=== PATIENT | male | born 1940 | race Caucasian/White ===

== ENCOUNTER 2020-08-03 07:35 | Day surgery (SDC) | payer MEDICARE, OTHER, SELFPAY ==
[2020-07-28 12:14] VITALS: BMI 26.6
--- NOTE | 2020-08-01 14:49 | HO.ANESPROP2 ---
Documented by User: Scarlett Sutton 08/01/20 14:53 HPI - Anesthesia Eval Consult details Narrative: 80yo M for Colonoscopy h/o bilat PE 12/2018 (prothrombin mutation), on xarelto PMFSH Active Problems Active Problems: All Active Problems (Updated 07/28/20 @ 12:12 by Venessa Leos) Pulmonary embolism (Acute) Past Medical History Medical History Bilateral pulmonary embolism GERD (gastroesophageal reflux disease) Heterozygous for prothrombin [id number] mutation Hyperlipidemia Situational anxiety Surgical History Surgical History Hx of cataract extraction Hx of cholecystectomy Hx of colonoscopy Hx of knee surgery Social History Social History Alcohol intake: current Alcohol intake frequency: 3 or more drinks per day Alcohol type: hard liquor Smoking Status: Former smoker Smoking Quit Date: 1984 Use of substances other than those prescribed or required for medical reasons: No Advance Directives: No Advance Directives Information Provided: No Advance Directives on File: No Meds Allergies Allergy/AdvReac Type Severity Reaction Status Date / Time cat dander [cats] Allergy Severe Anaphylaxis Verified 08/03/20 08:13 peanut [PEANUT] Allergy Severe ANAPHYLAXIS Verified 08/03/20 08:13 soy sauce Allergy Severe ANAPHYLAXIS Uncoded 03/10/20 15:08 Home Medications Medication Instructions Recorded Confirmed Type cholecalciferol (vitamin D3) 50 mcg PO DAILY 06/28/20 07/28/20 History [Vitamin D3] glucosamine HCl 1,500 mg PO DAILY 06/28/20 07/28/20 History omega-3 fatty acids [[place] 3 Fish 1,250 mg PO DAILY 06/28/20 07/28/20 History Oil Concentrate] omeprazole magnesium 20 mg PO DAILY 06/28/20 07/28/20 History rivaroxaban [Xarelto] 20 mg PO DAILY 06/28/20 07/28/20 History simvastatin 20 mg PO BEDTIME 06/28/20 07/28/20 History Exam Exam Date and Time: August 01, 2020 1449 Height,Weight and Vital Signs: Height 5 ft 6 in Weight 74.843 kg Pertinent Lab Results Pertinent Lab Results: Laboratory Tests 01/05/21 01/05/21 14:40 14:40 WBC 5.4 Hgb 15.1 Hct 44.8 Plt Count 161 Sodium 142 Potassium 4.2 Chloride 106 Carbon Dioxide 27 BUN 15 Creatinine 0.86 Assessment and Plan Assessment Anesthesia Assessment: Chart Reviewed Documented by User: Gifty Rivera 08/03/20 08:39 [facility] Past Medical History Medical History Bilateral pulmonary embolism GERD (gastroesophageal reflux disease) Heterozygous for prothrombin [id number] mutation Hyperlipidemia Situational anxiety Surgical History Surgical History Hx of cataract extraction Hx of cholecystectomy Hx of colonoscopy Hx of knee surgery Social History Social History Alcohol intake: current Alcohol intake frequency: 3 or more drinks per day Alcohol type: hard liquor Smoking Status: Former smoker Smoking Quit Date: 1984 Use of substances other than those prescribed or required for medical reasons: No Advance Directives: No Advance Directives Information Provided: No Advance Directives on File: No Meds Allergies Allergy/AdvReac Type Severity Reaction Status Date / Time cat dander [cats] Allergy Severe Anaphylaxis Verified 08/03/20 08:13 peanut [PEANUT] Allergy Severe ANAPHYLAXIS Verified 08/03/20 08:13 soy sauce Allergy Severe ANAPHYLAXIS Uncoded 03/10/20 15:08 Home Medications Medication Instructions Recorded Confirmed Type cholecalciferol (vitamin D3) 50 mcg PO DAILY 06/28/20 07/28/20 History [Vitamin D3] glucosamine HCl 1,500 mg PO DAILY 06/28/20 07/28/20 History omega-3 fatty acids [[place] 3 Fish 1,250 mg PO DAILY 06/28/20 07/28/20 History Oil Concentrate] omeprazole magnesium 20 mg PO DAILY 06/28/20 07/28/20 History rivaroxaban [Xarelto] 20 mg PO DAILY 06/28/20 07/28/20 History simvastatin 20 mg PO BEDTIME 06/28/20 07/28/20 History Exam Airway Mallampati Class: II TM Dist: >3cm Neck ROM: Full Assessment and Plan Assessment Anesthesia Assessment: Anesthesia Plan Discussed and Chart Reviewed Final Anesthetic Review NPO: Yes ASA Class: III Final Preanesthetic Review: No Changes in Pt Med Stat, Meds/Allgs Chart Reviewed, Consent Obtained/Reviewed and Anes Risks/Benef Reviewed Patient Risk: Intermediate Procedure Risk: Low Assessment/Block/Sedation in SS: Assess/Block/Sedation-SS Anesthetic Plan Anesthetic Plan: MAC: Disposition: Standard PACU
[2020-08-03 08:11] VITALS: BP 136/84; PULSE 86; RESP 18; TEMP 36.1; O2SAT 96
[2020-08-03] MEDS: Lactated Ringers 1,000 ML 100 ML IVCONT (08:14)
[2020-08-03 09:40] VITALS: BP 113/68; PULSE 62; RESP 15; TEMP 36.9; O2SAT 98
--- NOTE | 2020-08-03 09:41 | PM.OP ---
Brief Operative Note Date of Service: 08/03/20 Pre-op diagnosis: + Cologuard Post-op diagnosis: other (Colon polyp, Diverticulosis) Procedure: Colonoscopy to cecum and TI with snare polypectomy and placement of 1 Resolution clip Surgeon: Orestes Foreman Anesthesia: MAC Estimated blood loss (mL): 3.0 Pathology: other (A. Proximal ascending colon) Condition: stable Disposition: PACU
[2020-08-03 09:55] VITALS: BP 107/77; PULSE 62; RESP 18; TEMP 36.9; O2SAT 100
--- NOTE | 2020-08-03 10:16 | HO.POSTANES ---
Post Anesthesia Evaluation Post Anesthesia Evaluation Vital Signs: Vital Signs Temp Pulse Resp BP Pulse Ox 08/03/20 09:55 98.4 F 62 18 107/77 100 08/03/20 09:40 98.4 F 62 15 113/68 98 08/03/20 08:11 97.0 F 86 18 136/84 96 Anesthesia: Monitored Mental Status: Awake Pain Control: Satisfactory Nausea/Vomiting: None Hydration: Adequate Anesthesia-Related Issues: No Anes. Related Issues
--- NOTE | 2020-08-03 10:26 | OP_ITS ---
SURGEON: Orestes Foreman MD INDICATIONS: Full consent has been obtained from him for this, including risks of bleeding and perforation. PREOPERATIVE DIAGNOSIS: Positive Cologuard test. POSTOPERATIVE DIAGNOSIS: PROCEDURE PERFORMED: Colonoscopy to cecum and terminal ileum with snare polypectomy and placement of a single resolution clip. ESTIMATED BLOOD LOSS: COMPLICATIONS: ANESTHESIA: Monitored anesthesia care. ASSISTANTS: SPECIMENS: POSTOPERATIVE DIAGNOSES: Positive Cologuard test, colon polyps, diverticulosis and internal hemorrhoids. DESCRIPTION OF PROCEDURE: The patient was placed in the left lateral decubitus position. The digital rectal exam revealed no abnormalities. The Olympus video pediatric colonoscope was entered into the rectum and advanced to the cecum with the assistance of abdominal wall pressure. Once in the cecum, I did identify normal-appearing cecal pouch with appendiceal orifice and a normal-appearing ileocecal valve. The terminal ileum was cannulated and appeared normal. The scope was withdrawn back in the colon. The entire cecum and ileocecal valve appeared normal. The scope was slowly withdrawn assessing all mucosal surfaces carefully. Preparation was excellent. In the proximal ascending colon, was an approximately 10 to 12 mm flat, but raised polyp, which was snared and recovered by suction. The polypectomy site appeared clean, without any sign of residual polyp nor bleeding. I did place a single resolution clip on it due to the fact that he has to go back on Xarelto. There was good deployment and good hemostasis. I did not visualize any other polyps, colitis, nor angiodysplasia. There was a mildly diffuse amount of diverticulosis with the majority of it in the sigmoid colon. In the rectum, scope was retroflexed visualizing internal hemorrhoids, but no other pathology. The rectal mucosa appeared normal. The scope was straightened and withdrawn from the patient. He tolerated the procedure well and was returned to the recovery area in stable condition. IMPRESSION: 1. Colon polyp, status post snare polypectomy. 2. Diverticulosis. 3. Internal hemorrhoids. PLAN: The results of the pathology will be checked. Given his age and these findings, I do not think he will need any further screening colonoscopies. He was advised to resume his Xarelto in 24 hours. MD ELIESER Barrett/DORA / [id number]
== END 2020-08-03 10:24 | disposition home or self-care (01) ==
PROVIDERS: PCP Internal Medicine; Visit Provider Internal Medicine
PROC: 0DJD8ZZ Inspection of Lower Intestinal Tract, Via Natural or Artificial Opening Endoscopic (ICD-10-PCS; CPT 45378; principal; 2020-08-03 08:20)
DX: R19.5 Other fecal abnormalities (principal); D12.2 Benign neoplasm of ascending colon; K57.30 Diverticulosis of large intestine without perforation or abscess without bleeding; K64.8 Other hemorrhoids; Z86.711 Personal history of pulmonary embolism; Z79.01 Long term (current) use of anticoagulants
CPT/HCPCS: 45385; 88305

== ENCOUNTER 2020-10-04 10:44 | Outpatient (REF) | payer MEDICARE, OTHER, SELFPAY ==
[2020-10-04 11:40] LABS: Alanine Aminotransferase 12 U/L (0-40); Albumin Level 3.7 g/dL (3.5-5.0); Alkaline Phosphatase 50 U/L (39-117); Aspartate Amino Transferase 22 U/L (5-37); Bilirubin Direct 0.3 mg/dL (0.0-0.5); Bilirubin Total 0.7 mg/dL (0.0-1.0); Cholesterol 155 mg/dL; HDL Cholesterol 54 mg/dL; LDL Cholesterol Calculated 82 mg/dl; Total Protein 6.2 g/dL (6.5-8.0); Triglycerides 99 mg/dL
[2020-10-04 11:58] LABS: Reflex LDLD? No
== END 2020-10-04 10:45 | disposition home or self-care (01) ==
LOC: HO.LNP 10:44
PROVIDERS: PCP Internal Medicine; Visit Provider Internal Medicine
DX: E78.2 Mixed hyperlipidemia (principal)
CPT/HCPCS: 80061; 80076

== ENCOUNTER 2021-03-28 10:33 | Outpatient (REF) | payer MEDICARE, OTHER, SELFPAY ==
[2021-03-28 10:36] LABS: MANUAL DIFF FLAG NO
[2021-03-28 11:11] LABS: Basophils Absolute Auto 0.1 X10*3/uL (0.0-0.2); Basophils Percent Auto 1.1 % (0-2); Eosinophils Absolute Auto 0.2 X10*3/uL (0.0-0.4); Eosinophils Percent Auto 3.4 % (0-4); Hematocrit 44.6 % (42-52); Hemoglobin 14.9 g/dl (14.0-18.0); Imm Gran Abs Auto 0.02 X10*3/uL (0.00-0.03); Imm Gran Pct Auto 0.4 % (0.0-0.4); Lymphocytes Absolute Auto 1.7 X10*3/uL (1.2-4.9); Lymphocytes Percent Auto 31.3 % (20-40); Mean Corpuscular HGB Conc 33.4 g/dl (31.0-36.0); Mean Corpuscular Hemoglobin 32.7 pg (27.0-33.0); Mean Platelet Volume 10.8 fL (9.4-12.4); Monocytes Absolute Auto 0.5 X10*3/uL (0.1-1.2); Neutrophils Absolute Auto 2.9 X10*3/uL (2.0-8.3); Neutrophils Percent Auto 53.8 % (45-73); Platelet Count 177 X10*3/uL (160-400); Red Blood Count 4.55 X10*6/uL (4.60-5.80); White Blood Count 5.3 X10*3/uL (4.8-10.8)
[2021-03-28 11:42] LABS: Appearance Urine CLEAR; Color Urine YELLOW; Glucose Urine UA NEG (NEG); Leukocyte Esterase Urine NEG (NEG); Nitrite Urine NEG (NEG); Specific Gravity - Urine 1.015 (1.005-1.025); Urine Blood NEG (NEG); Urine Ketones 15 MG/DL (NEG); Urine Protein NEG (NEG-TRACE)
[2021-03-28 11:52] LABS: Alanine Aminotransferase 13 U/L (0-40); Albumin Level 3.8 g/dL (3.5-5.0); Alkaline Phosphatase 49 U/L (39-117); Anion Gap 13 (12-20); Aspartate Amino Transferase 26 U/L (5-37); Bilirubin Total 1.5 mg/dL (0.0-1.0); Blood Urea Nitrogen 12 mg/dL (9-16); Calcium 9.1 mg/dL (8.4-10.2); Carbon Dioxide 27 mmol/L (22-29); Chloride 105 mmol/L (96-108); Cholesterol 178 mg/dL; Estimated Glomerular Filt Rate > 60; Glucose Fasting 93 mg/dL (60-99); HDL Cholesterol 77 mg/dL; LDL Cholesterol Calculated 90 mg/dl; Potassium 4.4 mmol/L (3.3-5.1); Sodium 141 mmol/L (135-145); Total Protein 6.3 g/dL (6.5-8.0); Triglycerides 59 mg/dL
[2021-03-28 12:05] LABS: Reflex LDLD? No
[2021-03-28 12:12] LABS: PSA,Total (Free>4and<10) 2.86 ng/mL (0.00-4.00)
== END 2021-03-28 10:34 | disposition home or self-care (01) ==
LOC: HO.LNP 10:33
PROVIDERS: Visit Provider Internal Medicine
DX: E78.2 Mixed hyperlipidemia (principal); R97.20 Elevated prostate specific antigen [PSA]; E55.9 Vitamin D deficiency, unspecified; Z12.5 Encounter for screening for malignant neoplasm of prostate
CPT/HCPCS: 80053; 80061; 81003; 82306; 84153; 85025

== ENCOUNTER 2021-10-12 12:01 | Outpatient (REF) | payer MEDICARE, OTHER, SELFPAY ==
[2021-10-12 12:59] LABS: Alanine Aminotransferase 11 U/L (0-40); Alkaline Phosphatase 51 U/L (39-117); Aspartate Amino Transferase 23 U/L (5-37); Bilirubin Direct 0.4 mg/dL (0.0-0.5); Bilirubin Total 0.8 mg/dL (0.0-1.0); Cholesterol 193 mg/dL; HDL Cholesterol 86 mg/dL; LDL Cholesterol Calculated 95 mg/dl; Total Protein 6.7 g/dL (6.5-8.0); Triglycerides 63 mg/dL
[2021-10-12 13:23] LABS: Reflex LDLD? No
== END 2021-10-12 12:02 | disposition home or self-care (01) ==
LOC: HO.LNP 12:01
PROVIDERS: Visit Provider Internal Medicine
DX: E78.2 Mixed hyperlipidemia (principal)
CPT/HCPCS: 80061; 80076

== ENCOUNTER 2022-04-10 11:13 | Outpatient (REF) | payer MEDICARE, OTHER, SELFPAY ==
[2022-04-10 11:16] LABS: MANUAL DIFF FLAG NO
[2022-04-10 12:06] LABS: Basophils Absolute Auto 0.1 X10*3/uL (0.0-0.2); Basophils Percent Auto 1.5 % (0-2); Eosinophils Absolute Auto 0.2 X10*3/uL (0.0-0.4); Eosinophils Percent Auto 3.8 % (0-4); Hematocrit 45.5 % (42.0-52.0); Hemoglobin 15.5 g/dl (14.0-18.0); Imm Gran Abs Auto 0.01 X10*3/uL (0.00-0.03); Imm Gran Pct Auto 0.3 % (0.0-0.4); Lymphocytes Absolute Auto 1.5 X10*3/uL (1.2-4.9); Lymphocytes Percent Auto 38.8 % (20-40); Mean Corpuscular HGB Conc 34.1 g/dl (31.0-36.0); Mean Corpuscular Hemoglobin 32.4 pg (27.0-33.0); Mean Corpuscular Volume 95.2 fL (80.0-98.0); Mean Platelet Volume 10.4 fL (9.4-12.4); Monocytes Absolute Auto 0.4 X10*3/uL (0.1-1.2); Monocytes Percent Auto 10.7 % (2-11); Neutrophils Absolute Auto 1.8 x10*3/uL (2.0-8.3); Neutrophils Percent Auto 44.9 % (45-73); Platelet Count 189 X10*3/uL (160-400); Red Blood Count 4.78 X10*6/uL (4.60-5.80); Red Cell Distribution Width 12.3 % (11.0-16.0); White Blood Count 3.9 X10*3/uL (4.8-10.8)
[2022-04-10 12:07] LABS: Appearance Urine Clear; Color Urine Yellow; Glucose Urine UA Negative (Negative); Leukocyte Esterase Urine Negative (Negative); Nitrite Urine Negative (Negative); PH 5.5 (5.0-9.0); Urine Blood Negative (Negative); Urine Ketones Negative (Negative); Urine Protein Negative (Neg-Trace)
[2022-04-10 12:12] LABS: Bacteria Urine None Seen (None Seen); Hyaline Casts Urine 0-2 /LPF (0-2); Squamous Epithelial Cell Urine 0-2 /HPF (0-2); WBC Urine 0-5 /HPF (0-5)
[2022-04-10 12:37] LABS: Alanine Aminotransferase 11 U/L (0-40); Alkaline Phosphatase 51 U/L (39-117); Anion Gap 16 (12-20); Aspartate Amino Transferase 28 U/L (5-37); Bilirubin Total 1.2 mg/dL (0.0-1.0); Blood Urea Nitrogen 6 mg/dL (9-16); Calcium 9.2 mg/dL (8.4-10.2); Carbon Dioxide 27 mmol/L (22-29); Chloride 102 mmol/L (96-108); Cholesterol 184 mg/dL; Estimated Glomerular Filt Rate > 60; Glucose Fasting 84 mg/dL (60-99); HDL Cholesterol 80 mg/dL; LDL Cholesterol Calculated 91 mg/dl; Potassium 4.3 mmol/L (3.3-5.1); Sodium 141 mmol/L (135-145); Total Protein 6.7 g/dL (6.5-8.0); Triglycerides 69 mg/dL
[2022-04-10 13:01] LABS: PSA,Total (Free>4and<10) 2.97 ng/mL (0.00-4.00); Vitamin D 25-OH Total 57.1 ng/mL (>30)
== END 2022-04-10 11:14 | disposition home or self-care (01) ==
LOC: HO.LNP 11:13
PROVIDERS: Visit Provider Internal Medicine
DX: Z12.5 Encounter for screening for malignant neoplasm of prostate (principal); E78.2 Mixed hyperlipidemia; E55.9 Vitamin D deficiency, unspecified
CPT/HCPCS: 80053; 80061; 81001; 82306; 84153; 85025

== ENCOUNTER 2022-05-11 10:43 | Outpatient (REF) | payer MEDICARE, OTHER, SELFPAY ==
[2022-05-11 10:46] LABS: MANUAL DIFF FLAG NO
[2022-05-11 10:59] LABS: Basophils Absolute Auto 0.1 X10*3/uL (0.0-0.2); Basophils Percent Auto 1.3 % (0-2); Eosinophils Absolute Auto 0.2 X10*3/uL (0.0-0.4); Eosinophils Percent Auto 3.2 % (0-4); Hemoglobin 14.7 g/dl (14.0-18.0); Imm Gran Abs Auto 0.01 X10*3/uL (0.00-0.03); Imm Gran Pct Auto 0.2 % (0.0-0.4); Lymphocytes Absolute Auto 1.6 X10*3/uL (1.2-4.9); Lymphocytes Percent Auto 30.3 % (20-40); Mean Corpuscular HGB Conc 33.4 g/dl (31.0-36.0); Mean Corpuscular Hemoglobin 32.2 pg (27.0-33.0); Mean Corpuscular Volume 96.5 fL (80.0-98.0); Mean Platelet Volume 10.8 fL (9.4-12.4); Monocytes Absolute Auto 0.5 X10*3/uL (0.1-1.2); Monocytes Percent Auto 8.6 % (2-11); Neutrophils Percent Auto 56.4 % (45-73); Platelet Count 173 X10*3/uL (160-400); Red Blood Count 4.56 X10*6/uL (4.60-5.80); Red Cell Distribution Width 12.6 % (11.0-16.0); White Blood Count 5.3 X10*3/uL (4.8-10.8)
== END 2022-05-11 10:44 | disposition home or self-care (01) ==
LOC: HO.LNP 10:43
PROVIDERS: Visit Provider Internal Medicine
DX: D70.9 Neutropenia, unspecified (principal)
CPT/HCPCS: 85025

== ENCOUNTER 2022-10-09 12:03 | Outpatient (REF) | payer MEDICARE, OTHER, SELFPAY ==
[2022-10-09 13:11] LABS: Alanine Aminotransferase 9 U/L (0-40); Albumin Level 3.9 g/dL (3.5-5.0); Alkaline Phosphatase 57 U/L (39-117); Aspartate Amino Transferase 25 U/L (5-37); Bilirubin Direct 0.3 mg/dL (0.0-0.5); Bilirubin Total 1.1 mg/dL (0.0-1.0); Cholesterol 166 mg/dL; HDL Cholesterol 72 mg/dL; LDL Cholesterol Calculated 83 mg/dl; Total Protein 6.5 g/dL (6.5-8.0); Triglycerides 59 mg/dL
[2022-10-09 14:46] LABS: Reflex LDLD? No
== END 2022-10-09 12:04 | disposition home or self-care (01) ==
LOC: HO.LNP 12:03
PROVIDERS: Visit Provider Internal Medicine
DX: E78.2 Mixed hyperlipidemia (principal)
CPT/HCPCS: 80061; 80076

== ENCOUNTER 2023-04-15 11:16 | Outpatient (REF) | payer MEDICARE, OTHER, SELFPAY ==
[2023-04-15 13:11] LABS: MANUAL DIFF FLAG NO
[2023-04-15 13:15] LABS: Appearance Urine Clear; Color Urine Yellow; Glucose Urine UA Negative (Negative); Leukocyte Esterase Urine Negative (Negative); Nitrite Urine Negative (Negative); Urine Blood Negative (Negative); Urine Ketones Negative (Negative); Urine Protein Negative (Neg-Trace)
[2023-04-15 13:16] LABS: Basophils Absolute Auto 0.1 X10*3/uL (0.0-0.2); Eosinophils Absolute Auto 0.2 X10*3/uL (0.0-0.4); Eosinophils Percent Auto 3.1 % (0-4); Hematocrit 45.5 % (42.0-52.0); Hemoglobin 15.2 g/dl (14.0-18.0); Imm Gran Abs Auto 0.01 X10*3/uL (0.00-0.03); Imm Gran Pct Auto 0.2 % (0.0-0.4); Lymphocytes Absolute Auto 1.6 X10*3/uL (1.2-4.9); Lymphocytes Percent Auto 33.9 % (20-40); Mean Corpuscular HGB Conc 33.4 g/dl (31.0-36.0); Mean Corpuscular Hemoglobin 31.7 pg (27.0-33.0); Mean Platelet Volume 10.5 fL (9.4-12.4); Monocytes Absolute Auto 0.4 X10*3/uL (0.1-1.2); Monocytes Percent Auto 7.9 % (2-11); Neutrophils Absolute Auto 2.6 x10*3/uL (2.0-8.3); Neutrophils Percent Auto 53.9 % (45-73); Platelet Count 168 X10*3/uL (160-400); Red Blood Count 4.79 X10*6/uL (4.60-5.80); Red Cell Distribution Width 13.2 % (11.0-16.0); White Blood Count 4.8 X10*3/uL (4.8-10.8)
[2023-04-15 13:17] LABS: Bacteria Urine None Seen (None Seen); Hyaline Casts Urine 0-2 /LPF (0-2); RBC Urine 0-2 /HPF (0-2); Squamous Epithelial Cell Urine 0-2 /HPF (0-2); WBC Urine 0-5 /HPF (0-5)
[2023-04-15 13:46] LABS: PSA,Total (Free>4and<10) 3.22 ng/mL (0.00-4.00)
[2023-04-15 13:50] LABS: Alanine Aminotransferase 10 U/L (0-40); Albumin Level 3.8 g/dL (3.5-5.0); Alkaline Phosphatase 58 U/L (39-117); Anion Gap 16 (12-20); Aspartate Amino Transferase 25 U/L (5-37); Bilirubin Total 1.2 mg/dL (0.0-1.0); Blood Urea Nitrogen 6 mg/dL (9-16); Calcium 9.5 mg/dL (8.4-10.2); Carbon Dioxide 23 mmol/L (22-29); Chloride 106 mmol/L (96-108); Cholesterol 160 mg/dL (<200); Estimated Glomerular Filt Rate > 60; Glucose Fasting 90 mg/dL (60-99); HDL Cholesterol 83 mg/dL (>40); LDL Cholesterol Calculated 68 mg/dL (<100); Potassium 4.7 mmol/L (3.3-5.1); Sodium 140 mmol/L (135-145); Total Protein 7.1 g/dL (6.5-8.0); Triglycerides 48 mg/dL (<150)
[2023-04-15 13:54] LABS: Vitamin D 25-OH Total 60.5 ng/mL (>30)
== END 2023-04-15 11:17 | disposition home or self-care (01) ==
LOC: HO.10HDL 11:16
PROVIDERS: Visit Provider Internal Medicine
DX: E78.2 Mixed hyperlipidemia (principal); E55.9 Vitamin D deficiency, unspecified; D70.9 Neutropenia, unspecified; Z12.5 Encounter for screening for malignant neoplasm of prostate
CPT/HCPCS: 36415; 80053; 80061; 81001; 82306; 84153; 85025

== ENCOUNTER 2023-09-19 11:41 | Emergency (ER) | payer MEDICARE, OTHER, SELFPAY ==
[2023-09-19 11:44] VITALS: BP 121/75; PULSE 104; RESP 16; TEMP 36.9; O2SAT 94; BMI 25.3
--- NOTE | 2023-09-19 11:44 | ED_ITS ---
HPI - General Adult General Chief complaint: Epistaxis Stated complaint: Nose bleed 4 days Time Seen by Provider: 09/19/23 15:52 Source: patient and family Mode of arrival: ambulatory Limitations: no limitations History of Present Illness HPI narrative: 83-year-old male with a past medical history of pulmonary emboli on Xarelto presents to the emergency department, with his son, for concerns for a 3 day history of epistaxis. He reports he has been attempting to manage his nose bleed at home, however; he was at [facility] earlier today when someone expressed concerns that he was pale prompting him to be evaluated here in the emergency department. He reports he has an upper respiratory infection has had increased congestion and has been blowing his nose more frequently. He states he has been placing Vicks ointment inside of the nose and using a humidifier at home. He denies any nasal trauma, dizziness, lightheadedness. He reports minor nausea but believes that is due to ingestion of blood from his nosebleed. He states he is held his Xarelto for the last 2 days in an attempt to control bleeding. He denies any chest pains, shortness of breath, headache, vision changes, weakness, or new paresthesias. Pertinent positives and negatives discussed in HPI Related Data Home Medications Medication Instructions Recorded Confirmed cholecalciferol (vitamin D3) 50 50 mcg PO DAILY 06/28/20 07/28/20 mcg (2,000 unit) tablet (Vitamin D3) glucosamine HCl 1,500 mg tablet 1,500 mg PO DAILY 06/28/20 07/28/20 omega-3 fatty acids 1,250 mg PO DAILY 06/28/20 07/28/20 omeprazole magnesium 20 mg 20 mg PO DAILY 06/28/20 07/28/20 capsule,delayed release rivaroxaban 20 mg tablet (Xarelto) 20 mg PO DAILY 06/28/20 07/28/20 simvastatin 20 mg tablet 20 mg PO BEDTIME 06/28/20 07/28/20 Allergies Allergy/AdvReac Type Severity Reaction Status Date / Time cat dander [cats] Allergy Severe Anaphylaxis Verified 09/19/23 11:44 peanut [PEANUT] Allergy Severe ANAPHYLAXIS Verified 09/19/23 11:44 soy sauce Allergy Severe ANAPHYLAXIS Uncoded 03/10/20 15:08 Review of Systems 2 Review of Systems: Yes all other systems are reviewed and are negative PMFSH Past Medical History Medical History Bilateral pulmonary embolism GERD (gastroesophageal reflux disease) Heterozygous for prothrombin [id number] mutation Hyperlipidemia Situational anxiety Surgical History Hx of cataract extraction Hx of cholecystectomy Hx of colonoscopy Hx of knee surgery Social History Social History Alcohol intake: current Alcohol intake frequency: 3 or more drinks per day Alcohol type: hard liquor Advance Directives: No Physical Exam ED Vital Signs: Vital Signs - 24 hr 09/19/23 11:44 09/19/23 15:17 Temperature 98.5 F 98.6 F Pulse Rate 104 H 88 Respiratory Rate 16 18 Blood Pressure 121/75 96/54 L Pulse Oximetry 94 95 Oxygen Delivery Method Room Air Room Air BMI result Body Mass Index 25.3 Nursing notes and vital signs reviewed. GENERAL APPEARANCE: A&0 x 4, generally well appearing, no acute distress HENMT: Normal to inspection, atraumatic, face symmetrical. Normal external ears and oropharynx clear. Left naris epistaxis EYE: PERRLA, EOM intact, structures appear normal NECK: Supple without stiffness or restricted ROM. HEART: Normal rate and regular rhythm, normal S1/S2, no M/R/G LUNGS: LS CTA, moving air well. Able to speak in complete sentences. No crackles, wheezes, or rhonchi auscultated BACK: No CVAT, no obvious deformity EXTREMITIES: Moving all extremities without difficulty. Normal capillary refill. NEUROLOGICAL: Alert and oriented, moving all 4 extremities with equal strength. CN not formally tested but appearing grossly intact. Observed to ambulate with normal gait. Cognition normal SKIN: Warm and dry without any lesions, rash, or visible sores Course Course Course Narrative: RME:?83 yo male here for eval of epistaxis x3 day that began after waking. on xarelto. last dose was yesterday. here w/ son who states patient is currently ill with a cold and keeps blowing his nose. denies headache, dizziness, generalized weakness. basic labs, coags ordered. Full HPI, ROS and PE to be performed by the primary ED provider. Medications Administered Discontinued Medications Generic Name Dose Route Start Last Admin Trade Name Freq PRN Reason Stop Dose Admin Ondansetron HCl 4 mg 09/19/23 15:24 09/19/23 15:26 Ondansetron Odt 4 Mg Tab.Valentinadis TRANSLINGU 09/19/23 15:25 4 mg ONCE ONE Administration Oxymetazoline HCl 2 spray 09/19/23 16:47 09/19/23 16:54 Oxymetazoline Hcl 0.05 % Nasal 15 Ml [place] NOSTRIL-B 09/19/23 16:48 2 spray ONCE ONE Administration Silver Nitrate 2 appl 09/19/23 16:01 09/19/23 16:22 Silver Nitrate Applicator Stick..Ea. TOPICAL 09/19/23 16:02 2 appl ONCE ONE Administration Tranexamic Acid 500 mg 09/19/23 16:47 09/19/23 16:53 Tranexamic Acid 1,000 Mg/10 Ml Vial INTRANASAL 09/19/23 16:48 500 mg ONCE ONE Administration Medical Decision Making Medical Decision Making MDM Narrative: Old records reviewed for previous imaging, lab studies, ECGs, and notes. Patient was assessed the emergency department with no acute distress or toxicity noted. Blood work showing no evidence of significant dehydration or anemia. Epistaxis controlled with TXA soaked gauze, silver nitrate for cauterization, and Afrin. Patient monitored for greater than 45 minutes with hemostasis maintained. Patient educated to continue taking anticoagulant as prescribed and follow-up with ENT for further evaluation as needed. Patient educated to avoid using Vicks in his nose and that he can use Vaseline or saline gel for hydration. Patient is safe for discharge at this time with plan for [id number] Tylenol and/or NSAID such as ibuprofen or naproxen for fever/discomfort with dosing as per packaging. HPI, PE, diagnostics, and plan discussed with patient and family with no unanswered questions at this time. Strict return precautions given to return to the emergency department with new, worsening, or concerning emergent symptoms. Recommended to follow-up with there primary care provider in 24-48 hours for further treatment and management. Differential Diagnosis Differential Diagnoses: The differential diagnosis associated with the presentation includes But not limited to epistaxis, nasal hematoma, fracture, nasal dislocation, abscess, sepsis, malignancy Lab Data MDM Lab Attestation statement: I reviewed the patient's lab results. 09/19/23 12:21 09/19/23 12:21 Labs: Lab Results 09/19/23 09/19/23 Range/Units 12:21 15:23 WBC 7.8 (4.8-10.8) X10*3/uL RBC 4.58 L (4.60-5.80) X10*6/uL Hgb 14.6 (14.0-18.0) g/dl Hct 42.6 (42.0-52.0) % MCV 93.0 (80.0-98.0) fL MCH 31.9 (27.0-33.0) pg MCHC 34.3 (31.0-36.0) g/dl RDW 12.8 (11.0-16.0) % Plt Count 160 (160-400) X10*3/uL MPV 10.2 (9.4-12.4) fL Immature Gran % (Auto) 0.3 (0.0-0.4) % Neut % (Auto) 74.9 H (45-73) % Lymph % (Auto) 16.3 L (20-40) % [place] % (Auto) 6.2 (2-11) % Eos % (Auto) 1.7 (0-4) % Baso % (Auto) 0.6 (0-2) % Lymph # (Auto) 1.3 (1.2-4.9) X10*3/uL [place] # (Auto) 0.5 (0.1-1.2) X10*3/uL Eos # (Auto) 0.1 (0.0-0.4) X10*3/uL Baso # (Auto) 0.1 (0.0-0.2) X10*3/uL Abs Immat Gran (auto) 0.02 (0.00-0.03) X10*3/uL Absolute Neuts (auto) 5.9 (2.0-8.3) x10*3/uL Absolute Nucleated RBC 0.000 (0.0-0.012) X10*3/uL Nucleated RBC % (auto) 0.0 (0.0-0.2) /100WBC PT 18.2 H (11.1-13.3) SEC INR 1.5 H (0.9-1.1) APTT 36.6 (26.0-36.8) SEC Sodium 142 (135-145) mmol/L Potassium 3.7 (3.3-5.1) mmol/L Chloride 107 (96-108) mmol/L Carbon Dioxide 24 (22-29) mmol/L Anion Gap 15 (12-20) BUN 23 H (9-16) mg/dL Creatinine 0.85 (0.5-1.4) mg/dL Estim Creat Clear Calc 59.4 Estimated GFR > 60 POC Glucose 126 H (60-115) mg/dL Random Glucose 106 (60-115) mg/dL Calcium 9.3 (8.4-10.2) mg/dL Total Bilirubin 1.6 H (0.0-1.0) mg/dL AST 19 (5-37) U/L ALT 8 (0-40) U/L Alkaline Phosphatase 62 (39-117) U/L Total Protein 6.9 (6.5-8.0) g/dL Albumin 3.8 (3.5-5.0) g/dL Independent Historian Clinical information obtained from an independent historian. History obtained from or confirmed by: Other family External Record Review External record reviewed: Inpatient record Chronic Conditions Patient?s care impacted by: Other pe Discharge Plan Discharge Clinical Impression: Epistaxis Patient Disposition: Home, Self-Care Instructions: Nosebleed (ED) Prescriptions: No Action simvastatin 20 mg Tablet 20 mg PO BEDTIME glucosamine HCl 1,500 mg Tablet 1,500 mg PO DAILY omeprazole magnesium 20 mg Capsule,Delayed Release(Dr/Ec) 20 mg PO DAILY [place] 3 Fish Oil Concentrate Capsule 1,250 mg PO DAILY cholecalciferol (vitamin D3) [Vitamin D3] 50 mcg (2,000 unit) Tablet 50 mcg PO DAILY Xarelto 20 mg Tablet 20 mg PO DAILY Referrals: Hay Kessler MD [Primary Care Provider] - Waldemar Vega [Physician] - (As needed) Print Language: Nigerien
[2023-09-19 12:26] LABS: MANUAL DIFF FLAG NO
[2023-09-19 12:27] LABS: Basophils Absolute Auto 0.1 X10*3/uL (0.0-0.2); Basophils Percent Auto 0.6 % (0-2); Eosinophils Absolute Auto 0.1 X10*3/uL (0.0-0.4); Eosinophils Percent Auto 1.7 % (0-4); Hematocrit 42.6 % (42.0-52.0); Hemoglobin 14.6 g/dl (14.0-18.0); Imm Gran Abs Auto 0.02 X10*3/uL (0.00-0.03); Imm Gran Pct Auto 0.3 % (0.0-0.4); Lymphocytes Absolute Auto 1.3 X10*3/uL (1.2-4.9); Lymphocytes Percent Auto 16.3 % (20-40); Mean Corpuscular HGB Conc 34.3 g/dl (31.0-36.0); Mean Corpuscular Hemoglobin 31.9 pg (27.0-33.0); Mean Platelet Volume 10.2 fL (9.4-12.4); Monocytes Absolute Auto 0.5 X10*3/uL (0.1-1.2); Monocytes Percent Auto 6.2 % (2-11); Neutrophils Absolute Auto 5.9 x10*3/uL (2.0-8.3); Neutrophils Percent Auto 74.9 % (45-73); Platelet Count 160 X10*3/uL (160-400); Red Blood Count 4.58 X10*6/uL (4.60-5.80); Red Cell Distribution Width 12.8 % (11.0-16.0); White Blood Count 7.8 X10*3/uL (4.8-10.8)
[2023-09-19 12:32] LABS: INTERNATIONAL NORM RATIO 1.5 (0.9-1.1); Prothrombin Time 18.2 SEC (11.1-13.3)
[2023-09-19 12:35] LABS: Partial Thromboplastin Time 36.6 SEC (26.0-36.8)
[2023-09-19 12:43] LABS: Alanine Aminotransferase 8 U/L (0-40); Albumin Level 3.8 g/dL (3.5-5.0); Alkaline Phosphatase 62 U/L (39-117); Anion Gap 15 (12-20); Aspartate Amino Transferase 19 U/L (5-37); Bilirubin Total 1.6 mg/dL (0.0-1.0); Blood Urea Nitrogen 23 mg/dL (9-16); Calcium 9.3 mg/dL (8.4-10.2); Carbon Dioxide 24 mmol/L (22-29); Chloride 107 mmol/L (96-108); Creatinine Clr Calc Pharmacy 59.4; Estimated Glomerular Filt Rate > 60; Glucose Random 106 mg/dL (60-115); Potassium 3.7 mmol/L (3.3-5.1); Sodium 142 mmol/L (135-145); Total Protein 6.9 g/dL (6.5-8.0)
[2023-09-19 15:17] VITALS: BP 96/54; PULSE 88; RESP 18; TEMP 37; O2SAT 95
[2023-09-19] MEDS: Ondansetron ODT 4 MG TAB.RAPDIS TRANSLINGU (15:26)
[2023-09-19 15:27] LABS: Glucose, Whole Blood 126 mg/dL (60-115)
[2023-09-19] MEDS: Silver Nitrate Applicator STICK..EA. 2 APPL TOPICAL (16:22)
[2023-09-19] MEDS: Tranexamic Acid 1,000 MG/10 ML VIAL 500 MG INTRANASAL (16:53)
[2023-09-19] MEDS: Oxymetazoline HCl 0.05 % Nasal 15 ML SPRAY 2 SPRAY NOSTRIL-B (16:54)
[2023-09-19 19:04] VITALS: BP 96/54; PULSE 88; RESP 18; TEMP 37; O2SAT 95
== END 2023-09-19 19:05 | disposition home or self-care (01) ==
PROVIDERS: Physician Assistant Medical; Emergency Provider Emergency Medicine; PCP Internal Medicine
DX: R04.0 Epistaxis (principal); Z86.711 Personal history of pulmonary embolism; Z79.01 Long term (current) use of anticoagulants
CPT/HCPCS: 30901; 36415; 80053; 82947; 85025; 85610; 85730; 99282; 99283

== ENCOUNTER 2023-11-29 13:56 | Outpatient (REF) | payer MEDICARE, OTHER, SELFPAY ==
[2023-11-29 14:14] LABS: Alanine Aminotransferase 7 U/L (0-40); Alkaline Phosphatase 52 U/L (39-117); Aspartate Amino Transferase 21 U/L (5-37); Bilirubin Direct 0.4 mg/dL (0.0-0.5); Cholesterol 157 mg/dL (<200); HDL Cholesterol 77 mg/dL (>40); LDL Cholesterol Calculated 71 mg/dL (<100); Triglycerides 47 mg/dL (<150)
== END 2023-11-29 13:57 | disposition home or self-care (01) ==
LOC: HO.LNP 13:56
PROVIDERS: Visit Provider Internal Medicine
DX: E78.2 Mixed hyperlipidemia (principal)
CPT/HCPCS: 80061; 80076

== ENCOUNTER → 2024-02-19 14:07 | Outpatient (RCR) | payer MEDICARE, OTHER, SELFPAY ==
[2020-06-28 14:44] VITALS: BP 129/72; PULSE 78; RESP 12; TEMP 36.8; O2SAT 96; BMI 27.0
--- NOTE | 2020-06-28 14:51 | P.PNHO_ITS ---
Medical Summary - Medical Summary Date of Service: 06/28/20 Medical Summary: DIAGNOSIS: BILATERAL PE. Heterozygous prothrombin mutation. CURRENT THERAPY: Xeralto 20 mg daily. Interval History Interval history: This is a pleasant 80 year-old gentleman, here for a follow-up visit. He tells me everything is going well. He is feeling great. No changes in his medical history. Vitamin-D has been added to his regimen. His only complaint is his allergies are acting up. He gets hay fever. He takes occasional Benadryl and Claritin. These do help however they make him drowsy. Denies fever nor chills. He has no headache no dizziness. He denies abdominal pain nausea vomiting heartburn indigestion. Bowels are working without any gross blood in it. He enjoys a good appetite. He has lost some weight. He has been staying home. He is in good spirits. Rest of the review of systems is unremarkable. Review of Systems - Constitutional Reports system reviewed and no additional complaints, except as documented - Eyes Reports system reviewed and no additional complaints, except as documented - ENT Reports system reviewed and no additional complaints, except as documented - Cardiovascular Reports system reviewed and no additional complaints, except as documented - Respiratory Reports no additional respiratory complaints - Gastrointestinal Reports system reviewed and no additional complaints, except as documented - Genitourinary Genitourinary: Reports no additional male genitourinary complaints - Musculoskeletal Reports system reviewed and no additional complaints, except as documented - Integumentary/Breasts Skin/Breast: Reports no additional skin complaints - Neurologic Reports system reviewed and no additional complaints, except as documented - Psychiatric Reports system reviewed and no additional complaints, except as documented - Endocrine Reports no additional endocrine complaints - Hematologic/Lymphatic Reports system reviewed and no additional complaints, except as documented - Allergic/Immunologic Reports system reviewed and no additional complaints, except as documented PMF Medical History: Medical History (Last Updated 06/28/20 @ 14:50 by Gayle John) Bilateral pulmonary embolism Cataract GERD (gastroesophageal reflux disease) Heterozygous for prothrombin [id number] mutation Hyperlipidemia Functional capacity: independent ambulation Patient : No Surgical History: Surgical History (Last Updated 06/28/20 @ 14:50 by Gayle John) Hx of cholecystectomy Home Medications and Allergies Home Medications Medication Instructions Recorded Confirmed Type cholecalciferol (vitamin D3) 50 mcg PO DAILY 06/28/20 06/28/20 History [Vitamin D3] glucosamine HCl 1,500 mg PO DAILY 06/28/20 06/28/20 History omega-3 fatty acids [[place] 3 Fish 1,250 mg PO DAILY 06/28/20 06/28/20 History Oil Concentrate] omeprazole magnesium 20 mg PO DAILY 06/28/20 06/28/20 History rivaroxaban [Xarelto] 20 mg PO DAILY 06/28/20 06/28/20 History simvastatin 20 mg PO BEDTIME 06/28/20 06/28/20 History Allergies Allergy/AdvReac Type Severity Reaction Status Date / Time peanut [PEANUT] Allergy Severe ANAPHYLAXIS Unverified 03/10/20 15:08 soy sauce Allergy Severe ANAPHYLAXIS Uncoded 03/10/20 15:08 Exam Vital signs: Vital Signs Temp 98.2 F 06/28/20 14:44 Pulse 78 06/28/20 14:44 Resp 12 06/28/20 14:44 BP 129/72 06/28/20 14:44 Pulse Ox 96 06/28/20 14:44 Intake & Output 06/27/20 06/28/20 06/28/20 18:59 06:59 18:59 Other: Weight 76 kg Weight 76 kg Body Mass Index 27.0 - Constitutional Present: no acute distress - Routine HEENT Exam Head: Present: normal inspection Eye: Present: normal appearance ENT: Present: mucous membranes moist - Routine Neck Exam Present: full ROM - Routine Respiratory Exam Present: CTAB - Routine Cardiovascular Exam Cardiovascular: Present: RRR, S1, S2 - Routine Abdominal Exam Present: soft, nontender - Routine Extremities Exam Present: nontender - Routine Back/Spine/Pelvis Exam Back/Spine: Present: full ROM - Routine Skin Exam Present: intact - Routine Neurological Exam Present: alert, oriented X3 - Routine Psychiatric Exam Present: normal affect Data - Labs CBC & Chem 7: 06/28/20 14:40 06/28/20 14:40 Progress Note: A/P (1) Pulmonary embolism Status: Acute Assessment and plan: This is a pleasant 80 year-old gentleman, who presented in , with shortness of breath, worsening, over the 4 days, prior to admission. He had a small non ST elevation [place]. In addition, CTA was positive for bilateral PE. This appeared to be unprovoked, no recent surgery nor travel, however he appears to be rather sedentary. The ultrasound of the lower extremities to look for a source of PE, was negative for any evidence of DVT. He had weight loss, however he has been really depressed since his 's demise. Had not been eating properly. His PSA has been up at 5.8, in September. Down to 3.4 in December. CEA level 1.4. His hypercoagulable workup, revealed a heterozygous prothrombin mutation. His D-dimer level was 4600. Down to 1544, on February 12, and 351 on 05/18/2019. He was given one of the NOACs, Xeralto for convenience. He was switched to 20 mg dose 2018. PLAN: Will continue him on the oral anticoagulation for now. In view of the positive prothrombin mutation, he will get it for 2 years. That will be in December of this year. Will then down to maintenance dose. He has been able to get his Xarelto through the [place] in [place]. He will return in 6 months for a follow-up visit. Thank you, CC: Dr. Lorne Kessler. [facility]. [place]. MD. Code Status FULL CODE - Time Spent With Patient Total time spent is greater than 50% in coordination of care (as documented) at patient's floor/unit and/or counseling patient: 25 - 35 minutes
[2020-06-28 15:08] LABS: Basophils Absolute Auto 0.1 X10*3/uL (0.0-0.2); Basophils Percent Auto 1.1 % (0-2); Eosinophils Absolute Auto 0.1 X10*3/uL (0.0-0.4); Eosinophils Percent Auto 2.2 % (0-4); Hematocrit 44.8 % (42-52); Hemoglobin 15.1 g/dl (14.0-18.0); Imm Gran Abs Auto 0.01 X10*3/uL (0.00-0.03); Imm Gran Pct Auto 0.2 % (0.0-0.4); Lymphocytes Absolute Auto 1.1 X10*3/uL (1.2-4.9); Lymphocytes Percent Auto 20.3 % (20-40); MANUAL DIFF FLAG NO; Mean Corpuscular HGB Conc 33.7 g/dl (31.0-36.0); Mean Corpuscular Hemoglobin 32.8 pg (27.0-33.0); Mean Corpuscular Volume 97.4 fL (80-98); Monocytes Absolute Auto 0.4 X10*3/uL (0.1-1.2); Monocytes Percent Auto 7.6 % (2-11); Neutrophils Absolute Auto 3.7 X10*3/uL (2.0-8.3); Neutrophils Percent Auto 68.6 % (45-73); Platelet Count 161 X10*3/uL (160-400); White Blood Count 5.4 X10*3/uL (4.8-10.8)
[2020-06-28 15:24] LABS: D Dimer < 200 NG/ML
[2020-06-28 15:32] LABS: Alanine Aminotransferase 17 U/L (0-40); Albumin Level 4.2 g/dL (3.5-5.0); Alkaline Phosphatase 53 U/L (39-117); Anion Gap 13 (12-20); Aspartate Amino Transferase 29 U/L (5-37); Blood Urea Nitrogen 15 mg/dL (9-16); Calcium 8.8 mg/dL (8.4-10.2); Carbon Dioxide 27 mmol/L (22-29); Chloride 106 mmol/L (96-108); Creatinine Clr Calc Pharmacy 61.8; Estimated Glomerular Filt Rate > 60; Glucose Random 118 mg/dL (60-115); Potassium 4.2 mmol/l (3.3-5.1); Sodium 142 mmol/L (135-145); Total Protein 6.9 g/dL (6.5-8.0)
--- NOTE | 2020-07-25 12:06 | MHC.HEMONC ---
pt scheduled with Dr Foreman for colonoscopy for 08/03 and had question re: Xarelto. Per Dr Diaz - he should stop XARELTO 48 hr before after dose on . Pt is advised of this. No Lovenox required per Dr Diaz.
== END | disposition home or self-care (01) ==
LOC: HO.ONC 06-28 14:15
PROVIDERS: PCP Internal Medicine; Visit Provider Internal Medicine Medical Oncology
DX: I26.99 Other pulmonary embolism without acute cor pulmonale (principal); D68.52 Prothrombin gene mutation; Z79.01 Long term (current) use of anticoagulants; I25.2 Old myocardial infarction
CPT/HCPCS: 36415; 80053; 85025; 85379; 99214

== ENCOUNTER 2024-05-26 11:41 | Outpatient (REF) | payer MEDICARE, OTHER, SELFPAY ==
[2024-05-26 14:32] LABS: Alanine Aminotransferase 10 U/L (0-40); Alkaline Phosphatase 75 U/L (39-117); Aspartate Amino Transferase 48 U/L (5-37); Bilirubin Direct 0.2 mg/dL (0.0-0.5); Bilirubin Total 0.8 mg/dL (0.0-1.0); Cholesterol 167 mg/dL (<200); HDL Cholesterol 80 mg/dL (>40); LDL Cholesterol Calculated 73 mg/dL (<100); Total Protein 8.3 g/dL (6.5-8.0); Triglycerides 72 mg/dL (<150)
[2024-05-26 18:45] LABS: Reflex LDLD? No
--- OUTSIDE RECORDS SUMMARY | 2024-06-02 13:29 | XMS_ITS | Encounter Summary ---
Author Name [facility] [place] Organization [facility] [place] Address [address] [place] [id number] Care Team Providers Care Helper/Driver Name Role Phone LEXY MEJÍA Primary Care Provider Unavailabl e Insurance Providers: All historical and current Section Date Range: From patient's date of to the date document was created. This section includes the names of all active insurance providers for the patient. Insurance Provider Type of Coverage Plan Name Start of Policy Coverage End of Policy Coverage Group Number Member ID Insurance Provider's Telephone Number Policy Huang's Name Patient's Relationship to Policy Huang [facility] [place] Jun 24, 2016 MEDICAR E SUPPLEM E [id number] [place] [employer] PATIENT MEDICARE (WNR) MEDICARE (M) PART A Apr 24, 2005 PART A [id number] [facility] [place] ANTOINE PATIENT MEDICARE (WNR) MEDICARE (M) PART B Apr 24, 2005 PART B [id number] [facility] FARHAT CHAVEZ PATIENT Selected Encounter This section includes the information on record at [place] for the Encounter. Date/Time Encounter Type Encounter Description Reason Pro vider Source Jun 04, 2023 03:11 PM Outpatient Encounter PRIMARY CARE/MEDICINE IHE Encounter Template Text not used by [facility] Advance Directives: All historical and current Section Date Range: From patient's date of to the date document was created. This section includes ALL of a patient's completed or amended [place] Advance and Rescinded Directives. The entries below indicate that a directive exists for the patient, but an actual copy is not included with this document. The data comes from all [place] facilities. Date Advance Directives Provider Source Feb 16, 2019 ADVANCE DIRECTIVE PABLO BETTS Encounter Notes: All associated encounter notes This section contains the clinical notes associated to the Encounter. Date/Time Encounter Note(s) Provider Source Jun 04, 2023 03:11 PM ADMINISTRATIVE NOT E: LOCAL TITLE: ADMINISTRATIVE NOTE STANDARD TITLE: ADMINISTRATIVE NOTE DATE OF NOTE: JUN 04, 2023@15:11 ENTRY DATE: JUN 04, 2023@15:11:14 AUTHOR: MICHEL BETTS COSIGNER: URGENCY: STATUS: COMPLETED Per PCP request insurance underwriter sales sent fax request to Dr Bianca Diaz for new script for medication RIVAROXABAN. Customer Marketing Intern faxed request for recent LAB results from non-VA PCP Dr Hay Kessler. /es/ PABLO BETTS Advanced Control Room Agent Signed: 06/04/2023 15:16 Receipt Acknowledged By: 06/06/2023 16:31 /es/ DYLAN SIM MD PRIMARY CARE PHYSICIAN PABLO BETTS
--- OUTSIDE RECORDS SUMMARY | 2024-06-02 13:29 | XMS_ITS | Encounter Summary ---
Author Name [facility] [place] [facility] [place] [facility] Address [address] [place] [address] Care Team Providers Care Car Installations Supervisor Name Role Phone LEXY MEJÍA Primary Care [...] Huang's Name Patient's Relationship to Policy Huang [facility] MEDICARE SUPPLEMEN [place] IND Jun 24, 2016 MEDICAR E SUPPLEM E [id number] [phone] [place]AVE[place] PATIENT MEDICARE (WNR) MEDICARE (M) PART A Apr 24, 2005 PART A [id number] [facility] [place] PATIENT MEDICARE (WNR) MEDICARE (M) PART B Apr 24, 2005 PART B [id number] [facility] [place]HAT CHAVEZ PATIENT Selected Encounter This section includes the information on record at [place] for the Encounter. Date/Time Encounter Type Encounter Description Reason Pro vider Source Sep 09, 2023 04:10 AM Outpatient Encounter ADMIN PAT ACTIVTIES (MASNONCT) IHE Encounter Template Text not used by [facility] Lab Results: +/- 30 days of the encounter This section includes the Chemistry and Hematology Lab Results on record with [place] for the patient. Radiology Reports and Pathology Reports are provided separately, in subsequent sections. Lab Results This section contains the Chemistry/Hematology Results that were resulted 30 days before or 30 daysafter the date of the Encounter. Date/Time Source Result Type Result - Unit Interpretation Reference Range Comment Sep 25, 2023 10:58 AM [place] CBC AND DIFF (AUTO) Specimen Type: BLOOD No comment entered. Ordering Provider: DYLAN SIM Report Released Date/Time: Sep 13, 2023 01:43 PM Reporting Lab: [facility] [address] [facility] [id number] Performing Lab: [facility] [address] [facility] [id number] WBC 5.58 10*3/uL 4.50-11.00 RBC 4.16 10*6/uL L 4.23-5.66 HGB 13.0 g/dL 12.8-17 HCT 38.7 L 39.2-50.4 MCV 93.0 fL 82-99 MCHC 33.6 g/dL 30.8-35.1 PLT 230 10*3/uL 140-360 RDW-CV 12.2 12.0-16.0 Graves, Abs 0.44 10*3/uL 0.30-1.10 MCH 31.3 pg 26.2-32.6 Neut % 52.1 43.7-75.8 Lymph % 35.5 14.0-42.3 Graves % 7.9 5.1-13.7 Eos % 3.0 0.4-6.8 Baso % 1.1 0.1-2.0 Neut, Abs 2.91 10*3/uL 2.20-7.60 Lymph, Abs 1.98 10*3/uL 1.00-3.20 Eos, Abs 0.17 10*3/uL 0.03-0.44 Baso, Abs 0.06 10*3/uL 0.01-0.13 Immature Gran % 0.4 0.0-0.7 Immature Gran, Abs 0.02 10*3/uL 0.00-0.06 Sep 25, 2023 10:58 AM [place] CREATININE (eGFR 2020) Specimen Type: SERUM No comment entered. Ordering Provider: DYLAN SIM Report Released Date/Time: Sep 13, 2023 01:43 PM Reporting [facility] [address] [facility] [address] Performing Lab: [address] [address] CREATININE, Serum 0.75 mg/dL 0.50-1.40 eGFR(CKD-EPI 2020) 89 mL/min >60 Advance Directives: All historical and current Section Date Range: From patient's date of to the date document was created. This section includes ALL of a patient's completed or amended [place] Advance and Rescinded Directives. The entries below indicate that a directive exists for the patient, but an actual copy is not included with this document. The data comes from all [place] facilities. Date Advance Directives Provider Source Feb 16, 2019 ADVANCE DIRECTIVE PABLO BETTS [place] Encounter Notes: All associated encounter notes This section contains the clinical notes associated to the Encounter. Date/Time Encounter Note(s) Provider Source Sep 12, 2023 08:26 AM ADDENDUM: LOCAL TITLE: Addendum STANDARD TITLE: ADDENDUM DATE OF NOTE: SEP 12, 2023@08:26:48 ENTRY DATE: SEP 12, 2023@08:26:48 AUTHOR: DYLAN SIM EXP COSIGNER: URGENCY: STATUS: COMPLETED Please order CBC and creatinine level for this patient The last blood work was done in February 2023 He received the last prescription for rivaroxaban on August 23, for 90 tablets If the labs are stable I will be more than happy to renew his blood thinner Please inform the [place] Thank you /chilango/ DYLAN SIM MD PRIMARY CARE PHYSICIAN Signed: 09/12/2023 08:27 Receipt Acknowledged By: 09/13/2023 16:36 /chilango/ SADAF KIM RN-BC REGISTERED NURSE ====== --- Original Document --- 09/09/23 V1 PHARMACY CUSTOMER CARE MEDICATION RENEWAL: Date: Aug Division: [place] referred by Pharmacy Call Center for medication renewal: Non-controlled/maintenan ce medication Medications requested: [id number]$ RIVAROXABAN 20MG TAB Defer to primary care provider To be mailed . Please review and renew if appropriate. *This note was generated by [facility] Pharmacy Customer Care. If you have any questions or need assistance, do not contact this author. Please refer all questions to your local, on-site pharmacy departments. /david HUSSEIN [facility] Slitting Machine Operator Helper, [place]/Pharmacy Customer Care Signed: 09/09/2023 04:11 Receipt Acknowledged By: 09/09/2023 15:14 /chilango/ SADAF KIM RN-BC REGISTERED NURSE 09/12/2023 08:26 /chilango/ DYLAN SIM MD PRIMARY CARE PHYSICIAN DYLAN SIM [place] [facility] Sep 09, 2023 04:10 AM PHARMACY NOTE: LOCAL TITLE: V1 PHARMACY CUSTOMER CARE MEDICATION RENEWAL STANDARD TITLE: PHARMACY NOTE DATE OF NOTE: SEP 09, 2023@04:10 ENTRY DATE: SEP 09, 2023@04:10:45 AUTHOR: AMY HUSSEIN EXP COSIGNER: URGENCY: STATUS: COMPLETED V1 PHARMACY CUSTOMER CARE MEDICATION RENEWAL Has ADDENDA Date: Aug Division: [place] referred by Pharmacy Call Center for medication renewal: Non-controlled/maintenan ce medication Medications requested: [id number]$ RIVAROXABAN 20MG TAB Defer to primary care provider To be mailed . Please review and renew if appropriate. *This note was generated by [facility] Pharmacy Customer Care. If you have any questions or need assistance, do not contact this author. Please refer all questions to your local, on-site pharmacy departments. /david HUSSEIN [facility] Slitting Machine Operator Helper, [place]/Pharmacy Customer Care Signed: 09/09/2023 04:11 Receipt Acknowledged By: 09/09/2023 15:14 /SADAF Tatum RN-BC REGISTERED NURSE 09/12/2023 08:26 /chilango/ DYLAN SIM MD PRIMARY CARE PHYSICIAN 09/12/2023 ADDENDUM STATUS: COMPLETED Please order CBC and creatinine level for this patient The last blood work was done in February 2023 He received the last prescription for rivaroxaban on August 23, for 90 tablets If the labs are stable I will be more than happy to renew his blood thinner Please inform the Thank you /chilango/ DYLAN SIM MD PRIMARY CARE PHYSICIAN Signed: 09/12/2023 08:27 Receipt Acknowledged By: 09/13/2023 16:36 /chilango/ SADAF KIM RN-BC REGISTERED NURSE 09/13/2023 ADDENDUM STATUS: COMPLETED Called [place] and left voicemail advising that needs to complete non fasting labwork ordered by provider. /chilango/ SADAF KIM RN-BC REGISTERED NURSE Signed: 09/13/2023 16:38 AMY HUSSEIN [facility]
--- OUTSIDE RECORDS SUMMARY | 2024-06-02 13:29 | XMS_ITS | Encounter Summary ---
Author Name [facility] [place] [facility] [place] Address [address] [place] [id number] Care Team Providers Care Bread Racker Name Role Phone LEXY MEJÍA Primary Care [...] Policy Huang [facility] [place] Jun 24, 2016 MEDICAR E SUPPLEM E [id number] [place] ANTO[place] PATIENT MEDICARE (WNR) MEDICARE (M) PART A Apr 24, 2005 PART A [id number] [facility] PR[place] ANTOINE PATIENT MEDICARE (WNR) MEDICARE (M) PART B Apr 24, 2005 PART B [id number] [facility] FARHAT CHAVEZ PATIENT Selected Encounter This section includes the information on record at [place] for the Encounter. Date/Time Encounter Type Encounter Description Reason Pro vider Source Jun 06, 2023 12:00 AM Outpatient Encounter EVENT (HISTORICAL) IHE Encounter Template Text not used by [facility] Advance Directives: All historical and current Section Date Range: From patient's date of to the date document was created. This section includes ALL of a patient's completed or amended [place] Advance and Rescinded Directives. The entries below indicate that a directive exists for the patient, but an actual copy is not included with this document. The data comes from all [place] facilities. Date Advance Directives Provider Source Feb 16, 2019 ADVANCE DIRECTIVE PABLO BETTS [address] Encounter Notes: All associated encounter notes This section contains the clinical notes associated to the Encounter. Date/Time Encounter Note(s) Provider Source Jun 06, 2023 12:00 AM NURSING ADMINISTRATIVE NOTE: LOCAL TITLE: NON-VA PRESCRIPTION STANDARD TITLE: NURSING ADMINISTRATIVE NOTE DATE OF NOTE: JUN 06, 2023 ENTRY DATE: JUN 25, 2023@07:24:19 AUTHOR: KAITLYN BECK COSIGNER: URGENCY: STATUS: COMPLETED VistA Imaging - Scanned Document SCANNED DOCUMENT SIGNATURE NOT REQUIRED Electronically Filed: 06/25/2023 by: SILVIA BECK Hotel Superintendent KAITLYN BECK [place] [facility]
--- OUTSIDE RECORDS SUMMARY | 2024-06-02 13:29 | XMS_ITS | Encounter Summary ---
Author Name [facility] [place] [facility] [place] Address [address] [place] [id number] Care Team Providers Care Reproductive Healthcare Assistant Name Role Phone LEXY MEJÍA Primary Care [...] Policy Huang [facility] Jun [facility], 2016 MEDICAR E SUPPLEM E [id number] PRAMODFARHAT ANTOINE PATIENT MEDICARE (WNR) MEDICARE (M) PART A Apr 24, 2005 PART A [id number] [facility] [place] PATIENT MEDICARE (WNR) MEDICARE (M) PART B Apr 24, 2005 PART B [id number] [facility] FARHAT CHAVEZ PATIENT Selected Encounter This section includes the information on record at [place] for the Encounter. Date/Time Encounter Type Encounter Description Reason Provider Source Jun 04, 2023 01:30 PM OFFICE O/P EST MOD 30-39 MIN PRIMARY CARE/MEDICINE ICD-10-CM E78.5 Hyperlipidemia, unspecified DYLAN SIM IH[facility]ang Encounter Template Text not used by [place] Assessments - Encounter Diagnoses This section includes the primary and secondary diagnoses documented for the Encounter. 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 Date/Time Temperature Pulse Blood Pressure Respiratory Rate SP02 Pain Height Weight Body Mass Index Source Jun 04, 2023 01:27 PM 98.2 F 69 /min 134/78 mm[Hg] 95 % 158 lb 25 [place] Social History: Smoking Status (Most current) and Tobacco Use (All prior to encounter date) This section includes the most current, and the historical, smoking and tobacco- related health factors from the [place] facility where the Encounter took place. Current Smoking Status This section includes the most current smoking, or tobacco-related health factor, from the [place] facility where the Encounter took place. Date/Time Current Smoking Status Comment Facil ity Jun 04, 2023 01:30 PM VA-TOBACCO FORMER USER [place] Tobacco Use History This section includes a history of the smoking, or tobacco-related health factors, that were collected on or before the date of the Encounter. The data comes from the [place] facility where the Encounter took place. Date/Time Smoking Status/Tobacco Use Comment F acility Jun 04, 2023 01:30 PM VA-TOBACCO QUIT 15 YRS OR MORE [place] May 28, 2022 12:30 PM VA-TOBACCO NEVER USED [place] Jun 15, 2021 01:30 PM VA-TOBACCO NEVER USED [place] Feb 17, 2019 11:39 AM VA-TOBACCO FORMER USER [place] Feb 17, 2019 11:39 AM [place]-TOBACCO QUIT 15 YRS OR MORE [place] Advance Directives: All historical and current Section Date Range: From patient's date of to the date document was created. This section includes ALL of a patient's completed or amended VA Advance and Rescinded Directives. The entries below indicate that a directive exists for the patient, but an actual copy is not included with this document. The data comes from all [place] facilities. Date Advance Directives Provider Source Feb 16, 2019 ADVANCE DIRECTIVE JANESPABLO CARCAMO [place] Encounter Notes: All associated encounter notes This section contains the clinical notes associated to the Encounter. Date/Time Encounter Note(s) Provider Source Jun 04, 2023 01:27 PM PREVENTIVE MEDICIN E NURSING NOTE: LOCAL TITLE: CLINICAL REMINDERS/NURSING STANDARD TITLE: PREVENTIVE MEDICINE NURSING NOTE DATE OF NOTE: JUN 04, 2023@13:27 ENTRY DATE: JUN 04, 2023@13:27:42 AUTHOR: JORGE CALI COSIGNER: URGENCY: STATUS: COMPLETED Advance Directive Screen MH AD: Patient has an Advance Directive on file at this [facility]. No updates are needed at this time. The patient received education about Advance Directives and written notification of his/her rights. Suicide Screen: C-SSRS Screening [place] Suicide Severity Rating Scale (C-SSRS) screener 1. Over the past month, have you wished you were or wished you could go to sleep and not wake up? No 2. Over the past month, have you had any actual thoughts of killing yourself? No 3. Over the past month, have you been thinking about how you might do this? Response not required due to responses to other questions. 4. Over the past month, have you had these thoughts and had some intention of acting on them? Response not required due to responses to other questions. 5. Over the past month, have you started to work out or worked out the details of how to kill yourself? Response not required due to responses to other questions. 6. If yes, at any time in the past month did you intend to carry out this plan? Response not required due to responses to other questions. 7. In your lifetime, have you ever done anything, started to do anything, or prepared to do anything to end your life (for example, collected pills, obtained a gun, gave away valuables, went to the roof but didn't jump)? No 8. If YES, was this within the past 3 months? Response not required due to responses to other questions. Depression Screening: Perform PHQ-2 A PHQ-2 screen was performed. The score was 0 which is a negative screen for depression. Over the past two weeks, how often have you been bothered by the following problems? 1. Little interest or pleasure in doing things Not at all 2. Feeling down, depressed, or hopeless Not at all Falls & Incontinence Screen: Falls Screen: During the past 12 months, did the patient report any falls? 4. No falls within the past year. Incontinence Screen: During the past 12 months, has the patient has any characteristics of incontinence (ability, voiding, leakage, etc.)? No incontinence. Homelessness/Food Insecurity Screen: In the past 2 months, have you been living in stable housing that you own, rent, or stay in as part of a household? Yes - Living in stable housing. Are you worried or concerned that in the next 2 months you may NOT have stable housing that you own, rent, or stay in as part of a household? No - Not worried about housing near future [facility] [place] reports the following: Within the past 12 months, you worried whether your food would run out before you got money to buy more. Never true Within the past 12 months, the food you bought just didn't last and you didn't have money to get more. Never true Pneumococcal Conjugate Vaccine (PCV15/PCV20): Refuses PCV vaccine Immunization: PNEUMOCOCCAL CONJUGATE, UNSPECIFIED FORMULATION Refusal Reason: PATIENT DECISION Patient refuses all immunization(s) in the PneumoPCV group Date Documented: 06/04/23 13:28 Tobacco Use Screening: The patient is a former tobacco user. The patient quit fifteen or more years ago. Influenza Immunization: The patient declines to receive the recommended dose of seasonal influenza vaccine. Immunization: INFLUENZA, UNSPECIFIED FORMULATION Refusal Reason: PATIENT DECISION Patient refuses all immunization(s) in the FLU group Date Documented: 06/04/23 13:28 Alcohol Use Screen (AUDIT-C): Alcohol Screen: SCREEN FOR ALCOHOL (AUDIT-C) An alcohol screening test (AUDIT-C) was negative (score=2). 1. How often did you have a drink containing alcohol in the past year? Monthly or less 2. How many drinks containing alcohol did you have on a typical day when you were drinking in the past year? One or two drinks 3. How often did you have six or more drinks on one occasion in the past year? Less than monthly COVID-19 Immunization: Defer vaccine, reassess in 1 year Reason: Vet refused Tdap Immunization: The patient declines to receive the recommended dose of Tdap vaccine. Immunization: TDAP Refusal Reason: PATIENT DECISION Patient refuses all immunization(s) in the TDAP group Date Documented: 06/04/23 13:29 Herpes Zoster (Shingles) Vaccine: The patient declines to receive the recommended dose of zoster (shingles) vaccine. Immunization: ZOSTER RECOMBINANT Refusal Reason: PATIENT DECISION Patient refuses all immunization(s) in the ZOSTER group Date Documented: 06/04/23 13:29 Sexual Orientation: The patient thinks of their sexual orientation as: Straight or Heterosexual /es/ JORGE CALI LPN Licensed Practical Nurse Signed: 06/04/2023 13:30 JORGE CALI Jun 04, 2023 12:55 PM PHYSICIAN NOTE: LOCAL TITLE: MD NOTE STANDARD TITLE: PHYSICIAN NOTE DATE OF NOTE: JUN 04, 2023@12:55 ENTRY DATE: JUN 04, 2023@12:55:41 AUTHOR: DYLAN SIM EXP COSIGNER: URGENCY: STATUS: COMPLETED HISTORY OF PRESENT ILLNESS: FARHAT CAMARENA, is a 83 yo MALE [place], who presents at the [facility] for follow up visit for chronic medical conditions. No new labs; will have the blood work done at this moment as he had 2 days ago the blood work done with Dr. Kessler; we are going to request records Non- VA providers PCP-Dr. Lorne Kessler hematologic - Dr. 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 4-long-term current use of anticoagulation 5--comanaged The following VA and Non-VA meds were reconciled with patient: Active Outpatient Medications (including Supplies): Start Date Active Non-VA Medications Refills Expiration 1) Non-VA FISH OIL 1000MG (500MG DHA/EPA) ACTIVE CAP SiMG BY MOUTH EVERY DAY 2) Non-VA MULTIVITAMIN/MINERALS CAP/TAB ACTIVE Si TABLET BY MOUTH EVERY DAY 3) Non-VA OMEPRAZOLE 20MG EC CAP SiMG ACTIVE BY MOUTH EVERY OTHER DAY 4) Non-VA SIMVASTATIN 80MG TAB SiMG ACTIVE BY MOUTH EVERY DAY ALLERGIES: ========= PEANUTS, SOY SAUCE LAB HISTORY: No new labs PMH ========= Hyperlipidemia, GERD, hearing loss,, tinnitus, colon polyps, pulmonary embolism on anticoagulation, 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 PSH ========= Cholecystectomy left knee surgery SOCIAL HISTORY: with 3 children Smoking quit 38 years ago Drugs denies Alcohol-daily 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 COMBAT SERVICE INDICATED: No REVIEW OF SYSTEMS: CONSTITUTIONAL: No fever, chills, fatigue ENT: No sore throat, nasal congestion, positive for decreased hearing, tinnitus CARDIOVASCULAR: No chest pain,palpitations, SOB at rest or with exertion, negative for legs edema RESPIRATORY: No cough or wheezing GASTROINTESTINAL: No abd pain, no N/V/D/C GENITOURINARY: No dysuria, hematuria, MUSCULOSKELETAL: No joints pain, swelling PSYCHIATRIC: No depression, anxiety NEUROLOGIC: No headaches, diziness PHYSICAL EXAMINATION: GENERAL: WD/WN , seems to be in NAD the moment of examination HEART: S1/S2 ,RRR no murmurs, LUNGS: ARMOND, CTA B/L, no wheezes, rales/ rhonchi/ crackles ABDOMEN: Soft, NT/ND, bowel sounds positive EXTREMITIES: no edema of lower extremities, NEUROLOGIC: AAO x3, normal gait ; moving spontaneosly all extremities PSYCHIATRIC: Good eye contact, affect normal, well dressed/groomed ASSESSMENT/PLAN: 1- HLP- continue simvastatin advised to keep healthy diet and exercise as tolerated 2- GERD- continue omeprazole 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 This note may contain spelling/grammatical errors secondary to this software. Every effort is made to correct errors, but if mistakes are found they need to be taken in context. UPCOMING APPOINTMENTS: 06/04/2023 13:30 CWM/SO/PACT EIGHT WH No barriers; Patient understands and agrees to current treatment plan. If pt has any questions, concerns, or changes in current health status he/she will call or come in to the VA. Medication Reconciliation: Outpatient: Has the patient been taking medications as documented in the EMLR? YES: The patient has been taking medications as documented in the EMLR. Essential Medication List for Review used to complete this medication reconciliation. INCLUDED IN THIS LIST: Alphabetical list of active outpatient prescriptions dispensed from this VA (local) and dispensed from another VA or DoD facility (remote) as well as inpatient orders (local, pending and active), local clinic medications, locally documented non-VA medications, and local prescriptions that have or been discontinued in the past 90 days. - All changes in medications, including all non-VA/Herbal/OTC medications were entered into CPRS. - If there were any medications the patient should no longer take, they were discontinued. - The patient/caregiver was instructed to update this list, discard old lists, and take this list to the next appointment, whether with a VA or non-VA provider. JLV Link Data on this list may not be complete. Please check JLV. Allergies/ADRs (Tool #5) FACILITY ALLERGY/ADR -------- No Remote Allergy/ADR Data available for this patient [facility] SOY SAUCE Med Recon Evarochellegavin (Tool #1) INCLUDED IN THIS LIST: Alphabetical list of active outpatient prescriptions dispensed from this [place] (local) and dispensed from another [place] or [facility] facility (remote) as well as inpatient orders (local pending and active), local clinic medications, locally documented non-VA medications, and local prescriptions that have or been discontinued in the past 90 days. Non-VA Meds Last Documented On: Jul 15, 2008 NOTE The display of VA prescriptions dispensed from another [place] or [facility] facility (remote) is limited to active outpatient prescription entries matched to National Drug File at the originating site and may not include some items such as investigational drugs, compounds, etc. NOT INCLUDED IN THIS LIST: Medications self-entered by the patient into personal health records (i.e. [email or web address]) are NOT included in this list. Non-VA medications documented outside this [place], remote inpatient orders (regardless of status) and remote clinic medications are NOT included in this list. The patient and provider must always discuss medications the patient is taking, regardless of where the medication was dispensed or obtained. Non-VA FISH OIL 1000MG (500MG DHA/EPA) CAP TAKE 1 CAPSULE BY MOUTH EVERY DAY Patient wants to buy from Non-VA pharmacy. Non-VA MULTIVITAMIN/MINERALS CAP/TAB TAKE ONE TABLET BY MOUTH EVERY DAY Patient wants to buy from Non-VA pharmacy. Non-VA OMEPRAZOLE 20MG EC CAP TAKE 1 CAPSULE BY MOUTH EVERY OTHER DAY Patient wants to buy from Non-VA pharmacy. OUTPT OMEPRAZOLE 20MG EC CAP (Status = ) TAKE ONE CAPSULE BY MOUTH EVERY MORNING 30 MINUTES BEFORE BREAKFAST Rx# [id number] Last Released: 07/31/22 Qt Supply: Rx Expiration Date: 05/29/23 Refills Remainin OUTPT RIVAROXABAN 20MG TAB (Status = ) TAKE ONE TABLET BY MOUTH ONCE DAILY WITH FOOD Rx# [id number] Last Released: 03/12/23 Qty/ Supply: Rx Expiration Date: 05/29/23 Refills Remainin OUTPT SIMVASTATIN 20MG TAB (Status = ) TAKE ONE TABLET BY MOUTH ONCE DAILY FOR CHOLESTEROL Rx# [id number] Last Released: 04/04/23 Qty Supply: Rx Expiration Date: 05/29/23 Refills Remainin Non-VA SIMVASTATIN 80MG TAB TAKE ONE-HALF TABLET BY MOUTH EVERY DAY Patient wants to buy from Non-[place] pharmacy. SUPPLIES Hepatitis C Testing: Patient declines HCV lab test. /chilango/ DYLAN SIM MD PRIMARY CARE PHYSICIAN Signed: 06/04/2023 14:18 DYLAN SIM [facility]
--- OUTSIDE RECORDS SUMMARY | 2024-06-02 13:30 | XMS_ITS | Encounter Summary ---
Author Name [facility] Address [address] [place] [id number] Care Team Providers Care Director Voice Name Role Phone LEXY MEJÍA Primary Care [...] Huang's Name Patient's Relationship to Policy Huang [facility] MEDICARE SUPPLEMEN JESUS [place] IND Jun 24, 2016 MEDICAR E SUPPLEM E [id number] FARHAT CHAVEZ PATIENT MEDICARE (WNR) MEDICARE (M) PART A Apr 24, 2005 PART A [id number] [facility] CRISTÓBAL He[place]FARH[place] PATIENT MEDICARE (WNR) MEDICARE (M) PART B Apr 24, 2005 PART B [id number] [facility] FARHAT CHAVE[place] PATIENT Selected Encounter This section includes the information on record at [place] for the Encounter. Date/Time Encounter Type Encounter Description Reason Pro vider Source November 04, 2023 01:46 PM Outpatient Encounter ADMIN PAT ACTIVTIES (MASNONCT) IHE Encounter Template Text not used by [place] Advance Directives: All historical and current Section Date Range: From patient's date of to the date document was created. This section includes ALL of a patient's completed or amended [place] Advance and Rescinded Directives. The entries below indicate that a directive exists for the patient, but an actual copy is not included with this document. The data comes from all [place] facilities. Date Advance Directives Provider Source Feb 16, 2019 ADVANCE DIRECTIVE PABLO BETTS [place] Encounter Notes: All associated encounter notes This section contains the clinical notes associated to the Encounter. Date/Time Encounter Note(s) Provider Source November 04, 2023 01:46 PM PHARMACY NOTE: LOCAL TITLE: V1 PHARMACY CUSTOMER CARE MEDICATION RENEWAL STANDARD TITLE: PHARMACY NOTE DATE OF NOTE: NOVEMBER 04, 2023@13:46 ENTRY DATE: NOVEMBER 04, 2023@13:46:54 AUTHOR: ANTHONY DOUGLAS EXP COSIGNER: URGENCY: STATUS: COMPLETED Date: October Division: [facility] referred by Pharmacy Call Center for medication renewal: Non-controlled/maintenan ce medication Medications requested: [id number] SIMVASTATIN 20MG TAB [id number] RIVAROXABAN 20MG TAB Defer to primary care provider To be mailed . Please review and renew if appropriate. *This note was generated by [facility] Pharm[facility] Customer Care. If you have any questions or need assistance, do not contact this author. Please refer all questions to your local, on-site pharmacy departments. /chilango/ ANTHONY DOUGLAS [facility] Manager Mail, [place]Pharm[facility] Customer Care Signed: 11/04/2023 13:47 Receipt Acknowledged By: 11/04/2023 15:50 /chilango/ BILLIE KIMN RN-BC REGISTERED NURSE 11/05/2023 10:45 /es/ DYLAN SIM MD PRIMARY CARE PHYSICIAN ANTHONY DOUGLAS [facility]
--- OUTSIDE RECORDS SUMMARY | 2024-06-02 13:31 | XMS_ITS | Patient Health Record ---
Author Organization Hay Kessler MD Address [address] [place], [place] [id number] Care Team Providers Care Commercial Housekeeper Name Role Phone Hay Kessler Primary Care Provider ALLERGIES Allergen (clinical drug ingredient) Drug/Non Drug Allergy documented on EMR Reaction Allergy Type Onset Date Status soy (uncoded) hives Allergy Active peanuts (uncoded) throat closes Allergy Active RESULTS Component Value Reference Range Notes Complete Blood Count Auto Di ff Reviewed date:09/19/2023 12:48:25 PM Interpretation: Performing Lab:[facility], [address] [place] [phone] Notes/Report: White Blood Count 7.8 4.8-10.8 X10*3/uL Red Blood Count 4.58 4.60-5.80 X10*6/uL Hemoglobin 14.6 14.0-18.0 g/dl Hematocrit 42.6 42.0-52.0 % Mean Corpuscular Volume 93.0 80.0-98.0 fL Mean Corpuscular Hemoglobin 31.9 27.0-33.0 pg Mean Corpuscular HGB Conc 34.3 31.0-36.0 g/dl Red Cell Distribution Width 12.8 11.0-16.0 % Platelet Count 160 160-400 X10*3/uL Mean Platelet Volume 10.2 9.4-12.4 fL Neutrophils Percent Auto 74.9 45-73 % Imm Gran Pct Auto 0.3 0.0-0.4 % Lymphocytes Percent Auto 16.3 20-40 % Monocytes Percent Auto 6.2 2-11 % Eosinophils Percent Auto 1.7 0-4 % Basophils Percent Auto 0.6 0-2 % NRBC Pct Auto 0.0 0.0-0.2 /100WBC Neutrophils Absolute Auto 5.9 2.0-8.3 x10*3/u L Imm Gran Abs Auto 0.02 0.00-0.03 X10*3/uL Lymphocytes Absolute Auto 1.3 1.2-4.9 X10*3/u L Monocytes Absolute Auto 0.5 0.1-1.2 X10*3/uL Eosinophils Absolute Auto 0.1 0.0-0.4 X10*3/u L Basophils Absolute Auto 0.1 0.0-0.2 X10*3/uL NRBC Abs Auto 0.000 0.0-0.012 X10*3/uL Prothrombin Time INR Reviewed date:09/19/2023 12:48:06 PM Interpretation: Performing Lab:[address] [phone] Notes/Report: Prothrombin Time 18.2 11.1-13.3 SEC INTERNATIONAL NORM RATIO 1.5 0.9-1.1 INTERNATIONAL NORMALIZED RATIO (INR) REFERENCE RANGES Reference Range For patients not on anticoagulant therapy: 0.9 - 1.1 INR ranges for oral anticoagulant therapy: For prevention and treatment of venous thrombosis and pulmonary embolism: 2.0 - 3.0 For acute myocardial infarction with aspirin therapy: 2.0 - 3.0 For acute myocardial infarction without aspirin therapy: 3.0 - 4.0 For patients with mechanical prosthetic heart valves: 2.5 - 3.5 Partial Thromboplastin Time Reviewed date:09/19/2023 12:42:24 PM Interpretation: Performing Lab:[address] [phone] Notes/Report: Partial Thromboplastin Time 36.6 26.0-36.8 SEC For information regarding the monitoring of direct thrombin inhibitors, please refer to Pharmacy. Comprehensive Met. Panel Reviewed date:09/19/2023 04:57:45 PM Interpretation: Performing Lab:[facility], [address] [place] [phone] Notes/Report: Sodium 142 135-145 mmol/L Potassium 3.7 3.3-5.1 mmol/L Chloride 107 96-108 mmol/L Carbon Dioxide 24 22-29 mmol/L Anion Gap 15 12-20 Blood Urea Nitrogen 23 9-16 mg/dL Creatinine 0.85 0.5-1.4 mg/dL Creatinine Clr Calc Pharmacy 59.4 eGFR (calculated from the MDRD study equation) and eCrCl (calculated from the Cockcroft-Gault equation) are based on different parameters and may not yield comparable results. If eCrCl result is absurd, please check patient's height/weight. Estimated Glomerular Filt Rate > 60 NOTE: For -Haitian individuals, multiply the result by 1.210. Chronic Kidney Disease: Estimated GFR < 60 mL/min/1.73m2 Severe Kidney Disease: Estimated GFR < 15 mL/min/1.73m2 Glucose Random 106 60-115 mg/dL Calcium 9.3 8.4-10.2 mg/dL Bilirubin Total 1.6 0.0-1.0 mg/dL Aspartate Amino Transferase 19 5-37 U/L Alanine Aminotransferase 8 0-40 U/L Total Protein 6.9 6.5-8.0 g/dL Albumin Level 3.8 3.5-5.0 g/dL Alkaline Phosphatase 62 39-117 U/L Glucose, Whole Blood Reviewed date:09/19/2023 04:58:29 PM Interpretation: Performing Lab:[facility], [address] [place] [phone] Notes/Report: Glucose, Whole Blood 126 60-115 mg/dL METER # : [id number] Liver Panel Reviewed date:11/29/2023 03:40:46 PM Interpretation: Performing Lab:[facility], [address] [place] [phone] Notes/Report: Bilirubin Total 1.0 0.0-1.0 mg/dL Bilirubin Direct 0.4 0.0-0.5 mg/dL Aspartate Amino Transferase 21 5-37 U/L Alanine Aminotransferase 7 0-40 U/L Total Protein 7.0 6.5-8.0 g/dL Albumin Level 4.0 3.5-5.0 g/dL Alkaline Phosphatase 52 39-117 U/L Lipid Panel Reviewed date:11/29/2023 03:41:38 PM Interpretation: Performing Lab:[facility], [address] [place] [phone] Notes/Report: Triglycerides 47 <150 mg/dL Desirable Triglyceride: less than 150 mg/dL Borderline High Triglyceride 150-199 mg/dL High Triglyceride: 200-499 mg/dL Very High Triglyceride: greater than or equal to 5OO mg/dL Cholesterol 157 <200 mg/dL Desirable Cholesterol: less than 200 mg/dL Borderline High Cholesterol: 200-239 mg/dL High Cholesterol: greater than 239 mg/dL LDL Cholesterol Calculated 71 <100 mg/dL Desirable LDL: less than 100 mg/dL Near Optimal/Above Optimal LDL: 110-129 mg/dL Borderline High LDL: 130-159 mg/dL High LDL: 160-189 mg/dL Very High LDL: greater than or equal to 190 mg/dL HDL Cholesterol 77 >40 mg/dL Desirable HDL: greater than 40 mg/dL Note: This HDL assay may give artificially low results in patients with liver disease. Liver Panel Reviewed date:05/27/2024 07:18:51 PM Interpretation: Performing Lab:[address] [phone] Notes/Report: Bilirubin Total 0.8 0.0-1.0 mg/dL Bilirubin Direct 0.2 0.0-0.5 mg/dL Aspartate Amino Transferase 48 5-37 U/L Moderate Hemolysis.Interpret result with caution. Alanine Aminotransferase 10 0-40 U/L Total Protein 8.3 6.5-8.0 g/dL Moderate Hemol ysis.Interpret result with caution. Albumin Level 4.0 3.5-5.0 g/dL Alkaline Phosphatase 75 39-117 U/L Lipid Panel with Reflex Reviewed date:05/27/2024 07:18:41 PM Interpretation: Performing Lab:[address] [phone] Notes/Report: Triglycerides 72 <150 mg/dL Desirable Triglyceride: less than 150 mg/dL Borderline High Triglyceride 150-199 mg/dL High Triglyceride: 200-499 mg/dL Very High Triglyceride: greater than or equal to 5OO mg/dL Cholesterol 167 <200 mg/dL Desirable Cholesterol: less than 200 mg/dL Borderline High Cholesterol: 200-239 mg/dL High Cholesterol: greater than 239 mg/dL LDL Cholesterol Calculated 73 <100 mg/dL Desirable LDL: less than 100 mg/dL Near Optimal/Above Optimal LDL: 110-129 mg/dL Borderline High LDL: 130-159 mg/dL High LDL: 160-189 mg/dL Very High LDL: greater than or equal to 190 mg/dL HDL Cholesterol 80 >40 mg/dL Desirable HDL: greater than 40 mg/dL Note: This HDL assay may give artificially low results in patients with liver disease. REASON FOR REFERRAL No Information MEDICATIONS Medication SIG (Take, Route, Frequency, Duration) Notes Start Date End Date Status Glucosamine 500 MG 1 capsule with a srinivas l Orally Three times a day Active Xarelto 20 MG 1 tablet Orally Once a day Active Vitamin D 50 MCG (1999 [place]) 1 tablet Oral ly Once a day 02/13/2020 Active Simvastatin 20 MG take 1 tablet in the evening Orally Once a day Active Omeprazole 20 MG 1 capsule Orally Onc e a day Active IMMUNIZATIONS Vaccine Route Administration Date Status Comme nts DECLINED, FLU Unknown 10/05/2020 Administered Moderna SARS-COV-2 Moderna Unknown 10/05/2020 Administered SARS-COV-2 Moderna Unknown 11/02/2020 Administered SARS-COV-2 Moderna Unknown 06/02/2021 Administered SARS-COV-2 Moderna Unknown 03/28/2022 Administered Fluarix Quadrivalent Unknown 12/30/2017 Refused Shingrix Unknown 12/30/2017 Refused TDaP Unknown 12/30/2017 Refused PPSV23 (Pnemovax) Unknown 12/30/2017 Refused Fluarix Quadrivalent Unknown 03/17/2018 Refused Fluarix Quadrivalent Unknown 03/02/2019 Refused Fluarix Quadrivalent Unknown 03/23/2019 Refused PPSV23 (Pnemovax) Unknown 03/31/2019 Refused Prevnar 13 Unknown 03/31/2019 Refused Fluarix Quadrivalent Unknown 04/07/2020 Refused PPSV23 (Pnemovax) Unknown 05/23/2020 Refused Influenza High Dose Unknown 03/28/2021 Refused Influenza High Dose Unknown 04/11/2021 Refused PPSV23 (Pnemovax) Unknown 04/11/2021 Refused Influenza High Dose Unknown 04/10/2022 Refused Influenza High Dose Unknown 05/28/2023 Refused SOCIAL HISTORY Tobacco Use: Social History Observation Description Date Details (start date - stop date) Former Smoker NA - NA Sex Assigned At : Social History Observation Description Sex Assigned At Unknown Tobacco Use/Smoking Question Answer Notes Patient is a former smoker How long has it been since y ou last smoked? > 10 years Additional Findings: Tobacco Non-User Fo rmer smoker, currently using no form of tobacco Alcohol Screen Question Answer Notes Did you have a drink contain ing alcohol in the past year? Yes How often did you have a dri nk containing alcohol in the past year? 4 or more times a week (4 points) How many drinks did you have on a typical day when you were drinking in the past year? 1 or 2 drinks (0 point) How often did you have 6 or more drinks on one occasion in the past year? Never (0 point) Points 4 Interpretation Positive PROBLEMS Problem Type ICD Code Onset Dates Problem Status W/U Status Risk SNOMED Code Notes Problem Mixed hyperlipidemia (E78.2) Active confirmed 601062119 Problem Other obesity due to excess calories (E66.09) Active confirmed 145406315 Problem Gastro-esophageal reflux disease without esophagitis (K21.9) Active confirmed 119762388 Problem Other acute pulmonary embolism with acute cor pulmonale (I26.09) Active confirmed 230955018 Problem Hayfever (J30.1) Active confirmed 28300 0009 Problem Vitamin D deficiency (E55.9) Active confirmed 03218051 Problem Acute idiopathic gout of ankle, 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) Active confirmed 57470943 Problem Neutropenia, unspecified type (D70.9) Active confirmed 124472071 Problem 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 263289275 VITAL SIGNS Blood pressure diastolic 60 mm Hg 12/06/2023 mariela ght is down 9 pounds since 05-28-23 Height 65 in 12/06/2023 weight is down 9 pounds since 05-28-23 Blood pressure systolic 114 mm Hg 12/06/2023 weig ht is down 9 pounds since 05-28-23 Weight 149 lbs 12/06/2023 weight is down 9 pounds since 12-5-23 BMI 24.79 kg/m2 12/06/2023 weight is down 9 pounds since 05-28-23 Encounters Encounter Location Date Provider Diagnosis Hay Kessler MD [address] [place] [id number] 11/29/2023 Hay Kessler Mixed hyperlipidemia E78.2 Hay Kessler MD [address] [place] [address] Drive [address] [place] [id number] 05/26/2024 Hay Kessler Mixed hyperlipidemia E78.2 Hay Kessler MD [address] [place] [id number] 12/06/2023 Hay Kessler Heterozygous for prothrombin [id number] mutation D68.52 and Mixed hyperlipidemia E78.2 Hay Kessler MD [address] [place] [address] [place] [id number] 06/07/2023 Hay Kessler MD [address] [place] [address] Drive [address] [place] [id number] 09/23/2023 Hay Kessler ASSESSMENTS Encounter Date Diagnosis Assessment Notes Treatment Notes Treatment Clinical Notes 11/29/2023 Mixed hyperlipidemia (ICD-10 - E78.2) 05/26/2024 Mixed hyperlipidemia (ICD-10 - E78.2) 12/06/2023 Heterozygous for prothrombin [id number] mutation (ICD-10 - D68.52) needs to be on xarelto permanantly 12/06/2023 Mixed hyperlipidemia (ICD-10 - E78.2) stable, will continue current regiment PLAN OF TREATMENT Pending Test Test Name Order Date Electrocardiogram (EKG) 03/27/2018 colonoscopy 09/19/2020 Next Appt Details Provider Name:Hay Burden ier, 07/31/2024 01:30:00 PM, [address] [place] [address], Suite [facility], [place], [place], [phone], Insurance Providers Payer Name Payer Address Payer Phone Subscriber Number Group Number Insured Name Patient Relationship to Insured Coverage Start Date Coverage End Date MED[employer] [address] [place] [address] [id number] Cyrus Castellon Self - patient is the insured [facility] [address] [place] [id number] Cyrus Castellon Self - patient is the insured MEDICAL (GENERAL) HISTORY Medical History History ICD Code 03/2016 Upper Endo and colonoscopy - no need of repeat 08/03/2020 - Colonoscopy by Dr. Foreman - no need for further testing unprovoked pulmonary embolii needs perma nent anticoagulan
--- OUTSIDE RECORDS SUMMARY | 2024-06-02 13:31 | XMS_ITS ---
Author Organization Hay Kessler MD Address [address] [place], [place] [phone] Care Team Providers Care Digital Composer Name Role Phone Victoria Hay Primary Care Provider RESULTS Component Value Reference Range Notes Liver Panel Reviewed date:05/27/2024 07:18:51 PM Interpretation: Performing Lab:[facility], [address] [place] [phone] Notes/Report: Bilirubin Total 0.8 0.0-1.0 mg/dL Bilirubin Direct 0.2 0.0-0.5 mg/dL Aspartate Amino Transferase 48 5-37 U/L Moderate Hemolysis.Interpret result with caution. Alanine Aminotransferase 10 0-40 U/L Total Protein 8.3 6.5-8.0 g/dL Moderate Hemol ysis.Interpret result with caution. Albumin Level 4.0 3.5-5.0 g/dL Alkaline Phosphatase 75 39-117 U/L Lipid Panel with Reflex Reviewed date:05/27/2024 07:18:41 PM Interpretation: Performing Lab:[facility], [address] [place] [phone] Notes/Report: Triglycerides 72 <150 mg/dL Desirable Triglyceride: [...] in patients with liver disease. REASON FOR VISIT FASTING LIPIDS Encounters Encounter Location Date Provider Diagnosis Hay Kessler MD [address] [place] [address] [place] [id number] 05/26/2024 Hay Kessler Mixed hyperlipidemia E78.2 ASSESSMENTS Encounter Date Diagnosis Assessment Notes Treatment Notes Treatment Clinical Notes 05/26/2024 Mixed hyperlipidemia (ICD-10 - E78.2) PLAN OF TREATMENT Next Appt Details Provider Name:Hay villegas, 07/31/2024 01:30:00 PM, [address] [facility], [address], [place], [place], [phone],
--- OUTSIDE RECORDS SUMMARY | 2024-06-02 13:31 | XMS_ITS ---
Author Organization Hay Kessler MD Address [address] [place] [phone] Care Team Providers Care River Tester Name Role Phone Hay Kessler Primary Care Provider ALLERGIES Allergen (clinical drug ingredient) Drug/Non Drug Allergy documented on EMR Reaction Allergy Type Onset Date Status soy (uncoded) hives Allergy Active peanuts (uncoded) throat closes Allergy Active REASON FOR VISIT 6 MO F/U MEDICATIONS Medication SIG (Take, Route, Frequency, Duration) Notes Start Date End Date Status Glucosamine 500 MG 1 capsule with a srinivas l Orally Three times a day Active Xarelto 20 MG 1 tablet Orally Once a day Active Vitamin D 50 MCG (1999) 1 tablet Oral ly Once a day 02/13/2020 Active Simvastatin 20 MG take 1 tablet in the evening Orally Once a day Active Omeprazole 20 MG 1 capsule Orally Onc e a day Active PROBLEMS Problem Type ICD Code Onset Dates Problem Status W/U Status Risk SNOMED Code Notes Problem Heterozygous for prothrombin O78891L mutation (D68.52) Active confirmed 859988309 VITAL SIGNS BMI 24.79 kg/m2 12/06/2023 Blood pressure systolic 114 mm Hg 12/06/19 24 Blood pressure diastolic 60 mm Hg 06/14/2 024 Height 65 in 12/06/2023 Weight 149 lbs 12/06/2023 weight is down 9 pounds [facility] 05-28-23 Encounters Encounter Location Date Provider Diagnosis Hay Kessler MD [address] [place] [address] Drive [address] [place] [id number] 12/06/2023 Hay Kessler Heterozygous for prothrombin [id number] mutation D68.52 and Mixed hyperlipidemia E78.2 ASSESSMENTS Encounter Date Diagnosis Assessment Notes Treatment Notes Treatment Clinical Notes 12/06/2023 Heterozygous for prothrombin O28033X mutation (ICD-10 - D68.52) needs to be on xarelto permanantly 12/06/2023 Mixed hyperlipidemia (ICD-10 - E78.2) stable, will continue current regiment PLAN OF TREATMENT Medication Medication Name Sig Start Date Stop Date Notes Simvastatin 20 MG take 1 tablet in the evening Orally Once a day Treatment Notes Assessment Notes Heterozygous for prothrombin F06800Y mut ation needs to be on xarelto permanantly Mixed hyperlipidemia stable, will contin ue current regiment Next Appt Details Provider Name:Hay Burden ieronaldo, 07/31/2024 01:30:00 PM, [address] [place] [address] Drive, [address], [place], [place], [phone], Progress Notes * Examination Category Sub-Category Detail Notes General Examination GENERAL APPEARANCE: alert, w ell hydrated, in no distress HEAD: normocephalic HEART: regular rate and rhy thm, no murmurs, rubs, gallops LUNGS: no wheezes, rales, r honchi, good air movement, clear to auscultation bilaterally SKIN: good turgor
--- OUTSIDE RECORDS SUMMARY | 2024-06-02 13:31 | XMS_ITS ---
Author Organization Hay Kessler MD Address [address] [place], [place] [phone] Care Team Providers Care Brineyard Supervisor Name Role Phone Victoria Hay Primary Care Provider [phone] RESULTS Component Value Reference Range Notes Liver Panel Reviewed date:11/29/2023 03:40:46 PM Interpretation: Performing Lab:[facility], [address] [place] [phone] Notes/Report: Bilirubin Total 1.0 0.0-1.0 mg/dL Bilirubin Direct 0.4 0.0-0.5 mg/dL Aspartate Amino Transferase 21 5-37 U/L Alanine Aminotransferase 7 0-40 U/L Total Protein 7.0 6.5-8.0 g/dL Albumin Level 4.0 3.5-5.0 g/dL Alkaline Phosphatase 52 39-117 U/L Lipid Panel Reviewed date:11/29/2023 03:41:38 PM Interpretation: Performing Lab:[facility], [address] [place] [phone] Notes/Report: Triglycerides 47 <150 mg/dL Desirable Triglyceride: [...] patients with liver disease. REASON FOR VISIT LIVER, LIPID PANEL Encounters Encounter Location Date Provider Diagnosis Hay Kessler MD [address] [place] [address] [place] [id number] 11/29/2023 Hay Kessler Mixed hyperlipidemia E78.2 ASSESSMENTS Encounter Date Diagnosis Assessment Notes Treatment Notes Treatment Clinical Notes 11/29/2023 Mixed hyperlipidemia (ICD-10 - E78.2) PLAN OF TREATMENT Next Appt Details Provider Name:Hay villegas, 07/31/2024 01:30:00 PM, [address] [place] [address], [address], [place], [place], [phone],
--- OUTSIDE RECORDS SUMMARY | 2024-06-02 13:31 | XMS_ITS | Patient Health Record ---
Author Organization [facility] Address [address] [place] [address] Care Team Providers Care Ui Software Developer Name Role Phone Hay Kessler MD Primary Care Provider Orestes Renee Unavailable [phone] ALLERGIES Allergen (clinical drug ingredient) Drug/Non Drug Allergy documented on EMR Reaction Allergy Type Onset Date Status Influenza Vac Split Quad Unknown Drug Allergy Active Cat dander cats (uncoded) Unknown Allergy Acti ve peanuts and soy (uncoded) Unknown Allergy Active REASON FOR REFERRAL No Information MEDICATIONS Medication SIG (Take, Route, Frequency, Duration) Notes Start Date End Date Status Omeprazole 20 MG 1 capsule 30 minutes before morning meal Orally as needed Q Mon/Thurs Active Simvastatin 20 MG 1 tablet in the evening Orally Once a day Active Estero 3 1200mg Activ e Glucosamine Chondroit-Collagen 1200mg as directed Orally Active Vitamin D3 50 MCG (1999) 1 tablet Orally Once a day Active Xarelto 20 MG 1 tablet with food Orally Once a day for 30 day(s) Active IMMUNIZATIONS Vaccine Route Administration Date Status Comme nts Influenza Unknown 07/12/2020 Refused SOCIAL HISTORY Sex Assigned At : Social History Observation Description Sex Assigned At Unknown PROBLEMS Problem Type ICD Code Onset Dates Problem Status W/U Status Risk SNOMED Code Notes Problem Positive colorectal cancer screening using Cologuard test (R19.5) Active confirmed Abnormal feces (459192504) PLAN OF TREATMENT Pending Test Test Name Order Date Pathology 08/03/2020 Future Test Test Name Order Date COLONOSCOPY 06/25/2013 COLONOSCOPY 07/12/2020 Insurance Providers Payer Name Payer Address Payer Phone Subscriber Number Group Number Insured Name Patient Relationship to Insured Coverage Start Date Coverage End Date MEDICARE OF [place] [address] [place] [address] [phone] [id number] FERMIN BETHEAFARHAT Self - patient is the insured [facility] [address] [place] [id number] FERMIN BETHEAFARHAT Self - patient is the insured MEDICAL (GENERAL) HISTORY Medical History History ICD Code Colonoscopy 04/01/2008 and 09/2013--2 tub ular adenomas removed Hyperlipidemia GERD-small HH-no esophagitis Denies [place],DM,CVA,Lung disease,renal dise ase Pulmonary embolus in 2018 or 2019 Surgical History Surgery Date(Month/Year) Knee surgery Cholecystectomy Cataract surgery
== END 2024-05-26 11:42 | disposition home or self-care (01) ==
LOC: HO.10HDL 11:41
PROVIDERS: Visit Provider Internal Medicine
DX: E78.2 Mixed hyperlipidemia (principal)
CPT/HCPCS: 36415; 80061; 80076

== ENCOUNTER 2024-06-16 13:33 | Inpatient (IN) | payer MEDICARE, OTHER, SELFPAY ==
[2024-06-16] VITALS (11 sets, daily range): BP systolic 97–120; BP diastolic 55–76; PULSE 66–101; RESP 15–22; TEMP 36.7–37.1; O2SAT 87–100; BMI 25.1
--- NOTE | ~2024-06-16 | XR_ITS ---
EXAMINATION: XR CHEST CLINICAL INFORMATION: SOB, cough COMPARISON: None available. TECHNIQUE: 2 views of the chest were obtained. FINDINGS: The cardiac, hilar, and mediastinal contours are normal. The aorta is heavily calcified. There is a retrocardiac hiatus hernia present. The lungs are diffusely hyperaerated and hyperlucent, however clear bilaterally. There is no pneumothorax or pleural effusion. Trace linear scarring lingular distribution. Scattered calcified granulomata. There is no focal osseous or soft tissue abnormality. XR/XR chest 2V IMPRESSION: 1. COPD. Evidence of prior granulomatous disease. 2. No active superimposed lung disease. 3. Hiatus hernia. 4. Heavy vascular calcification. Electronically signed by: Grant Berrios MD 06/16/2024 02:32 PM [facility]
--- NOTE | ~2024-06-16 | CT_ITS ---
EXAMINATION: CT ANGIOGRAM CHEST CLINICAL INFORMATION: Shortness of breath COMPARISON: 12/20/2018 TECHNIQUE: Multiple axial images were obtained through the chest after the administration of 65 mL of Omnipaque 350 intravenous contrast. Extensive vascular post-processing including two-dimensional and three-dimensional reformatted images were created and reviewed on an independent workstation. This CT examination was performed using dose optimization techniques as appropriate, variously including the following: *Automated exposure control *Adjustment of mA and/or kV according to patient size (this includes techniques or standardized protocols for targeted exams where dose is matched to indication/reason for exam; i.e. extremities or head) *Use of iterative reconstruction technique DLP: 245 mGy-cm FINDINGS: Pulmonary arteries are prominent consistent pulmonary hypertension. There is no evidence of acute or chronic pulmonary embolism. Thoracic aorta is within normal limits. Extensive coronary artery calcifications. Advanced emphysematous changes are noted particularly upper lung zones hyperinflation. No discrete lesion. There is a large hernia involving the stomach which is essentially upside down displaced into the posterior mediastinum. 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 No gastric outlet obstruction or inflammatory changes. No pleural disease. Minor dependent atelectasis. Hepatic granulomata. No acute osseous abnormality. CT/CT angio chest PE protocol IMPRESSION: 1. No evidence of acute or chronic pulmonary embolism. 2. Advanced COPD. 3. 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 Fleischner guidelines were followed. Electronically signed by: Alex Canada MD 06/16/2024 05:45 PM [facility]
--- NOTE | 2024-06-16 13:42 | ED.URI ---
HPI - URI/Sore Throat General Chief Complaint: Upper Respiratory Symptoms Stated Complaint: SOB few days Time Seen by Provider: 06/16/24 13:56 Source: patient and family Mode of arrival: ambulatory History of Present Illness ED Provider: Chad ALAMO Narrative: 84-year-old male, daily drinker, currently on blood thinners for a PE couple of years ago, son states that he missed his blood thinner over the weekend comes in with increasing shortness of breath, cough, congestion and denies any history of COPD. Related Data Home Medications ?Medication ?Instructions ?Recorded ?Confirmed cholecalciferol (vitamin D3) 50 50 mcg PO DAILY 06/28/20 07/28/20 mcg (2,000 unit) tablet (Vitamin D3) glucosamine HCl 1,500 mg tablet 1,500 mg PO DAILY 06/28/20 07/28/20 omega-3 fatty acids 1,250 mg PO DAILY 06/28/20 07/28/20 omeprazole magnesium 20 mg 20 mg PO DAILY 06/28/20 07/28/20 capsule,delayed release rivaroxaban 20 mg tablet (Xarelto) 20 mg PO DAILY 06/28/20 07/28/20 simvastatin 20 mg tablet 20 mg PO BEDTIME 06/28/20 07/28/20 Allergies Allergy/AdvReac Type Severity Reaction Status Date / Time cat dander [cats] Allergy Severe Anaphylaxis Verified 06/16/24 13:44 peanut [PEANUT] Allergy Severe ANAPHYLAXIS Verified 06/16/24 13:44 soy sauce Allergy Severe ANAPHYLAXIS Uncoded 06/16/24 13:44 Review of Systems Review of Systems: Pertinent positives and negatives as stated in HPI PMFSH Past Medical History Source: nursing notes reviewed Medical History Situational anxiety GERD (gastroesophageal reflux disease) Hyperlipidemia 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 Bilateral pulmonary embolism Surgical History Hx of cataract extraction Hx of knee surgery Hx of colonoscopy Hx of cholecystectomy Social History Social History Alcohol intake: current Alcohol intake frequency: 3 or more drinks per day Alcohol type: beer and hard liquor Use of substances other than those prescribed or required for medical reasons: No Advance Directives: No Advance Directives Information Provided: Yes Physical Exam Vital Signs: Vital Signs: Last Vital Signs Temp 98.1 F 06/16/24 17:35 Pulse 70 06/16/24 17:35 Resp 15 06/16/24 17:35 BP 111/76 06/16/24 17:35 Pulse Ox 99 06/16/24 17:35 O2 Del Method Nasal Cannula 06/16/24 17:35 O2 Flow Rate 4 06/16/24 17:35 Oxygen Flow Rate 4 06/16/24 15:27 BMI result Body Mass Index 25.1 VITAL SIGNS: Reviewed. GENERAL: Well developed, well nourished, in no acute distress. HEAD: Normocephalic/atraumatic EYES: PERRLA, EOMI EARS: Ext canals without abnormality NOSE: Nares patent bilateral OROPHARYNX: no oral lesions noted, posterior pharynx clear NECK: Supple, no adenopathy LUNGS: Decreased breath sounds bilaterally, increased work of breathing. SpO2<87> placed on 2 L nasal cannula with good response up to 93% CARDIOVASCULAR: Regular rate and rhythm without noted murmurs, no JVD or lower extremity edema. ABDOMEN: Soft, non-tender, non-distended with bowel sounds. MUSCULOSKELETAL: No tenderness, deformities, or effusions noted on gross inspection. EXTREMITIES: No cyanosis, clubbing or edema. SKIN: Inspection of the skin reveals no rashes NEUROLOGIC: Alert and oriented x 4. Strength and sensation to light touch were grossly intact x 4. Course Course Course Narrative: This is an RME: Additional HPI, ROS, PE not included below will be deferred to primary provider. RME assessment and note performed by: Raisa Diaz PA-C This is a 65-mgho-euu-male, with a hx of PE on xarelto, GERD, HLD, who presents to the ER with complaints of cough with white colored sputum. Family reports that he has been coughing since thanks. Lungs diminished, no wheezing auscultated. Admits to missing his blood thinner on saturday and saturday. O2 88% on RA in triage. pt brought back to room Plan: Labs, EKG, CXR, viral swabs Medications Administered Discontinued Medications Generic Name Dose Route Start Last Admin Trade Name Freq PRN Reason Stop Dose Admin Albuterol Sulfate 2.5 mg/ 0 mg 06/16/24 14:14 06/16/24 14:16 Albuterol/Ipratropium 3 ml INHALE 06/16/24 14:15 1 dose ONCE ONE Administration Iohexol 65 ml 06/16/24 16:21 06/16/24 16:21 Iohexol 350 Mg/Ml 75 Ml Infus..Btl IV 06/16/24 16:22 65 ml ONCE ONE Administration Methylprednisolone Sodium Succinate 125 mg 06/16/24 17:26 06/16/24 17:31 Methylprednisolone Sod Succ 125 Mg/2 Ml Vial IVPUSH 06/16/24 17:27 125 mg ONCE ONE Administration Medical Decision Making Medical Decision Making MDM Narrative: 84-year-old male with history and clinical presentation, DD DX: Viral illness, pneumonia, PE EKG: Sinus rhythm with first-degree AV block, HR-81, no STEMI, LBBB at baseline, OR-252, QRS-122, QTC within normal limits I reviewed and interpreted all investigations and there is no infectious leukocytosis, there is a very mild anemia and no thrombocytopenia. VBG does not demonstrate any respiratory acidosis or hypercapnia. There is no demonstrated MICHAEL/electrolyte or liver enzyme derangements. High sensitivity troponin is undetectable. Lactic acidosis is likely secondary to nebulized treatments as patient is otherwise afebrile. Viral testing is negative for flu/RSV/COVID-19. Chest x-ray does not demonstrate any infiltrate or venous congestion. CT negative for VTE. I discussed the case with inpatient hospitalist who accepts patient in admission. Differential Diagnosis Differential Diagnoses: The differential diagnosis associated with the presentation includes See above Admission/Observation Consideration of admission/observation: Escalation of care including admission/observation considered Patient meets inpatient level of care with hypoxia and shortness of breath. Consult Healthcare Provider Management of the patient was discussed with: Hospitalist See above Lab Data [facility] Lab Attestation statement: I reviewed the patient's lab results. See above 06/16/24 14:58 06/16/24 14:58 Labs: Lab Results 06/16/24 06/16/24 06/16/24 Range/Units 14:53 14:58 15:06 WBC 7.5 (4.8-10.8) X10*3/uL RBC 4.48 L (4.60-5.80) X10*6/uL Hgb 13.7 L (14.0-18.0) g/dl Hct 41.3 L (42.0-52.0) % MCV 92.2 (80.0-98.0) fL MCH 30.6 (27.0-33.0) pg MCHC 33.2 (31.0-36.0) g/dl RDW 14.6 (11.0-16.0) % Plt Count 212 D (160-400) X10*3/uL MPV 9.6 (9.4-12.4) fL Immature Gran % (Auto) 0.4 (0.0-0.4) % Neut % (Auto) 66.2 (45-73) % Lymph % (Auto) 23.0 (20-40) % Sunflower % (Auto) 8.4 (2-11) % Eos % (Auto) 1.3 (0-4) % Baso % (Auto) 0.7 (0-2) % Lymph # (Auto) 1.7 (1.2-4.9) X10*3/uL Sunflower # (Auto) 0.6 (0.1-1.2) X10*3/uL Eos # (Auto) 0.1 (0.0-0.4) X10*3/uL Baso # (Auto) 0.1 (0.0-0.2) X10*3/uL Abs Immat Gran (auto) 0.03 (0.00-0.03) X10*3/uL Absolute Neuts (auto) 5.0 (2.0-8.3) x10*3/uL Absolute Nucleated RBC 0.000 (0.0-0.012) X10*3/uL Nucleated RBC % (auto) 0.0 (0.0-0.2) /100WBC VBG pH 7.43 (7.32-7.43) VBG pCO2 46 mmHg VBG pO2 39 mmHg VBG HCO3 31 H (22-26) mmol/L VBG O2 Saturation 63.0 % VBG Base Excess 6.0 mmol/L Sodium 142 (135-145) mmol/L Potassium 4.5 D (3.3-5.1) mmol/L Chloride 104 (96-108) mmol/L Carbon Dioxide 25 (22-29) mmol/L Anion Gap 18 (12-20) BUN 11 (9-16) mg/dL Creatinine 0.75 (0.5-1.4) mg/dL Estim Creat Clear Calc 70.9 Estimated GFR > 60 Random Glucose 113 (60-115) mg/dL Lactic Acid 3.9 H* (0.5-2.0) mmol/L Calcium 9.8 (8.4-10.2) mg/dL Magnesium 1.9 (1.6-2.6) mg/dL Total Bilirubin 0.8 (0.0-1.0) mg/dL AST 32 (5-37) U/L ALT < 6 (0-40) U/L Alkaline Phosphatase 76 D (39-117) U/L Troponin I High Sens < 2.7 (<3.5-35.0) ng/L Total Protein 7.6 (6.5-8.0) g/dL Albumin 3.9 (3.5-5.0) g/dL Influenza Type A (PCR) NEGATIVE (Negative) Influenza Type B (PCR) NEGATIVE (Negative) RSV RNA Qual (PCR) NEGATIVE (Negative) SARS-CoV-2 RNA (RT-PCR) NEGATIVE (Negative) Independent Interpretation I performed an independent interpretation of an: EKG, Plain X-Ray and CT Scan Interpretation: See above Radiology Impression Discussion of test interpretation with radiology: I have reviewed the radiologist's reading. Radiologist Impression: See above External Record Review External record reviewed: Prior outpatient labs and Outside ED record Critical Care Time Critical Care Time Critical Care Time: Yes Total Critical Care Time: 60 Attestation: I personally attest to this time spent taking care of the patient. Discharge Plan Discharge Clinical Impression: Hypoxia, Shortness of breath Patient Disposition: Admitted As Inpatient Print Language: Emirati
--- NOTE | 2024-06-16 13:49 | ECG_ITS ---
Test Reason : SOB Blood Pressure : / mmHG Vent. Rate : 081 BPM Atrial Rate : 081 BPM P-R Int : 252 ms QRS Dur : 122 ms QT Int : 410 ms P-R-T Axes : 089 -25 066 degrees QTc Int : 476 ms Sinus rhythm with 1st degree A-V block Left bundle branch block Abnormal ECG When compared with ECG of 20-JAN-2019 07:21, Premature supraventricular complexes are no longer Present Left bundle branch block is now Present Referred By: Raisa Diaz Electronically Signed By:Wayne Todd
[2024-06-16] MEDS: Albuterol Sulfate 2.5 MG, Albuterol/Iprat 2.5/0.5MG 3 ML 3 ML INHALE (14:16)
--- OUTSIDE RECORDS SUMMARY | 2024-06-16 14:49 | XMS_ITS | Encounter Summary ---
Author Name [facility] [place] [facility] [place] Address [address] [place] [id number] Care Team Providers Care Movement Assembler Name Role Phone LEXY MEJÍA Primary Care [...] Policy Huang [facility]IC[facility] [place] [place] IND Jun 24, 2016 MEDICAR E SUPPLEM E [id number] SudarshanFARHAT PATIENT MEDICARE (WNR) MEDICARE (M) PART A Apr 24, 2005 PART A [id number] [facility] [place]ST[place] HeatonFARHAT PATIENT MEDICARE (WNR) MEDICARE (M) PART B Apr 24, 2005 PART B [id number] [facility] [place] CHAVEZ PATIENT Selected Encounter This section includes the information on record at [place] for the Encounter. Date/Time Encounter Type Encounter Description Reason Pro vider Source Jun 03, 2024 04:16 PM Outpatient Encounter PRIMARY CARE/MEDICINE IHE Encounter Template Text not used by [place] Plan of Treatment: Future Appointments (+ 6 months) and Future Tests (+/- 45 days) The Plan of Treatment section includes future care activities for the patient from all [place] [facility]. This section includes future appointments and future orders which are active, pending or scheduled. Future Appointments This section includes appointments that were scheduled to occur 6 months from the date of the Encounter, up to a maximum of 20 appointments. The data comes from all [facility]. Appointment Date/Time Appointment Type Appointme nt Facility Name Jul 24, 2024 01:00 PM [facility] Active, Pending, and Scheduled Orders This section includes a listing of several types of active, pending, and scheduled orders, including clinic medications orders, diagnostic test orders, procedure orders and consult orders; where the start date of the order is 45 days before the date of the Encounter or 45 days after the date of theEncounter. The data comes from all [facility]. Test Date/Time Test Type Test Details Facility Name May 26, 2024 12:00 AM Laboratory - Chemistry Order BASIC METABOLIC PANEL (fasting) BLOOD (SST-SERUM) [facility] May 26, 2024 12:00 AM Laboratory - Chemistry Order LIPID PANEL FASTING BLOOD (SST-SERUM) [facility] May 26, 2024 12:00 AM Laboratory - Chemistry Order LIVER FUNCTION BLOOD (SST-SERUM) [facility] May 26, 2024 12:00 AM Laboratory - Chemistry Order CBC AND DIFF (AUTO) BLOOD (LAV-BLOOD) [facility] May 26, 2024 12:00 AM Laboratory - Chemistry Order HEMOGLOBIN A1C PANEL BLOOD (LAV-BLOOD) [facility] May 26, 2024 12:00 AM Laboratory - Chemistry Order TSH BLOOD (SST-SERUM) [facility] May 26, 2024 12:00 AM Laboratory - Chemistry Order URINALYSIS URINE [facility] May 26, 2024 12:00 AM Laboratory - Chemistry Order MICROALBUMIN CREATININE RATIO PANEL URINE (RANDOM) [facility] Advance Directives: All historical and current Section Date Range: From patient's date of to the date document was created. This section includes ALL of a patient's completed or amended [place] Advance and Rescinded Directives. The entries below indicate that a directive exists for the patient, but an actual copy is not included with this document. The data comes from all [place] facilities. Date Advance Directives Provider Source Feb 16, 2019 ADVANCE DIRECTIVE PABLO BETTS Encounter Notes: All associated encounter notes This section contains the clinical notes associated to the Encounter. Date/Time Encounter Note(s) Provider Source Jun 03, 2024 04:16 PM LETTERS: LOCAL TITLE: PATIENT LETTER (B) STANDARD TITLE: LETTERS DATE OF NOTE: JUN 03, 2024@16:16 ENTRY DATE: JUN 03, 2024@16:16:38 AUTHOR: TIMOTHY HOLBROOK EXP COSIGNER: URGENCY: STATUS: [place] [address] [phone] * [place] [address] [address] Date: JUN 03, 2024 Dear : Our goal at the [facility] is to provide you with quality medical care. We have been trying to reach you to reschedule your recent missed visit with your primary care provier, Dr. Easton. Please call us at to speak with a staff member who can assist you with securing an appointment. Thank you for your service and we look forward to hearing from you soon. Sincerely; [facility] [address] [place] [id number] [phone] Upcoming Appointments: No data available TIMOTHY HOLBROOK
--- OUTSIDE RECORDS SUMMARY | 2024-06-16 14:49 | XMS_ITS | Encounter Summary ---
Author Name [facility] of [facility] ([place]) Organization Department of [facility] ([place]) Address [address] [place] [address] Care Team Providers Care Renewable Energy Consultant Name Role Phone LEXY MEJÍA Primary Care [...] Huang's Name Patient's Relationship to Policy Huang [facility] MEDICARE SUPPLEMEN JESUS [place] IND Jun 24, 2016 MEDICAR E SUPPLEM E [id number] [place] CHAVEZ PATIENT MEDICARE (WNR) MEDICARE (M) PART A Apr 24, 2005 PART A [id number] [facility] FARHAT CHAVEZ PATIENT MEDICARE (WNR) MEDICARE (M) PART B Apr 24, 2005 PART B [id number] [facility] F[place] CHAVEZ PATIENT Selected Encounter This section includes the information on record at [place] for the Encounter. Date/Time Encounter Type Encounter Description Reason Pro vider Source Feb 03, 2024 01:58 PM Outpatient Encounter ADMIN PAT ACTIVTIES (MASNONCT) IHE Encounter Template Text not used by [place] Plan of Treatment: Future Appointments (+ 6 months) and Future Tests (+/- 45 days) The Plan of Treatment section includes future care activities for the patient from all [place] [facility]. This section includes future appointments and future orders which are active, pending or scheduled. Future Appointments This section includes appointments that were scheduled to occur 6 months from the date of the Encounter, up to a maximum of 20 appointments. The data comes from all [place] treatment facilities. Appointment Date/Time Appointment Type Appointme nt Facility Name Jun 03, 2024 01:30 PM AMBULATORY - MEDICINE [facility] Jul 24, 2024 01:00 PM AMBULATORY - MEDICINE [facility] Advance Directives: All historical and current Section Date Range: From patient's date of to the date document was created. This section includes ALL of a patient's completed or amended [place] Advance and Rescinded Directives. The entries below indicate that a directive exists for the patient, but an actual copy is not included with this document. The data comes from all [place] facilities. Date Advance Directives Provider Source Feb 16, 2019 ADVANCE DIRECTIVE PABLO BETTS BISON Encounter Notes: All associated encounter notes This section contains the clinical notes associated to the Encounter. Date/Time Encounter Note(s) Provider Source Feb 03, 2024 01:58 PM PHARMACY NOTE: LOCAL TITLE: PHARMACY CUSTOMER CARE MEDICATION RENEWAL STANDARD TITLE: PHARMACY NOTE DATE OF NOTE: FEB 03, 2024@13:58 ENTRY DATE: FEB 03, 2024@13:58:52 AUTHOR: FRANCK DUNLAP I EXP COSIGNER: URGENCY: STATUS: COMPLETED Date: Jan Division: [place] Pt referred by Pharmacy Call Center for medication renewal: Non-controlled/maintenanc e medication Medications requested: [id number] RIVAROXABAN 20MG TAB [id number] SIMVASTATIN 20MG TAB Defer to primary care provider To be mailed . Please review and renew if appropriate. *This note was generated by [facility] Customer Care. If you have any questions or need assistance, do not contact this author. Please refer all questions to your local, on-site pharmacy departments. /chilango/ FRANCK DUNLAP chain mender LOG RAFT WORKER,MS/PHARMACY CUSTOMER CARE Signed: 02/03/2024 13:59 Receipt Acknowledged By: 02/03/2024 14:42 /chilango/ ANGELINA BHANDARI RN REGISTERED NURSE for EDILBERTO TRIVEDI 02/06/2024 18:40 /es/ DYLAN SIM MD PRIMARY CARE PHYSICIAN FRANCK DUNLAP I [place] [facility]
--- OUTSIDE RECORDS SUMMARY | 2024-06-16 14:49 | XMS_ITS | Encounter Summary ---
Author Name [facility] [place] [facility] [place] [facility] Address [address] [place] [id number] Care Team Providers Care Cutter Operator Tile Name Role Phone LEXY MEJÍA Primary Care [...] Huang's Name Patient's Relationship to Policy Huang [facility] MEDICARE SUPPLEMEN JESUS [place] IND Jun 24, 2016 MEDICAR E SUPPLEM E [id number] [phone] [place] CHAVEZ PATIENT MEDICARE (WNR) MEDICARE (M) PART A Apr 24, 2005 PART A [id number] [facility] [place] HeatonFARHAT PATIENT MEDICARE (WNR) MEDICARE (M) PART B Apr 24, 2005 PART B [id number] [facility] F[place] CHAVEZ PATIENT Selected Encounter This section includes the information on record at [place] for the Encounter. Date/Time Encounter Type Encounter Description Reason Pro vider Source Sep 09, 2023 04:10 AM Outpatient Encounter ADMIN PAT ACTIVTIES (MASNONCT) IHE Encounter Template Text not used by [place] Lab Results: +/- 30 days of the encounter This section includes the Chemistry and Hematology Lab Results on record with [place] for the patient. Radiology Reports and Pathology Reports are provided separately, in subsequent sections. Lab Results This section contains the Chemistry/Hematology Results that were resulted 30 days before or 30 daysafter the date of the Encounter. Date/Time Source Result Type Result - Unit Interpretation Reference Range Comment Sep 25, 2023 10:58 AM JENKINJONES CBC AND DIFF (AUTO) Specimen Type: BLOOD No comment entered. Ordering Provider: DYLAN SIM Report Released Date/Time: Sep 13, 2023 01:43 PM Reporting Lab: [facility] [address] [facility] [address] Performing Lab: [facility] [address] [facility] [address] WBC 5.58 10*3/uL 4.50-11.00 RBC 4.16 10*6/uL L 4.23-5.66 HGB 13.0 g/dL 12.8-17 HCT 38.7 L 39.2-50.4 MCV 93.0 fL 82-99 MCHC 33.6 g/dL 30.8-35.1 PLT 230 10*3/uL 140-360 RDW-CV 12.2 12.0-16.0 Ramsey, Abs 0.44 10*3/uL 0.30-1.10 MCH 31.3 pg 26.2-32.6 Neut % 52.1 43.7-75.8 Lymph % 35.5 14.0-42.3 Ramsey % 7.9 5.1-13.7 Eos % 3.0 0.4-6.8 Baso % 1.1 0.1-2.0 Neut, Abs 2.91 10*3/uL 2.20-7.60 Lymph, Abs 1.98 10*3/uL 1.00-3.20 Eos, Abs 0.17 10*3/uL 0.03-0.44 Baso, Abs 0.06 10*3/uL 0.01-0.13 Immature Gran % 0.4 0.0-0.7 Immature Gran, Abs 0.02 10*3/uL 0.00-0.06 Sep 25, 2023 10:58 AM JENKINJONES CREATININE (eGFR 2020) Specimen Type: SERUM No comment entered. Ordering Provider: DYLAN SIM Report Released Date/Time: Sep 13, 2023 01:43 PM Reporting [facility] [address] [facility] [address] Performing Lab: [address] [address] CREATININE, Serum 0.75 mg/dL 0.50-1.40 eGFR(CKD-EPI 2020) 89 mL/min >60 Advance Directives: All historical and current Section Date Range: From patient's date of to the date document was created. This section includes ALL of a patient's completed or amended [place] Advance and Rescinded Directives. The entries below indicate that a directive exists for the patient, but an actual copy is not included with this document. The data comes from all [place] facilities. Date Advance Directives Provider Source Feb 16, 2019 ADVANCE DIRECTIVE PABLO BETTS JENKINJONES Encounter Notes: All associated encounter notes This [...] renew his blood thinner Please inform the [place] Thank you /chilango/ DYLAN SIM MD PRIMARY CARE PHYSICIAN Signed: 09/12/2023 08:27 Receipt Acknowledged By: 09/13/2023 16:36 /chilango/ SADAF KIM RN-BC REGISTERED NURSE ====== --- Original Document --- 09/09/23 V1 PHARMACY CUSTOMER CARE MEDICATION RENEWAL: Date: Aug Division: [place] Pt referred by Pharmacy Call Center for medication renewal: Non-controlled/maintenan ce medication Medications requested: [id number] RIVAROXABAN 20MG TAB Defer to primary care provider To be mailed . Please review and renew if appropriate. *This note was generated by [facility] Pharmacy Customer Care. If you have any questions or need assistance, do not contact this author. Please refer all questions to your local, on-site pharmacy departments. /david HUSSEIN [facility] Smearer, ID/Pharmacy Customer Care Signed: 09/09/2023 04:11 Receipt Acknowledged By: 09/09/2023 15:14 /chilango/ SADAF KIM RN-BC REGISTERED NURSE 09/12/2023 08:26 /chilango/ DYLAN SIM MD PRIMARY CARE PHYSICIAN DYLAN SIM [place] [facility] Sep 09, 2023 04:10 AM PHARMACY NOTE: LOCAL TITLE: V1 PHARMACY CUSTOMER CARE MEDICATION RENEWAL STANDARD TITLE: PHARMACY NOTE DATE OF NOTE: SEP 09, 2023@04:10 ENTRY DATE: SEP 09, 2023@04:10:45 AUTHOR: AMY HUSSEIN EXP COSIGNER: URGENCY: STATUS: COMPLETED V1 PHARMACY CUSTOMER CARE MEDICATION RENEWAL Has ADDENDA Date: Aug Division: [place] Pt referred by Pharmacy Call Center for medication renewal: Non-controlled/maintenan ce medication Medications requested: [id number]$ RIVAROXABAN 20MG TAB Defer to primary care provider To be mailed . Please review and renew if appropriate. *This note was generated by [facility] Pharmacy Customer Care. If you have any questions or need assistance, do not contact this author. Please refer all questions to your local, on-site pharmacy departments. /david HUSSEIN [facility] Smearer, ID/Pharmacy Customer Care Signed: 09/09/2023 04:11 Receipt Acknowledged [...] REGISTERED NURSE 09/13/2023 ADDENDUM STATUS: COMPLETED Called [place] and left voicemail advising that needs to complete non fasting labwork ordered by provider. /chilango/ SADAF KIM RN-BC REGISTERED NURSE Signed: 09/13/2023 16:38 AMY HUSSEIN [facility]
--- OUTSIDE RECORDS SUMMARY | 2024-06-16 14:49 | XMS_ITS | Encounter Summary ---
Author Name [facility] Organization [facility] [place] Address [address] [place] [id number] Care Team Providers Care Car Hostler Name Role Phone LEXY MEJÍA Primary Care [...] Name Patient's Relationship to Policy Huang [facility] MEDICARE SUPPLEMEN JESUS [place] IND Jun 24, 2016 MEDICAR E SUPPLEM E [id number] [phone] FARHAT CHAVEZ PATIENT MEDICARE (WNR) MEDICARE (M) PART A Apr 24, 2005 PART A [id number] [facility] FARHAT CHAVEZ PATIENT MEDICARE (WNR) MEDICARE (M) PART B Apr 24, 2005 PART B [id number] [facility] FARHAT CHAVEZ PATIENT Selected Encounter This section includes the information on record at [place] for the Encounter. Date/Time Encounter Type Encounter Description Reason Pro vider Source November 04, 2023 01:46 PM Outpatient Encounter ADMIN PAT ACTIVTIES (MASNONCT) IHE Encounter Template Text not used by [place] Advance Directives: All historical and current Section Date Range: From patient's date of to the date document was created. This section includes ALL of a patient's completed or amended [place] Advance and Rescinded Directives. The entries below indicate that a directive exists for the patient, but an actual copy is not included with this document. The data comes from all [place] facilities. Date Advance Directives Provider Source Feb 16, 2019 ADVANCE DIRECTIVE PABLO BETTS M[place]RI[place] Encounter Notes: All associated encounter notes This section contains the clinical notes associated to the Encounter. Date/Time Encounter Note(s) Provider Source November 04, 2023 01:46 PM PHARMACY NOTE: LOCAL TITLE: V1 PHARMACY CUSTOMER CARE MEDICATION RENEWAL STANDARD TITLE: PHARMACY NOTE DATE OF NOTE: NOVEMBER 04, 2023@13:46 ENTRY DATE: NOVEMBER 04, 2023@13:46:54 AUTHOR: ANTHONY DOUGLAS EXP COSIGNER: URGENCY: STATUS: COMPLETED Date: October Division: [facility] referred by Pharmacy Call Center for medication renewal: Non-controlled/maintenan ce medication Medications requested: [id number] SIMVASTATIN 20MG TAB [id number] RIVAROXABAN 20MG TAB Defer to primary care provider To be mailed . Please review and renew if appropriate. *This note was generated by [facility]/[place] Pharmacy Customer Care. If you have any questions or need assistance, do not contact this author. Please refer all questions to your local, on-site pharmacy departments. /chilango/ ANTHONY DOUGLAS [facility] [place], [place]/Pharmacy Customer Care Signed: 11/04/2023 13:47 Receipt Acknowledged By: 11/04/2023 15:50 /chilango/ BILLIE KIMN RN-BC REGISTERED NURSE 11/05/2023 10:45 /es/ DYLAN SIM MD PRIMARY CARE PHYSICIAN ANTHONY DOUGLAS [facility]
--- OUTSIDE RECORDS SUMMARY | 2024-06-16 14:49 | XMS_ITS | Encounter Summary ---
Author Name [facility] [place] [facility] [place] Address [address] [place] [address] Care Team Providers Care Care Specialist Name Role Phone LEXY MEJÍA Primary Care [...] Policy Huang [facility] Jun [facility], 2016 MEDICAR E SUPPLEM E [id number] CRISTÓBAL SudarshanFARHAT PATIENT MEDICARE (WNR) MEDICARE (M) PART A Apr 24, 2005 PART A [id number] [facility] CRISTÓBAL FARHAT Heaton PATIENT MEDICARE (WNR) MEDICARE (M) PART B Apr 24, 2005 PART B [id number] [facility] FARHAT CHAVEZ PATIENT Selected Encounter This section includes the information on record at [place] for the Encounter. Date/Time Encounter Type Encounter Description Reason Pro vider Source Jun 03, 2024 01:30 PM Outpatient Encounter PRIMARY CARE/MEDICINE IHE Encounter Template Text not used by [facility] Plan of Treatment: Future Appointments (+ 6 months) and Future Tests (+/- 45 days) The Plan of Treatment section includes future care activities for the patient from all [facility] treatmentfacilities. This section includes future appointments and future orders which are active, pending or scheduled. Future Appointments This section includes appointments that were scheduled to occur 6 months from the date of the Encounter, up to a maximum of 20 appointments. The data comes from all [facility]. Appointment Date/Time Appointment Type Appointme nt Facility Name Jul 24, 2024 01:00 PM AMBULATORY - MEDICINE [facility] Active, Pending, and Scheduled Orders This section includes a listing of several types of active, pending, and scheduled orders, including clinic medications orders, diagnostic test orders, procedure orders and consult orders; where the start date of the order is 45 days before the date of the Encounter or 45 days after the date of theEncounter. The data comes from all [facility]. Test Date/Time Test Type Test Details Facility Name May 26, 2024 12:00 AM Laboratory - Chemistry Order BASIC METABOLIC PANEL (fasting) BLOOD (SST-SERUM) [facility] May 26, 2024 12:00 AM Laboratory - Chemistry Order LIPID PANEL FASTING BLOOD (SST-SERUM) [facility] May 26, 2024 12:00 AM Laboratory - Chemistry Order LIVER FUNCTION BLOOD (SST-SERUM) [facility] May 26, 2024 12:00 AM Laboratory - Chemistry Order CBC AND DIFF (AUTO) BLOOD (LAV-BLOOD) [facility] May 26, 2024 12:00 AM Laboratory - Chemistry Order HEMOGLOBIN A1C PANEL BLOOD (LAV-BLOOD) [facility] May 26, 2024 12:00 AM Laboratory - Chemistry Order TSH BLOOD (SST-SERUM) [facility] May 26, 2024 12:00 AM Laboratory - Chemistry Order URINALYSIS URINE [facility] May 26, 2024 12:00 AM Laboratory - Chemistry Order MICROALBUMIN CREATININE RATIO PANEL URINE (RANDOM) [facility] Social History: Smoking Status (Most current) and Tobacco Use (All prior to encounter date) This section includes the most current, and the historical, smoking and tobacco- related health factors from the [place] facility where the Encounter took place. Current Smoking Status This section includes the most current smoking, or tobacco-related health factor, from the [place] facility where the Encounter took place. Date/Time Current Smoking Status Comment Sushil ity Jun 04, 2023 01:30 PM VA-TOBACCO FORMER USER [place] Tobacco Use History This section includes a history of the smoking, or tobacco-related health factors, that were collected on or before the date of the Encounter. The data comes from the [place] facility where the Encounter took place. Date/Time Smoking Status/Tobacco Use Comment F acility Jun 04, 2023 01:30 PM VA-TOBACCO QUIT 15 YRS OR MORE [place] May 28, 2022 12:30 PM VA-TOBACCO NEVER USED [place] Jun 15, 2021 01:30 PM VA-TOBACCO NEVER USED [place] Feb 17, 2019 11:39 AM VA-TOBACCO FORMER USER [place] Feb 17, 2019 11:39 AM VA-TOBACCO QUIT 15 YRS OR MORE [place] Advance Directives: All historical and current Section Date Range: From patient's date of to the date document was created. This section includes ALL of a patient's completed or amended [place] Advance and Rescinded Directives. The entries below indicate that a directive exists for the patient, but an actual copy is not included with this document. The data comes from all [place] facilities. Date Advance Directives Provider Source Feb 16, 2019 ADVANCE DIRECTIVE PABLO BETTS [place] Encounter Notes: All associated encounter notes This section contains the clinical notes associated to the Encounter. Date/Time Encounter Note(s) Provider Source Jun 03, 2024 01:59 PM ADMINISTRATIVE NOT E: LOCAL TITLE: ADMINISTRATIVE NOTE STANDARD TITLE: ADMINISTRATIVE NOTE DATE OF NOTE: JUN 03, 2024@13:59 ENTRY DATE: JUN 03, 2024@14:00:02 AUTHOR: JORGE CALI EXP COSIGNER: URGENCY: STATUS: COMPLETED ADMINISTRATIVE NOTE Has ADDENDA [place] was a NO SHOW for his appointment with PACT 7 PCP. /david CALI LPN Licensed Practical Nurse Signed: 06/03/2024 14:00 Receipt Acknowledged By: 06/03/2024 16:19 /david HOLBROOK ADVANCED MANAGER PRIVACY 06/03/2024 ADDENDUM STATUS: COMPLETED SW VET AND R/S NO SHOW APPT TO 07/24/24 /david HOLBROOK ADVANCED MANAGER PRIVACY Signed: 06/03/2024 16:19 JORGE CALI
--- OUTSIDE RECORDS SUMMARY | 2024-06-16 14:50 | XMS_ITS ---
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 [id number] VITAL SIGNS BMI 24.79 kg/m2 12/06/2023 Blood pressure systolic 114 mm Hg 12/06/19 24 Blood pressure diastolic 60 mm Hg 06/14/2 024 Height 65 in 12/06/2023 Weight 149 lbs 12/06/2023 weight is down 9 pounds [facility] 05-28-23 Encounters Encounter Location Date Provider Diagnosis Hay Kessler MD [address] [place] [address] Drive [address] [place] [phone] 12/06/2023 Hay Kessler 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 D68.52 and Mixed hyperlipidemia E78.2 ASSESSMENTS Encounter Date Diagnosis Assessment Notes Treatment Notes Treatment Clinical Notes 12/06/2023 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 12/06/2023 Mixed hyperlipidemia (ICD-10 - E78.2) stable, will continue current regiment PLAN OF TREATMENT Medication Medication Name Sig Start Date Stop Date Notes Simvastatin 20 MG take 1 tablet in the evening Orally Once a day Treatment Notes Assessment Notes Heterozygous for prothrombin L58859X mut ation needs to be on xarelto permanantly Mixed hyperlipidemia stable, will contin ue current regiment Next Appt Details Provider Name:Hay Burden ieronaldo, 07/31/2024 01:30:00 PM, [address] [place] [address] Drive, [address], [place], [place], [phone], Progress Notes * Examination Category Sub-Category Detail Notes General Examination GENERAL APPEARANCE: alert, w ell hydrated, in no distress HEAD: normocephalic HEART: regular rate and rhy thm, no murmurs, rubs, gallops LUNGS: no wheezes, rales, r honchi, good air movement, clear to auscultation bilaterally SKIN: good turgor
--- OUTSIDE RECORDS SUMMARY | 2024-06-16 14:50 | XMS_ITS ---
Author Name [facility] Address [address] [place] [address] Care Team Providers Care Liaison Inspection Laboratory Assistant Name Role Phone LEXY MEJÍA Primary [...] Huang's Name Patient's Relationship to Policy Huang [facility] MEDICARE SUPPLEMEN JESUS [place] IND Jun 24, 2016 MEDICAR E SUPPLEM E [id number] FARHAT CHAVEZ PATIENT MEDICARE (WNR) MEDICARE (M) PART A Apr 24, 2005 PART A [id number] [facility] FARHAT CHAVEZ PATIENT MEDICARE (WNR) MEDICARE (M) PART B Apr 24, 2005 PART B [id number] [facility] FARHAT CHAVEZ PATIENT Selected Encounter This section includes the information on record at [place] for the Encounter. Date/Time Encounter Type Encounter Description Reason Pro vider Source Jun 11, 2024 02:23 PM Outpatient Encounter ADMIN PAT ACTIVTIES (MASNONCT) IHE Encounter Template Text not used by [place] Plan of Treatment: Future Appointments (+ 6 months) and Future Tests (+/- 45 days) The Plan of Treatment section includes future care activities for the patient [facility] [place] [facility] This section includes future appointments and future orders which are active, pending or scheduled. Future Appointments This section includes appointments that were scheduled to occur 6 months from the date of the Encounter, up to a maximum of 20 appointments. The data comes from all [facility]. Appointment Date/Time Appointment Type Appointme nt Facility Name Jul 24, 2024 01:00 PM AM[facility]ULATORY - [facility]ICINE [facility] Active, Pending, and Scheduled Orders This section includes a listing of several types of active, pending, and scheduled orders, including clinic medications orders, diagnostic test orders, procedure orders and consult orders; where the start date of the order is 45 days before the date of the Encounter or 45 days after the date of theEncounter. The data comes from all [facility]. Test Date/Time Test Type Test Details Facility Name May 26, 2024 12:00 AM Laboratory - Chemistry Order BASIC METABOLIC PANEL (fasting) BLOOD (SST-SERUM) [facility] May 26, 2024 12:00 AM Laboratory - Chemistry Order LIPID PANEL FASTING BLOOD (SST-SERUM) [facility] May 26, 2024 12:00 AM Laboratory - Chemistry Order LIVER FUNCTION BLOOD (SST-SERUM) [facility] May 26, 2024 12:00 AM Laboratory - Chemistry Order CBC AND DIFF (AUTO) BLOOD (LAV-BLOOD) [facility] May 26, 2024 12:00 AM Laboratory - Chemistry Order HEMOGLOBIN A1C PANEL BLOOD (LAV-BLOOD) [facility] May 26, 2024 12:00 AM Laboratory - Chemistry Order TSH BLOOD (SST-SERUM) [facility] May 26, 2024 12:00 AM Laboratory - Chemistry Order URINALYSIS URINE [facility] May 26, 2024 12:00 AM Laboratory - Chemistry Order MICROALBUMIN CREATININE RATIO PANEL URINE (RANDOM) [facility] Advance Directives: All historical and current Section Date Range: From patient's date of to the date document was created. This section includes ALL of a patient's completed or amended [place] Advance and Rescinded Directives. The entries below indicate that a directive exists for the patient, but an actual copy is not included with this document. The data comes from all [place] facilities. Date Advance Directives Provider Source Feb 16, 2019 ADVANCE DIRECTIVE PABLO BETTS [place] Encounter Notes: All associated encounter notes This section contains the clinical notes associated to the Encounter. Date/Time Encounter Note(s) Provider Source Jun 11, 2024 02:23 PM PHARMACY NOTE: LOCAL TITLE: PHARMACY CUSTOMER CARE MEDICATION RENEWAL STANDARD TITLE: PHARMACY NOTE DATE OF NOTE: JUN 11, 2024@14:23 ENTRY DATE: JUN 11, 2024@14:23:44 AUTHOR: REYNA TRAORE EXP COSIGNER: URGENCY: STATUS: COMPLETED Date: May Division: [facility] referred by Pharmacy Call Center for medication renewal: Non-controlled/maintenan ce medication Medications requested: [id number] RIVAROXABAN 20MG TAB [id number] SIMVASTATIN 20MG TAB Defer to primary care provider To be mailed. Please review and renew if appropriate. *This note was generated by [facility]/[place] Pharmacy Customer Care. If you have any questions or need assistance, do not contact this author. Please refer all questions to your local, on-site pharmacy departments. /chilango/ Reyna Traore CPhT Heat Treater Helper, [place]/Pharmacy Customer Care Signed: 06/11/2024 14:24 Receipt Acknowledged By: 06/11/2024 14:37 /chilango/ BILLIE KIMN RN-BC REGISTERED NURSE 06/13/2024 16:04 /chilango/ LEXY MEJÍA APRN-Jude CERTIFIED NURSE PRACTITIONER REYNA TRAORE [facility]
--- OUTSIDE RECORDS SUMMARY | 2024-06-16 14:50 | XMS_ITS ---
Author Organization Hay Kessler MD Address [address] [place], [place] [id number] Care Team Providers Care Cloth Calender Name Role Phone Victoria Hay Primary Care Provider [phone] RESULTS Component Value Reference Range Notes Liver Panel Reviewed date:11/29/2023 03:40:46 PM Interpretation: Performing Lab:[facility], [address] [place] [phone] Notes/Report: Bilirubin Total 1.0 0.0-1.0 mg/dL Bilirubin Direct 0.4 0.0-0.5 mg/dL Aspartate Amino Transferase 21 5-37 U/L Alanine Aminotransferase 7 0-40 U/L Total Protein 7.0 6.5-8.0 g/dL Albumin Level 4.0 3.5-5.0 g/dL Alkaline Phosphatase 52 39-117 U/L Lipid Panel Reviewed date:11/29/2023 03:41:38 PM Interpretation: Performing Lab:[facility], [address] [place] [phone] Notes/Report: Triglycerides 47 <150 mg/dL Desirable Triglyceride: [...] Location Date Provider Diagnosis Hay Kessler MD [address] [place] [address] [place] [phone] 11/29/2023 Hay Kessler Mixed hyperlipidemia E78.2 ASSESSMENTS Encounter Date Diagnosis Assessment Notes Treatment Notes Treatment Clinical Notes 11/29/2023 Mixed hyperlipidemia (ICD-10 - E78.2) PLAN OF TREATMENT Next Appt Details Provider Name:Hay villegas, 07/31/2024 01:30:00 PM, [address] [place] [address], [address], [place], [place], [phone],
--- OUTSIDE RECORDS SUMMARY | 2024-06-16 14:50 | XMS_ITS ---
Author Organization Hay Kessler MD Address [address] [place], [place] [phone] Care Team Providers Care Supervisor [employer] Name Role Phone Victoria Hay Primary Care Provider [phone] RESULTS Component Value Reference Range Notes Liver Panel Reviewed date:05/27/2024 07:18:51 PM Interpretation: Performing Lab:[facility], [address] [place] [phone] Notes/Report: Bilirubin Total 0.8 0.0-1.0 mg/dL Bilirubin Direct 0.2 0.0-0.5 mg/dL Aspartate Amino Transferase 48 5-37 U/L Moderate Hemolysis.Interpret result with caution. Alanine Aminotransferase 10 0-40 U/L Total Protein 8.3 6.5-8.0 g/dL Moderate Hemol ysis.Interpret result with caution. Albumin Level 4.0 3.5-5.0 g/dL Alkaline Phosphatase 75 39-117 U/L Lipid Panel with Reflex Reviewed date:05/27/2024 07:18:41 PM Interpretation: Performing Lab:[facility], [address] [place] [phone] Notes/Report: Triglycerides 72 <150 mg/dL Desirable Triglyceride: [...] Location Date Provider Diagnosis Hay Kessler MD [address] [place] [address] [place] [phone] 05/26/2024 Hay Kessler Mixed hyperlipidemia E78.2 ASSESSMENTS Encounter Date Diagnosis Assessment Notes Treatment Notes Treatment Clinical Notes 05/26/2024 Mixed hyperlipidemia (ICD-10 - E78.2) PLAN OF TREATMENT Next Appt Details Provider Name:Hay villegas, 07/31/2024 01:30:00 PM, [address] [facility], [address], [place], [place], [phone],
--- OUTSIDE RECORDS SUMMARY | 2024-06-16 14:51 | XMS_ITS | Patient Health Record ---
Author Organization [facility] Address [address] [place] [address] Care Team Providers Care Superintendent Marine Name Role Phone Hay Kessler MD Primary Care Provider Orestes Renee Unavailable [phone] ALLERGIES Allergen (clinical drug ingredient) Drug/Non Drug [...] the evening Orally Once a day Active Lolita 3 1200mg Activ e Glucosamine Chondroit-Collagen 1200mg [...] Cologuard test (R19.5) Active confirmed Abnormal feces ([id number]) PLAN OF TREATMENT Pending Test Test Name Order Date Pathology 08/03/2020 Future Test Test Name Order Date COLONOSCOPY 06/25/2013 COLONOSCOPY 07/12/2020 Insurance Providers Payer Name Payer Address Payer Phone Subscriber Number Group Number Insured Name Patient Relationship to Insured Coverage Start Date Coverage End Date MEDICARE OF [place] [address] [place] [address] [phone] [id number] FERMIN BETHEAFARHAT Self - patient is the insured [facility] [address] [place] [id number] [phone] [id number] FERMIN BETHEAFARHAT Self - patient is the insured MEDICAL (GENERAL) HISTORY Medical History History ICD Code Colonoscopy 04/01/2008 and 09/2013--2 tub ular adenomas removed Hyperlipidemia GERD-small HH-no esophagitis Denies NE,DM,CVA,Lung disease,renal dise ase Pulmonary embolus in 2018 or 2019 Surgical History Surgery Date(Month/Year) Knee surgery Cholecystectomy Cataract surgery
--- OUTSIDE RECORDS SUMMARY | 2024-06-16 14:51 | XMS_ITS | Patient Health Record ---
Author Organization Hay Kessler MD Address [address] [place], [place] [id number] Care Team Providers Care [employer] Name Role Phone Hay Kessler Primary Care Provider ALLERGIES Allergen (clinical drug ingredient) Drug/Non Drug Allergy documented on EMR Reaction Allergy Type Onset Date Status soy (uncoded) hives Allergy Active peanuts (uncoded) throat closes Allergy Active RESULTS Component Value Reference Range Notes Complete Blood Count Auto Di ff Reviewed date:09/19/2023 12:48:25 PM Interpretation: Performing Lab:[facility], [address] [place] [phone] Notes/Report: White Blood Count 7.8 4.8-10.8 X10*3/uL [...] INR Reviewed date:09/19/2023 12:48:06 PM Interpretation: Performing Lab:[address] [phone] Notes/Report: Prothrombin Time 18.2 11.1-13.3 SEC INTERNATIONAL [...] Time Reviewed date:09/19/2023 12:42:24 PM Interpretation: Performing Lab:[address] [phone] Notes/Report: Partial Thromboplastin Time 36.6 26.0-36.8 SEC For information regarding the monitoring of direct thrombin inhibitors, please refer to Pharmacy. Comprehensive Met. Panel Reviewed date:09/19/2023 04:57:45 PM Interpretation: Performing Lab:[facility], [address] [place] [phone] Notes/Report: Sodium 142 135-145 mmol/L Potassium 3.7 [...] Glomerular Filt Rate > 60 NOTE: For -Mauritian individuals, multiply the result by 1.210. Chronic [...] Blood Reviewed date:09/19/2023 04:58:29 PM Interpretation: Performing Lab:[facility], [address] [place] [phone] Notes/Report: Glucose, Whole Blood 126 60-115 mg/dL METER # : [id number] Liver Panel Reviewed date:11/29/2023 03:40:46 PM Interpretation: Performing Lab:[facility], [address] [place] [phone] Notes/Report: Bilirubin Total 1.0 0.0-1.0 mg/dL Bilirubin Direct 0.4 0.0-0.5 mg/dL Aspartate Amino Transferase 21 5-37 U/L Alanine Aminotransferase 7 0-40 U/L Total Protein 7.0 6.5-8.0 g/dL Albumin Level 4.0 3.5-5.0 g/dL Alkaline Phosphatase 52 39-117 U/L Lipid Panel Reviewed date:11/29/2023 03:41:38 PM Interpretation: Performing Lab:[facility], [address] [place] [phone] Notes/Report: Triglycerides 47 <150 mg/dL Desirable Triglyceride: [...] Panel Reviewed date:05/27/2024 07:18:51 PM Interpretation: Performing Lab:[address] [phone] Notes/Report: Bilirubin Total 0.8 0.0-1.0 mg/dL Bilirubin Direct 0.2 0.0-0.5 mg/dL Aspartate Amino Transferase 48 5-37 U/L Moderate Hemolysis.Interpret result with caution. Alanine Aminotransferase 10 0-40 U/L Total Protein 8.3 6.5-8.0 g/dL Moderate Hemol ysis.Interpret result with caution. Albumin Level 4.0 3.5-5.0 g/dL Alkaline Phosphatase 75 39-117 U/L Lipid Panel with Reflex Reviewed date:05/27/2024 07:18:41 PM Interpretation: Performing Lab:[address] [phone] Notes/Report: Triglycerides 72 <150 mg/dL Desirable Triglyceride: [...] low results in patients with liver disease. XR chest 2V (Not yet reviewe d by provider) Interpretation: Performing Lab: Notes/Report: [address] [address] XRay Report Signed Patient: Cyrus Rowell MR#: [id number] : 1940 Acct:[id number] Age/Sex: 84 / M ADM Date: 06/16/24 Loc: HO.ED Attending Dr: Ordering Physician: Raisa Diaz Date of Service: 06/16/24 Procedure(s): XR chest 2V Accession Number(s): [id number] cc: Hay Kessler MD; Raisa Diaz EXAMINATION: XR CHEST CLINICAL INFORMATION: SOB, cough COMPARISON: None available. TECHNIQUE: 2 views of the chest were obtained. FINDINGS: The cardiac, hilar, and mediastinal contours are normal. The aorta is heavily calcified. There is a retrocardiac hiatus hernia present. The lungs are diffusely hyperaerated and hyperlucent, however clear bilaterally. There is no pneumothorax or pleural effusion. Trace linear scarring lingular distribution. Scattered calcified granulomata. There is no focal osseous or soft tissue abnormality. XR/XR chest 2V IMPRESSION: 1. COPD. Evidence of prior granulomatous disease. 2. No active superimposed lung disease. 3. Hiatus hernia. 4. Heavy vascular calcification. 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 No Information MEDICATIONS Medication [...] Notes Problem Mixed hyperlipidemia (E78.2) Active confirmed 159557992 Problem Other obesity due to excess calories (E66.09) Active confirmed 256024556 Problem Gastro-esophageal reflux disease without esophagitis (K21.9) Active confirmed 935363082 Problem Other acute pulmonary embolism with acute cor pulmonale (I26.09) Active confirmed 521166983 Problem Hayfever (J30.1) Active confirmed 34406 0009 Problem Vitamin D deficiency (E55.9) Active confirmed 82781153 Problem Acute idiopathic gout of ankle, 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) Active confirmed 76767402 Problem Neutropenia, unspecified type (D70.9) Active confirmed 881366676 Problem 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) Active confirmed 138504295 VITAL SIGNS Blood pressure diastolic 60 mm Hg 12/06/2023 mariela ght is down 9 pounds since 05-28-23 Height 65 in 12/06/2023 weight is down 9 pounds since 05-28-23 Blood pressure systolic 114 mm Hg 12/06/2023 weig ht is down 9 pounds since 05-28-23 Weight 149 lbs 12/06/2023 weight is down 9 pounds since 05-28-23 BMI 24.79 kg/m2 12/06/2023 weight is down 9 pounds since 05-28-23 Encounters Encounter Location Date Provider Diagnosis Hay Kessler MD [address] [place] [address] Drive [address] [place] [id number] 11/29/2023 Hay Kessler Mixed hyperlipidemia E78.2 Hay Kessler MD [address] [place] [address] Drive [address] [place] [id number] 05/26/2024 Hay Kessler Mixed hyperlipidemia E78.2 Hay Kessler MD [address] [place] [address] Drive [address] [place], [place] [id number] 12/06/2023 Hay Kessler Heterozygous for prothrombin [id number] mutation D68.52 and Mixed hyperlipidemia E78.2 Hay Kessler MD [address] [place] [address] [place] [id number] 09/23/2023 Hay Kessler ASSESSMENTS Encounter Date Diagnosis Assessment Notes Treatment Notes Treatment Clinical Notes 11/29/2023 Mixed hyperlipidemia (ICD-10 - E78.2) 05/26/2024 Mixed hyperlipidemia (ICD-10 - E78.2) 12/06/2023 Heterozygous for prothrombin E57360H mutation (ICD-10 - D68.52) needs to be on xarelto permanantly 12/06/2023 Mixed hyperlipidemia (ICD-10 - E78.2) stable, will continue current regiment PLAN OF TREATMENT Pending Test Test Name Order Date Electrocardiogram (EKG) 03/27/2018 XR chest 2V 06/16/2024 colonoscopy 09/19/2020 Next Appt Details Provider Name:Hay Burden ier, 07/31/2024 01:30:00 PM, [address] [place] [address], Suite [facility], [place], [place], [phone], Insurance Providers Payer Name Payer Address Payer Phone Subscriber Number Group Number Insured Name Patient Relationship to Insured Coverage Start Date Coverage End Date [employer] [address] [place] [address] [id number] Cyrus Castellon Self - patient is the insured [facility] [id number] [place], [place] [id number] [phone] [id number] Cyrus Castellon Self - patient is the insured MEDICAL (GENERAL) HISTORY Medical History History ICD Code 03/2016 Upper Endo and colonoscopy - no need of repeat 08/03/2020 - Colonoscopy by Dr. Foreman - no need for further testing unprovoked pulmonary embolii needs perma nent anticoagulan
[2024-06-16 15:09] LABS: MANUAL DIFF FLAG NO
[2024-06-16 15:10] LABS: Venous Blood Gas Refer to POC result
[2024-06-16 15:11] LABS: Basophils Absolute Auto 0.1 X10*3/uL (0.0-0.2); Basophils Percent Auto 0.7 % (0-2); Eosinophils Absolute Auto 0.1 X10*3/uL (0.0-0.4); Eosinophils Percent Auto 1.3 % (0-4); Hematocrit 41.3 % (42.0-52.0); Hemoglobin 13.7 g/dl (14.0-18.0); Imm Gran Abs Auto 0.03 X10*3/uL (0.00-0.03); Imm Gran Pct Auto 0.4 % (0.0-0.4); Lymphocytes Absolute Auto 1.7 X10*3/uL (1.2-4.9); Mean Corpuscular HGB Conc 33.2 g/dl (31.0-36.0); Mean Corpuscular Hemoglobin 30.6 pg (27.0-33.0); Mean Corpuscular Volume 92.2 fL (80.0-98.0); Mean Platelet Volume 9.6 fL (9.4-12.4); Monocytes Absolute Auto 0.6 X10*3/uL (0.1-1.2); Monocytes Percent Auto 8.4 % (2-11); Neutrophils Percent Auto 66.2 % (45-73); Platelet Count 212 X10*3/uL (160-400); Red Blood Count 4.48 X10*6/uL (4.60-5.80); Red Cell Distribution Width 14.6 % (11.0-16.0); White Blood Count 7.5 X10*3/uL (4.8-10.8)
[2024-06-16 15:11] LABS: VBG HCO3 31 mmol/L (22-26); VBG pCO2 46 mmHg; VBG pH 7.43 (7.32-7.43); VBG pO2 39 mmHg
--- NOTE | 2024-06-16 15:22 | PC.NURSE ---
Pt comes to ED today with complaints of SOB. Pt reports ongoing issue of post nasal drip and excessive phlegm with cough and SOB. A&Ox3, VSS Pt sating between 90-92% with 4L or via NC. RT to bedside for eval/treatment. 18g placed to L wrist--Pt difficult stick for IV placement and blood labs. Family at bedside. Awaiting lab results and additional orders.
[2024-06-16 15:27] LABS: Anion Gap 18 (12-20)
[2024-06-16 15:30] LABS: Magnesium 1.9 mg/dL (1.6-2.6)
[2024-06-16 15:32] LABS: Alanine Aminotransferase < 6 U/L (0-40); Albumin Level 3.9 g/dL (3.5-5.0); Aspartate Amino Transferase 32 U/L (5-37); Bilirubin Total 0.8 mg/dL (0.0-1.0); Blood Urea Nitrogen 11 mg/dL (9-16); Calcium 9.8 mg/dL (8.4-10.2); Carbon Dioxide 25 mmol/L (22-29); Chloride 104 mmol/L (96-108); Creatinine Clr Calc Pharmacy 70.9; Estimated Glomerular Filt Rate > 60; Glucose Random 113 mg/dL (60-115); Potassium 4.5 mmol/L (3.3-5.1); Sodium 142 mmol/L (135-145); Total Protein 7.6 g/dL (6.5-8.0)
[2024-06-16 15:36] LABS: Lactic Acid 3.9 mmol/L (0.5-2.0)
[2024-06-16 15:41] LABS: Troponin-I High Sensitivity < 2.7 ng/L (<3.5-35.0)
[2024-06-16 16:13] LABS: Influenza A PCR NEGATIVE (Negative); Influenza B PCR NEGATIVE (Negative); Resp Syncy Virus RNA Qual PCR NEGATIVE (Negative); SARS COV2 PCR INHOUSE NEGATIVE (Negative)
[2024-06-16] MEDS: iohexoL 350 MG/ML 75 ML INFUS..BTL 65 ML IV (16:21)
[2024-06-16 17:07] LABS: Alkaline Phosphatase 76 U/L (39-117); Reflex Lactate? Lactic Acid Added
[2024-06-16] MEDS: methylPREDNISolone Sod Succ 125 MG/2 ML VIAL IVPUSH (17:31)
[2024-06-16] MEDS: Albuterol/Iprat 2.5/0.5MG 3 ML AMPUL.NEB INHALE ×2 (18:04→18:59)
[2024-06-16 18:07] LABS: ~Lactic Acid-LAB USE ONLY 4.5 mmol/L (0.5-2.0)
--- NOTE | 2024-06-16 18:14 | PC.NURSE ---
Critical lab of repeat lactic 4.[address] Warner made aware verbally at bedside.
--- NOTE | 2024-06-16 18:16 | PM.IMHP ---
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 No fever or chills. No chest pain. No hemoptysis. In the ED, he was found to be hypoxic with SaO2 87% on room air. Chest CT revealed advanced COPD, which is new for the patient. No PE. He was given oxygen, Duoneb, and methylprednisolone. Review of Systems Review of Systems: Yes all other systems are reviewed and are negative [facility] Medical History Situational anxiety GERD (gastroesophageal reflux disease) Hyperlipidemia Heterozygous for prothrombin [id number] mutation Bilateral pulmonary embolism Surgical History Hx of cataract extraction Hx of knee surgery Hx of colonoscopy Hx of cholecystectomy Social History Alcohol intake: current Alcohol intake frequency: 3 or more drinks per day Alcohol type: beer and hard liquor Use of substances other than those prescribed or required for medical reasons: No Advance Directives: No Advance Directives Information Provided: Yes Meds Allergies Allergy/AdvReac Type Severity Reaction Status Date / Time cat dander [cats] Allergy Severe Anaphylaxis Verified 06/16/24 13:44 peanut [PEANUT] Allergy Severe ANAPHYLAXIS Verified 06/16/24 13:44 soy sauce Allergy Severe ANAPHYLAXIS Uncoded 06/16/24 13:44 Active Medications: Current Medications Albuterol Sulfate (Albuterol Sulfate (0.083%) 2.5 Mg/3 Ml Vial.Neb) 2.5 mg INHALE Q2H PRN PRN Reason: Shortness of Breath/Wheezing Albuterol/Ipratropium (Albuterol/Iprat 2.5/0.5mg 3 Ml Ampul.Neb) 3 ml INHALE RQ4H WHILE AWAKE [facility] Methylprednisolone Sodium Succinate (Methylprednisolone Sod Succ 40 Mg/Ml Vial) 40 mg IVPUSH Q24H [facility] Rivaroxaban (Rivaroxaban 20 Mg Tablet) 20 mg PO DAILY@1700 [facility] Home Medications ?Medication ?Instructions ?Recorded ?Confirmed ?Last Taken ?Type cholecalciferol (vitamin D3) 50 50 mcg PO DAILY 06/28/20 07/28/20 Unknown History mcg (2,000 unit) tablet (Vitamin D3) glucosamine HCl 1,500 mg tablet 1,500 mg PO DAILY 06/28/20 07/28/20 Unknown History omega-3 fatty acids 1,250 mg PO DAILY 06/28/20 07/28/20 Unknown History omeprazole magnesium 20 mg 20 mg PO DAILY 06/28/20 07/28/20 Unknown History capsule,delayed release rivaroxaban 20 mg tablet (Xarelto) 20 mg PO DAILY 06/28/20 07/28/20 Unknown History simvastatin 20 mg tablet 20 mg PO BEDTIME 06/28/20 07/28/20 Unknown History Physical Exam Vital Signs and Narrative: Vital Signs: Last Vital Signs Temp 98.1 F 06/16/24 17:35 Pulse 73 06/16/24 18:06 Resp 16 06/16/24 18:06 BP 111/76 06/16/24 17:35 Pulse Ox 99 06/16/24 17:35 O2 Del Method Nasal Cannula 06/16/24 17:35 O2 Flow Rate 4 06/16/24 17:35 Oxygen Flow Rate 4 06/16/24 15:27 BMI result Body Mass Index 25.1 Gen: short of breath HEENT: sclera anicteric, moist mucus membranes Neck: supple Lungs: diminished bilaterally Heart: regular rate and rhythm, no murmurs Abd: soft, non-tender, non-distended Ext: no edema Skin: warm/well-perfused Neuro: alert and oriented x3, no focal findings Psych: appropriate affect Results Labs 06/16/24 14:58 06/16/24 14:58 Labs: Laboratory Results - last 24 hr 06/16/24 06/16/24 06/16/24 14:53 14:58 15:06 MCV 92.2 MCH 30.6 MCHC 33.2 RDW 14.6 Plt Count 212 D MPV 9.6 Immature Gran % (Auto) 0.4 Neut % (Auto) 66.2 Lymph % (Auto) 23.0 Jack % (Auto) 8.4 Eos % (Auto) 1.3 Baso % (Auto) 0.7 Lymph # (Auto) 1.7 Jack # (Auto) 0.6 Eos # (Auto) 0.1 Baso # (Auto) 0.1 Abs Immat Gran (auto) 0.03 Absolute Neuts (auto) 5.0 Absolute Nucleated RBC 0.000 Nucleated RBC % (auto) 0.0 VBG pH 7.43 VBG pCO2 46 VBG pO2 39 VBG HCO3 31 H VBG O2 Saturation 63.0 VBG Base Excess 6.0 Anion Gap 18 Estim Creat Clear Calc 70.9 Estimated GFR > 60 Random Glucose 113 Lactic Acid 3.9 H* Lactic Acid F/U @ 2Hr Calcium 9.8 Magnesium 1.9 Total Bilirubin 0.8 AST 32 ALT < 6 Alkaline Phosphatase 76 D Troponin I High Sens < 2.7 Total Protein 7.6 Albumin 3.9 Influenza Type A (PCR) NEGATIVE Influenza Type B (PCR) NEGATIVE RSV RNA Qual (PCR) NEGATIVE SARS-CoV-2 RNA (RT-PCR) NEGATIVE 06/16/24 17:41 MCV MCH MCHC RDW Plt Count MPV Immature Gran % (Auto) Neut % (Auto) Lymph % (Auto) Jack % (Auto) Eos % (Auto) Baso % (Auto) Lymph # (Auto) Jack # (Auto) Eos # (Auto) Baso # (Auto) Abs Immat Gran (auto) Absolute Neuts (auto) Absolute Nucleated RBC Nucleated RBC % (auto) VBG pH VBG pCO2 VBG pO2 VBG HCO3 VBG O2 Saturation VBG Base Excess Anion Gap Estim Creat Clear Calc Estimated GFR Random Glucose Lactic Acid Lactic Acid F/U @ 2Hr 4.5 H* Calcium Magnesium Total Bilirubin AST ALT Alkaline Phosphatase Troponin I High Sens Total Protein Albumin Influenza Type A (PCR) Influenza Type B (PCR) RSV RNA Qual (PCR) SARS-CoV-2 RNA (RT-PCR) Imaging Radiologist's Impressions: Impressions Chest X-Ray 06/16/24 14:05 IMPRESSION: 1. COPD. Evidence of prior granulomatous disease. 2. No active superimposed lung disease. 3. Hiatus hernia. 4. Heavy vascular calcification. Electronically signed by: Grant Berrios MD 06/16/2024 02:32 PM [facility] [place] [place] Chest CTA 06/16/24 16:04 IMPRESSION: 1. No evidence of acute or chronic pulmonary embolism. 2. Advanced COPD. 3. 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 Fleischner guidelines were followed. Electronically signed by: Alex Canada MD 06/16/2024 05:45 PM [facility] [place] [place] Assessment and Plan (1) Hypoxia: Status: Acute Plan 84yo M with remote history of smoking but no diagnosis of chronic lung disease, prothrombin E12948C heterozygosity with hx PE currently on rivaroxaban, and HLD presenting with 3 days of worsening dyspnea and productive cough; found to be hypoxic and imaging suggestive of advanced COPD. AHRF due to COPD exacerbation, new-onset - admit to med/surg, give supplemental O2 and wean as tolerated [no evidence of CO2 retention], give IV methylprednisolone, PO doxycycline, nebulized bronchodilators; will need controller + rescue inhalers and Pulmonology follow-up upon discharge lactic acidosis - not septic; due to bronchodilator effect prothrombin [id number] heterozygote hx PE - continue rivaroxaban heavy alcohol intake - pt states 2 beers/day but son states more like 6/day plus shots. No hx of DT/withdrawals. Will place on prn CIWA and monitor for withdrawals, also give thiamine/folate and consult Addiction Medicine. HLD - continue statin VTE prophylaxis - rivaorxaban dispo - eventual home code status - full I anticipate that the patient will stay at least 2 midnights as an inpatient in the hospital due to the above reasons. It is neither reasonable nor safe to care for them in a less acute setting. Quality Stroke Does the patient have a stroke diagnosis?: No VTE Prior VTE?: No VTE Risk Level:: Medical - moderate - high VTE Device Contraindication: N/A - Device Ordered VTE Drug Contraindication: N/A - Med Ordered
[2024-06-16 18:29] LABS: Procalcitonin 0.02 ng/mL
--- NOTE | 2024-06-16 18:40 | PHA.MEDREC ---
Addendum entered by Anil Hui [facility] 06/16/24 18:48: med rec reviewed Original Note: Pharmacy Consult ? Medication Reconciliation Pharmacy has completed the medication reconciliation. Spoke to patient to confirm med list. Patient states he only take 2 medications Xarelto 20 mg and Simvastain 20 mg. there are no claim history so, I called [facility] and they have no record of patient filling this medication. Past visit notes do have history of patient on medications.
[2024-06-16 19:43] LABS: Reflex Lactate? 2 Y
[2024-06-16] MEDS: Doxycycline Monohydrate 100 MG CAPSULE PO (20:14)
[2024-06-16] MEDS: Folic Acid 1 MG TABLET PO (20:14)
--- NOTE | 2024-06-16 20:32 | PC.NURSE ---
RN to bedside to medicate the patient per AUG. Pt declined his xeralto dose as he reports taking it this am as his routine administration time is AM not PM and inquired about his simvastatin dose as this medication does not appear to be on his admission medication list. RN spoke with pharmacy to have xeralto rescheduled for AM administration and a tigertext has been sent off to the hospitalist to inquire about the patient's simvastatin.
--- NOTE | 2024-06-16 20:47 | PC.NURSE ---
monica murillo can be reached/contacted at [phone] with any questions/concerns/update needs
[2024-06-16 20:51] LABS: ~Lactic Acid-LAB USE ONLY 8.5 mmol/L (0.5-2.0)
[2024-06-16] MEDS: Lactated Ringers 1,000 ML 999 ML IV (21:48)
[2024-06-17 00:19] LABS: Venous Blood Gas Refer to POC result
[2024-06-17 00:21] LABS: VBG Base Excess 0.8 mmol/L; VBG HCO3 25 mmol/L (22-26); VBG pCO2 39 mmHg; VBG pH 7.41 (7.32-7.43); VBG pO2 52 mmHg
[2024-06-17 00:36] LABS: Lactic Acid 6.2 mmol/L (0.5-2.0)
[2024-06-17 01:27] VITALS: BMI 21.6
[2024-06-17 01:28] VITALS: BP 95/59; PULSE 59; RESP 16; TEMP 37; O2SAT 98
[2024-06-17 02:16] LABS: Reflex Lactate? Lactic Acid Added
[2024-06-17 02:52] LABS: Hematocrit 34.5 % (42.0-52.0); Hemoglobin 11.7 g/dl (14.0-18.0); Mean Corpuscular HGB Conc 33.9 g/dl (31.0-36.0); Mean Corpuscular Hemoglobin 30.9 pg (27.0-33.0); Mean Platelet Volume 9.4 fL (9.4-12.4); Platelet Count 177 X10*3/uL (160-400); Red Blood Count 3.79 X10*6/uL (4.60-5.80); Red Cell Distribution Width 14.7 % (11.0-16.0)
[2024-06-17 03:06] LABS: Anion Gap 15 (12-20); Blood Urea Nitrogen 12 mg/dL (9-16); Calcium 8.9 mg/dL (8.4-10.2); Carbon Dioxide 23 mmol/L (22-29); Chloride 103 mmol/L (96-108); Creatinine Clr Calc Pharmacy 68.4; Estimated Glomerular Filt Rate > 60; Glucose Random 185 mg/dL (60-115); Potassium 4.2 mmol/L (3.3-5.1); Sodium 137 mmol/L (135-145)
[2024-06-17 03:25] VITALS: BP 98/53; PULSE 52; RESP 16; TEMP 36.4; O2SAT 97
[2024-06-17 04:49] LABS: Reflex Lactate? 2 Y
[2024-06-17 05:17] VITALS: O2SAT 99
[2024-06-17 05:39] LABS: ~Lactic Acid-LAB USE ONLY 2.3 mmol/L (0.5-2.0)
[2024-06-17 05:44] LABS: Cancel Lactic Acid Canceled
[2024-06-17] MEDS: Doxycycline Monohydrate 100 MG CAPSULE PO (06:12)
[2024-06-17 07:47] VITALS: BP 100/55; PULSE 58; RESP 16; TEMP 36.8; O2SAT 95
[2024-06-17] MEDS: 0.9 % Sodium Chloride Flush 3 ML SYRINGE IVFLUSH (08:05)
[2024-06-17] MEDS: Thiamine HCL 100 MG TABLET PO (08:05)
[2024-06-17] MEDS: Rivaroxaban 20 MG TABLET PO (08:05)
[2024-06-17] MEDS: Folic Acid 1 MG TABLET PO (08:05)
[2024-06-17 08:15] VITALS: PULSE 58; RESP 16; O2SAT 95
[2024-06-17] MEDS: Albuterol/Iprat 2.5/0.5MG 3 ML AMPUL.NEB INHALE (08:15)
[2024-06-17 08:30] LABS: Cancel Lactic Acid Canceled
[2024-06-17 09:09] VITALS: PULSE 72; PULSE 83; PULSE 90; O2SAT 93; O2SAT 94
--- NOTE | 2024-06-17 10:15 | P.DS_ITS ---
DS: Providers Provider Date of Service: 06/17/24 Date of admission: 06/16/24 18:04 Date of discharge: 06/17/24 Primary care physician: Hay Kessler MD Consults: 06/16/24 18:22 Addiction Medicine Routine Consulting Provider: Addiction Covering Reason for consultation: excess etoh intake DS: Diagnosis Discharge Diagnosis (1) Acute respiratory failure with hypoxia: Status: Acute (2) Advanced COPD: Status: Acute (3) COPD exacerbation: Status: Acute (4) Excessive drinking alcohol: Status: Acute DS: Summary Hospital Course Hospital Course: From my admission history and physical, 06/16/24: 84yo M with remote history of smoking [quit 40 yr ago] and no hx of diagnosed chronic lung disease, 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 No fever or chills. No chest pain. No hemoptysis. In the ED, he was found to be hypoxic with SaO2 87% on room air. Chest CT revealed advanced COPD, which is new for the patient. No PE. He was given oxygen, Duoneb, and methylprednisolone. 84yo M with remote history of smoking but no diagnosis of chronic lung disease, prothrombin [id number] heterozygosity with hx PE currently on rivaroxaban, and HLD presenting with 3 days of worsening dyspnea and productive cough; found to be hypoxic and imaging suggestive of advanced COPD. He was admitted to the medic al-surgical unit and treated with supplemental oxygen and IV methylprednisolone along with PO doxycycline and nebulized bronchodilators. He improved and was weaned off of oxygen. He did not quality for home oxygen. Lactic acidosis was attributed to bronchodilator effect; he was not septic. He was discharged on prednisone 40 mg/d PLUS doxycycline 100 mg bid for a total of 4 days. He was prescribed albuterol inhaler with spacer for rescue, and tiotropium inhaler for prevention. He should follow up with his primary care doctor and obtain pulmonary function testing as an outpatient; consider pulmonology referral depending on the results. He endorsed drinking 2 servings of beer per day but per his son he drinks more like 6 servings a day plus shots. No withdrawal symptoms noted. He was advised to cut down on drinking to no more than 2 servings/day or less and was prescribed thiamine as well. Time Attestation Discharge Coordination Time (in mins): 45 Quality: Safe Use of Opioids Does Pt have an Active Cancer Diagnosis on the Problem List?: No Quality: Stroke Does the patient have a stroke diagnosis?: No Physical Exam Vital Signs: Vital Signs: Last Vital Signs Temp 98.2 F 06/17/24 07:47 Pulse 58 06/17/24 08:15 Resp 16 06/17/24 08:15 BP 100/55 L 06/17/24 07:47 Pulse Ox 95 06/17/24 07:47 O2 Del Method Room Air 06/17/24 07:47 O2 Flow Rate 4 06/17/24 03:25 Oxygen Flow Rate 4 06/16/24 15:27 BMI result Body Mass Index 21.6 Gen: in no acute distress HEENT: sclera anicteric, moist mucus membranes Neck: supple Lungs: clear to auscultation bilaterally Heart: regular rate and rhythm, no murmurs Abd: soft, non-tender, non-distended Ext: no edema Skin: warm/well-perfused Neuro: alert and oriented x3, no focal findings Psych: appropriate affect DS: Data Data Completed and Pending Completed studies during hospitalization [Text1]: Laboratory Results WBC 8.0 X10*3/uL (4.8-10.8) 06/17/24 02:45 RBC 3.79 X10*6/uL (4.60-5.80) L 06/17/24 02:45 Hgb 11.7 g/dl (14.0-18.0) L 06/17/24 02:45 Hct 34.5 % (42.0-52.0) L 06/17/24 02:45 MCV 91.0 fL (80.0-98.0) 06/17/24 02:45 MCH 30.9 pg (27.0-33.0) 06/17/24 02:45 MCHC 33.9 g/dl (31.0-36.0) 06/17/24 02:45 RDW 14.7 % (11.0-16.0) 06/17/24 02:45 Plt Count 177 X10*3/uL (160-400) 06/17/24 02:45 MPV 9.4 fL (9.4-12.4) 06/17/24 02:45 Immature Gran % (Auto) 0.4 % (0.0-0.4) 06/16/24 14:58 Neut % (Auto) 66.2 % (45-73) 06/16/24 14:58 Lymph % (Auto) 23.0 % (20-40) 06/16/24 14:58 [place] % (Auto) 8.4 % (2-11) 06/16/24 14:58 Eos % (Auto) 1.3 % (0-4) 06/16/24 14:58 Baso % (Auto) 0.7 % (0-2) 06/16/24 14:58 Lymph # (Auto) 1.7 X10*3/uL (1.2-4.9) 06/16/24 14:58 [place] # (Auto) 0.6 X10*3/uL (0.1-1.2) 06/16/24 14:58 Eos # (Auto) 0.1 X10*3/uL (0.0-0.4) 06/16/24 14:58 Baso # (Auto) 0.1 X10*3/uL (0.0-0.2) 06/16/24 14:58 Abs Immat Gran (auto) 0.03 X10*3/uL (0.00-0.03) 06/16/24 14:58 Absolute Neuts (auto) 5.0 x10*3/uL (2.0-8.3) 06/16/24 14:58 Absolute Nucleated RBC 0.000 X10*3/uL (0.0-0.012) 06/17/24 02:45 Nucleated RBC % (auto) 0.0 /100WBC (0.0-0.2) 06/17/24 02:45 VBG pH 7.41 (7.32-7.43) 06/17/24 00:16 VBG pCO2 39 mmHg 06/17/24 00:16 VBG pO2 52 mmHg 06/17/24 00:16 VBG HCO3 25 mmol/L (22-26) 06/17/24 00:16 VBG O2 Saturation 79.0 % 06/17/24 00:16 VBG Base Excess 0.8 mmol/L 06/17/24 00:16 Sodium 137 mmol/L (135-145) 06/17/24 02:45 Potassium 4.2 mmol/L (3.3-5.1) 06/17/24 02:45 Chloride 103 mmol/L (96-108) 06/17/24 02:45 Carbon Dioxide 23 mmol/L (22-29) 06/17/24 02:45 Anion Gap 15 (12-20) 06/17/24 02:45 BUN 12 mg/dL (9-16) 06/17/24 02:45 Creatinine 0.71 mg/dL (0.5-1.4) 06/17/24 02:45 Estim Creat Clear Calc 68.4 06/17/24 02:45 Estimated GFR > 60 06/17/24 02:45 Random Glucose 185 mg/dL (60-115) H 06/17/24 02:45 Lactic Acid 6.2 mmol/L (0.5-2.0) H* 06/17/24 00:12 Lactic Acid F/U @ 2Hr 4.0 mmol/L (0.5-2.0) H* 06/17/24 02:45 Lactic Acid F/U @ 4Hr 2.3 mmol/L (0.5-2.0) H* 06/17/24 05:01 Calcium 8.9 mg/dL (8.4-10.2) D 06/17/24 02:45 Magnesium 1.9 mg/dL (1.6-2.6) 06/16/24 14:58 Total Bilirubin 0.8 mg/dL (0.0-1.0) 06/16/24 14:58 AST 32 U/L (5-37) 06/16/24 14:58 ALT < 6 U/L (0-40) 06/16/24 14:58 Alkaline Phosphatase 76 U/L (39-117) D 06/16/24 14:58 Troponin I High Sens < 2.7 ng/L (<3.5-35.0) 06/16/24 14:58 Total Protein 7.6 g/dL (6.5-8.0) 06/16/24 14:58 Albumin 3.9 g/dL (3.5-5.0) 06/16/24 14:58 Procalcitonin 0.02 ng/mL 06/16/24 14:58 Influenza Type A (PCR) NEGATIVE (Negative) 06/16/24 14:53 Influenza Type B (PCR) NEGATIVE (Negative) 06/16/24 14:53 RSV RNA Qual (PCR) NEGATIVE (Negative) 06/16/24 14:53 SARS-CoV-2 RNA (RT-PCR) NEGATIVE (Negative) 06/16/24 14:53 Impressions Chest X-Ray 06/16/24 14:05 IMPRESSION: 1. COPD. Evidence of prior granulomatous disease. 2. No active superimposed lung disease. 3. Hiatus hernia. 4. Heavy vascular calcification. Electronically signed by: Grant Berrios MD 06/16/2024 02:32 PM EST RP Chest CTA 06/16/24 16:04 IMPRESSION: 1. No evidence of acute or chronic pulmonary embolism. 2. Advanced COPD. 3. 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 Fleischner guidelines were followed. Electronically signed by: Alex Canada MD 06/16/2024 05:45 PM EST RP Discharge Plan Discharge Anticipated Discharge Date/Time: 06/17/24 10:10 Patient Disposition: Home, Self-Care Discharge Diagnosis: COPD exacerbation excess alcohol intake Referrals: Hay Kessler MD [Primary Care Provider] - 1 Week Discharge Medications: New doxycycline monohydrate 100 mg Capsule 100 mg PO Q12H Qty: 8 0RF thiamine mononitrate (vit B1) 100 mg Tablet 100 mg PO DAILY Qty: 30 0RF prednisone 20 mg tablet 40 mg PO DAILY Qty: 8 0RF albuterol sulfate 90 mcg/actuation HFA aerosol inhaler 2 puff inhalation Q4-6H PRN (Reason: shortness of breath or wheezing) Qty: 8.5 0RF Rx Instructions: use with spacer device (DME) inhalational spacing device Spacer See Rx Instructions .Route Qty: 1 0RF Rx Instructions: use with albuterol rescue inhaler tiotropium bromide 18 mcg capsule, w/inhalation device 1 cap inhalation DAILY Qty: 60 0RF Rx Instructions: puncture 1 cap using device; one dose = 2 inhalations Continued simvastatin 20 mg Tablet 20 mg PO BEDTIME Xarelto 20 mg Tablet 20 mg PO DAILY Discharge Orders: Discharge Order (Routine); Ordered 06/17/24 Ordered By: Liz Warner Diet: Advance to usual diet Activity on Discharge: As tolerated Stand Alone Forms: Patient Portal Discharge page Print Language: Micronesian Care Plan Goals: respiratory health Health Concerns: COPD exacerbation excess alcohol intake Plan of Treatment: take prednisone 40 mg [two 20 mg tabs] daily for 4 days take doxycycline 100 mg twice daily for 4 days use albuterol inhaler with spacer device, 2 puffs every 4-6 hours as needed for shortness of breath or wheeze use tiotropium inhaler daily as preventive ask your primary care doctor to order and schedule PULMONARY FUNCTION TESTING [PFTs] avoid smoke and air pollution limit alcohol to 2 servings/day or less take thiamine as prescribed Please follow up with your primary care doctor within 1 week. Return to the hospital if you experience recurrent or worsening symptoms. Assessment: See Discharge Summary. Patient Instructions: COPD (Chronic Obstructive Pulmonary Disease) (DC)
--- NOTE | 2024-06-17 10:31 | MHC.CM.PN ---
IMM DELIVERED PT LIVES ALONE AND IS FUNCTIONALLY INDEPENDENT. NO SERVICES OR DME. PT DECLINES COMPLETING A HCP AT THIS TIME, BELIEVES HE HAS A COPY AT HOME NAMING HIS SON. PCP DR. WERO BORGES DP: PT HAS BEEN MEDICALLY CLEARED FOR DC HOME, NO SERVICES. PT'S SON WILL TRANSPORT
--- NOTE | 2024-06-17 11:07 | MHC.RECOVRN ---
Met with patient in 367-1, after a consult was placed for excess etoh intake , by provider. Patient was with on at bedside, stating they were awaiting discharge, which RN confirmed. I introduced myself, and offered addiction services and or resources. Patient and family denied the need for this. Patient was sitting up in bed during this assessment, speaking in clear/full appropriate sentences. Appeared to be in no distress, skin warm and dry, CIWA 0, a+0 x4. I encouraged patient to reach out to our office, leaving my card with his paper work if he changed his mind.
== END 2024-06-17 10:41 | disposition home or self-care (01) | DRG 190 ==
LOC: HO.ED 17:38 → HO.EDOVER 18:22 → HO.S3 06-17 00:57
PROVIDERS: Internal Medicine; Physician Assistant Medical; Student in an Organized Health Care Education/Training Program; Admitting Provider Family Medicine; Emergency Provider Student in an Organized Health Care Education/Training Program; PCP Internal Medicine; Visit Provider Family Medicine
DX: J44.1 Chronic obstructive pulmonary disease with (acute) exacerbation (principal); J96.01 Acute respiratory failure with hypoxia; D68.52 Prothrombin gene mutation; E78.5 Hyperlipidemia, unspecified; T45.516A Underdosing of anticoagulants, initial encounter; Z20.822 Contact with and (suspected) exposure to COVID-19; Z86.711 Personal history of pulmonary embolism; Z87.891 Personal history of nicotine dependence; Z79.01 Long term (current) use of anticoagulants; Z79.899 Other long term (current) drug therapy
CPT/HCPCS: 0241U; 36415; 71046; 71275; 80048; 80053; 82803; 83605; 83735; 83880; 84145; 84484; 85025; 85027; 87040; 93005; 94640; 99285; J2919; J7120; Q9967

== ENCOUNTER → 2024-06-16 13:49 | Outpatient (BNV) | payer MEDICARE, OTHER, SELFPAY | PROVIDERS: Emergency Provider Student in an Organized Health Care Education/Training Program; PCP Internal Medicine; Visit Provider Radiology Diagnostic Radiology | DX: R06.02 Shortness of breath (principal); J44.9 Chronic obstructive pulmonary disease, unspecified; K44.9 Diaphragmatic hernia without obstruction or gangrene | CPT/HCPCS: 71046 ==

== ENCOUNTER → 2024-06-16 13:49 | Outpatient (BNV) | payer MEDICARE, OTHER, SELFPAY | PROVIDERS: Admitting Provider Family Medicine; Emergency Provider Student in an Organized Health Care Education/Training Program; PCP Internal Medicine; Visit Provider Internal Medicine Cardiovascular Disease | DX: I44.0 Atrioventricular block, first degree (principal) | CPT/HCPCS: 93010 ==

== ENCOUNTER → 2024-06-16 18:04 | Outpatient (BNV) | payer MEDICARE, OTHER, SELFPAY | PROVIDERS: Admitting Provider Family Medicine; Emergency Provider Student in an Organized Health Care Education/Training Program; PCP Internal Medicine; Visit Provider Family Medicine | DX: J96.01 Acute respiratory failure with hypoxia (principal); J44.1 Chronic obstructive pulmonary disease with (acute) exacerbation; F10.10 Alcohol abuse, uncomplicated | CPT/HCPCS: 99223; 99239 ==

== ENCOUNTER 2024-06-26 11:49 | Emergency (ER) | payer MEDICARE, OTHER, SELFPAY ==
--- NOTE | ~2024-06-26 | XR_ITS ---
EXAMINATION: XR CHEST CLINICAL INFORMATION: dyspnea COMPARISON: CT chest 06/16/2024 TECHNIQUE: 2 views of the chest were obtained. FINDINGS: The lungs are hyperinflated but clear of acute process. The heart size and pulmonary vascularity is normal. No gross bony abnormality seen except for mild dextroscoliosis. XR/XR chest 2V IMPRESSION: Hyperinflated lungs without acute process. Electronically signed by: Mason Shine MD 06/26/2024 01:13 PM EST
[2024-06-26 11:52] VITALS: BP 104/68; PULSE 87; RESP 22; TEMP 36.3; O2SAT 87; BMI 21.9
--- NOTE | 2024-06-26 11:53 | ED_ITS ---
HPI - General Adult General Chief complaint: Dyspnea Stated complaint: Diff breathing Time Seen by Provider: 06/26/24 16:05 Source: patient Mode of arrival: ambulatory Limitations: no limitations History of Present Illness ED Provider: Dr. Melody Burk HPI narrative: Patient comes to the emergency room complaining of shortness of breath for couple of days. Patient states that for and he was hospitalized for COPD. Patient states that when he was discharged he was starting to feel better. However, over last day or so, he starting to feel short of breath again. Patient states that his wheezing is under control, it just feels different when he breathes. Patient states that he does not use oxygen at home. Patient states that if he gets up and starts walking, he actually feels better than sitting, and his breathing gets better by walking Related Data Home Medications ?Medication ?Instructions ?Recorded ?Confirmed rivaroxaban 20 mg tablet (Xarelto) 20 mg PO DAILY 06/28/20 06/16/24 simvastatin 20 mg tablet 20 mg PO BEDTIME 06/28/20 06/16/24 Previous Rx's ?Medication ?Instructions ?Recorded albuterol sulfate 90 mcg/actuation 2 puff inhalation Q4-6H PRN 06/17/24 aerosol inhaler shortness of breath or wheezing #8.5 grams doxycycline monohydrate 100 mg 100 mg PO Q12H #8 caps 06/17/24 capsule inhalational spacing device #1 ea 06/17/24 prednisone 20 mg tablet 40 mg (2 x 20 mg) PO DAILY #8 tabs 06/17/24 thiamine mononitrate (vit B1) 100 100 mg PO DAILY #30 tabs 06/17/24 mg tablet tiotropium bromide 18 mcg capsule 1 cap inhalation DAILY #60 06/17/24 with inhalation device inhalations oseltamivir 75 mg capsule (Tamiflu) 75 mg PO BID 5 days #10 caps 06/26/24 Allergies Allergy/AdvReac Type Severity Reaction Status Date / Time cat dander [cats] Allergy Severe Anaphylaxis Verified 06/26/24 11:56 peanut [PEANUT] Allergy Severe ANAPHYLAXIS Verified 06/26/24 11:56 soy sauce Allergy Severe ANAPHYLAXIS Uncoded 06/16/24 13:44 Review of Systems 2 Review of Systems: Constitutional : No Weight loss, No Fever, No Chills, No Night Sweats, No Fatigue, No Malaise ENT/Mouth : No Hearing loss, No Ear Pain, No Nasal Congestion, No Sinus Pain, No Hoarseness, No sore throat, No Rhinorrhea, No Swallowing Difficulty Eyes: No Eye Pain, No Swelling, No Redness, No Foreign Body, No Discharge, No Vision Changes Cardiovascular : No Chest Pain, complaining of mild shortness of breath, No Orthopnea, No Edema, No Palpitations Respiratory : No Cough, No Sputum, No Wheezing, No Smoke Exposure, No Dyspnea Gastrointestinal : No Nausea, No Vomiting, No Diarrhea, No Constipation, No abdominal Pain, No Hematochezia, No Melena Genitourinary : no irregular bleeding, No Dysuria, No Urinary Frequency, No Hematuria, No Urinary Incontinence, No Urgency, No Flank Pain, No Urinary Flow Changes, No Hesitancy Musculoskeletal : No joint pain, No Myalgias, No Joint Swelling Skin : No Skin Lesions, No rash Neuro : No Weakness, No Numbness, No Paresthesias, No Loss of Consciousness, No Dizziness, No Headache Psych : No Anxiety/Panic, No Depression, No SI/HI/AH/VH, No Social Issues, Heme/Lymph: No Bruising, No Bleeding,No Lymphadenopathy Endocrine : No Polyuria, No Polydipsia, No Temperature Intolerance PMFSH Past Medical History Medical History Advanced COPD Situational anxiety GERD (gastroesophageal reflux disease) Hyperlipidemia Heterozygous for prothrombin [id number] mutation Bilateral pulmonary embolism Surgical History Hx of cataract extraction Hx of knee surgery Hx of colonoscopy Hx of cholecystectomy Social History Social History Household Members: None Housing: House Do you presently have visiting nurse or other home services: No Alcohol intake: current Alcohol intake frequency: 3 or more drinks per day Alcohol type: beer and hard liquor Patient Tobacco Use Status: Former Tobacco user Smoked in Last 30 Days: No Use of substances other than those prescribed or required for medical reasons: No Advance Directives: No Advance Directives Information Provided: Yes Do you have a plan to hurt others: No Plan Physical Exam ED Vital Signs: Vital Signs - 24 hr 06/26/24 11:52 06/26/24 12:35 06/26/24 14:46 Temperature 97.3 F 97.6 F Pulse Rate 87 70 67 Respiratory Rate 22 H 20 20 Blood Pressure 104/68 96/38 L Pulse Oximetry 87 L 93 88 L Oxygen Delivery Method Room Air Oxymask Room Air Oxygen Flow Rate 2 06/26/24 16:00 06/26/24 16:09 06/26/24 16:55 Temperature 97.9 F 98.6 F Pulse Rate 61 60 60 Respiratory Rate 20 14 18 Blood Pressure 101/59 L 124/72 118/65 Pulse Oximetry 92 94 95 Oxygen Delivery Method Room Air Room Air Room Air Oxygen Flow Rate BMI result Body Mass Index 21.9 Const Other: Appearance: Alert. Oriented X3. No acute distress. Eyes: Pupils equal, round and reactive to light. ENT: Pharynx normal. Neck: Normal inspection. Neck supple. No lymph nodes noted. No crepitus CVS: Normal heart rate and rhythm. Pulses normal. Normal S1 and S2 Respiratory: No respiratory distress. Breath sounds normal. No Wheezing. No rales Abdomen: Soft and nontender. No rigidity. No distention. Skin: Skin warm and dry. Normal skin color. Normal skin turgor. Extremities: No lower extremity edema. No Lacerations. No Rash Neuro: Oriented X 3. No motor deficit. No sensory deficit. Moving all extremities. No slurred speech. CN 2 through 12 grossly intact Psych: calm, cooperative, normal affect Course Course Course Narrative: This is a rapid medical exam performed by Eduin Henson NP: Additional HPI, ROS, PE not included below will be deferred to primary provider. Patient is an 84-year-old male with history of advances COPD, PE on Xarelto, daily drinker presenting with complaint of shortness of breath. Seen here on 06/16, states symptoms have really not improved since then, O2 sats at home in the 80's. Also complains of upper back pain. Plan: EKG, labs, CXR Medications Administered Discontinued Medications Generic Name Dose Route Start Last Admin Trade Name Freq PRN Reason Stop Dose Admin Oseltamivir Phosphate 75 mg 06/26/24 16:24 06/26/24 16:29 Oseltamivir Phosphate 75 Mg Capsule PO 06/26/24 16:25 75 mg ONCE ONE Administration Medical Decision Making Medical Decision Making [facility] Narrative: My interpretation of labs: Patient's hematology within normal limits, normal white blood cell count, no significant abnormality in electrolytes, blood gases within normal limits, troponin negative, BNP normal, serology test positive for influenza A. Chest x-ray does not show any acute abnormalities/pneumonia Patient states that he feels well, ambulating around the emergency room his oxygen states that 92% and above, no wheezing, no shortness of breath. Patient states that this is approximately his 2nd day that he feels a bit short of breath. Patient was given the 1st dose of Tamiflu Patient lives by himself, patient states that he feels well and states that he will be fine at home by himself Patient's son is at bedside, feels comfortable taking his father home. However, they are requesting case management consult, does not will be moving out of town in near future, and is requesting to start services for his father. Case management consult has been placed. Lab Data MDM Lab Attestation statement: I reviewed the patient's lab results. 06/26/24 15:37 06/26/24 15:37 Labs: Lab Results 06/26/24 06/26/24 06/26/24 Range/Units 12:30 15:37 15:38 WBC 5.6 (4.8-10.8) X10*3/uL RBC 5.28 D (4.60-5.80) X10*6/uL Hgb 16.3 D (14.0-18.0) g/dl Hct 48.4 D (42.0-52.0) % MCV 91.7 (80.0-98.0) fL MCH 30.9 (27.0-33.0) pg MCHC 33.7 (31.0-36.0) g/dl RDW 14.4 (11.0-16.0) % Plt Count 153 L (160-400) X10*3/uL MPV 10.4 (9.4-12.4) fL Immature Gran % (Auto) 0.5 H (0.0-0.4) % Neut % (Auto) 64.4 (45-73) % Lymph % (Auto) 23.8 (20-40) % [place] % (Auto) 8.5 (2-11) % Eos % (Auto) 1.6 (0-4) % Baso % (Auto) 1.2 (0-2) % Lymph # (Auto) 1.3 (1.2-4.9) X10*3/uL [place] # (Auto) 0.5 (0.1-1.2) X10*3/uL Eos # (Auto) 0.1 (0.0-0.4) X10*3/uL Baso # (Auto) 0.1 (0.0-0.2) X10*3/uL Abs Immat Gran (auto) 0.03 (0.00-0.03) X10*3/uL Absolute Neuts (auto) 3.6 (2.0-8.3) x10*3/uL Absolute Nucleated RBC 0.040 H (0.0-0.012) X10*3/uL Nucleated RBC % (auto) 0.7 H (0.0-0.2) /100WBC PT 11.7 (10.9-12.4) SEC INR 1.0 (0.9-1.1) VBG pH (7.32-7.43) VBG pCO2 mmHg VBG pO2 mmHg VBG HCO3 (22-26) mmol/L VBG O2 Saturation % VBG Base Excess mmol/L Sodium 136 (135-145) mmol/L Potassium 4.3 (3.3-5.1) mmol/L Chloride 104 (96-108) mmol/L Carbon Dioxide 22 (22-29) mmol/L Anion Gap 14 (12-20) BUN 13 (9-16) mg/dL Creatinine 0.69 (0.5-1.4) mg/dL Estim Creat Clear Calc 71.5 Estimated GFR > 60 Random Glucose 83 (60-115) mg/dL Calcium 9.5 D (8.4-10.2) mg/dL Total Bilirubin 0.5 (0.0-1.0) mg/dL AST 31 (5-37) U/L ALT 13 (0-40) U/L Alkaline Phosphatase 89 (39-117) U/L Troponin I High Sens 3.4 (<3.5-35.0) ng/L B-Natriuretic Peptide 61 (<100) pg/mL Total Protein 7.5 (6.5-8.0) g/dL Albumin 3.7 (3.5-5.0) g/dL Influenza Type A (PCR) POSITIVE A (Negative) Influenza Type B (PCR) NEGATIVE (Negative) RSV RNA Qual (PCR) NEGATIVE (Negative) SARS-CoV-2 RNA (RT-PCR) NEGATIVE (Negative) 06/26/24 Range/Units 16:00 WBC (4.8-10.8) X10*3/uL RBC (4.60-5.80) X10*6/uL Hgb (14.0-18.0) g/dl Hct (42.0-52.0) % MCV (80.0-98.0) fL MCH (27.0-33.0) pg MCHC (31.0-36.0) g/dl RDW (11.0-16.0) % Plt Count (160-400) X10*3/uL MPV (9.4-12.4) fL Immature Gran % (Auto) (0.0-0.4) % Neut % (Auto) (45-73) % Lymph % (Auto) (20-40) % [place] % (Auto) (2-11) % Eos % (Auto) (0-4) % Baso % (Auto) (0-2) % Lymph # (Auto) (1.2-4.9) X10*3/uL [place] # (Auto) (0.1-1.2) X10*3/uL Eos # (Auto) (0.0-0.4) X10*3/uL Baso # (Auto) (0.0-0.2) X10*3/uL Abs Immat Gran (auto) (0.00-0.03) X10*3/uL Absolute Neuts (auto) (2.0-8.3) x10*3/uL Absolute Nucleated RBC (0.0-0.012) X10*3/uL Nucleated RBC % (auto) (0.0-0.2) /100WBC PT (10.9-12.4) SEC INR (0.9-1.1) VBG pH 7.46 H (7.32-7.43) VBG pCO2 32 mmHg VBG pO2 75 mmHg VBG HCO3 23 (22-26) mmol/L VBG O2 Saturation 97.0 % VBG Base Excess 0.7 mmol/L Sodium (135-145) mmol/L Potassium (3.3-5.1) mmol/L Chloride (96-108) mmol/L Carbon Dioxide (22-29) mmol/L Anion Gap (12-20) BUN (9-16) mg/dL Creatinine (0.5-1.4) mg/dL Estim Creat Clear Calc Estimated GFR Random Glucose (60-115) mg/dL Calcium (8.4-10.2) mg/dL Total Bilirubin (0.0-1.0) mg/dL AST (5-37) U/L ALT (0-40) U/L Alkaline Phosphatase (39-117) U/L Troponin I High Sens (<3.5-35.0) ng/L B-Natriuretic Peptide (<100) pg/mL Total Protein (6.5-8.0) g/dL Albumin (3.5-5.0) g/dL Influenza Type A (PCR) (Negative) Influenza Type B (PCR) (Negative) RSV RNA Qual (PCR) (Negative) SARS-CoV-2 RNA (RT-PCR) (Negative) Independent Interpretation I performed an independent interpretation of an: EKG and Plain X-Ray Radiology Impression Discussion of test interpretation with radiology: I have reviewed the radiologist's reading. Radiologist Impression: The lungs are hyperinflated but clear of acute process. The heart size and pulmonary vascularity is normal. No gross bony abnormality seen except for mild dextroscoliosis. XR/XR chest 2V IMPRESSION: Hyperinflated lungs without acute process. Critical Care Time Critical Care Time Critical Care Time: No Discharge Plan Discharge Clinical Impression: Influenza A Instructions: Influenza (ED) Additional Instructions: Please follow-up with your primary care physician tomorrow. If you have any worsening or new symptoms, please return to the emergency room or call 911 Prescriptions: New oseltamivir [Tamiflu] 75 mg capsule 75 mg PO BID 5 Days Qty: 10 0RF No Action simvastatin 20 mg Tablet 20 mg PO BEDTIME Xarelto 20 mg Tablet 20 mg PO DAILY doxycycline monohydrate 100 mg Capsule 100 mg PO Q12H Qty: 8 0RF thiamine mononitrate (vit B1) 100 mg Tablet 100 mg PO DAILY Qty: 30 0RF prednisone 20 mg tablet 40 mg PO DAILY Qty: 8 0RF albuterol sulfate 90 mcg/actuation HFA aerosol inhaler 2 puff inhalation Q4-6H PRN (Reason: shortness of breath or wheezing) Qty: 8.5 0RF Rx Instructions: use with spacer device (DME) inhalational spacing device Spacer See Rx Instructions .Route Qty: 1 0RF Rx Instructions: use with albuterol rescue inhaler tiotropium bromide 18 mcg capsule, w/inhalation device 1 cap inhalation DAILY Qty: 60 0RF Rx Instructions: puncture 1 cap using device; one dose = 2 inhalations Interventions: ED Discharge Assessment Last Done: 06/26/24 16:55 Print Language: New Zealander
--- NOTE | 2024-06-26 11:55 | ECG_ITS ---
Test Reason : chest pain Blood Pressure : / mmHG Vent. Rate : 066 BPM Atrial Rate : 066 BPM P-R Int : 246 ms QRS Dur : 124 ms QT Int : 450 ms P-R-T Axes : 082 -65 091 degrees QTc Int : 471 ms Sinus rhythm with 1st degree A-V block with Premature atrial complexes Left axis deviation Possible Left bundle branch block Abnormal ECG When compared with ECG of 16-JUN-2024 14:17, No significant changes seen Referred By: Ivanna Henson Electronically Signed By:FABY CHI MD
[2024-06-26 12:35] VITALS: PULSE 70; RESP 20; O2SAT 93
[2024-06-26 13:36] LABS: Influenza A PCR POSITIVE (Negative); Influenza B PCR NEGATIVE (Negative); Resp Syncy Virus RNA Qual PCR NEGATIVE (Negative); SARS COV2 PCR INHOUSE NEGATIVE (Negative)
--- OUTSIDE RECORDS SUMMARY | 2024-06-26 13:36 | XMS_ITS | Continuity of Care Document ---
Author Name [facility] Organization 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 Unavailable Unavailable Problems Combined list of problems from Department of [facility] and [facility] facilities. It does not include entries that were removed or entered in error. Problem Status Onset Date Problem Type Date of Resolution Comments Source H/O: pulmonary embolus Active 01/10/20 24 Condition May 30, 2024 Entered By: LEXY MEJÍA Comment: [id number] Entered By: LEXY MEJÍA Comment: 05/30/24 still on [facility] Bilateral hearing loss Active Condition [place] [facility] - Gastro-Esophageal Reflux Disease ([facility] [id number]) [facility] ([facility] [id number]) [facility] Long-term current use of anticoagulant Active Condition May 30, 2024 Entered By: LEXY MEJÍA Comment: [facility] ([id number]) Screening for malignant neoplasm of colon done Active Condition Jul 15, 2008 Entered By: RYLEY RITTER Comment: colonoscopy 2007 1 polyp, repeat 2012Sep 2018 Entered By: DEREK FOWLER Comment: Last scope (2014) clear. 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 Medication Details Route Status Patient Instructions Prescription Expires Prescription Number Last Dispense Date Ordering Provider Order Date Order Qty Source FISH OIL 1000MG (500MG DHA/EPA) CAP,ORAL TAKE 1 CAPSULE BY MOUTH EVERY DAY ORAL ACTIVE RIYARYLEY S [place] MULTIVITAMI NS W/MINERALS TAB TAKE ONE TABLET BY MOUTH EVERY DAY ORAL ACTIVE RIYARYLEY S [place] OMEPRAZOLE 20MG CAP,EC TAKE ONE CAPSULE BY MOUTH EVERY MORNING 30 MINUTES BEFORE BREAKFAS T ORAL 06/04/2024 [id number] 3 MADIVÍCTORSNOW Portillo F 2022 90 [facility] IELD RIVAROXABAN 20MG TAB TAKE ONE TABLET BY MOUTH ONCE DAILY WITH FOOD ORAL SUSPEND ED 06/14/2025 [id number] Ishmael MEJÍA 2024 90 [facility] IELD RIVAROXABAN 20MG TAB TAKE ONE TABLET BY MOUTH ONCE DAILY WITH FOOD ORAL DISCONT INUED 02/06/2025 [id number] MADIVÍCTORSNOW Portillo [facility] F 2023 90 [facility] IELD RIVAROXABAN 20MG TAB TAKE ONE TABLET BY MOUTH ONCE DAILY WITH FOOD ORAL DISCONT INUED 02/03/2024 [id number] 4 MADIVÍCTORLindseySNOW [facility] F 2023 90 [facility] IELD RIVAROXABAN 20MG TAB TAKE ONE TABLET BY MOUTH ONCE DAILY WITH FOOD ORAL DISCONT INUED 09/04/2023 [id number] 4 MADIVÍCTORSNOW Portillo F 2023 90 [facility] IELD RIVAROXABAN 20MG TAB TAKE ONE TABLET BY MOUTH ONCE DAILY WITH FOOD ORAL DISCONT INUED 09/02/2023 [id number] 3 MADIVÍCTORLindseySNOW [facility] F 2022 90 [facility] IELD SIMVASTATIN 20MG TAB TAKE ONE TABLET BY MOUTH ONCE DAILY FOR CHOLESTE ROL ORAL SUSPEND ED 06/14/2025 [id number] Ishmael MEJÍA 2024 90 [facility] IELD SIMVASTATIN 20MG TAB TAKE ONE TABLET BY MOUTH ONCE DAILY FOR CHOLESTE ROL ORAL DISCONT INUED 02/06/2025 [id number] SNOW SIM F 2023 90 [facility] IELD SIMVASTATIN 20MG TAB TAKE ONE TABLET BY MOUTH ONCE DAILY FOR CHOLESTE ROL ORAL DISCONT INUED 02/03/2024 [id number] 4 SNOW SIM F 2023 90 [place] SIMVASTATIN 20MG TAB TAKE ONE TABLET BY MOUTH ONCE DAILY FOR CHOLESTE ROL ORAL DISCONT INUED 09/02/2023 [id number] 4 SNOW SIM RMEN F 2023 90 [place] SIMVASTATIN 20MG TAB TAKE ONE TABLET BY MOUTH ONCE DAILY FOR CHOLESTE ROL ORAL DISCONT INUED 05/29/2023 [id number] WICHO HAGEN 2022 90 [place] Allergies, Adverse Reactions, Alerts Combined list of allergies from Department of Defense and Veterans Affairs facilities. It does not include entries that were removed or entered in error. Substance Category Reaction Severity Reaction type Status Date Reported Comments Source [place] Propensity to adverse reactions to substance (finding) Urticaria , Wheezing active 9 [facility] [place] [facility] [place] Propensity to adverse reactions to substance (finding) active 9 [facility] [place] [facility] Immunizations Combined list of available immunizations from the Department of Defense and Veterans Affairs facilities. Immunization Series Date Given Administered By Site Reaction Lot Number CVX Code Drug Health Promotion Coordinator Status Comments Source COVID-19 (MODERNA), MRNA, LNP-S, PF, 100 MCG OR 50 MCG DOSE 2 2020 207 complet ed [facility] [place] [facility] COVID-19 (MODERNA), MRNA, LNP-S, PF, 100 MCG OR 50 MCG DOSE 1 2020 207 complet ed [facility] [place] [facility] Results Combined list of recent chemistry, hematology and other laboratory results from Department of Defense and Veterans Affairs, ranging from 15 months to all on record, depending upon the facility. Order Name Results Value Reference Range Date Interpretation Specimen Comments Source CBC AND DIFF (AUTO) LEUKOCYTES [#/VOLUME] IN BLOOD BY AUTOMATED COUNT 5.58 10*3/u L 4.50 - 11.00 09/24 Specimen Type: BLOOD No comment entered. Ordering Provider: ANNIE SIM Report Released Date/Time: Sep 13, 2023 01:43 PM Reporting Lab: [facility] [address] [address] Performing Lab: [facility] [address] [place] CBC AND DIFF (AUTO) ERYTHROCYTE S [#/VOLUME] IN BLOOD BY AUTOMATED COUNT 4.16 10*6/u L 4.23 - 5.66 09/24 L Specimen Type: BLOOD No comment entered. Ordering Provider: ANNIE SIM Report Released Date/Time: Sep 13, 2023 01:43 PM Reporting Lab: [facility] [address] [address] Performing Lab: [facility] [address] [address] [place] CBC AND DIFF (AUTO) HEMOGLOBIN [MASS/VOLUM E] IN BLOOD 13.0 g/dL 12.8 - 17 09/24 Specimen Type: BLOOD No comment entered. Ordering Provider: ANNIE SIM Report Released Date/Time: Sep 13, 2023 01:43 PM Reporting Lab: [facility] [address] [address] Performing Lab: [facility] [address] [address] [place] CBC AND DIFF (AUTO) HEMATOCRIT [VOLUME FRACTION] OF BLOOD BY AUTOMATED COUNT 38.7 39.2 - 50.4 09/24 L Specimen Type: BLOOD No comment entered. Ordering Provider: ANNIE SIM Report Released Date/Time: Sep 13, 2023 01:43 PM Reporting Lab: [facility] [address] [address] Performing Lab: [facility] [address] [place] CBC AND DIFF (AUTO) MCV [ENTITIC VOLUME] BY AUTOMATED COUNT 93.0 fL 82 - 99 09/24 Specimen Type: BLOOD No comment entered. Ordering Provider: ANNIE SIM Report Released Date/Time: Sep 13, 2023 01:43 PM Reporting Lab: [facility] [address] [address] Performing Lab: [facility]USUSETS [address] [address] [place] CBC AND DIFF (AUTO) MCHC [MASS/VOLUM E] BY AUTOMATED COUNT 33.6 g/dL 30.8 - 35.1 09/24 Specimen Type: BLOOD No comment entered. Ordering Provider: ANNIE SIM Report Released Date/Time: Sep 13, 2023 01:43 PM Reporting Lab: [facility] [address] [address] Performing Lab: [facility]ERN [address] [address] [place] CBC AND DIFF (AUTO) PLATELETS [#/VOLUME] IN BLOOD BY AUTOMATED COUNT 230 10*3/u L 140 - 360 09/24 Specimen Type: BLOOD No comment entered. Ordering Provider: ANNIE SIM Report Released Date/Time: Sep 13, 2023 01:43 PM Reporting Lab: [facility] [address] [address] Performing Lab: [facility] TRN [facility]US[facility]ETS [address] [address] [place] CBC AND DIFF (AUTO) ERYTHROCYTE DISTRIBUTIO N WIDTH [RATIO] BY AUTOMATED COUNT 12.2 12.0 - 16.0 09/24 Specimen Type: BLOOD No comment entered. Ordering Provider: ANNIE SIM Report Released Date/Time: Sep 13, 2023 01:43 PM Reporting Lab: [facility]USUSETS [address] [address] Performing Lab: [facility]TRN [facility]USUSE[address] [address] [place] CBC AND DIFF (AUTO) MONOCYTES [#/VOLUME] IN BLOOD BY AUTOMATED COUNT 0.44 10*3/u L 0.30 - 1.10 09/24 Specimen Type: BLOOD No comment entered. Ordering Provider: ANNIE SIM Report Released Date/Time: Sep 13, 2023 01:43 PM Reporting Lab: [facility] [address] [address] Performing Lab: [facility] [address] [address] [place] CBC AND DIFF (AUTO) MCH [ENTITIC MASS] BY AUTOMATED COUNT 31.3 pg 26.2 - 32.6 09/24 Specimen Type: BLOOD No comment entered. Ordering Provider: ANNIE SIM Report Released Date/Time: Sep 13, 2023 01:43 PM Reporting Lab: [facility] [address] [address] Performing Lab: [facility] [place] [address] [address] [place] CBC AND DIFF (AUTO) NEUTROPHILS /100 LEUKOCYTES IN BLOOD BY AUTOMATED COUNT 52.1 43.7 - 75.8 09/24 Specimen Type: BLOOD No comment entered. Ordering Provider: ANNIE SIM Report Released Date/Time: Sep 13, 2023 01:43 PM Reporting Lab: [facility] [place] [address] [address] Performing Lab: [facility] [place] [address] [address] [place] CBC AND DIFF (AUTO) LYMPHOCYTES /100 LEUKOCYTES IN BLOOD BY AUTOMATED COUNT 35.5 14.0 - 42.3 09/24 Specimen Type: BLOOD No comment entered. Ordering Provider: ANNIE SIM Report Released Date/Time: Sep 13, 2023 01:43 PM Reporting Lab: [facility] [place] [address] [address] Performing Lab: [facility] [address] [address] [place] CBC AND DIFF (AUTO) MONOCYTES/1 00 LEUKOCYTES IN BLOOD BY AUTOMATED COUNT 7.9 5.1 - 13.7 09/24 Specimen Type: BLOOD No comment entered. Ordering Provider: STELEA,ANNIE EN F Report Released Date/Time: Sep 13, 2023 01:43 PM Reporting Lab: [facility]N [address] [address] Performing Lab: [facility] [address] [address] [place] CBC AND DIFF (AUTO) EOSINOPHILS /100 LEUKOCYTES IN BLOOD BY AUTOMATED COUNT 3.0 0.4 - 6.8 09/24 Specimen Type: BLOOD No comment entered. Ordering Provider: ANNIE SIM Report Released Date/Time: Sep 13, 2023 01:43 PM Reporting Lab: [facility] [address] [address] Performing Lab: [facility]ERN [address] [address] [place] CBC AND DIFF (AUTO) BASOPHILS/1 00 LEUKOCYTES IN BLOOD BY AUTOMATED COUNT 1.1 0.1 - 2.0 09/24 Specimen Type: BLOOD No comment entered. Ordering Provider: ANNIE SIM Report Released Date/Time: Sep 13, 2023 01:43 PM Reporting Lab: [facility] [address] [address] Performing Lab: [facility] [address] [address] [place] CBC AND DIFF (AUTO) NEUTROPHILS [#/VOLUME] IN BLOOD BY AUTOMATED COUNT 2.91 10*3/u L 2.20 - 7.60 09/24 Specimen Type: BLOOD No comment entered. Ordering Provider: ANNIE SIM Report Released Date/Time: Sep 13, 2023 01:43 PM Reporting Lab: [facility] [address] [address] Performing Lab: [facility]ITALTRN [facility]USUSE[address] [address] [place] CBC AND DIFF (AUTO) LYMPHOCYTES [#/VOLUME] IN BLOOD BY AUTOMATED COUNT 1.98 10*3/u L 1.00 - 3.20 09/24 Specimen Type: BLOOD No comment entered. Ordering Provider: ANNIE SIM Report Released Date/Time: Sep 13, 2023 01:43 PM Reporting Lab: [facility]USUSETS [address] [address] Performing Lab: [place] [facility] [place] [facility]USUSETS [address] [address] [place] CBC AND DIFF (AUTO) EOSINOPHILS [#/VOLUME] IN BLOOD BY AUTOMATED COUNT 0.17 10*3/u L 0.03 - 0.44 09/24 Specimen Type: BLOOD No comment entered. Ordering Provider: ANNIE SIM Report Released Date/Time: Sep 13, 2023 01:43 PM Reporting Lab: [facility] TRN [facility]USUSE[address] [address] Performing Lab: [facility] TRN [facility]USUSE[address] [address] [place] CBC AND DIFF (AUTO) BASOPHILS [#/VOLUME] IN BLOOD BY AUTOMATED COUNT 0.06 10*3/u L 0.01 - 0.13 09/24 Specimen Type: BLOOD No comment entered. Ordering Provider: ANNIE SIM Report Released Date/Time: Sep 13, 2023 01:43 PM Reporting Lab: [facility] TR[facility]USUSE[address] [address] Performing Lab: [facility] TRN [facility]USUSETS [address] [address] [place] CBC AND DIFF (AUTO) IMMATURE GRANULOCYTE S/100 LEUKOCYTES IN BLOOD BY AUTOMATED COUNT 0.4 0.0 - 0.7 09/24 Specimen Type: BLOOD No comment entered. Ordering Provider: ANNIE SIM Report Released Date/Time: Sep 13, 2023 01:43 PM Reporting Lab: [facility] [address] [address] Performing Lab: [place] [facility] [place] [facility]USUSETS [address] [address] [place] CBC AND DIFF (AUTO) IMMATURE GRANULOCYTE S [#/VOLUME] IN BLOOD 0.02 10*3/u L 0.00 - 0.06 09/24 Specimen Type: BLOOD No comment entered. Ordering Provider: ANNIE SIM Report Released Date/Time: Sep 13, 2023 01:43 PM Reporting Lab: [facility] [place] [address] [address] Performing Lab: [facility] [place] [address] [address] [place] CREATININ E (eGFR 2020) CREATININE [MASS/VOLUM E] IN SERUM OR PLASMA 0.75 mg/dL 0.50 - 1.40 09/24 Specimen Type: SERUM No comment entered. Ordering Provider: ANNIE SIM Report Released Date/Time: Sep 13, 2023 01:43 PM Reporting Lab: [facility] [place] [address] [address] Performing Lab: [facility] [address] [address] [place] CREATININ E (eGFR 2020) GLOMERULAR FILTRATION RATE/1.73 SQ M.PREDICTED [VOLUME RATE/AREA] IN SERUM, PLASMA OR BLOOD BY CREATININE- BASED FORMULA (CKD-EPI 2020) 89 mL/min 60 09/24 Specimen Type: SERUM No comment entered. Ordering Provider: ANNIE SIM Report Released Date/Time: Sep 13, 2023 01:43 PM Reporting Lab: [facility] [place] [facility] [address] [address] Performing Lab: [facility] [place] [address] [address] [place] CREATININ E (eGFR 2020) CREATININE [MASS/VOLUM E] IN SERUM OR PLASMA 0.75 mg/dL 0.50 - 1.40 03/14 Specimen Type: SERUM No comment entered. Ordering Provider: GIGI CAMPOVERDE Report Released Date/Time: Mar 01, 2023 01:28 PM Reporting Lab: [facility] [place] [address] [address] Performing Lab: [facility] [place] [address] [address] [facility] [facility] CREATININ E (eGFR 2020) GLOMERULAR FILTRATION RATE/1.73 SQ M.PREDICTED [VOLUME RATE/AREA] IN SERUM, PLASMA OR BLOOD BY CREATININE- BASED FORMULA (CKD-EPI 2020) 90 mL/min 60 03/14 Specimen Type: SERUM No comment entered. Ordering Provider: GIGI CAMPOVERDE Report Released Date/Time: Mar 01, 2023 01:28 PM Reporting Lab: [facility] [place] [facility] [address] [facility] [address] Performing Lab: [facility] [place] [facility] [address] [facility] [address] [facility] [place] [facility] CBC LEUKOCYTES [#/VOLUME] IN BLOOD BY AUTOMATED COUNT 5.47 10*3/u L 4.50 - 11.00 03/14 Specimen Type: BLOOD No comment entered. Ordering Provider: GIGI CAMPOVERDE Report Released Date/Time: Mar 01, 2023 01:28 PM Reporting Lab: [facility] [place] [facility] [address] [facility] [address] Performing Lab: [place] [facility] [place] [facility] [address] [facility] [address] [facility] [place] [facility] CBC ERYTHROCYTE S [#/VOLUME] IN BLOOD BY AUTOMATED COUNT 4.58 10*6/u L 4.23 - 5.66 03/14 Specimen Type: BLOOD No comment entered. Ordering Provider: GIGI CAMPOVERDE Report Released Date/Time: Mar 01, 2023 01:28 PM Reporting Lab: [facility] [place] [facility] [address] [facility] [address] Performing Lab: [place] [facility] [place] [address] [address] [facility] [place] [facility] CBC HEMOGLOBIN [MASS/VOLUM E] IN BLOOD 14.2 g/dL 12.8 - 17 03/14 Specimen Type: BLOOD No comment entered. Ordering Provider: GIGI CAMPOVERDE Report Released Date/Time: Mar 01, 2023 01:28 PM Reporting Lab: [facility] [place] [facility] [address] [facility] [address] Performing Lab: [facility] [place] [facility] [address] [facility] [address] [facility] [place] [facility] CBC HEMATOCRIT [VOLUME FRACTION] OF BLOOD BY AUTOMATED COUNT 43.2 39.2 - 50.4 03/14 Specimen Type: BLOOD No comment entered. Ordering Provider: GIGI CAMPOVERDE Report Released Date/Time: Mar 01, 2023 01:28 PM Reporting Lab: [facility] [place] [facility] [address] [facility] [address] Performing Lab: [place] [facility] [facility] [address] [facility] [address] [facility] [place] [facility] CBC MCV [ENTITIC VOLUME] BY AUTOMATED COUNT 94.3 fL 82 - 99 03/14 Specimen Type: BLOOD No comment entered. Ordering Provider: GIGI CAMPOVERDE Report Released Date/Time: Mar 01, 2023 01:28 PM Reporting Lab: [facility] [facility] [address] [facility] [address] Performing Lab: [facility] [place] [facility] [address] [facility] [address] [facility] [place] [facility] CBC MCHC [MASS/VOLUM E] BY AUTOMATED COUNT 32.9 g/dL 30.8 - 35.1 03/14 Specimen Type: BLOOD No comment entered. Ordering Provider: GIGI CAMPOVERDE Report Released Date/Time: Mar 01, 2023 01:28 PM Reporting Lab: [facility] [place] [facility] [address] [facility] [address] Performing Lab: [facility] [place] [facility] [address] [facility] [address] [facility] [facility] CBC PLATELETS [#/VOLUME] IN BLOOD BY AUTOMATED COUNT 208 10*3/u L 140 - 360 03/14 Specimen Type: BLOOD No comment entered. Ordering Provider: GIGI CAMPOVERDE Report Released Date/Time: Mar 01, 2023 01:28 PM Reporting Lab: [facility] [place] [facility] [address] [facility] [address] Performing Lab: [facility] [place] [facility] [address] [facility] [address] [facility] [facility] CBC ERYTHROCYTE DISTRIBUTIO N WIDTH [RATIO] BY AUTOMATED COUNT 12.9 12.0 - 16.0 03/14 Specimen Type: BLOOD No comment entered. Ordering Provider: GIGI CAMPOVERDE Report Released Date/Time: Mar 01, 2023 01:28 PM Reporting Lab: [facility] [place] [facility] [address] [facility] [address] Performing Lab: [facility] [place] [facility] [address] [facility] [address] [place] [facility] [facility] CBC MCH [ENTITIC MASS] BY AUTOMATED COUNT 31.0 pg 26.2 - 32.6 03/14 Specimen Type: BLOOD No comment entered. Ordering Provider: GIGI CAMPOVERDE Report Released Date/Time: Mar 01, 2023 01:28 PM Reporting Lab: [facility] [place] [facility] [address] [facility] [address] Performing Lab: [facility] [place] [facility] [address] [facility] [address] [facility] [place] [facility] CREATININ E (eGFR 2020) CREATININE [MASS/VOLUM E] IN SERUM OR PLASMA 0.71 mg/dL 0.50 - 1.40 08/01 Specimen Type: SERUM No comment entered. Ordering Provider: JACQUE ESTRELLA Report Released Date/Time: Jul 23, 2022 10:35 AM Reporting Lab: [facility] [place] [facility] [address] [facility] [address] Performing Lab: [facility] [place] [facility] [address] [facility] [address] [facility] [facility] CREATININ E (eGFR 2020) GLOMERULAR FILTRATION RATE/1.73 SQ M.PREDICTED [VOLUME RATE/AREA] IN SERUM, PLASMA OR BLOOD BY CREATININE- BASED FORMULA (CKD-EPI) >90mL/ min 60 08/01 Specimen Type: SERUM No comment entered. Ordering Provider: JACQUE ESTRELLA Report Released Date/Time: Jul 23, 2022 10:35 AM Reporting Lab: [facility] [place] [address] [address] Performing Lab: [facility] [place] [address] [address] [place] [facility] [place] [facility] CBC LEUKOCYTES [#/VOLUME] IN BLOOD BY AUTOMATED COUNT 4.33 10*3/u L 4.50 - 11.00 08/01 L Specimen Type: BLOOD No comment entered. Ordering Provider: JACQUE ESTRELLA Report Released Date/Time: Jul 23, 2022 10:35 AM Reporting Lab: [facility] [address] [address] Performing Lab: [facility] [place] [address] [address] [facility] [place] [facility] CBC ERYTHROCYTE S [#/VOLUME] IN BLOOD BY AUTOMATED COUNT 4.78 10*6/u L 4.23 - 5.66 08/01 Specimen Type: BLOOD No comment entered. Ordering Provider: JACQUE ESTRELLA Report Released Date/Time: Jul 23, 2022 10:35 AM Reporting Lab: [facility] [place] [address] [address] Performing Lab: [facility] [place] [address] [address] [place] [facility] [facility] CBC HEMOGLOBIN [MASS/VOLUM E] IN BLOOD 15.1 g/dL 12.8 - 17 08/01 Specimen Type: BLOOD No comment entered. Ordering Provider: JACQUE ESTRELLA Report Released Date/Time: Jul 23, 2022 10:35 AM Reporting Lab: [facility] [place] [address] [address] Performing Lab: [facility] [place] [facility] [address] [facility] [address] [facility] CBC HEMATOCRIT [VOLUME FRACTION] OF BLOOD BY AUTOMATED COUNT 44.6 39.2 - 50.4 08/01 Specimen Type: BLOOD No comment entered. Ordering Provider: JACQUE ESTRELLA Report Released Date/Time: Jul 23, 2022 10:35 AM Reporting Lab: [facility] [address] [facility] [address] Performing Lab: [facility] [address] [facility] [address] [facility] [place] [facility] CBC MCV [ENTITIC VOLUME] BY AUTOMATED COUNT 93.3 fL 82 - 99 08/01 Specimen Type: BLOOD No comment entered. Ordering Provider: JACQUE ESTRELLA Report Released Date/Time: Jul 23, 2022 10:35 AM Reporting Lab: [facility] [place] [facility] [address] [facility] [address] Performing Lab: [facility] [place] [facility] [address] [facility] [address] [facility] [facility] [facility] CBC MCHC [MASS/VOLUM E] BY AUTOMATED COUNT 33.9 g/dL 30.8 - 35.1 08/01 Specimen Type: BLOOD No comment entered. Ordering Provider: JACQUE ESTRELLA Report Released Date/Time: Jul 23, 2022 10:35 AM Reporting Lab: [facility] [place] [facility] [address] [facility] [address] Performing Lab: [facility] [place] [facility] [address] [facility] [address] [place] [facility] [place] [facility] CBC PLATELETS [#/VOLUME] IN BLOOD BY AUTOMATED COUNT 175 10*3/u L 140 - 360 08/01 Specimen Type: BLOOD No comment entered. Ordering Provider: JACQUE ESTRELLA Report Released Date/Time: Jul 23, 2022 10:35 AM Reporting Lab: [facility] [place] [facility] [address] [facility] [address] Performing Lab: [facility] [place] [facility] [address] [facility] [address] [facility] CBC ERYTHROCYTE DISTRIBUTIO N WIDTH [RATIO] BY AUTOMATED COUNT 12.7 12.0 - 16.0 08/01 Specimen Type: BLOOD No comment entered. Ordering Provider: JACQUE ESTRELLA Report Released Date/Time: Jul 23, 2022 10:35 AM Reporting Lab: [facility] [place] [facility] [address] [facility] [address] Performing Lab: [facility] HOSPITALTRN [facility]USUSESTON[facility] [address] [address] [facility] CBC MCH [ENTITIC MASS] BY AUTOMATED COUNT 31.6 pg 26.2 - 32.6 08/01 Specimen Type: BLOOD No comment entered. Ordering Provider: JACQUE ESTRELLA Report Released Date/Time: Jul 23, 2022 10:35 AM Reporting Lab: [facility]ERN [facility]USUSESTON[facility] [address] [facility] [address] Performing Lab: [facility]ERR[facility] HOSPITALTRN [facility] CAMPUSUSE[address] [address] [facility] CAMPUSUSE [facility] Encounters Combined list of: 1) Encounters from Department of Veterans Affairs facilities going back up to thelast 18 months. 2) Encounters from the Department of Defense facilities going back up to 280 months. Location Location Details Encounter Type Encounter Number Reason For Visit Attending Provider ADM Date DC Date Status Disposition Source [facility] [place] [facility] QNHP OL DIG ASSMT&MGMT 5-10 [id number] Diagnos is: ICD-10- CM Z51.81 Encount er for therape utic drug level monitor ing<br/ > GILLES,CHR ISTINE F 03/01 [facility] [place] [facility] OFFICE O/P EST MOD 30-39 MIN [id number] Diagnos is: ICD-10- CM E78.5 Hyperli pidemia , unspeci fied
STELEA,CAR MEN F 06/04 [place] [facility] En[facility] [id number] 06/04 [facility] [place] [id number] 06/06 [facility] [place] [place] En[facility] [id number] 09/08 [facility] [place] [place] En[facility] [id number] 11/03 [facility] [place] En[facility] [id number] 02/02 [facility] [place] [place] Out[facility] Encounter [id number] 06/03 [facility] [facility] [place] Encounter [id number] 06/03 [facility] [place] [place] En[facility] [id number] 06/11 [facility] [place] [facility] Social History Combined list of available smoking, tobacco, and other social history from Department of Defense and Veterans Affairs facilities. Social History Type Response Date Comment [facility] e Tobacco smoking status NHIS VA-TOBACCO FORMER USER [address] [place] History of tobacco use LA-TOBACCO QUIT 1 5 YRS OR MORE 06/04/2023 [place] History of tobacco use VA-TOBACCO NEVER USED 05/28/2022 [place] History of tobacco use LA-TOBACCO NEVER USED 06/15/2021 [place] History of tobacco use LA-TOBACCO QUIT 1 5 YRS OR MORE 02/17/2019 [place] Plan of Care List of future care activities from Department of Veterans Affairs facilities. Additional future care activities may be listed in the Assessment and Plan section. Date/Time Care Activity Care Activity Detail Facili ty 07/24/2024 AMBULATORY - MEDICINE AMBULATORY - MEDICI [facility] 05/26/2024 Laboratory - Clinical Phlebotomist ry Order BASIC METABOLIC PANEL (fasting) BLOOD (SST-SERUM) [facility] 05/26/2024 Laboratory - Clinical Phlebotomist ry Order LIPID PANEL FASTING BLOOD (SST-SERUM) [facility] 05/26/2024 Laboratory - Clinical Phlebotomist ry Order LIVER FUNCTION BLOOD (SST-SERUM) [facility] 05/26/2024 Laboratory - Clinical Phlebotomist ry Order CBC AND DIFF (AUTO) BLOOD (LAV-BLOOD) [facility] 05/26/2024 Laboratory - Clinical Phlebotomist ry Order HEMOGLOBIN A1C PANEL BLOOD (LAV-BLOOD) [facility] 05/26/2024 Laboratory - Clinical Phlebotomist ry Order TSH BLOOD (SST-SERUM) [facility] 05/26/2024 Laboratory - Clinical Phlebotomist ry Order URINALYSIS URINE [facility] 05/26/2024 Laboratory - Clinical Phlebotomist ry Order MICROALBUMIN CREATININE RATIO PANEL URINE (RANDOM) [facility] Advance Directives List of completed, amended, or rescinded Advance Directives on record at [facility] facilities. An actual copy of the Directive is not included. Date Advance Directive Provider Source 02/16/2019 ADVANCE DIRECTIVE PABLO BETTS [place]
--- OUTSIDE RECORDS SUMMARY | 2024-06-26 13:37 | XMS_ITS ---
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 [id number] VITAL SIGNS BMI 24.79 kg/m2 12/06/2023 Blood pressure systolic 114 mm Hg 12/06/19 24 Blood pressure diastolic 60 mm Hg 06/14/2 024 Height 65 in 12/06/2023 Weight 149 lbs 12/06/2023 weight is down 9 pounds [facility] 05-28-23 Encounters Encounter Location Date Provider Diagnosis Hay Kessler MD [address] [place] [address] [place] [phone] 12/06/2023 Hay Kessler 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 D68.52 and Mixed hyperlipidemia E78.2 ASSESSMENTS Encounter Date Diagnosis Assessment Notes Treatment Notes Treatment Clinical Notes 12/06/2023 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 permanantly 12/06/2023 Mixed hyperlipidemia (ICD-10 - E78.2) stable, will continue current regiment PLAN OF TREATMENT Medication Medication Name Sig Start Date Stop Date Notes Simvastatin 20 MG take 1 tablet in the evening Orally Once a day Treatment Notes Assessment Notes Heterozygous for prothrombin [id number] mut ation needs to be on xarelto permanantly Mixed hyperlipidemia stable, will contin ue current regiment Next Appt Details Provider Name:Hay villegas, 06/29/2024 02:00:00 PM, [address] [place] [address], [place] [address], [place], [place], [phone], Provider Name:Hay villegas, 07/31/2024 01:30:00 PM, [address] [place] [address], [place] [address], [place], [place], [phone], Progress Notes * Examination Category Sub-Category Detail Notes General Examination GENERAL APPEARANCE: alert, w ell hydrated, in no distress HEAD: normocephalic HEART: regular rate and rhy thm, no murmurs, rubs, gallops LUNGS: no wheezes, rales, r honchi, good air movement, clear to auscultation bilaterally SKIN: good turgor
--- OUTSIDE RECORDS SUMMARY | 2024-06-26 13:37 | XMS_ITS | Patient Health Record ---
Author Organization Wero Kessler MD Address [address] [place], [place] [id number] Care Team Providers Care Technical Research Scientist Name Role Phone eWro Kessler Primary Care Provider ALLERGIES Allergen (clinical drug ingredient) Drug/Non Drug Allergy documented on EMR Reaction Allergy Type Onset Date Status soy (uncoded) hives Allergy Active peanuts (uncoded) throat closes Allergy Active RESULTS Component Value Reference Range Notes Complete Blood Count Auto Di ff Reviewed date:09/19/2023 12:48:25 PM Interpretation: Performing Lab:[facility], [address] [place] [phone] Notes/Report: White Blood Count 7.8 4.8-10.8 X10*3/uL [...] INR Reviewed date:09/19/2023 12:48:06 PM Interpretation: Performing Lab:[address] [address] Notes/Report: Prothrombin Time 18.2 11.1-13.3 SEC INTERNATIONAL [...] Time Reviewed date:09/19/2023 12:42:24 PM Interpretation: Performing Lab:[address] [address] Notes/Report: Partial Thromboplastin Time 36.6 26.0-36.8 SEC For information regarding the monitoring of direct thrombin inhibitors, please refer to Pharmacy. Comprehensive Met. Panel Reviewed date:09/19/2023 04:57:45 PM Interpretation: Performing Lab:[facility], [address] [place] [phone] Notes/Report: Sodium 142 135-145 mmol/L Potassium 3.7 [...] Glomerular Filt Rate > 60 NOTE: For -Azerbaijani individuals, multiply the result by 1.210. Chronic [...] Blood Reviewed date:09/19/2023 04:58:29 PM Interpretation: Performing Lab:[facility], [address] [place] [phone] Notes/Report: Glucose, Whole Blood 126 60-115 mg/dL METER # : [id number] Liver Panel Reviewed date:11/29/2023 03:40:46 PM Interpretation: Performing Lab:[facility], [address] [place] [phone] Notes/Report: Bilirubin Total 1.0 0.0-1.0 mg/dL Bilirubin Direct 0.4 0.0-0.5 mg/dL Aspartate Amino Transferase 21 5-37 U/L Alanine Aminotransferase 7 0-40 U/L Total Protein 7.0 6.5-8.0 g/dL Albumin Level 4.0 3.5-5.0 g/dL Alkaline Phosphatase 52 39-117 U/L Lipid Panel Reviewed date:11/29/2023 03:41:38 PM Interpretation: Performing Lab:[facility], [address] [place] [address] Notes/Report: Triglycerides 47 <150 mg/dL Desirable Triglyceride: [...] Panel Reviewed date:05/27/2024 07:18:51 PM Interpretation: Performing Lab:[address] [address] Notes/Report: Bilirubin Total 0.8 0.0-1.0 mg/dL Bilirubin Direct 0.2 0.0-0.5 mg/dL Aspartate Amino Transferase 48 5-37 U/L Moderate Hemolysis.Interpret result with caution. Alanine Aminotransferase 10 0-40 U/L Total Protein 8.3 6.5-8.0 g/dL Moderate Hemolysis.Interpret result with caution. Albumin Level 4.0 3.5-5.0 g/dL Alkaline Phosphatase 75 39-117 U/L Lipid Panel with Reflex Reviewed date:05/27/2024 07:18:41 PM Interpretation: Performing Lab:[facility], [address] [place] [phone] Notes/Report: Triglycerides 72 <150 mg/dL Desirable Triglyceride: [...] low results in patients with liver disease. Complete Blood Count Auto Di ff Reviewed date:06/18/2024 12:34:46 PM Interpretation: Performing Lab:[facility], [address] [place] [phone] Notes/Report: White Blood Count 7.5 4.8-10.8 X10*3/uL Red Blood Count 4.48 4.60-5.80 X10*6/uL Hemoglobin 13.7 14.0-18.0 g/dl Hematocrit 41.3 42.0-52.0 % Mean Corpuscular Volume 92.2 80.0-98.0 fL Mean Corpuscular Hemoglobin 30.6 27.0-33.0 pg Mean Corpuscular HGB Conc 33.2 31.0-36.0 g/dl Red Cell Distribution Width 14.6 11.0-16.0 % Platelet Count 212 160-400 X10*3/uL Mean Platelet Volume 9.6 9.4-12.4 fL Neutrophils Percent Auto 66.2 45-73 % Imm Gran Pct Auto 0.4 0.0-0.4 % Lymphocytes Percent Auto 23.0 20-40 % Monocytes Percent Auto 8.4 2-11 % Eosinophils Percent Auto 1.3 0-4 % Basophils Percent Auto 0.7 0-2 % NRBC Pct Auto 0.0 0.0-0.2 /100WBC Neutrophils Absolute Auto 5.0 2.0-8.3 x10*3/u L Imm Gran Abs Auto 0.03 0.00-0.03 X10*3/uL Lymphocytes Absolute Auto 1.7 1.2-4.9 X10*3/u L Monocytes Absolute Auto 0.6 0.1-1.2 X10*3/uL Eosinophils Absolute Auto 0.1 0.0-0.4 X10*3/u L Basophils Absolute Auto 0.1 0.0-0.2 X10*3/uL NRBC Abs Auto 0.000 0.0-0.012 X10*3/uL Comprehensive Met. Panel Reviewed date:06/18/2024 11:05:52 AM Interpretation: Performing Lab:[address] [address] Notes/Report: Sodium 142 135-145 mmol/L Potassium 4.5 3.3-5.1 mmol/L Slight Hemolysis.Interpret result with caution. Chloride 104 96-108 mmol/L Carbon Dioxide 25 22-29 mmol/L Anion Gap 18 12-20 Blood Urea Nitrogen 11 9-16 mg/dL Creatinine 0.75 0.5-1.4 mg/dL Creatinine Clr Calc Pharmacy 70.9 eGFR (calculated from the MDRD study equation) and eCrCl (calculated from the Cockcroft-Gault equation) are based on different parameters and may not yield comparable results. If eCrCl result is absurd, please check patient's height/weight. Estimated Glomerular Filt Rate > 60 Chronic Kidney Disease: Estimated GFR < 60 mL/min/1.73m2 Severe Kidney Disease: Estimated GFR < 15 mL/min/1.73m2 Glucose Random 113 60-115 mg/dL Calcium 9.8 8.4-10.2 mg/dL Bilirubin Total 0.8 0.0-1.0 mg/dL Aspartate Amino Transferase 32 5-37 U/L Slight Hemolysis.Interpret result with caution. Alanine Aminotransferase < 6 0-40 U/L Total Protein 7.6 6.5-8.0 g/dL Albumin Level 3.9 3.5-5.0 g/dL Alkaline Phosphatase 76 39-117 U/L Lactic Acid Reviewed date:06/16/2024 04:14:47 PM Interpretation: Performing Lab:[address] [address] Notes/Report: Lactic Acid 3.9 0.5-2.0 mmol/L Critical value for test(s): LACTA Results called to and read back by: ARSALAN Person calling:IVAN Date: [id number]:1535 Magnesium Reviewed date:06/18/2024 11:05:12 AM Interpretation: Performing Lab:[address] [address] Notes/Report: Magnesium 1.9 1.6-2.6 mg/dL Troponin-I High Sensitivity Reviewed date:06/16/2024 04:20:18 PM Interpretation: Performing Lab:[address] [address] Notes/Report: Troponin-I High Sensitivity < 2.7 <3.5-35.0 ng/L The Patricia high sensitivity Troponin-I results should be used in conjunction with other diagnostic information such as ECG, clinical observations and information, and patient symptoms to aid in the diagnosis of ME. B Type Natriuretic Peptide Reviewed date:06/19/2024 04:45:15 PM Interpretation: Performing Lab:[address] [address] Notes/Report: B Type Natriuretic Peptide <100 pg/mL Test Result Units Ref Int B-Type Natriuretic 93.4 pg/Ml 0.0 ? 100.0 Peptide Method: Siemens ADVIA Centaur XP Test performed by: [employer] [place] [address] [place] [phone] Director: Dena Barriga MD For those patients who are being treated with Natrecor (nesiritide, recombinant BNP), BNP testing should be performed at least two hours post treatment in order to ensure that only endogenous levels of BNP are detected. Procalcitonin Reviewed date:06/18/2024 11:03:47 AM Interpretation: Performing Lab:[facility], [address] [place] [phone] Notes/Report: Procalcitonin 0.02 Procalcitonin (PCT) Reference Range: PCT greater than 2.0 ng/mL: A PCT level above 2.0 ng/mL on the first day of ICU admission is associated with a high risk for progression to severe sepsis and/or septic shock. PCT less than 0.5 ng/mL: A PCT level below 0.5 ng/mL on the first day of ICU admission is associated with a low risk for progression to severe sepsis and/or septic shock. PCT levels below 0.5 ng/mL do not exclude an infection. Care must be taken in interpreting PCT results from different laboratories and methodologies. References: [place] [employer]/Society of Critical Care Medicine Consensus Conference Committee. Definitions for sepsis and organ failure and guidelines for the use of innovative therapies in sepsis. Crit Care Med 1992;20(6):864-874. Carson B, Adalid KL, Gregoria H, et al. Calcitonin precursors are reliable markers of sepsis in a medical intensive care unit. Crit Care Med 2000;363:600-607. Rashid S, Memo K, Katharine C, et al. Diagnostic value of procalcitonin, interleukin-6 and interleukin-8 in critically ill patients admitted with suspected sepsis. AM J Respir Crit Care Med 2001;164:396-402. US Food and Drug Administration. 510(k) substantial equivalence determination decision summary for [facility] PCT JORDY. http://www.accessdata. fda.fov/cdrh_docs/revi ews/V785296.pdf. Published June 2004. Accessed November 2016. SARS-CoV2/FLU/RSV Reviewed date:06/18/2024 11:03:30 AM Interpretation: Performing Lab:[address] [address] Notes/Report: Influenza A PCR NEGATIVE Negative Influenza B PCR NEGATIVE Negative Resp Syncy Virus RNA Qual PCR NEGATIVE Negative SARS COV2 PCR INHOUSE NEGATIVE Negative All test results must be correlated with clinical findings. Negative results do not preclude SARS-CoV2, influenza A virus, influenza B virus and/or RSV infection and should not be used as the sole basis for treatment or other patient management decisions. Negative results must be combined with clinical observations, patient history, and epidemiological information. This test has not been evaluated for monitoring treatment of infection. This test has been authorized by the FDA under an Emergency Use Authorization (EUA) for use by authorized laboratories. Testing performed on the [employer] for [employer] GeneXpert utilizing real-time RT-PCR. All SARS CoV2 and positive influenza A/B results are reported to [facility]. Blood Culture (First) Reviewed date:06/23/2024 04:39:39 PM Interpretation: Performing Lab:[address] [address] Notes/Report: Blood Culture (First) No growth after 5 days. Blood Culture (Second) Reviewed date:06/23/2024 04:42:44 PM Interpretation: Performing Lab:[facility], [address] [place] [phone] Notes/Report: Blood Culture (Second) No growth after 5 days. Lactic Acid-LAB USE ONLY Reviewed date:06/18/2024 10:42:34 AM Interpretation: Performing Lab:[facility], [address] [place] [address] Notes/Report: Lactic Acid-LAB USE ONLY 4.5 0.5-2.0 mmol/L Critical value for test(s): LACTA Results called to and read back by: AUREA Jones calling:IVAN Date:06-16-24 Time:180 Venous Blood Gases - POC Reviewed date:06/16/2024 04:14:31 PM Interpretation: Performing Lab:[facility], [address] [place] [phone] Notes/Report: VBG pH 7.43 7.32-7.43 METER #: [id number] additional_comment: Cb rogalt VBG pCO2 46 METER #: [id number] additional_comment: Cb rogalt VBG pO2 39 METER #: [id number] additional_comment: Cb rogalt VBG Base Excess 6.0 METER #: [id number] additional_comment: Cb rogalt VBG HCO3 31 22-26 mmol/L METER #: [id number] additional_comment: Cb rogalt VBG O2 % Saturation 63.0 METER #: [id number] additional_comment: Cb rogalt Lactic Acid-LAB USE ONLY Reviewed date:06/18/2024 10:42:26 AM Interpretation: Performing Lab:[facility], [address] [place] [phone] Notes/Report: Lactic Acid-LAB USE ONLY 8.5 0.5-2.0 mmol/L Critical LACTIC sent by a secure message and confirmed by CARMEN ERIC 06-16-242049Tech:[facility] CT angio chest PE protocol Reviewed date:06/18/2024 10:44:19 AM Interpretation: Performing Lab: Notes/Report: [address] [address] [address] Scan Report Signed Patient: Cyrus Camarena MR#: [id number] : 1940 Acct:[id number] Age/Sex: 84 / M ADM Date: 06/16/24 Loc: HO.ED Attending Dr: Ordering Physician: Kajal Bonilla MD Date of Service: 06/16/24 Procedure(s): CT angio chest PE protocol Accession Number(s): [id number] cc: Wero Kessler MD; Kajal Bonilla MD EXAMINATION: CT ANGIOGRAM CHEST CLINICAL INFORMATION: Shortness of breath COMPARISON: 12/20/2018 TECHNIQUE: Multiple axial images were obtained through the chest after the administration of 65 mL of Omnipaque 350 intravenous contrast. Extensive vascular post-processing including two-dimensional and three-dimensional reformatted images were created and reviewed on an independent workstation. This CT examination was performed using dose optimization techniques as appropriate, variously including the following: *Automated exposure control *Adjustment of mA and/or kV according to patient size (this includes techniques or standardized protocols for targeted exams where dose is matched to indication/reason for exam; i.e. extremities or head) *Use of iterative reconstruction technique DLP: 245 mGy-cm FINDINGS: Pulmonary arteries are prominent consistent pulmonary hypertension. There is no evidence of acute or chronic pulmonary embolism. Thoracic aorta is within normal limits. Extensive coronary artery calcifications. Advanced emphysematous changes are noted particularly upper lung zones hyperinflation. No discrete lesion. There is a large hernia involving the stomach which is essentially upside down displaced into the posterior mediastinum. 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 No gastric outlet obstruction or inflammatory changes. No pleural disease. Minor dependent atelectasis. Hepatic granulomata. No acute osseous abnormality. CT/CT angio chest PE protocol IMPRESSION: 1. No evidence of acute or chronic pulmonary embolism. 2. Advanced COPD. 3. 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 Fleischner guidelines were followed. Electronically signed by: Alex Canada MD 06/16/2024 05:45 PM EST RP Dictated By: Alex Canada MD Signed By: <Electronically signed by Alex Canada MD in OV> 06/16/24 1745 DD/ 1604 TD/TT: 06/16/24 1628 Delinquent Tax Collection Assistant: DUDLEY XR chest 2V Reviewed date:06/16/2024 04:19:39 PM Interpretation: Performing Lab: Notes/Report: [address] [address] XRay Report Signed Patient: Cyrus Camarena MR#: [id number] : 1940 Acct:[id number] Age/Sex: 84 / M ADM Date: 06/16/24 Loc: HO.ED Attending Dr: Ordering Physician: Raisa Diaz Date of Service: 06/16/24 Procedure(s): XR chest 2V Accession Number(s): [id number] cc: Wero Kessler MD; Raisa Diaz EXAMINATION: XR CHEST [...] by: Grant Berrios MD 06/16/2024 02:32 PM EST RP Dictated By: Grant Berrios MD Signed By: <Electronically signed by Grant Berrios MD in OV> 06/16/24 1432 DD/ 1405 TD/TT: 06/16/24 1413 Delinquent Tax Collection Assistant: Complete Blood Count no Diff Reviewed date:06/18/2024 12:29:49 PM Interpretation: Performing Lab:[facility] [address] Notes/Report: White Blood Count 8.0 4.8-10.8 X10*3/uL Red Blood Count 3.79 4.60-5.80 X10*6/uL Hemoglobin 11.7 14.0-18.0 g/dl Hematocrit 34.5 42.0-52.0 % Mean Corpuscular Volume 91.0 80.0-98.0 fL Mean Corpuscular Hemoglobin 30.9 27.0-33.0 pg Mean Corpuscular HGB Conc 33.9 31.0-36.0 g/dl Red Cell Distribution Width 14.7 11.0-16.0 % Platelet Count 177 160-400 X10*3/uL Mean Platelet Volume 9.4 9.4-12.4 fL NRBC Pct Auto 0.0 0.0-0.2 /100WBC NRBC Abs Auto 0.000 0.0-0.012 X10*3/uL Basic Metabolic Panel Reviewed date:06/18/2024 11:05:33 AM Interpretation: Performing Lab:[address] [address] Notes/Report: Sodium 137 135-145 mmol/L Potassium 4.2 3.3-5.1 mmol/L Chloride 103 96-108 mmol/L Carbon Dioxide 23 22-29 mmol/L Anion Gap 15 12-20 Blood Urea Nitrogen 12 9-16 mg/dL Creatinine 0.71 0.5-1.4 mg/dL Creatinine Clr Calc Pharmacy 68.4 eGFR (calculated from the MDRD study equation) and eCrCl (calculated from the Cockcroft-Gault equation) are based on different parameters and may not yield comparable results. If eCrCl result is absurd, please check patient's height/weight. Estimated Glomerular Filt Rate > 60 Chronic Kidney Disease: Estimated GFR < 60 mL/min/1.73m2 Severe Kidney Disease: Estimated GFR < 15 mL/min/1.73m2 Glucose Random 185 60-115 mg/dL Calcium 8.9 8.4-10.2 mg/dL Lactic Acid Reviewed date:06/18/2024 10:42:19 AM Interpretation: Performing Lab:[address] [address] Notes/Report: Lactic Acid 6.2 0.5-2.0 mmol/L Critical value for test(s):LACTA Results called to and read back by:HOWARD Person calling:DMITRI Date: [id number] Time:0036 Lactic Acid-LAB USE ONLY Reviewed date:06/18/2024 10:14:21 AM Interpretation: Performing Lab:[facility], [address] [place] [phone] Notes/Report: Lactic Acid-LAB USE ONLY 4.0 0.5-2.0 mmol/L Critical [LACTIC] sent by a secure message and confirmed by ( [place] [id number] @ 0312) Tech:VYASRID Venous Blood Gases - POC Reviewed date:06/18/2024 10:42:11 AM Interpretation: Performing Lab:[facility], [address] [place] [phone] Notes/Report: VBG pH 7.41 7.32-7.43 METER #: [id number] additional_comment: ESTELLE Delgado VBG pCO2 39 METER #: [id number] additional_comment: ESTELLE Delgado VBG pO2 52 METER #: [id number] additional_comment: ESTELLE Delgado VBG Base Excess 0.8 METER #: [id number] additional_comment: ESTELLE Delgado VBG HCO3 25 22-26 mmol/L METER #: [id number] additional_comment: ESTELLE Delgado VBG O2 % Saturation 79.0 METER #: [id number] additional_comment: ESTELLE Delgado Lactic Acid-LAB USE ONLY Reviewed date:06/18/2024 10:14:31 AM Interpretation: Performing Lab:[facility], [address] [place] [phone] Notes/Report: Lactic Acid-LAB USE ONLY 2.3 0.5-2.0 mmol/L Critical [LACTA] sent by a secure message and confirmed by ( ON [id number] @ 0535) Tech:VYASRID Cancel Lactic Acid Reviewed date:06/18/2024 10:44:32 AM Interpretation: Performing Lab:[address] [address] Notes/Report: Cancel Lactic Acid Canceled Cancel Lactic Acid Reviewed date:06/18/2024 10:44:41 AM Interpretation: Performing Lab:[facility], [address] [place] [address] Notes/Report: Cancel Lactic Acid Canceled XR chest 2V (Not yet reviewe d by provider) Interpretation: Performing Lab: Notes/Report: [address] [place] [address] XRay Report Signed Patient: Cyrus Camarena MR#: [id number] : 1940 Acct:[id number] Age/Sex: 84 / M ADM Date: 06/26/24 Loc: .ED Attending Dr: Ordering Physician: Ivanna Henson NP Date of Service: 06/26/24 Procedure(s): XR chest 2V Accession Number(s): [id number] cc: Wero Kessler MD; Ivanna Henson NP EXAMINATION: XR CHEST CLINICAL INFORMATION: dyspnea COMPARISON: CT chest 06/16/2024 TECHNIQUE: 2 views of the chest were obtained. FINDINGS: The lungs are hyperinflated but clear of acute process. The heart size and pulmonary vascularity is normal. No gross bony abnormality seen except for mild dextroscoliosis. XR/XR chest 2V IMPRESSION: Hyperinflated lungs without acute process. Electronically signed by: Mason Shine MD 06/26/2024 01:13 PM [facility] Dictated By: Masno Shine MD Signed By: <Electronically signed by Mason Shine MD in OV> 06/26/24 1313 DD/ 1240 TD/TT: 06/26/24 1246 Delinquent Tax Collection Assistant: WENDIE REASON FOR REFERRAL No Information MEDICATIONS Medication [...] Notes Problem Mixed hyperlipidemia (E78.2) Active confirmed 946176330 Problem Other obesity due to excess calories (E66.09) Active confirmed 169392777 Problem Gastro-esophageal reflux disease without esophagitis (K21.9) Active confirmed 107454937 Problem Other acute pulmonary embolism with acute cor pulmonale (I26.09) Active confirmed 414699759 Problem Hayfever (J30.1) Active confirmed 53197 0009 Problem Vitamin D deficiency (E55.9) Active confirmed 26018366 Problem Acute idiopathic gout of ankle, 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) Active confirmed 89515047 Problem Neutropenia, unspecified type (D70.9) Active confirmed 497512168 Problem 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) Active confirmed 225279721 VITAL SIGNS Blood pressure diastolic 60 mm [...] 05-28-23 Encounters Encounter Location Date Provider Diagnosis Wero Kessler MD [address] [place] [id number] 11/29/2023 Wero Kessler Mixed hyperlipidemia E78.2 Wero Kessler MD [address] [place] [id number] 05/26/2024 Wero Kessler Mixed hyperlipidemia E78.2 Wero Kessler MD [address] [place] [id number] 12/06/2023 Wero Kessler Heterozygous for prothrombin [id number] mutation D68.52 and Mixed hyperlipidemia E78.2 Wero Kessler MD [address] [place] [id number] 09/23/2023 Wero Kessler MD [address] [place] [id number] 06/18/2024 Wero Kessler ASSESSMENTS Encounter Date Diagnosis Assessment Notes Treatment Notes Treatment Clinical Notes 11/29/2023 Mixed hyperlipidemia (ICD-10 - E78.2) 05/26/2024 Mixed hyperlipidemia (ICD-10 - E78.2) 12/06/2023 Heterozygous for prothrombin B29744R mutation (ICD-10 - D68.52) needs to be on xarelto permanantly 12/06/2023 Mixed hyperlipidemia (ICD-10 - E78.2) stable, will continue current regiment PLAN OF TREATMENT Pending Test Test Name Order Date Electrocardiogram (EKG) 03/27/2018 XR chest 2V 06/26/2024 colonoscopy 09/19/2020 Next Appt Details Provider Name:Wero Burden ier, 06/29/2024 02:00:00 PM, [address] [place] [address], [address], [place], [place], [phone], Provider Name:Wero Burden ier, 07/31/2024 01:30:00 PM, [address] [place] [address], [address], [place], [place], [phone], Insurance Providers Payer Name Payer Address Payer Phone Subscriber Number Group Number Insured Name Patient Relationship to Insured Coverage Start Date Coverage End Date MEDICARE NHIC [address] [place] [address] [id number] Cyrus Castellon Self - patient is the insured [facility] [id number] [place] [address] [id number] Cyrus Castellon Self - patient is the insured MEDICAL (GENERAL) HISTORY Medical History History ICD Code 03/2016 Upper Endo and colonoscopy - no need of repeat 08/03/2020 - Colonoscopy by Dr. Foreman - no need for further testing unprovoked pulmonary embolii needs perma nent anticoagulan
--- OUTSIDE RECORDS SUMMARY | 2024-06-26 13:37 | XMS_ITS ---
Author Organization Hay Kessler MD Address [address] [place], [place] [phone] Care Team Providers Care Senior Living Sales Counselor Name Role Phone Victoria Hay Primary Care Provider RESULTS Component Value Reference Range Notes Liver Panel Reviewed date:05/27/2024 07:18:51 PM Interpretation: Performing Lab:[facility], [address] [place] [phone] Notes/Report: Bilirubin Total 0.8 0.0-1.0 mg/dL Bilirubin Direct 0.2 0.0-0.5 mg/dL Aspartate Amino Transferase 48 5-37 U/L Moderate Hemolysis.Interpret result with caution. Alanine Aminotransferase 10 0-40 U/L Total Protein 8.3 6.5-8.0 g/dL Moderate Hemol ysis.Interpret result with caution. Albumin Level 4.0 3.5-5.0 g/dL Alkaline Phosphatase 75 39-117 U/L Lipid Panel with Reflex Reviewed date:05/27/2024 07:18:41 PM Interpretation: Performing Lab:[facility], [address] [place] [phone] Notes/Report: Triglycerides 72 <150 mg/dL Desirable Triglyceride: [...] Location Date Provider Diagnosis Hay Kessler MD [address] [place] [address] [place] [id number] 05/26/2024 Hay eKssler Mixed hyperlipidemia E78.2 ASSESSMENTS Encounter Date Diagnosis Assessment Notes Treatment Notes Treatment Clinical Notes 05/26/2024 Mixed hyperlipidemia (ICD-10 - E78.2) PLAN OF TREATMENT Next Appt Details Provider Name:Hay villegas, 06/29/2024 02:00:00 PM, [address] [place] [address], Suite [facility], [place], [place], [phone], Provider Name:Hay villegas, 07/31/2024 01:30:00 PM, [address] [place] [address], [place] [address], [place], [place], [phone],
--- OUTSIDE RECORDS SUMMARY | 2024-06-26 13:37 | XMS_ITS ---
Author Organization Hay Kessler MD Address [address] [facility] [address] [place] [phone] Care Team Providers Care Physiology Teacher Name Role Phone VictoriaJean Marien Primary Care Provider [phone] REASON FOR VISIT discharge Encounters Encounter Location Date Provider Diagnosis Hay Kessler MD [address] [facility] [address] [place] [phone] 06/18/2024 Hay Kessler PLAN OF TREATMENT Next Appt Details Provider Name:Hay villegas, 06/29/2024 02:00:00 PM, [address] [place] [address], [address], [phone], Provider Name:Hay villegas, 07/31/2024 01:30:00 PM, [address] [place] [address], [address], [phone],
--- OUTSIDE RECORDS SUMMARY | 2024-06-26 13:38 | XMS_ITS | Patient Health Record ---
Author Organization [facility] Address [address] [place] [address] Care Team Providers Care Heavy Repairer Name Role Phone Hay Kessler MD Primary Care Provider Orestes Renee Unavailable [phone] ALLERGIES Allergen (clinical drug ingredient) Drug/Non Drug [...] the evening Orally Once a day Active Climax 3 1200mg Activ e Glucosamine Chondroit-Collagen 1200mg [...] Cologuard test (R19.5) Active confirmed Abnormal feces ([id number]) PLAN OF TREATMENT Pending Test Test Name Order Date Pathology 08/03/2020 Future Test Test Name Order Date COLONOSCOPY 06/25/2013 COLONOSCOPY 07/12/2020 Insurance Providers Payer Name Payer Address Payer Phone Subscriber Number Group Number Insured Name Patient Relationship to Insured Coverage Start Date Coverage End Date [employer] OF [place] [address] [place] [address] [phone] [id number] FERMIN BETHEAFARHAT Self - patient is the insured [facility] [address] [place] [id number] FERMIN BETHEAFARHAT Self - patient is the insured MEDICAL (GENERAL) HISTORY Medical History History ICD Code Colonoscopy 04/01/2008 and 09/2013--2 tub ular adenomas removed Hyperlipidemia GERD-small HH-no esophagitis Denies [place],DM,CVA,Lung disease,renal dise ase Pulmonary embolus in 2018 or 2019 Surgical History Surgery Date(Month/Year) Knee surgery Cholecystectomy Cataract surgery
[2024-06-26 14:46] VITALS: BP 96/38; PULSE 67; RESP 20; TEMP 36.4; O2SAT 88
[2024-06-26 15:43] LABS: Basophils Absolute Auto 0.1 X10*3/uL (0.0-0.2); Basophils Percent Auto 1.2 % (0-2); Mean Corpuscular HGB Conc 33.7 g/dl (31.0-36.0); Mean Corpuscular Hemoglobin 30.9 pg (27.0-33.0); Mean Platelet Volume 10.4 fL (9.4-12.4); Monocytes Absolute Auto 0.5 X10*3/uL (0.1-1.2); SCAN SMEAR FLAG 1
--- NOTE | 2024-06-26 15:46 | ECG_ITS ---
Test Reason : CHEST PAIN Blood Pressure : / mmHG Vent. Rate : 066 BPM Atrial Rate : 066 BPM P-R Int : 254 ms QRS Dur : 118 ms QT Int : 466 ms P-R-T Axes : 086 -76 083 degrees QTc Int : 488 ms Poor data quality Sinus rhythm with 1st degree A-V block Left axis deviation Possible Left bundle branch block Abnormal ECG When compared with ECG of 26-JUN-2024 12:26, Poor data quality in current ECG precludes serial comparison Referred By: Melody Burk Electronically Signed By:FABY CHI MD
[2024-06-26 15:53] LABS: Prothrombin Time 11.7 SEC (10.9-12.4)
[2024-06-26 15:57] LABS: Eosinophils Absolute Auto 0.1 X10*3/uL (0.0-0.4); Eosinophils Percent Auto 1.6 % (0-4); Hematocrit 48.4 % (42.0-52.0); Hemoglobin 16.3 g/dl (14.0-18.0); Imm Gran Abs Auto 0.03 X10*3/uL (0.00-0.03); Imm Gran Pct Auto 0.5 % (0.0-0.4); Lymphocytes Absolute Auto 1.3 X10*3/uL (1.2-4.9); Lymphocytes Percent Auto 23.8 % (20-40); MANUAL DIFF FLAG SCAN; Mean Corpuscular Volume 91.7 fL (80.0-98.0); Monocytes Percent Auto 8.5 % (2-11); NRBC Pct Auto 0.7 /100WBC (0.0-0.2); Neutrophils Absolute Auto 3.6 x10*3/uL (2.0-8.3); Neutrophils Percent Auto 64.4 % (45-73); Platelet Count 153 X10*3/uL (160-400); Red Blood Count 5.28 X10*6/uL (4.60-5.80); Red Cell Distribution Width 14.4 % (11.0-16.0); White Blood Count 5.6 X10*3/uL (4.8-10.8)
[2024-06-26 15:59] LABS: Alanine Aminotransferase 13 U/L (0-40); Albumin Level 3.7 g/dL (3.5-5.0); Anion Gap 14 (12-20); Aspartate Amino Transferase 31 U/L (5-37); Bilirubin Total 0.5 mg/dL (0.0-1.0); Blood Urea Nitrogen 13 mg/dL (9-16); Calcium 9.5 mg/dL (8.4-10.2); Carbon Dioxide 22 mmol/L (22-29); Chloride 104 mmol/L (96-108); Creatinine Clr Calc Pharmacy 71.5; Estimated Glomerular Filt Rate > 60; Glucose Random 83 mg/dL (60-115); Potassium 4.3 mmol/L (3.3-5.1); Sodium 136 mmol/L (135-145); Total Protein 7.5 g/dL (6.5-8.0)
[2024-06-26 16:00] VITALS: BP 101/59; PULSE 61; RESP 20; O2SAT 92
[2024-06-26 16:05] LABS: VBG Base Excess 0.7 mmol/L; VBG HCO3 23 mmol/L (22-26); VBG pCO2 32 mmHg; VBG pH 7.46 (7.32-7.43); VBG pO2 75 mmHg
[2024-06-26 16:05] LABS: Troponin-I High Sensitivity 3.4 ng/L (<3.5-35.0)
[2024-06-26 16:09] VITALS: BP 124/72; PULSE 60; RESP 14; TEMP 36.6; O2SAT 94
[2024-06-26 16:09] LABS: B Type Natriuretic Peptide 61 pg/mL (<100)
[2024-06-26 16:27] LABS: Venous Blood Gas Refer to POC result
[2024-06-26] MEDS: Oseltamivir Phosphate 75 MG CAPSULE PO (16:29)
--- NOTE | 2024-06-26 16:34 | PC.NURSE ---
Ambulation O2 trial done on RA, lowest sat 90-91%, mostly remained around 94%, No SOB
--- OUTSIDE RECORDS SUMMARY | 2024-06-26 16:38 | XMS_ITS | Continuity of Care Document ---
Author Name [facility] Organization [facility] Care Team Providers Care Administrative Associate Name Role Phone [facility] Unavailable Unavailable Problems Combined list of problems from Department of [facility] [place] and [facility] facilities. It does not include entries that were removed or entered in error. Problem Status Onset Date Problem Type Date of Resolution Comments Source H/O: pulmonary embolus Active 01/10/20 24 Condition May 30, 2024 Entered By: LEXY MEJÍA Comment: [id number] Entered By: LEXY MEJÍA Comment: 05/30/24 still on [facility] Bilateral hearing loss Active Condition [place] GERD - Gastro-Esophageal Reflux Disease ([facility] 224043687) Active Condition [facility] Hyperlipidemia ([facility] 98660094) Active Condition [facility] Long-term current use of anticoagulant Active Condition May 30, 2024 Entered By: LEXY MEJÍA Comment: [facility] ([id number]) Screening for malignant neoplasm of colon done Active Condition Jul 15, 2008 Entered By: RYLEY RITTER Comment: colonoscopy 2007 1 polyp, repeat 2012Sep 2018 Entered By: DEREK FOWLER Comment: Last scope (2014) clear. 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 [place] Diagnosis: ICD-10-CM E78.5 Hyperlipidemia, unspecified Active Diagnosis [place] Diagnosis: ICD-10-CM Z51.81 Encounter for therapeutic drug level monitoring Active Diagnosis [facility] Medications Combined list of outpatient medications from [...] 30 MINUTES BEFORE BREAKFAS T ORAL 06/04/2024 [id number] 3 MADIVÍCTORSNOW Portillo F 2022 90 [facility] IELD RIVAROXABAN 20MG TAB TAKE ONE TABLET BY MOUTH ONCE DAILY WITH FOOD ORAL SUSPEND ED 06/14/2025 [id number] 5 Ishmael MEJÍA 2024 90 [facility] IELD RIVAROXABAN 20MG TAB TAKE ONE TABLET BY MOUTH ONCE DAILY WITH FOOD ORAL DISCONT INUED 02/06/2025 [id number] 4 MADIVÍCTORSNOW Portillo [facility] 2023 90 [facility] IELD RIVAROXABAN 20MG TAB TAKE ONE TABLET BY MOUTH ONCE DAILY WITH FOOD ORAL DISCONT INUED 02/03/2024 [id number] 4 MADIVÍCTORLindseySNOW [facility] F 2023 90 [facility] IELD RIVAROXABAN 20MG TAB TAKE ONE TABLET BY MOUTH ONCE DAILY WITH FOOD ORAL DISCONT INUED 09/04/2023 [id number] 4 MADIVÍCTORSNOW Portillo F 2023 90 [facility] IELD RIVAROXABAN 20MG TAB TAKE ONE TABLET BY MOUTH ONCE DAILY WITH FOOD ORAL DISCONT INUED 09/02/2023 [id number] 3 MADIVÍCTORLindseySNOW [facility] F 2022 90 [facility] IELD SIMVASTATIN 20MG TAB TAKE ONE TABLET BY MOUTH ONCE DAILY FOR CHOLESTE ROL ORAL SUSPEND ED 06/14/2025 [id number] 5 Ishmael MEJÍA 2024 90 [facility] IELD SIMVASTATIN 20MG TAB TAKE ONE TABLET BY MOUTH ONCE DAILY FOR CHOLESTE ROL ORAL DISCONT INUED 02/06/2025 [id number] 4 SNOW SIM F 2023 90 [facility] IELD SIMVASTATIN 20MG TAB TAKE ONE TABLET BY MOUTH ONCE DAILY FOR CHOLESTE ROL ORAL DISCONT INUED 02/03/2024 [id number] 4 SNOW SIM F 2023 90 [place] SIMVASTATIN 20MG TAB TAKE ONE TABLET BY MOUTH ONCE DAILY FOR CHOLESTE ROL ORAL DISCONT INUED 09/02/2023 [id number] 4 SNOW SIM RMEN F 2023 90 [place] SIMVASTATIN 20MG TAB TAKE ONE TABLET BY MOUTH ONCE DAILY FOR CHOLESTE ROL ORAL DISCONT INUED 05/29/2023 [id number] 3 WICHO HAGEN 2022 90 [place] Allergies, Adverse Reactions, Alerts Combined list of allergies from Department of Defense and Veterans Affairs facilities. It does not include entries that were removed or entered in error. Substance Category Reaction Severity Reaction type Status Date Reported Comments Source [place] Propensity to adverse reactions to substance (finding) Urticaria , [facility] [place] [facility] [place] Propensity to adverse reactions to substance (finding) active [facility] [place] [facility] Immunizations Combined list of available immunizations from the Department of Defense and Veterans Affairs facilities. 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 Status Comments Source COVID-19 (MODERNA), MRNA, LNP-S, PF, 100 MCG OR 50 MCG DOSE 2 2020 207 complet ed [facility] [place] [facility] COVID-19 (MODERNA), MRNA, LNP-S, PF, 100 MCG OR 50 MCG DOSE 1 2020 207 complet ed [facility] [place] [facility] Results Combined list [...] Sep 13, 2023 01:43 PM Reporting Lab: [facility] [address] [address] Performing [facility]: [facility] [address] [place] CBC AND DIFF (AUTO) ERYTHROCYTE S [#/VOLUME] IN BLOOD BY AUTOMATED COUNT 4.16 10*6/u L 4.23 - 5.66 09/24 L Specimen Type: BLOOD No comment entered. Ordering Provider: ANNIE SIM Report Released Date/Time: Sep 13, 2023 01:43 PM Reporting Lab: [facility] [address] [address] Performing Lab: [facility] [address] [address] [place] CBC AND DIFF (AUTO) HEMOGLOBIN [MASS/VOLUM E] IN BLOOD 13.0 g/dL 12.8 - 17 09/24 Specimen Type: BLOOD No comment entered. Ordering Provider: ANNIE SIM Report Released Date/Time: Sep 13, 2023 01:43 PM Reporting Lab: [facility] [address] [address] Performing Lab: [facility] [address] [address] [place] CBC AND DIFF (AUTO) HEMATOCRIT [VOLUME FRACTION] OF BLOOD BY AUTOMATED COUNT 38.7 39.2 - 50.4 09/24 L Specimen Type: BLOOD No comment entered. Ordering Provider: ANNIE SIM Report Released Date/Time: Sep 13, 2023 01:43 PM Reporting Lab: [facility] [address] [address] Performing Lab: [facility] [address] [place] CBC AND DIFF (AUTO) MCV [ENTITIC VOLUME] BY AUTOMATED COUNT 93.0 fL 82 - 99 09/24 Specimen Type: BLOOD No comment entered. Ordering Provider: ANNIE SIM Report Released Date/Time: Sep 13, 2023 01:43 PM Reporting Lab: [facility] [address] [address] Performing Lab: [facility] [address] [address] [place] CBC AND DIFF (AUTO) MCHC [MASS/VOLUM E] BY AUTOMATED COUNT 33.6 g/dL 30.8 - 35.1 09/24 Specimen Type: BLOOD No comment entered. Ordering Provider: ANNIE SIM Report Released Date/Time: Sep 13, 2023 01:43 PM Reporting Lab: [facility] [address] [address] Performing Lab: [facility] [address] [address] [place] CBC AND DIFF (AUTO) PLATELETS [#/VOLUME] IN BLOOD BY AUTOMATED COUNT 230 10*3/u L 140 - 360 09/24 Specimen Type: BLOOD No comment entered. Ordering Provider: ANNIE SIM Report Released Date/Time: Sep 13, 2023 01:43 PM Reporting Lab: [facility] [address] [address] Performing Lab: [facility] [address] [address] [place] CBC AND DIFF (AUTO) ERYTHROCYTE DISTRIBUTIO N WIDTH [RATIO] BY AUTOMATED COUNT 12.2 12.0 - 16.0 09/24 Specimen Type: BLOOD No comment entered. Ordering Provider: ANNIE SIM Report Released Date/Time: Sep 13, 2023 01:43 PM Reporting Lab: [facility] [address] [address] Performing Lab: [facility] [address] [place] CBC AND DIFF (AUTO) MONOCYTES [#/VOLUME] IN BLOOD BY AUTOMATED COUNT 0.44 10*3/u L 0.30 - 1.10 09/24 Specimen Type: BLOOD No comment entered. Ordering Provider: ANNIE SIM Report Released Date/Time: Sep 13, 2023 01:43 PM Reporting Lab: [facility] [place] [address] [address] Performing Lab: [facility] [place] [address] [address] [place] CBC AND DIFF (AUTO) MCH [ENTITIC MASS] BY AUTOMATED COUNT 31.3 pg 26.2 - 32.6 09/24 Specimen Type: BLOOD No comment entered. Ordering Provider: ANNIE SIM Report Released Date/Time: Sep 13, 2023 01:43 PM Reporting Lab: [facility] [place] [address] [address] Performing Lab: [facility] [place] [address] [address] [place] CBC AND DIFF (AUTO) NEUTROPHILS /100 LEUKOCYTES IN BLOOD BY AUTOMATED COUNT 52.1 43.7 - 75.8 09/24 Specimen Type: BLOOD No comment entered. Ordering Provider: ANNIE SIM Report Released Date/Time: Sep 13, 2023 01:43 PM Reporting Lab: [facility] [place] [address] [address] Performing Lab: [place] [facility] [place] [address] [address] [place] CBC AND DIFF (AUTO) LYMPHOCYTES /100 LEUKOCYTES IN BLOOD BY AUTOMATED COUNT 35.5 14.0 - 42.3 09/24 Specimen Type: BLOOD No comment entered. Ordering Provider: ANNIE SIM Report Released Date/Time: Sep 13, 2023 01:43 PM Reporting Lab: [facility] [place] [address] [address] Performing Lab: [facility] [place] [address] [address] [place] CBC AND DIFF (AUTO) MONOCYTES/1 00 LEUKOCYTES IN BLOOD BY AUTOMATED COUNT 7.9 5.1 - 13.7 09/24 Specimen Type: BLOOD No comment entered. Ordering Provider: STELEA,ANNIE EN F Report Released Date/Time: Sep 13, 2023 01:43 PM Reporting Lab: [facility] [address] [address] Performing Lab: [facility] [address] [address] [place] CBC AND DIFF (AUTO) EOSINOPHILS /100 LEUKOCYTES IN BLOOD BY AUTOMATED COUNT 3.0 0.4 - 6.8 09/24 Specimen Type: BLOOD No comment entered. Ordering Provider: ANNIE SIM Report Released Date/Time: Sep 13, 2023 01:43 PM Reporting Lab: [facility] [address] [address] Performing Lab: [facility] [address] [address] [place] CBC AND DIFF (AUTO) BASOPHILS/1 00 LEUKOCYTES IN BLOOD BY AUTOMATED COUNT 1.1 0.1 - 2.0 09/24 Specimen Type: BLOOD No comment entered. Ordering Provider: ANNIE SIM Report Released Date/Time: Sep 13, 2023 01:43 PM Reporting Lab: [facility] [address] [address] Performing Lab: [facility] [address] [address] [place] CBC AND DIFF (AUTO) NEUTROPHILS [#/VOLUME] IN BLOOD BY AUTOMATED COUNT 2.91 10*3/u L 2.20 - 7.60 09/24 Specimen Type: BLOOD No comment entered. Ordering Provider: ANNIE SIM Report Released Date/Time: Sep 13, 2023 01:43 PM Reporting Lab: [facility] [address] [address] Performing Lab: [facility] [address] [place] CBC AND DIFF (AUTO) LYMPHOCYTES [#/VOLUME] IN BLOOD BY AUTOMATED COUNT 1.98 10*3/u L 1.00 - 3.20 09/24 Specimen Type: BLOOD No comment entered. Ordering Provider: ANNIE SIM Report Released Date/Time: Sep 13, 2023 01:43 PM Reporting Lab: [facility] [address] [address] Performing Lab: [place] [facility] [address] [address] [place] CBC AND DIFF (AUTO) EOSINOPHILS [#/VOLUME] IN BLOOD BY AUTOMATED COUNT 0.17 10*3/u L 0.03 - 0.44 09/24 Specimen Type: BLOOD No comment entered. Ordering Provider: ANNIE SIM Report Released Date/Time: Sep 13, 2023 01:43 PM Reporting Lab: [facility] [address] Performing Lab: [facility] [address] [place] CBC AND DIFF (AUTO) BASOPHILS [#/VOLUME] IN BLOOD BY AUTOMATED COUNT 0.06 10*3/u L 0.01 - 0.13 09/24 Specimen Type: BLOOD No comment entered. Ordering Provider: ANNIE SIM Report Released Date/Time: Sep 13, 2023 01:43 PM Reporting Lab: [facility] [address] Performing Lab: [facility] [address] [address] [place] CBC AND DIFF (AUTO) IMMATURE GRANULOCYTE S/100 LEUKOCYTES IN BLOOD BY AUTOMATED COUNT 0.4 0.0 - 0.7 09/24 Specimen Type: BLOOD No comment entered. Ordering Provider: ANNIE SIM Report Released Date/Time: Sep 13, 2023 01:43 PM Reporting Lab: [facility] [address] [address] Performing Lab: [place] [facility] [address] [address] [place] CBC AND DIFF (AUTO) IMMATURE GRANULOCYTE S [#/VOLUME] IN BLOOD 0.02 10*3/u L 0.00 - 0.06 09/24 Specimen Type: BLOOD No comment entered. Ordering Provider: ANNIE SIM Report Released Date/Time: Sep 13, 2023 01:43 PM Reporting Lab: [place] [facility] [address] [address] Performing Lab: [place] [facility] [address] [address] [place] CREATININ E (eGFR 2020) CREATININE [MASS/VOLUM E] IN SERUM OR PLASMA 0.75 mg/dL 0.50 - 1.40 09/24 Specimen Type: SERUM No comment entered. Ordering Provider: ANNIE SIM Report Released Date/Time: Sep 13, 2023 01:43 PM Reporting Lab: [place] [facility] [address] [address] Performing Lab: [facility] [address] [place] CREATININ E (eGFR 2020) GLOMERULAR FILTRATION RATE/1.73 SQ M.PREDICTED [VOLUME RATE/AREA] IN SERUM, PLASMA OR BLOOD BY CREATININE- BASED FORMULA (CKD-EPI 2020) 89 mL/min 60 09/24 Specimen Type: SERUM No comment entered. Ordering Provider: ANNIE SIM Report Released Date/Time: Sep 13, 2023 01:43 PM Reporting Lab: [place] [facility] [address] [address] Performing Lab: [place] [facility] [address] [address] [place] CBC LEUKOCYTES [#/VOLUME] IN BLOOD BY AUTOMATED COUNT 5.47 10*3/u L 4.50 - 11.00 03/14 Specimen Type: BLOOD No comment entered. Ordering Provider: GIGI CAMPOVERDE Report Released Date/Time: Mar 01, 2023 01:28 PM Reporting Lab: [place] [facility] [address] Performing Lab: [place] [facility] [address] [address] [place] [facility] [place] [facility] CBC ERYTHROCYTE S [#/VOLUME] IN BLOOD BY AUTOMATED COUNT 4.58 10*6/u L 4.23 - 5.66 03/14 Specimen Type: BLOOD No comment entered. Ordering Provider: GIGI CAMPOVERDE Report Released Date/Time: Mar 01, 2023 01:28 PM Reporting Lab: [facility] [place] [facility] [address] [facility] [address] Performing Lab: [facility] [place] [facility] [address] [facility] [address] [place] [facility] [facility] CBC HEMOGLOBIN [MASS/VOLUM E] IN BLOOD 14.2 g/dL 12.8 - 17 03/14 Specimen Type: BLOOD No comment entered. Ordering Provider: GIGI CAMPOVERDE Report Released Date/Time: Mar 01, 2023 01:28 PM Reporting Lab: [facility] [place] [address] [address] Performing Lab: [facility] [place] [place] [address] [address] [place] [facility] [facility] CBC HEMATOCRIT [VOLUME FRACTION] OF BLOOD BY AUTOMATED COUNT 43.2 39.2 - 50.4 03/14 Specimen Type: BLOOD No comment entered. Ordering Provider: GIGI CAMPOVERDE Report Released Date/Time: Mar 01, 2023 01:28 PM Reporting Lab: [facility] [place] [address] [address] Performing Lab: [facility] [place] [address] [address] [facility] [place] [facility] CBC MCV [ENTITIC VOLUME] BY AUTOMATED COUNT 94.3 fL 82 - 99 03/14 Specimen Type: BLOOD No comment entered. Ordering Provider: GIGI CAMPOVERDE Report Released Date/Time: Mar 01, 2023 01:28 PM Reporting Lab: [place] [facility] [place] [address] [address] Performing Lab: [facility] [place] [address] [place] [address] [facility] [place] [facility] CBC MCHC [MASS/VOLUM E] BY AUTOMATED COUNT 32.9 g/dL 30.8 - 35.1 03/14 Specimen Type: BLOOD No comment entered. Ordering Provider: GIGI CAMPOVERDE Report Released Date/Time: Mar 01, 2023 01:28 PM Reporting Lab: [facility] [place] [place] [facility] [address] [facility] [address] Performing Lab: [facility] [place] [facility] [address] [facility] [address] [place] [facility] CBC PLATELETS [#/VOLUME] IN BLOOD BY AUTOMATED COUNT 208 10*3/u L 140 - 360 03/14 Specimen Type: BLOOD No comment entered. Ordering Provider: GIGI CAMPOVERDE Report Released Date/Time: Mar 01, 2023 01:28 PM Reporting Lab: [facility] [place] [facility] [address] [facility] [address] Performing Lab: [facility] [place] [place] [facility] [address] [facility] [address] [place] [facility] [facility] CBC ERYTHROCYTE DISTRIBUTIO N WIDTH [RATIO] BY AUTOMATED COUNT 12.9 12.0 - 16.0 03/14 Specimen Type: BLOOD No comment entered. Ordering Provider: GIGI CAMPOVERDE Report Released Date/Time: Mar 01, 2023 01:28 PM Reporting Lab: [facility] [place] [place] [facility] [address] [facility] [address] Performing Lab: [facility] [place] [facility] [address] [facility] [address] [place] [facility] [place] [facility] CBC MCH [ENTITIC MASS] BY AUTOMATED COUNT 31.0 pg 26.2 - 32.6 03/14 Specimen Type: BLOOD No comment entered. Ordering Provider: GIGI CAMPOVERDE Report Released Date/Time: Mar 01, 2023 01:28 PM Reporting Lab: [facility] [place] [facility] [address] [facility] [address] Performing Lab: [facility] [place] [facility] [address] [facility] [address] [place] [facility] [place] [facility] CREATININ E (eGFR 2020) CREATININE [MASS/VOLUM E] IN SERUM OR PLASMA 0.75 mg/dL 0.50 - 1.40 03/14 Specimen Type: SERUM No comment entered. Ordering Provider: GIGI CAMPOVERDE Report Released Date/Time: Mar 01, 2023 01:28 PM Reporting Lab: [facility] [place] [place] [facility] [address] [facility] [address] Performing Lab: [facility] [place] [facility] [address] [facility] [address] [place] [facility] [place] [facility] CREATININ E (eGFR 2020) GLOMERULAR FILTRATION RATE/1.73 SQ M.PREDICTED [VOLUME RATE/AREA] IN SERUM, PLASMA OR BLOOD BY CREATININE- BASED FORMULA (CKD-EPI 2020) 90 mL/min 60 03/14 Specimen Type: SERUM No comment entered. Ordering Provider: GIGI CAMPOVERDE Report Released Date/Time: Mar 01, 2023 01:28 PM Reporting Lab: [facility] [place] [facility] [address] [facility] [address] Performing Lab: [facility] [place] [facility] [address] [facility] [address] [facility] [place] [facility] CBC LEUKOCYTES [#/VOLUME] IN BLOOD BY AUTOMATED COUNT 4.33 10*3/u L 4.50 - 11.00 08/01 L Specimen Type: BLOOD No comment entered. Ordering Provider: JACQUE ESTRELLA Report Released Date/Time: Jul 23, 2022 10:35 AM Reporting Lab: [facility] [place] [facility] [address] [facility] [address] Performing Lab: [facility] [place] [facility] [address] [facility] [address] [place] [facility] [place] [facility] CBC ERYTHROCYTE S [#/VOLUME] IN BLOOD BY AUTOMATED COUNT 4.78 10*6/u L 4.23 - 5.66 08/01 Specimen Type: BLOOD No comment entered. Ordering Provider: JACQUE ESTRELLA Report Released Date/Time: Jul 23, 2022 10:35 AM Reporting Lab: [facility] [place] [facility] [address] [facility] [address] Performing Lab: [facility] [place] [facility] [address] [facility] [address] [facility] [place] [facility] CBC HEMOGLOBIN [MASS/VOLUM E] IN BLOOD 15.1 g/dL 12.8 - 17 08/01 Specimen Type: BLOOD No comment entered. Ordering Provider: JACQUE ESTRELLA Report Released Date/Time: Jul 23, 2022 10:35 AM Reporting Lab: [facility] [place] [facility] [address] [facility] [address] Performing Lab: [facility] [place] [address] [address] [facility] [place] [facility] CBC HEMATOCRIT [VOLUME FRACTION] OF BLOOD BY AUTOMATED COUNT 44.6 39.2 - 50.4 08/01 Specimen Type: BLOOD No comment entered. Ordering Provider: JACQUE ESTRELLA Report Released Date/Time: Jul 23, 2022 10:35 AM Reporting Lab: [facility] [place] [facility] [address] [facility] [address] Performing Lab: [facility] [place] [facility] [address] [facility] [address] [facility] [place] [facility] CBC MCV [ENTITIC VOLUME] BY AUTOMATED COUNT 93.3 fL 82 - 99 08/01 Specimen Type: BLOOD No comment entered. Ordering Provider: JACQUE ESTRELLA Report Released Date/Time: Jul 23, 2022 10:35 AM Reporting Lab: [facility] [place] [facility] [address] [facility] [address] Performing Lab: [facility] [place] [facility] [address] [facility] [address] [facility] [place] [facility] CBC MCHC [MASS/VOLUM E] BY AUTOMATED COUNT 33.9 g/dL 30.8 - 35.1 08/01 Specimen Type: BLOOD No comment entered. Ordering Provider: JACQUE ESTRELLA Report Released Date/Time: Jul 23, 2022 10:35 AM Reporting Lab: [facility] [place] [facility] [address] [facility] [address] Performing Lab: [facility] [place] [facility] [address] [facility] [address] [facility] [place] [facility] CBC PLATELETS [#/VOLUME] IN BLOOD BY AUTOMATED COUNT 175 10*3/u L 140 - 360 08/01 Specimen Type: BLOOD No comment entered. Ordering Provider: JACQUE ESTRELLA Report Released Date/Time: Jul 23, 2022 10:35 AM Reporting Lab: [facility] [place] [facility] [address] [facility] [address] Performing Lab: [facility] [place] [address] [address] [facility] [place] [facility] CBC ERYTHROCYTE DISTRIBUTIO N WIDTH [RATIO] BY AUTOMATED COUNT 12.7 12.0 - 16.0 08/01 Specimen Type: BLOOD No comment entered. Ordering Provider: JACQUE ESTRELLA Report Released Date/Time: Jul 23, 2022 10:35 AM Reporting Lab: [facility] [place] [facility] [address] [facility] [address] Performing Lab: [facility] [place] [facility] [address] [facility] [address] [facility] [place] [facility] CBC MCH [ENTITIC MASS] BY AUTOMATED COUNT 31.6 pg 26.2 - 32.6 08/01 Specimen Type: BLOOD No comment entered. Ordering Provider: JACQUE ESTRELLA Report Released Date/Time: Jul 23, 2022 10:35 AM Reporting Lab: [facility] [address] [facility] [address] Performing Lab: [facility] [address] [address] [facility] CREATININ E (eGFR 2020) CREATININE [MASS/VOLUM E] IN SERUM OR PLASMA 0.71 mg/dL 0.50 - 1.40 08/01 Specimen Type: SERUM No comment entered. Ordering Provider: JACQUE ESTRELLA Report Released Date/Time: Jul 23, 2022 10:35 AM Reporting Lab: [facility] [address] [facility] [id number] Performing Lab: [facility] [address] [facility] [address] [facility] CREATININ E (eGFR 2020) GLOMERULAR FILTRATION RATE/1.73 SQ M.PREDICTED [VOLUME RATE/AREA] IN SERUM, PLASMA OR BLOOD BY CREATININE- BASED FORMULA (CKD-EPI) >90mL/ min 60 08/01 Specimen Type: SERUM No comment entered. Ordering Provider: JACQUE ESTRELLA Report Released Date/Time: Jul 23, 2022 10:35 AM Reporting Lab: [facility] [address] [facility] [address] Performing Lab: [address] [address] [facility] Encounters Combined list of: 1) Encounters from Department of Veterans Affairs facilities going back up to thelast 18 months. 2) Encounters from the Department of Defense facilities going back up to 280 months. Location Location Details Encounter Type Encounter Number Reason For Visit Attending Provider ADM Date DC Date Status Disposition Source [facility] QNHP OL DIG ASSMT&MGMT 5-10 [id number] Diagnos is: ICD-10- CM Z51.81 Encount er for therape utic drug level monitor ing<br/ > KATHLEEN CAMPOVERDE ISTINE F 03/01 [facility] [place] LD OFFICE O/P EST MOD 30-39 MIN [id number] Diagnos is: ICD-10- CM E78.5 Hyperli pidemia , unspeci fied
STELEA,CAR MEN F 06/04 [place] [facility] Out[facility] Encounter [id number] 06/04 [facility] En[facility] [id number] 06/06 [facility] Encounter [id number] 09/08 [facility] Encounter [id number] 11/03 [facility] Encounter [id number] 02/02 [facility] [place] Outpatient Encounter [id number] 06/03 [facility] [place] [facility] Encounter [id number] 06/03 [facility] En[facility] [id number] 06/11 [facility] Social History Combined list of available smoking, tobacco, and other social history from Department of Defense and Veterans Affairs facilities. Social History Type Response Date Comment [facility] e Tobacco smoking status NHIS VA-TOBACCO FORMER USER 0[address] [place] History of tobacco use [place]-TOBACCO QUIT 1 5 YRS OR MORE 06/04/2023 [place] History of tobacco use VA-TOBACCO NEVER USED 05/28/2022 [place] History of tobacco use [place]-TOBACCO NEVER USED 06/15/2021 [place] History of tobacco use [place]-TOBACCO QUIT 1 5 YRS OR MORE 02/17/2019 [place] Plan of Care List of future care activities from Department of Veterans Affairs facilities. Additional future care activities may be listed in the Assessment and Plan section. Date/Time Care Activity Care Activity Detail Facili ty 07/24/2024 AMBULATORY - MEDICINE AMBULATORY - MEDICI [facility] 05/26/2024 Laboratory - [facility] Order BASIC METABOLIC PANEL (fasting) BLOOD (SST-SERUM) [facility] 05/26/2024 Laboratory - [facility] Order LIPID PANEL FASTING BLOOD (SST-SERUM) [facility] 05/26/2024 Laboratory - [facility] Order LIVER FUNCTION BLOOD (SST-SERUM) [facility] 05/26/2024 Laboratory - [facility] Order CBC AND DIFF (AUTO) BLOOD (LAV-BLOOD) [facility] 05/26/2024 Laboratory - [facility] Order HEMOGLOBIN A1C PANEL BLOOD (LAV-BLOOD) [facility] 05/26/2024 Laboratory - [facility] Order TSH BLOOD (SST-SERUM) [facility] 05/26/2024 Laboratory - [facility] Order URINALYSIS URINE [facility] 05/26/2024 Laboratory - [facility] Order MICROALBUMIN CREATININE RATIO PANEL URINE (RANDOM) [facility] Advance Directives List of completed, amended, or rescinded Advance Directives on record at [facility] facilities. An actual copy of the Directive is not included. Date Advance Directive Provider Source 02/16/2019 ADVANCE DIRECTIVE PABLO BETTS [place]
[2024-06-26 16:45] LABS: Alkaline Phosphatase 89 U/L (39-117)
[2024-06-26 16:55] VITALS: BP 118/65; PULSE 60; RESP 18; TEMP 37; O2SAT 95
--- NOTE | 2024-06-26 17:24 | PC.NURSE ---
Pts family requesting to speak to CM for potential services at home. CODY and aware
[2024-06-26 17:38] LABS: SLIDE REVIEW VERIFIED
--- NOTE | 2024-06-26 19:18 | MHC.CM.ED ---
CM met with patient and son at discharge per RN request. Son has concerns about help at home. CM spoke at length with both patient and son. Patient lives alone. Ambulates without DME. Has Flu A. Son lives in [place] and is concerned about his father living alone without someone to help him. Pt has [employer] delivery, takes the senior bus to the [facility] and occasionally eats lunch at the [facility]. Has no current services. Son is looking for care/audit consultant 3-4 hours per day. CM explained that [facility] does not offer that type of daily assistance. Son and patient state he has [facility] benefits and gets his meds at [facility]. Also has vision and hearing. State they have a contact at [facility] who has told them he has some benefits for home care. Pt was upset that CM could not verify this at 1730 on a Saturday. Suggested they call their contact at the [facility]. Offered to call [facility] on Saturday to verify benefits. Son states they can do that. Son is very agreeable. Son states he knows Jesus Manuel Zuniga well and will contact him regarding home services-private pay. CM gave son a listing of local [place] agencies that provide private pay home care. CM will refer patient to [facility], with the explanation [facility] does not usually provide daily assistance. Son, Hay asked that EC contact him ([phone]). Again, patient is very independent, ambulates with a steady gait and is A&O. Son has concerns because he lives so far away. PCP is Hay Kessler. CM verified that his prescription was sent to [facility] on [address]. CM contact card given. Pt discharged home. Pt independently ambulated to his son's car with steady gait and no SOB
== END 2024-06-26 17:50 | disposition home or self-care (01) ==
PROVIDERS: Registered Nurse Emergency; Emergency Provider Emergency Medicine; PCP Internal Medicine
DX: J10.1 Influenza due to other identified influenza virus with other respiratory manifestations (principal); R06.02 Shortness of breath; R05.9 Cough, unspecified; Z03.818 Encounter for observation for suspected exposure to other biological agents ruled out; Z79.899 Other long term (current) drug therapy; Z87.891 Personal history of nicotine dependence
CPT/HCPCS: 0241U; 36415; 71046; 80053; 82803; 83880; 84484; 85025; 85610; 93005; 99284; 99285

== ENCOUNTER → 2024-06-26 11:55 | Outpatient (BNV) | payer MEDICARE, OTHER, SELFPAY | PROVIDERS: PCP Internal Medicine; Visit Provider Radiology Diagnostic Radiology | DX: R06.00 Dyspnea, unspecified (principal) | CPT/HCPCS: 71046 ==

== ENCOUNTER → 2024-06-26 11:55 | Outpatient (BNV) | payer MEDICARE, OTHER, SELFPAY | PROVIDERS: PCP Internal Medicine; Visit Provider Internal Medicine Cardiovascular Disease | DX: R07.9 Chest pain, unspecified (principal); R94.31 Abnormal electrocardiogram [ECG] [EKG] | CPT/HCPCS: 93010 ==

== ENCOUNTER 2024-07-31 11:21 | Inpatient (IN) | payer MEDICARE, OTHER, SELFPAY ==
[2024-07-31] VITALS (7 sets, daily range): BP systolic 99–133; BP diastolic 66–83; PULSE 64–87; RESP 16–22; TEMP 36.9–37; O2SAT 94–98; BMI 19.9; BMI 19.3; BMI 18.0
--- NOTE | ~2024-07-31 | FL_ITS ---
EXAMINATION: XR BARIUM SWALLOW CLINICAL INFORMATION: Dysphagia/erosive esophagitis. COMPARISON: None available. TECHNIQUE: Routine upright barium swallow was performed with thick barium only. FINDINGS: Following oral administration of thick barium there is normal propagation of bolus from the oral cavity through the pharynx into the upper esophagus. There is a nondistensible long segment in upper/mid esophagus suspicious of annular lesion most likely primary esophageal. The mucosa is irregular appearing. The lower mid and the distal esophagus is of normal caliber. The GE junction is widely patent. FLUOROSCOPY TIME: 57 seconds DOSE AREA PRODUCT: 916 uGy-m2 (microgray-meter squared) FL/FL barium swallow IMPRESSION: A long segment of mural thickening in the upper/mid esophagus highly suspicious of primary esophageal lesion. Recommend endoscopy. Results were tiger texted tot DR Vasquez Sena at 2:56 PM. Electronically signed by: Mason Shine MD 08/03/2024 02:58 PM [facility]
--- NOTE | ~2024-07-31 | US_ITS ---
CLINICAL HISTORY: PE Bilateral lower extremity venous duplex ultrasound Comparison: 01/20/19 Findings: The visualized deep veins are fully compressible with normal flow. No popliteal cyst. Impression: No deep vein thrombosis. This document has been electronically signed by: Ángela Jackson MD on 08/02/2024 13:48:44
--- NOTE | ~2024-07-31 | CT_ITS ---
EXAMINATION: CT CERVICAL SPINE WITHOUT CONTRAST CLINICAL INFORMATION: Status post fall. COMPARISON: None available. TECHNIQUE: Contiguous axial images through the cervical spine using 3 mm collimation with bone and soft tissue algorithm. Sagittal and coronal reformatted images acquired. This CT examination was performed using dose optimization techniques as appropriate, variously including the following: *Automated exposure control *Adjustment of mA and/or kV according to patient size (this includes techniques or standardized protocols for targeted exams where dose is matched to indication/reason for exam; i.e. extremities or head) *Use of iterative reconstruction technique DLP: 324 mGy centimeter. FINDINGS: There are multifocal different sizes lytic lesions throughout the included axial skeleton, the most conspicuous at C4, C6, T4 resulting in osteolysis. The craniocervical junction is intact. There is multilevel marginal osteophyte formation and endplate sclerosis endplate irregularity, decreased intervertebral disc height from C4 to C7 more conspicuous at C5-6. There is a grade 1 anterolisthesis C4-5 likely degenerative. Grade 1 retrolisthesis C5-6 likely degenerative. I do not see a traumatic to related acute fracture. There is central spinal canal stenosis on a multifactorial basis at C5-6 and to a lesser extent C6-7 levels. Calcified plaques in the carotic arteries the thoracic aorta its main branches. There is centrilobular and paraseptal emphysematous changes in the included lungs. CT/CT cervical spine wo IV con IMPRESSION: Consider osseous metastasis versus multiple myeloma. Recommend dedicated IV contrast enhanced MRI cervical spine for further assessment of the neural elements. Fleischner guidelines were followed. Electronically signed by: Andres George MD 07/31/2024 01:48 PM [facility]
--- NOTE | ~2024-07-31 | CT_ITS ---
CLINICAL HISTORY: low back pain, r o metastatic disease CT lumbar spine with contrast Comparison: None Findings: Mild scoliotic curvature. No acute fractures or dislocations. There is multiple level degenerative disc and facet change. There is a soft tissue mass in the right T12-L1 foramen with associated erosive changes in the adjacent vertebra suspicious for neoplastic disease. Recommend MRI to further evaluate if patient can safely undergo this exam. Normal visualized abdominal contents. There are bilateral pleural effusions with underlying consolidation, possible pneumonia or subsegmental atelectasis. IMPRESSION: 1. Soft tissue mass with associated lytic changes centered in the right T12-L1 foramen, possible neoplastic disease either primary or metastatic. Clinically appropriate further evaluation recommended. 2. Pleural effusions with underlying consolidation. This document has been electronically signed by: Clint Bejarano MD on 08/03/2024 08:28:28
--- NOTE | ~2024-07-31 | XR_ITS ---
EXAMINATION: XR CHEST CLINICAL INFORMATION: sob COMPARISON: 07/31/2024. TECHNIQUE: Frontal view of the chest was obtained. FINDINGS: The cardiac, hilar, and mediastinal contours are normal. Aortic mural calcification. Retrocardiac moderate to large sized hiatus hernia. Lungs are somewhat hyperaerated, with minimal scarring left base. Lungs otherwise clear. No pneumothorax or definitive effusion. Radiopaque material seen within a moderate to large sized hiatus hernia and extending into the stomach, presumably oral contrast. No focal osseous or soft tissue abnormalities otherwise. XR/XR chest 1V IMPRESSION: 1. Findings suggesting COPD. No active superimposed disease. 2. Moderate to large size retrocardiac hiatus hernia which contains radiopaque material, presumably oral contrast. If this is retained from 08/03/2024 barium swallow examination, gastroparesis is confirmed. Electronically signed by: Grant Berrios MD 08/05/2024 11:21 AM [facility]
--- NOTE | ~2024-07-31 | CT_ITS ---
EXAMINATION: CT ANGIOGRAM HEAD AND NECK CLINICAL INFORMATION: Weakness, occlusive disease . COMPARISON: Noncontrast head CT earlier same day, approximately 3 hours prior. MR brain 01/24/2019. TECHNIQUE: Noncontrast axial imaging of the head was previously performed proximally 3 hours prior. This was followed by test bolus sequences and head and neck intravenous bolus administration 70 mL of Omnipaque 350 contrast. Helical imaging was performed in the axial plane from the aortic arch to the skull vertex. A [address] head was also obtained. The data was processed at the chemistry technologist's workstation for generation of MIP sequences. Angled MIPs and volume rendered reformatted images were also generated at an offline 3D workstation. Stenoses are assessed in accordance with NASCET criteria unless otherwise indicated. This CT examination was performed using dose optimization techniques as appropriate, variously including the following: *Automated exposure control *Adjustment of mA and/or kV according to patient size (this includes techniques or standardized protocols for targeted exams where dose is matched to indication/reason for exam; i.e. extremities or head) *Use of iterative reconstruction technique FINDINGS: NONCONTRAST HEAD CT: Refer to dedicated report from earlier same day. NECK CTA: -AORTIC ARCH: Normal in caliber, moderate atheromatous calcification. Three-vessel branching pattern. -GREAT VESSEL ORIGINS: Widely patent, with mild to moderate atheromatous calcification. -RIGHT COMMON CAROTID ARTERY: Normal in course and caliber with mild atheromatous calcification. No flow limiting stenosis. -CERVICAL RIGHT INTERNAL CAROTID ARTERY: Mild calcific atherosclerotic disease of the carotid bulb and proximal internal carotid artery without flow-limiting stenosis. Cervical ICA is mildly tortuous into the skull base. -LEFT COMMON CAROTID ARTERY: Normal in course and caliber with mild atheromatous calcification. No flow limiting stenosis. -CERVICAL LEFT INTERNAL CAROTID ARTERY: Calcific atherosclerotic disease of the carotid bulb and proximal internal carotid artery causing approximate 20% stenosis. Cervical ICA is tortuous, with cervical loop, but normal in caliber into the skull base. -CERVICAL RIGHT VERTEBRAL ARTERY: Codominant. Moderate origin stenosis due to mixed soft and calcific plaque. Remainder of the vessel is normal in caliber into the skull base. -CERVICAL LEFT VERTEBRAL ARTERY: Codominant. Mild origin stenosis due to calcified plaque. Remainder of the vessel is normal in caliber into the skull base. OTHER, SOFT TISSUES: -There is a central pulmonary embolus in the main pulmonary artery bifurcation, with segmental pulmonary emboli seen bilaterally in the upper lobes. -Thyroid is mildly atrophic. -There is asymmetric wall thickening of the upper cervical esophagus (series 6, images [id number]). Mass lesion is excluded. -A few prominent the central lymph nodes are present which are not pathologically enlarged. There is a 1.0 cm short axis AP window lymph node (series 6, image [id number]). There are additional AP window enlarged nodes. Imaged lung apices demonstrate paraseptal emphysema. No suspicious nodules. CTA OF THE BRAIN: -INTRACRANIAL INTERNAL CAROTID ARTERIES: Calcific atherosclerotic disease of the intracranial internal carotid arteries without occlusion or flow-limiting stenosis. -RIGHT ANTERIOR CEREBRAL ARTERY: The A1 segment is diminutive. Normal arborization of the distal segments. -LEFT ANTERIOR CEREBRAL ARTERY: Normal A1 segment. Normal arm sensation of the distal segments. -ANTERIOR COMMUNICATING ARTERY: Normal. -RIGHT MIDDLE CEREBRAL ARTERY: Normal M1 segment of the MCA without focal stenosis or occlusion. Normal arborization of the distal segments. -LEFT MIDDLE CEREBRAL ARTERY: Normal M1 segment of the MCA without focal stenosis or occlusion. Normal arborization of the distal segments. -RIGHT VERTEBRAL ARTERY V4: Normal in course and caliber. Normal PICA branch. -LEFT VERTEBRAL ARTERY V4: Normal in course and caliber. Normal PICA branch. -BASILAR ARTERY: Normal without focal stenosis or occlusion. Normal appearance of the proximal superior cerebellar arteries. Normal basilar tip. -RIGHT POSTERIOR CEREBRAL ARTERY: The P1 segment is diminutive. origin of the STEAM POWERPLANT SUPERVISOR with robust opacification of the posterior communicating artery. Normal opacification of the distal STEAM POWERPLANT SUPERVISOR segments. -LEFT POSTERIOR CEREBRAL ARTERY: Normal P1 segment. Normal opacification of the distal STEAM POWERPLANT SUPERVISOR segments. -POSTERIOR COMMUNICATING ARTERIES: Normal opacification of the superior sagittal, straight, transverse, and sigmoid sinuses. No venous thrombosis. No evolving territory infarct. No space-occupying hemorrhage. CT/CT angio head neck IMPRESSION: 1. Saddle pulmonary embolus and segmental pulmonary emboli noted at the inferior aspect of the scan. 2. There is a moderate stenosis of the right vertebral artery at the origin secondary to mixed plaque. 3. There is approximately 20% stenosis of the left ICA at the origin secondary to calcified plaque. 4. Otherwise, there is no flow-limiting stenosis, occlusion, dissection, or aneurysm in the major cervical or intracranial arterial vasculature. 5. Incidental note made of eccentric thickening of the upper esophagus, suspicious for mass. Abutting lymph nodes, enlarged in the AP window region. Correlation with endoscopy recommended. 6. Paraseptal emphysema in the lung apices. Above findings were communicated to Rose Marie Simons PA-C the of applications programmer at 3:45 PM, 08/04/2024. Electronically signed by: Grant Berrios MD 07/31/2024 04:06 PM [facility]
--- NOTE | ~2024-07-31 | XR_ITS ---
EXAMINATION: XR CHEST CLINICAL INFORMATION: confusion, weakness, cough COMPARISON: June 26, 2024 TECHNIQUE: Frontal view of the chest was obtained. FINDINGS: Large volume hiatal hernia. No consolidation pleural effusion or pneumothorax. No hyperinflation. Calcified plaque thoracic aorta. Multilevel thoracic and lumbar spondylosis with scoliosis. XR/XR chest 1V IMPRESSION: No acute airspace disease. Hiatal hernia, large volume. Scoliosis.. Electronically signed by: Andres George MD 07/31/2024 01:02 PM [facility]
--- NOTE | ~2024-07-31 | CT_ITS ---
EXAMINATION: CT HEAD WITHOUT CONTRAST CLINICAL INFORMATION: fall, head strike, pain COMPARISON: January 24, 2019 TECHNIQUE: Contiguous axial imaging was performed from the skull base to vertex without intravenous administration of contrast. This CT examination was performed using dose optimization techniques as appropriate, variously including the following: *Automated exposure control *Adjustment of mA and/or kV according to patient size (this includes techniques or standardized protocols for targeted exams where dose is matched to indication/reason for exam; i.e. extremities or head) *Use of iterative reconstruction technique DLP: 607.26 mGy-cm FINDINGS: Bony calvarium is intact. Skull base is intact. No acute intracranial hemorrhage, mass effect, midline shift, hydrocephalus or herniation. Gardner-white matter differentiation is normal. Bilateral multifocal patchy and confluent deep periventricular white matter involving centrum semiovale and parra radiata. Multifocal old lacunar infarcts, basal ganglia extracapsular and parra radiata white matter. Prominence of the extra-axial CSF spaces cerebral sulci and cerebellar folia and ventricles likely central volume loss. Calcified plaques in the cavernous supracavernous segments both ICA. Mucosal thickening without air-fluid levels in the paranasal sinuses. Tympanic cavities and mastoid cells are aerated. CT/CT head/brain wo IV con IMPRESSION: No acute fracture, bony calvarium. No acute intracranial hemorrhage. Small vessel occlusive disease. Superimposed acute stroke/nonhemorrhagic ischemia cannot be excluded. Global cerebral atrophy. Electronically signed by: Andres George MD 07/31/2024 01:42 PM [facility]
--- NOTE | ~2024-07-31 | XR_ITS ---
EXAMINATION: XR CHEST 1 VIEW HISTORY: aspiration COMPARISON: Comparison is made with the prior examination dated 08/05/2024. FINDINGS: Two AP portable views of the chest performed at 12:12 PM are submitted. There is opacification of both lung bases consistent with pleural effusions and atelectasis/pneumonia. There is no pneumothorax or pulmonary vascular congestion. The heart is normal in size there is a large diaphragmatic hernia containing a portion of the stomach and a loop of the transverse colon.. There is degenerative disc disease of the spine. XR/XR chest 1V IMPRESSION: 1. Small bilateral pleural effusions. Bibasilar atelectasis versus pneumonia. 2. Large diaphragmatic hernia containing a portion of the stomach and a loop of transverse colon. Electronically signed by: Orestes Sorensen MD 08/06/2024 12:54 PM [facility]
--- NOTE | 2024-07-31 11:37 | ED_ITS ---
HPI - General Adult General Chief complaint: Weakness Stated complaint: FLU LIKE SYMP, FTT, LETHARGY PER EMS Time Seen by Provider: 07/31/24 11:37 Source: patient and family (patient's daughter) Mode of arrival: EMS Limitations: no limitations History of Present Illness ED Provider: Rose Marie Simons PA-C HPI narrative: Patient is a 84 year old assigned male at with a history of COPD, tobacco use, and alcohol use presenting to the emergency department today with generalized weakness and body aches. Patient states that he was diagnosed with the flu and has been feeling unwell ever since but he was diagnosed over 2 weeks ago. Patient's daughter states that the patient was actually doing better but has now been eating and drinking significantly less - complaining of having a hard time swallowing and overall weakness. Patient's daughter states that the patient was a smoker for a very long time. Patient states that he did have a trip and fall, twice, on 07/30/2024 and he is unsure if he hit his head or not. Patient denies any dizziness, lightheadedness, abdominal pain, nausea, vomiting, fever, chills, blurry vision, double vision, loss of vision, chest pain, difficulty breathing, shortness of breath, back pain, night sweats, pain with urination, increased urinary frequency, increased urinary urgency, blood in his urine or stool, syncope or a near syncopal episode, bowel incontinence, bladder incontinence, or any other complaints at this time. Relieving factors: none Exacerbating factors: none Associated symptoms: weakness Treatments prior to arrival: none Related Data Home Medications ?Medication ?Instructions ?Recorded ?Confirmed rivaroxaban 20 mg tablet (Xarelto) 20 mg PO DAILY 06/28/20 07/31/24 simvastatin 20 mg tablet 20 mg PO BEDTIME 06/28/20 07/31/24 Previous Rx's ?Medication ?Instructions ?Recorded albuterol sulfate 90 mcg/actuation 2 puff inhalation Q4-6H PRN 06/17/24 aerosol inhaler shortness of breath or wheezing #8.5 grams inhalational spacing device #1 ea 06/17/24 Allergies Allergy/AdvReac Type Severity Reaction Status Date / Time cat dander [cats] Allergy Severe Anaphylaxis Verified 07/31/24 11:28 peanut [PEANUT] Allergy Severe ANAPHYLAXIS Verified 07/31/24 11:28 soy sauce Allergy Severe ANAPHYLAXIS Uncoded 07/31/24 11:28 Review of Systems 2 Constitutional: Constitutional: Reports no additional constitutional complaints, Denies chills, Denies fever(s), Denies night sweats and Reports weakness Eyes: Eyes: Reports no additional eye complaints, Denies blurry vision, Denies change in vision, Denies diplopia, Denies eye discharge, Denies loss of vision and Denies eye pain ENT: Denies dizziness Comments: difficulty swallowing Cardiovascular: Cardiovascular: Reports no additional cardiovascular complaints, Denies chest pain, Denies lightheadedness, Denies Loss of Consciousness and Denies dyspnea Respiratory: Respiratory: Reports no additional respiratory complaints and Denies dyspnea Gastrointestinal: Gastrointestinal: Reports no additional gastrointestinal complaints, Denies abdominal pain, Denies melena, Denies hematochezia, Denies change in bowel habits and Denies change in stool character Genitourinary: Genitourinary: Reports no additional male genitourinary complaints, Denies hematuria, Denies oliguria, Denies difficulty urinating, Denies dysuria, Denies urinary frequency, Denies urinary hesitancy, Denies urinary incontinence and Denies urinary urgency Musculoskeletal: Musculoskeletal: Reports no additional musculoskeletal complaints, Denies numbness and Denies tingling Neurologic: Denies dizziness, Denies loss of vision, Denies numbness, Denies tingling and Reports weakness Psychiatric: Psychiatric: Reports no additional psychiatric complaints Endocrine: Endocrine: Reports no additional endocrine complaints Hematologic/Lymphatic: Hematologic/Lymphatic: Reports no additional hematologic/lymphatic complaints Allergic/Immunologic: Allergic/Immunologic: Reports no additional allergic/immunologic complaints [facility] Past Medical History Attestation statement: The following information was validated with the patient. 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 Bilateral pulmonary embolism Surgical History Hx of cataract extraction Hx of knee surgery Hx of colonoscopy Hx of cholecystectomy Social History Social History Household Members: None Housing: House Do you presently have visiting nurse or other home services: No Alcohol intake: current Alcohol intake frequency: 3 or more drinks per day Alcohol type: beer and hard liquor Patient Tobacco Use Status: Former Tobacco user Smoked in Last 30 Days: No Use of substances other than those prescribed or required for medical reasons: No Advance Directives: No Advance Directives Information Provided: Yes Do you have a plan to hurt others: No Plan Physical Exam ED Vital Signs: Vital Signs - 24 hr 07/31/24 11:25 07/31/24 13:46 07/31/24 15:49 Temperature 98.6 F Pulse Rate 80 64 68 Respiratory Rate 18 16 22 H Blood Pressure 99/68 120/66 131/83 Pulse Oximetry 94 96 98 Oxygen Delivery Method Room Air Room Air Room Air 07/31/24 16:16 Temperature Pulse Rate 70 Respiratory Rate 16 Blood Pressure 113/75 Pulse Oximetry 97 Oxygen Delivery Method Room Air BMI result Body Mass Index 19.3 Const General: cooperative, no acute distress, alert and awake Nutritional Appearance: well nourished Orientation/consciousness: patient oriented x3 Limitations: no limitations HENMT Head: Yes normal to inspection and Yes atraumatic Ears: hearing grossly normal bilaterally and external ears normal General nose exam: Normal external nose present, no nasal discharge noted and no epistaxis Face and sinus: Yes normal facial exam, No abrasion and No laceration Mouth: Normal oral and palatal mucosa present, no drooling and no muffled voice Eyes General: appearance normal, both eyes and all related structures Periorbital: periorbital findings normal Eyelids: Yes eyelids normal Conjunctivae: conjunctivae normal Pupils: Equal, round and reactive pupils present EOM: EOMs intact bilaterally Neck Neck: Yes normal visual inspection, Yes full ROM and Yes no lymphadenopathy Chest Chest palpation & inspection: normal inspection of the chest Resp Effort & Inspection: normal respiratory effort and able to speak in complete sentences GI Inspection: Yes normal to inspection Neuro General: patient oriented x3, moves all extremities and CN's II-XI intact bilaterally Cranial nerves: Yes Equal, round and reactive pupils present Cognition (Neuro): normal cognition Extrem General: Yes normal to inspection, Yes full ROM and Yes capillary refill normal Psych Appearance: grossly normal Mental Status: mental status grossly normal Affect: normal affect Attitude: cooperative Thought process: Normal thought process present Thought content: Normal thought content present Insight: Good insight present (Psych) NIH Stroke Scale Internal: Initial- Upon Arrival Time: 11:37 Level of Consciousness: Alert Level of Consciousness Questions: Answers both questions correctly Level of Consciousness Commands: Performs both tasks correctly Best Gaze: Normal Visual: No visual loss Facial Palsy: Normal Motor Arm (Right): No drift Motor Arm (Left): No drift Motor Leg (Right): No drift Motor Leg (Left): No drift Limb Ataxia: Absent Sensory: Normal Best Language: No aphasia Dysarthia: Normal Extinction and Inattention: No abnormality Score: 0 Medications Administered Generic Name Dose Route Start Last Admin Trade Name Freq PRN Reason Stop Dose Admin Heparin Sodium/Sodium Chloride 25,000 unit in 250 mls @ 0 mls/hr 07/31/24 16:00 07/31/24 16:10 Heparin Sodium,Porcine/1/2ns IVCONT 14 units/kg/hr .Q0M JAYLYN 8.05 mls/hr Administration Protocol Per Protocol Sodium Chloride 1,000 mls @ 100 mls/hr 07/31/24 17:30 07/31/24 18:29 Ns IVCONT 100 mls/hr .Q10H JAYLYN Administration Discontinued Medications Generic Name Dose Route Start Last Admin Trade Name Freq PRN Reason Stop Dose Admin Heparin Sodium (Porcine) 4,800 unit 07/31/24 15:43 07/31/24 16:03 Heparin Sodium,Porcine 5,000 Unit/Ml Vial 80 unit/kg (4800 unit) 07/31/24 15:44 4,800 unit IVPUSH Administration ONCE ONE Sodium Chloride 1,000 mls @ 999 mls/hr 07/31/24 14:45 07/31/24 16:10 Ns IV 07/31/24 15:45 Infused .Q1H1M JAYLYN Infusion Pamidronate Disodium 60 mg/ 260 mls @ 130 mls/hr 07/31/24 18:00 07/31/24 18:30 Sodium Chloride IV 07/31/24 19:59 130 mls/hr ONCE ONE Administration Iohexol 100 ml 07/31/24 15:23 07/31/24 15:23 Iohexol 350 Mg/Ml 100 Ml Infus..Btl IV 07/31/24 15:24 70 ml ONCE ONE Administration Procedures Procedure Narrative Procedure Narrative: Ultrasound-guided IV 18 gauge 1-3/4 inch IV was placed in the left upper extremity. Adequate blood return, flushes well, secured with Tegaderm. Performed by Tyra Roque. EJ/Peripheral Line Arm R: Time Out Performed: Yes Skin Cleansed in Sterile Fashion: Yes Size (gauge): 18 IV Secured and Dressing Applied: Yes Patient Tolerated Procedure: well and no complications Additional Comments: Indications, difficult IV access, multiple attempts by nursing staff. Ultrasound-guided peripheral IV access utilized. Right brachial 18. Gauge, 1-3/4 length catheter. Flushed with normal saline, RN notified. Medical Decision Making Medical Decision Making [facility] Narrative: Patient is a 84 year old assigned male at with a history of COPD, tobacco use, and alcohol use presenting to the emergency department today with generalized weakness and body aches. Patient's physical exam was as noted in the physical exam portion of this note. Patient's blood work showed a BUN of 24, calcium of 14.3, and initial trop of 66.2. Patient's EKG was unremarkable. Patient's chest x-ray showed no acute process. Patient's CT head showed evidence of multiple old lacunar infarcts and the radiologist commented there was concern / chance of acute embolic ischemia. Patient's CT c-spine showed evidence of metastatic disease vs. multiple myeloma. Given these findings, I ordered a CTA of the head and neck. CTA of the head and neck showed an incidental finding of a saddle PE but was negative for an LVO. Patient's CTA of the head and neck also showed findings concerning for an esophageal mass. Patient was started on a heparin drip after receiving a heparin bolus. I spoke to the heme/onc team who provided a list of additional tests to be run, those have been ordered and collected. Patient was started on IV fluids for his hypercalcemia. I spoke to the hospitalist team who agreed to admission. I explained my physical exam findings as well as all test results to the patient and the patient's daughter. I answered all questions asked by the patient and the patient's daughter. Patient and the patient's daughter verbalized agreement and understanding with this treatment plan and admission. Patient's daughter Trang Conklin can be reached at [phone]. Differential Diagnosis Differential Diagnoses: The differential diagnosis associated with the presentation includes PE Weakness Esophageal cancer / mass Multiple myeloma Hypercalcemia Admission/Observation Consideration of admission/observation: Escalation of care including admission/observation considered Patient admitted as noted in the MDM Rationale portion of this note. Consult Healthcare Provider Management of the patient was discussed with: Hospitalist (agreed to admission as noted in the MDM Rationale portion of this note.) and Transport Specialist (spoke to the heme/onc team as noted in the MDM Rationale portion of this note.) Lab Data [facility] Lab Attestation statement: I reviewed the patient's lab results. My interpretation of these results are in the MDM Rationale portion of this note. 07/31/24 17:43 07/31/24 13:45 Labs: Lab Results 07/31/24 07/31/24 07/31/24 Range/Units 12:39 13:45 14:17 WBC 8.6 (4.8-10.8) X10*3/uL RBC 4.55 L (4.60-5.80) X10*6/uL Hgb 14.3 (14.0-18.0) g/dl Hct 42.5 (42.0-52.0) % MCV 93.4 (80.0-98.0) fL MCH 31.4 (27.0-33.0) pg MCHC 33.6 (31.0-36.0) g/dl RDW 14.1 (11.0-16.0) % Plt Count 198 D (160-400) X10*3/uL MPV 10.2 (9.4-12.4) fL Immature Gran % (Auto) 0.3 (0.0-0.4) % Neut % (Auto) 83.2 H (45-73) % Lymph % (Auto) 9.2 L (20-40) % Stephenson % (Auto) 6.8 (2-11) % Eos % (Auto) 0.2 (0-4) % Baso % (Auto) 0.3 (0-2) % Lymph # (Auto) 0.8 L (1.2-4.9) X10*3/uL Stephenson # (Auto) 0.6 (0.1-1.2) X10*3/uL Eos # (Auto) 0.0 (0.0-0.4) X10*3/uL Baso # (Auto) 0.0 (0.0-0.2) X10*3/uL Abs Immat Gran (auto) 0.03 (0.00-0.03) X10*3/uL Absolute Neuts (auto) 7.2 (2.0-8.3) x10*3/uL Absolute Nucleated RBC 0.000 (0.0-0.012) X10*3/uL Nucleated RBC % (auto) 0.0 (0.0-0.2) /100WBC PT 13.0 H (10.9-12.4) SEC INR 1.1 (0.9-1.1) APTT 26.0 D (26.0-36.8) SEC Sodium 139 (135-145) mmol/L Potassium 4.3 (3.3-5.1) mmol/L Chloride 100 (96-108) mmol/L Carbon Dioxide 27 (22-29) mmol/L Anion Gap 16 (12-20) BUN 24 H (9-16) mg/dL Creatinine 0.67 (0.5-1.4) mg/dL Estim Creat Clear Calc 69.0 Estimated GFR > 60 Random Glucose 104 (60-115) mg/dL Uric Acid 7.9 H (3.4-7.0) mg/dL Calcium 14.3 H* D (8.4-10.2) mg/dL Magnesium 2.0 (1.6-2.6) mg/dL Total Bilirubin 1.2 H (0.0-1.0) mg/dL AST 37 (5-37) U/L ALT 6 (0-40) U/L Alkaline Phosphatase 116 (39-117) U/L Lactate Dehydrogenase 192 (118-273) U/L Troponin I High Sens 66.2 H D (<3.5-35.0) ng/L B-Natriuretic Peptide 311 H (<100) pg/mL Total Protein 7.9 (6.5-8.0) g/dL Albumin 3.4 L (3.5-5.0) g/dL 25-OH Vitamin D Total 51.6 (>30) ng/mL Influenza Type A (PCR) NEGATIVE (Negative) Influenza Type B (PCR) NEGATIVE (Negative) RSV RNA Qual (PCR) NEGATIVE (Negative) SARS-CoV-2 RNA (RT-PCR) NEGATIVE (Negative) Independent Interpretation I performed an independent interpretation of an: EKG, Plain X-Ray and CT Scan Interpretation: My interpretation is in agreement with the radiologist's impression of these imaging studies. L Report Number: [id number]: Total DLP = 1489.00 mGy-cm EXAMINATION: CT ANGIOGRAM HEAD AND NECK CLINICAL INFORMATION: Weakness, occlusive disease . COMPARISON: Noncontrast head CT earlier same day, approximately 3 hours prior. MR brain 01/24/2019. TECHNIQUE: Noncontrast axial imaging of the head was previously performed proximally 3 hours prior. This was followed by test bolus sequences and head and neck intravenous bolus administration 70 mL of Omnipaque 350 contrast. Helical imaging was performed in the axial plane from the aortic arch to the skull vertex. A [address] head was also obtained. The data was processed at the cytotechnologist's workstation for generation of MIP sequences. Angled MIPs and volume rendered reformatted images were also generated at an offline 3D workstation. Stenoses are assessed in accordance with NASCET criteria unless otherwise indicated. This CT examination was performed using dose optimization techniques as appropriate, variously including the following: *Automated exposure control *Adjustment of mA and/or kV according to patient size (this includes techniques or standardized protocols for targeted exams where dose is matched to indication/reason for exam; i.e. extremities or head) *Use of iterative reconstruction technique FINDINGS: NONCONTRAST HEAD CT: Refer to dedicated report from earlier same day. NECK CTA: -AORTIC ARCH: Normal in caliber, moderate atheromatous calcification. Three- vessel branching pattern. -GREAT VESSEL ORIGINS: Widely patent, with mild to moderate atheromatous calcification. -RIGHT COMMON CAROTID ARTERY: Normal in course and caliber with mild atheromatous calcification. No flow limiting stenosis. -CERVICAL RIGHT INTERNAL CAROTID ARTERY: Mild calcific atherosclerotic disease of the carotid bulb and proximal internal carotid artery without flow-limiting stenosis. Cervical ICA is mildly tortuous into the skull base. -LEFT COMMON CAROTID ARTERY: Normal in course and caliber with mild atheromatous calcification. No flow limiting stenosis. -CERVICAL LEFT INTERNAL CAROTID ARTERY: Calcific atherosclerotic disease of the carotid bulb and proximal internal carotid artery causing approximate 20% stenosis. Cervical ICA is tortuous, with cervical loop, but normal in caliber into the skull base. -CERVICAL RIGHT VERTEBRAL ARTERY: Codominant. Moderate origin stenosis due to mixed soft and calcific plaque. Remainder of the vessel is normal in caliber into the skull base. -CERVICAL LEFT VERTEBRAL ARTERY: Codominant. Mild origin stenosis due to calcified plaque. Remainder of the vessel is normal in caliber into the skull base. OTHER, SOFT TISSUES: -There is a central pulmonary embolus in the main pulmonary artery bifurcation, with segmental pulmonary emboli seen bilaterally in the upper lobes. -Thyroid is mildly atrophic. -There is asymmetric wall thickening of the upper cervical esophagus (series 6, images [id number]). Mass lesion is excluded. -A few prominent the central lymph nodes are present which are not pathologically enlarged. There is a 1.0 cm short axis AP window lymph node (series 6, image [id number]). There are additional AP window enlarged nodes. Imaged lung apices demonstrate paraseptal emphysema. No suspicious nodules. CTA OF THE BRAIN: -INTRACRANIAL INTERNAL CAROTID ARTERIES: Calcific atherosclerotic disease of the intracranial internal carotid arteries without occlusion or flow-limiting stenosis. -RIGHT ANTERIOR CEREBRAL ARTERY: The A1 segment is diminutive. Normal arborization of the distal segments. -LEFT ANTERIOR CEREBRAL ARTERY: Normal A1 segment. Normal arm sensation of the distal segments. -ANTERIOR COMMUNICATING ARTERY: Normal. -RIGHT MIDDLE CEREBRAL ARTERY: Normal M1 segment of the MCA without focal stenosis or occlusion. Normal arborization of the distal segments. -LEFT MIDDLE CEREBRAL ARTERY: Normal M1 segment of the MCA without focal stenosis or occlusion. Normal arborization of the distal segments. -RIGHT VERTEBRAL ARTERY V4: Normal in course and caliber. Normal PICA branch. -LEFT VERTEBRAL ARTERY V4: Normal in course and caliber. Normal PICA branch. -BASILAR ARTERY: Normal without focal stenosis or occlusion. Normal appearance of the proximal superior cerebellar arteries. Normal basilar tip. -RIGHT POSTERIOR CEREBRAL ARTERY: The P1 segment is diminutive. origin of the FLOWER PICKER with robust opacification of the posterior communicating artery. Normal opacification of the distal FLOWER PICKER segments. -LEFT POSTERIOR CEREBRAL ARTERY: Normal P1 segment. Normal opacification of the distal FLOWER PICKER segments. -POSTERIOR COMMUNICATING ARTERIES: Normal opacification of the superior sagittal, straight, transverse, and sigmoid sinuses. No venous thrombosis. No evolving territory infarct. No space-occupying hemorrhage. CT/CT angio head neck IMPRESSION: 1. Saddle pulmonary embolus and segmental pulmonary emboli noted at the inferior aspect of the scan. 2. There is a moderate stenosis of the right vertebral artery at the origin secondary to mixed plaque. 3. There is approximately 20% stenosis of the left ICA at the origin secondary to calcified plaque. 4. Otherwise, there is no flow-limiting stenosis, occlusion, dissection, or aneurysm in the major cervical or intracranial arterial vasculature. 5. Incidental note made of eccentric thickening of the upper esophagus, suspicious for mass. Abutting lymph nodes, enlarged in the AP window region. Correlation with endoscopy recommended. 6. Paraseptal emphysema in the lung apices. Above findings were communicated to Rose Marie Simons PA-C the of personal computer specialist at 3:45 PM, 08/04/2024. Electronically signed by: Grant Berrios MD 07/31/2024 04:06 PM [facility] Dictated By: Grant Berrios MD Signed By: Electronically signed by Grant Berrios MD 07/31/24 1606 Report Number: [id number]: Total DLP = 324.00 mGy-cm EXAMINATION: CT CERVICAL SPINE WITHOUT CONTRAST CLINICAL INFORMATION: Status post fall. COMPARISON: None available. TECHNIQUE: Contiguous axial images through the cervical spine using 3 mm collimation with bone and soft tissue algorithm. Sagittal and coronal reformatted images acquired. This CT examination was performed using dose optimization techniques as appropriate, variously including the following: *Automated exposure control *Adjustment of mA and/or kV according to patient size (this includes techniques or standardized protocols for targeted exams where dose is matched to indication/reason for exam; i.e. extremities or head) *Use of iterative reconstruction technique DLP: 324 mGy centimeter. FINDINGS: There are multifocal different sizes lytic lesions throughout the included axial skeleton, the most conspicuous at C4, C6, T4 resulting in osteolysis. The craniocervical junction is intact. There is multilevel marginal osteophyte formation and endplate sclerosis endplate irregularity, decreased intervertebral disc height from C4 to C7 more conspicuous at C5-6. There is a grade 1 anterolisthesis C4-5 likely degenerative. Grade 1 retrolisthesis C5-6 likely degenerative. I do not see a traumatic to related acute fracture. There is central spinal canal stenosis on a multifactorial basis at C5-6 and to a lesser extent C6-7 levels. Calcified plaques in the carotic arteries the thoracic aorta its main branches. There is centrilobular and paraseptal emphysematous changes in the included lungs. CT/CT cervical spine wo IV con IMPRESSION: Consider osseous metastasis versus multiple myeloma. Recommend dedicated IV contrast enhanced MRI cervical spine for further assessment of the neural elements. Fleischner guidelines were followed. Electronically signed by: Andres George MD 07/31/2024 01:48 PM [facility] Dictated By: Andres Franklin MD Signed By: Electronically signed by Andres Cerrato MD 07/31/24 1348 Report Number: [id number]: Total DLP = 617.00 mGy-cm EXAMINATION: CT HEAD WITHOUT CONTRAST CLINICAL INFORMATION: fall, head strike, pain COMPARISON: January 24, 2019 TECHNIQUE: Contiguous axial imaging was performed from the skull base to vertex without intravenous administration of contrast. This CT examination was performed using dose optimization techniques as appropriate, variously including the following: *Automated exposure control *Adjustment of mA and/or kV according to patient size (this includes techniques or standardized protocols for targeted exams where dose is matched to indication/reason for exam; i.e. extremities or head) *Use of iterative reconstruction technique DLP: 607.26 mGy-cm FINDINGS: Bony calvarium is intact. Skull base is intact. No acute intracranial hemorrhage, mass effect, midline shift, hydrocephalus or herniation. Gardner-white matter differentiation is normal. Bilateral multifocal patchy and confluent deep periventricular white matter involving centrum semiovale and parra radiata. Multifocal old lacunar infarcts, basal ganglia extracapsular and parra radiata white matter. Prominence of the extra-axial CSF spaces cerebral sulci and cerebellar folia and ventricles likely central volume loss. Calcified plaques in the cavernous supracavernous segments both ICA. Mucosal thickening without air-fluid levels in the paranasal sinuses. Tympanic cavities and mastoid cells are aerated. CT/CT head/brain wo IV con IMPRESSION: No acute fracture, bony calvarium. No acute intracranial hemorrhage. Small vessel occlusive disease. Superimposed acute stroke/nonhemorrhagic ischemia cannot be excluded. Global cerebral atrophy. Electronically signed by: Andres George MD 07/31/2024 01:42 PM EST RP Dictated By: Andres Franklin MD Signed By: Electronically signed by Andres Cerrato MD 07/31/24 1342 EXAMINATION: XR CHEST CLINICAL INFORMATION: confusion, weakness, cough COMPARISON: June 26, 2024 TECHNIQUE: Frontal view of the chest was obtained. FINDINGS: Large volume hiatal hernia. No consolidation pleural effusion or pneumothorax. No hyperinflation. Calcified plaque thoracic aorta. Multilevel thoracic and lumbar spondylosis with scoliosis. XR/XR chest 1V IMPRESSION: No acute airspace disease. Hiatal hernia, large volume. Scoliosis. Electronically signed by: Andres George MD 07/31/2024 01:02 PM EST RP Dictated By: Andres Franklin MD Signed By: Electronically signed by Andres Cerrato MD 07/31/24 1302 Vent. Rate: 72 BPM Atrial Rate: 72 BPM P-R Int: 276 ms QRS Dur: 134 ms QT Int: 400 ms P-R-T Axes: 44 -67 112 degrees QTcB Int: 438 ms Sinus rhythm with 1st degree A-V block Left axis deviation Left bundle branch block Referred By: Rose Marie Simons Electronically Signed By: Wayne Todd Dictated By: Wayne Todd MD Signed By: Electronically signed by Wayne Todd MD 07/31/24 1616 Radiology Impression Discussion of test interpretation with radiology: I have reviewed the radiologist's reading. Independent Historian Clinical information obtained from an independent historian. History obtained from or confirmed by: EMS (EMS provided additional history and confirmed the history provided by the patient.) Critical Care Time Critical Care Time Critical Care Time: Yes Total Critical Care Time: 46 Attestation: I spent 46 minutes of Critical Care Time with this patient. This does not include time spent on separately reported billable procedures. Discharge Plan Discharge Clinical Impression: Pulmonary embolism, Hypercalcemia, Esophageal mass Patient Disposition: Admitted As Inpatient Interventions: Admission Worksheet (ED) Last Done: 07/31/24 19:18
--- NOTE | 2024-07-31 11:38 | ECG_ITS ---
Test Reason : WEAKNESS Blood Pressure : */* mmHG Vent. Rate : 72 BPM Atrial Rate : 72 BPM P-R Int : 276 ms QRS Dur : 134 ms QT Int : 400 ms P-R-T Axes : 44 -67 112 degrees QTcB Int : 438 ms Sinus rhythm with 1st degree A-V block Left axis deviation Left bundle branch block Abnormal ECG When compared with ECG of 26-Jun-2024 15:46, Left bundle branch block is now Present Referred By: Rose Marie Simons Electronically Signed By: Wayne Todd
--- NOTE | 2024-07-31 12:39 | PC.NURSE ---
biba from home - daughter reports increased confusion and failure to thrive x a few weeks ago. decreased PO intake. family unable to state baseline. [facility]. pt still reports URI x w/ associated body aches. upon ED arrival - a&ox4. vss and up to date. nsr on the layout designer. 20gIV placed in the left forearm - labs obtained/sent to lab. pt is an extremely difficult stick. this RN as well as tech attempted to obtain rest of blood work but was unsuccessful. PA states she will attempt to place US guided IV. [place] catheter in place. pt/family member seen by ED provider/aware of plan of care moving forward. pt waiting to go to CT at this time. no sob/wob noted. respirations even/unlabored. plan of care ongoing. call doe placed within reach.
--- OUTSIDE RECORDS SUMMARY | 2024-07-31 13:05 | XMS_ITS | Encounter Summary ---
Author Name [facility] [place] Organization [place] Address [address] [place] [id number] Care Team Providers Care Renewable Energy Trader Name Role Phone LEXY MEJÍA Primary Care [...] Policy Huang [facility] Jun 24, 2016 MEDICAR E SUPPLEM E [id number] [place] SudarshanFARHAT PATIENT MEDICARE (WNR) MEDICARE (M) PART A Apr 24, 2005 PART A [id number] [facility] CRIST[place] SudarshanFARHAT PATIENT MEDICARE (WNR) MEDICARE (M) PART B Apr 24, 2005 PART B [id number] [facility] FARHAT CHAVEZ PATIENT Selected Encounter This section includes the information on record at [place] for the Encounter. Date/Time Encounter Type Encounter Description Reason Pro vider Source Jul 24, 2024 01:00 PM Outpatient Encounter PRIMARY CARE/MEDICINE IHE Encounter Template Text not used by [place] Plan of Treatment: Future Appointments (+ 6 months) and Future Tests (+/- 45 days) The Plan of Treatment section includes future care activities for the patient from all [place] [facility] This section includes future appointments and future orders which are active, pending or scheduled. Future Appointments This section includes appointments that were scheduled to occur 6 months from the date of the Encounter, up to a maximum of 20 appointments. The data comes from all [place] treatment facilities. Appointment Date/Time Appointment Type Appointme nt Facility Name Aug 20, 2024 01:00 PM AMBULATORY - NONE [place] Sep 08, 2024 11:30 AM [facility] Active, Pending, and Scheduled Orders This section includes a listing of several types of active, pending, and scheduled orders, including clinic medications orders, diagnostic test orders, procedure orders and consult orders; where the start date of the order is 45 days before the date of the Encounter or 45 days after the date of theEncounter. The data comes from all [place] treatment facilities. Test Date/Time Test Type Test Details Facility Name Jul 26, 2024 01:31 PM Consult Order NUTRITION ASSESSMENT/EDUCATION/SPOP C OUTPT [facility] [place] Jul 26, 2024 01:31 PM Consult Order COMMUNITY CARE-[facility] NON-SKILLED HOME HEALTH AIDE Cons [facility] Jul 29, 2024 05:17 PM Consult Order PROSTHETIC S REQUEST Cons [facility] [place] Vital Signs: All taken on the encounter date This section contains inpatient and outpatient Vital Signs collected on the date of the Encounter. Date/Time Temperature Pulse Blood Pressure Respiratory Rate SP02 Pain Height Weight Body Mass Index Source Jul 24, 2024 01:13 PM 97.9 79 109/79 19 100 66 126 20 [facility] [place] Social History: Smoking Status (Most current) and Tobacco Use (All prior to encounter date) This section includes the most current, and the historical, smoking and tobacco- related health factors from the [place] facility where the Encounter took place. Current Smoking Status This section includes the most current smoking, or tobacco-related health factor, from the [place] facility where the Encounter took place. Date/Time Current Smoking Status Comment Facil ity Jun 04, 2023 01:30 PM VA-TOBACCO FORMER USER [place] Tobacco Use History This section includes a history of the smoking, or tobacco-related health factors, that were collected on or before the date of the Encounter. The data comes from the [place] facility where the Encounter took place. Date/Time Smoking Status/Tobacco Use Comment F acility Jun 04, 2023 01:30 PM VA-TOBACCO QUIT 15 YRS OR MORE [place] May 28, 2022 12:30 PM VA-TOBACCO NEVER USED [place] Jun 15, 2021 01:30 PM VA-TOBACCO NEVER USED [place] Feb 17, 2019 11:39 AM VA-TOBACCO FORMER USER [place] Feb 17, 2019 11:39 AM VA-TOBACCO QUIT 15 YRS OR MORE [place] Advance Directives: All historical and current Section Date Range: From patient's date of to the date document was created. This section includes ALL of a patient's completed or amended VA Advance and Rescinded Directives. The entries below indicate that a directive exists for the patient, but an actual copy is not included with this document. The data comes from all [place] facilities. Date Advance Directives Provider Source Feb 16, 2019 ADVANCE DIRECTIVE PABLO BETTS [place]
--- OUTSIDE RECORDS SUMMARY | 2024-07-31 13:05 | XMS_ITS ---
Author Organization Hay Kessler MD Address [address] [place] [address] [id number] Care Team Providers Care Digital Print Operator Name Role Phone Hay Kessler Primary Care Provider Allergies Allergen (clinical drug ingredient) Drug/Non Drug Allergy documented on EMR Reaction Allergy Type Onset Date Status soy (uncoded) hives Allergy Active peanuts (uncoded) throat closes Allergy Active REASON FOR VISIT COMP EXAM, 07-31-24 Patient is not feeling well, daughter taking him to the ER I was unable to cancelthis. Medications Medication SIG (Take, Route, Frequency, Duration) Notes Start Date End Date Status Glucosamine 500 MG 1 capsule with a srinivas l Orally Three times a day Active Xarelto 20 MG 1 tablet Orally Once a day Active Vitamin D 50 MCG (1999) 1 tablet Oral ly Once a day 02/13/2020 Active Omeprazole 20 MG 1 capsule Orally Onc e a day Active Simvastatin 20 MG take 1 tablet in the evening Orally Once a day Active Encounters Encounter Location Date Provider Diagnosis Hay Kessler MD [address] [place] [phone] 07/31/2024 Hay Kessler Plan Of Treatment No Information Progress Notes * Cyrus ROWELLDOB: [birth year] (84 yo M)Acc No.[id number]:07/31/2024 Patient:?Cyrus ROWELL Provider:?Hay Kessler MD :1940???Age:84 Y???Sex:Male Mor e:07/31/2024 Address:[address] [place] [address] Subjective: * Chief Complaints: * ???1. COMP EXAM. . 07-31-24 P atient is not feeling well, daughter taking him to the ER I was unable to cancel this.. * HPI: ???Depression Screening:?PHQ-9?Little interest or pleasure in doing things?Not at all,?Feeling down, depressed, or hopeless?Not at all,?Trouble falling or staying asleep, or sleeping too much?Not at all,?Feeling tired or having little energy?Not at all,?Poor appetite or overeating?Not at all,?Feeling bad about yourself or that you are a failure, or have let yourself or your family down?Not at all,?Trouble concentrating on things, such as reading the newspaper or watching television?Not at all,?Moving or speaking so slowly that other people could have noticed; or the opposite, being so fidgety or restless that you have been moving around a lot more than usual?Not at all,?Thoughts that you would be better off or of hurting yourself in some way?Not at all,?Total Score?0.?Communication Needs:?Communication Needs?Does the patient have a hearing impairment?No,?Does the patient have a vision impairment??Yes,?If yes, what is the vision impairment??Glasses,?Does the patient have a cognition impairment??No.?Fall Risk:?History?Have you had any falls with injury in the past year??No,?Have you had two or more falls in the past year??No.?SDOH Questions:?SDOH Questions?In the past year have you been worried about losing housing??No,?In the past year have you or any family members you live with been unable to get any of the following when it was really needed? Check all that apply:?None.? * Medical History:?03/2016 Up er Endo and colonoscopy - no need of repeat, 08/03/2020 - Colonoscopy by Dr. Foreman - no need for further testing, Unprovoked pulmonary embolii needs permanent anticoagulan. * Family History:?Father: dece ased 54 yrs.?Mother: 88 yrs.?2 sister(s) . 1 son(s) , 1 daughter(s) . .? Mother- Cardiac Father- Pulmonary 3 deceasd sisters 2 decasd brothers, Denies mental health/substance abuse family history, No pertinent family medical history, No pertinent family medical history. * Social History:?Miscellaneous:?Caffeine: yes. Children: yes. Exercise: yes. Home smoke detector use: yes. Occupation: weeks/months/years. Pets: none. Travel outside of the [place]: no. * Medications:?Taking Glucosam ine 500 MG Capsule 1 capsule with a meal Orally Three times a day , Taking Xarelto 20 MG Tablet 1 tablet Orally Once a day , Taking Vitamin D 50 MCG (2000 UT) Tablet 1 tablet Orally Once a day , Taking Omeprazole 20 MG Capsule Delayed Release 1 capsule Orally Once a day , Taking Simvastatin 20 MG Tablet take 1 tablet in the evening Orally Once a day * Allergies:?Peanuts: Throat C loses, Soy: Hives. Objective: * Vitals:? Assessment: Plan: * Treatment: * * The named appointment provid er may or may not be the originator of this progress note, and it is not deemed complete until electronically signed by the appointment provider. Sign off status: Pending * Provider:?Hay Kessler MD Date:?0 07/31/2024 Generated for Pipo valladares/Sidra/Bhupinderitting on:?07/31/2024 01:04 PM EST History and Physical Notes * HPI (History of Present Illness) Category Sub-Category Detail Notes Category Not es Depression Screening PHQ-9 Little inte rest or pleasure in doing things: Not at all Feeling down, depressed, or hopeless: No t at all Trouble falling or staying asleep, or sl eeping too much: Not at all Feeling tired or having little energy: N ot at all Poor appetite or overeating: Not at all Feeling bad about yourself o r that you are a failure, or have let yourself or your family down: Not at all Trouble concentrating on thi ngs, such as reading the newspaper or watching television: Not at all Moving or speaking so slowly that other people could have noticed; or the opposite, being so fidgety or restless that you have been moving around a lot more than usual: Not at all Thoughts that you would be b angela off or of hurting yourself in some way: Not at all Total Score: 0 SDOH Questions SDOH Questions In the past year have you been worried about losing housing?: No In the past year have you or any family members you live with been unable to get any of the following when it was really needed? Check all that apply:: None Fall Risk History Have you had any falls with injury i n the past year?: No Have you had two or more falls in the year?: No Communication Needs Communication Needs Does the patient have a hearing impairment: No Does the patient have a vision impairmen t?: Yes ?If yes, what is the vision impairment?: Glasses Does the patient have a cognition impair ment?: No
--- OUTSIDE RECORDS SUMMARY | 2024-07-31 13:05 | XMS_ITS | Encounter Summary ---
Author Name [facility] [place] Address [address] [place] [id number] Care Team Providers Care Boot Liner Maker Name Role Phone LEXY MEJÍA Primary Care [...] Policy Huang [facility] MEDICARE SUPPLEMEN [facility] IND Jun 24, 2016 MEDICAR E SUPPLEM E [id number] FARHAT CHAVEZ PATIENT MEDICARE (WNR) MEDICARE (M) PART A Apr 24, 2005 PART A [id number] [facility] FARHAT CHAVEZ PATIENT MEDICARE (WNR) MEDICARE (M) PART B Apr 24, 2005 PART B [id number] [facility] FARHAT CHAVEZ PATIENT Selected Encounter This section includes the information on record at [place] for the Encounter. Date/Time Encounter Type Encounter Description Reason Pro vider Source Jul 24, 2024 01:15 PM Outpatient Encounter PRIMARY CARE/MEDICINE IHE Encounter Template Text not used by [place] Plan of Treatment: Future Appointments (+ 6 months) and Future Tests (+/- 45 days) The Plan of Treatment section includes future care activities for the patient from all [place] [facility]. This section includes future appointments and future orders which are active, pending or scheduled. Future Appointments This section includes appointments that were scheduled to occur 6 months from the date of the Encounter, up to a maximum of 20 appointments. The data comes from all [place] treatment facilities. Appointment Date/Time Appointment Type Appointme nt Facility Name Aug 20, 2024 01:00 PM AMBULATORY - NONE [place] Sep 08, 2024 11:30 AM AMBULATORY - MEDICINE [facility] Active, Pending, and Scheduled Orders This section includes a listing of several types of active, pending, and scheduled orders, including clinic medications orders, diagnostic test orders, procedure orders and consult orders; where the start date of the order is 45 days before the date of the Encounter or 45 days after the date of theEncounter. The data comes from all [place] treatment facilities. Test Date/Time Test Type Test Details Facility Name Jul 26, 2024 01:31 PM Consult Order NUTRITION ASSESSMENT/EDUCATION/SPOP C OUTPT [facility] [place] Jul 26, 2024 01:31 PM Consult Order COMMUNITY CARE-[facility] NON-SKILLED HOME HEALTH AIDE [facility] [place] Jul 29, 2024 05:17 PM Consult Order PROSTHETIC S REQUEST Cons [facility] Social History: Smoking Status (Most current) and Tobacco Use (All prior to encounter date) This section includes the most current, and the historical, smoking and tobacco- related health factors from the [place] facility where the Encounter took place. Current Smoking Status This section includes the most current smoking, or tobacco-related health factor, from the [place] facility where the Encounter took place. Date/Time Current Smoking Status Comment Facil ity Jul 24, 2024 01:15 PM VA-TOBACCO NEVER U SED CIGARETTES [facility] Tobacco Use History This section includes a history of the smoking, or tobacco-related health factors, that were collected on or before the date of the Encounter. The data comes from the [place] facility where the Encounter took place. Date/Time Smoking Status/Tobacco Use Comment F acility Jul 24, 2024 01:15 PM [place]-TOBACCO NEVER U SED OTHER TYPE [facility] Advance Directives: All historical and current Section Date Range: From patient's date of to the date document was created. This section includes ALL of a patient's completed or amended [place] Advance and Rescinded Directives. The entries below indicate that a directive exists for the patient, but an actual copy is not included with this document. The data comes from all [place] facilities. Date Advance Directives Provider Source Feb 16, 2019 ADVANCE DIRECTIVE PABLO BETTS [place] Encounter Notes: All associated encounter notes This section contains the clinical notes associated to the Encounter. Date/Time Encounter Note(s) Provider Source Jul 24, 2024 01:15 PM PREVENTIVE MEDICIN E NURSING NOTE: LOCAL TITLE: CLINICAL REMINDERS/NURSING STANDARD TITLE: PREVENTIVE MEDICINE NURSING NOTE DATE OF NOTE: JUL 24, 2024@13:15 ENTRY DATE: JUL 24, 2024@13:15:09 AUTHOR: CHELLE RUTHERFORD EXP COSIGNER: URGENCY: STATUS: COMPLETED Advance Directive Screen MH AD: Patient has an Advance Directive on file at this [facility]. No updates are needed at this time. The patient received education about Advance Directives and written notification of his/her rights. Suicide Screen: C-SSRS Screening [place] Suicide Severity Rating Scale (C-SSRS) screener 1. [...] required due to responses to other questions. Homelessness/Food Insecurity Screen: In the past 2 [...] Not worried about housing near future The [place] reports the following: Within the past 12 months, you worried whether your food would run out before you got money to buy more. Never true Within the past 12 months, the food you bought just didn't last and you didn't have money to get more. Never true Depression Screening: Perform PHQ-2 A PHQ-2 screen [...] incontinence (ability, voiding, leakage, etc.)? No incontinence. Pneumococcal Conjugate Vaccine (PCV15/PCV20): Refuses PCV vaccine Immunization: PNEUMOCOCCAL CONJUGATE, UNSPECIFIED FORMULATION Refusal Reason: PATIENT DECISION Patient refuses all immunization(s) in the PneumoPCV group Date Documented: 07/24/24 13:16 PTSD Screening: PC-PTSD-5 A PTSD screening test (PC-PTSD-5) was negative (score=0). IN THE PAST MONTH, have you ever had any experience that was so frightening, horrible or traumatic. For example: A serious accident or fire a physical or sexual assault or abuse An earthquake or flood A war Seeing someone be killed or seriously injured Having a loved one through homicide or suicide 1. Have you ever experienced this kind of event? NO 2. Had nightmares about the event(s) or thought about the event(s) when you did not want to? Response not required due to responses to other questions. 3. Tried hard not to think about the event(s) or went out of your way to avoid situations that reminded you of the event(s)? Response not required due to responses to other questions. 4. Been constantly on guard, watchful, or easily startled? Response not required due to responses to other questions. 5. Fitz[place] numb or detached from people, activities, or your surroundings? Response not required due to responses to other questions. 6. [place] guilty or unable to stop blaming yourself or others for the event(s) or any problems the event(s) may have caused? Response not required due to responses to other questions. Tobacco Use Screening: The patient has never smoked cigarettes. The patient has never used other types of tobacco. Influenza Immunization: Deferral / Refusal The patient declines to receive the recommended dose of seasonal influenza vaccine. Immunization: INFLUENZA, UNSPECIFIED FORMULATION Refusal Reason: PATIENT DECISION Patient refuses all immunization(s) in the FLU group Date Documented: 07/24/24 13:17 Alcohol Use Screen (AUDIT-C): Alcohol Screen: SCREEN FOR ALCOHOL (AUDIT-C) An alcohol screening test (AUDIT-C) was positive (score=5). 1. How often did you have a drink containing alcohol in the past year? Consider a drink to be a 12 ounce can or bottle of regular beer, 8 ounces of malt liquor, a 5 ounce glass of table wine, or a 1.5 ounce shot of liquor (like scotch, gin, or vodka). Two to three times per week 2. How many drinks containing alcohol did you have on a typical day when you were drinking in the past year? Three or four drinks 3. How often did you have six or more drinks on one occasion in the past year? Less than monthly COVID-19 Immunization: Refused Moderna Monovalent COVID-19 vaccine Immunization: COVID-19 (MODERNA), MRNA, LNP-S, PF, 50 MCG/0.5 ML (AGES 12+ YEARS) Refusal Reason: PATIENT DECISION Patient refuses all immunization(s) in the COVID-19 group Date Documented: 07/24/24 13:18 Tdap Immunization: The patient declines to receive the recommended dose of Tdap vaccine. Immunization: TDAP Refusal Reason: PATIENT DECISION Patient refuses all immunization(s) in the TDAP group Date Documented: 07/24/24 13:19 Herpes Zoster (Shingles) Vaccine: The patient declines to receive the recommended dose of zoster (shingles) vaccine. Immunization: ZOSTER RECOMBINANT Refusal Reason: PATIENT DECISION Patient refuses all immunization(s) in the ZOSTER group Date Documented: 07/24/24 13:19 RSV Immunization: Respiratory Syncytial Virus (RSV) Vaccine: Refused Klipfolio (Abrysvo, RSVpreF vaccine). Immunization: RSV, BIVALENT, PROTEIN SUBUNIT RSVPREF, DILUENT RECONSTITUTED, 0.5 ML, PF Refusal Reason: PATIENT DECISION Patient refuses all immunization(s) in the RSV group Date Documented: 07/24/24 13:19 Sexual Orientation: The patient thinks of their sexual orientation as: Straight or Heterosexual RHS Screen: RHS Screen Session Format: Face to Face Environmental Check Screening was not completed at this time due to: Another adult present /es/ JEREMY RUTHERFORD LPN LPN Signed: 07/24/2024 13:20 JEREMY RUTHERFORD [place]
--- OUTSIDE RECORDS SUMMARY | 2024-07-31 13:05 | XMS_ITS | Encounter Summary ---
Author Name [facility] Organization [facility] Address [address] [place] [address] Care Team Providers Care Advice Nurse Name Role Phone LEXY MEJÍA Primary Care [...] Policy Huang [facility] Jun 24, 2016 MEDICAR E SUPPLEM E [id number] FARHAT CHAVEZ PATIENT MEDICARE (WNR) MEDICARE (M) PART A Apr 24, 2005 PART A [id number] [facility] FARHAT CHAVEZ PATIENT MEDICARE (WNR) MEDICARE (M) PART B Apr 24, 2005 PART B [id number] FARHAT CHAVEZ PATIENT Selected Encounter This section includes the information on record at OR for the Encounter. Date/Time Encounter Type Encounter Description Reason Provider Source Jul 27, 2024 10:50 AM PH1 ASSMT&MGMT NQHP 5-10 TELEPHONE CASE MANAGEMENT ICD-10-CM Z71.0 Prsn encntr hlth serv to consult on behalf of another person DYLLANEMIRFRANCK D [facility] Encounter Template Text not used by OR Assessments - Encounter Diagnoses This section includes the primary and secondary diagnoses documented for the Encounter. Date/Time Primary/Secondary Diagnosis Diagnosis Name Provider Source Jul 27, 2024 10:50 AM PRIMARY Prsn encntr hlth serv to consult on behalf of another person DYLLANFRANCK [place] [facility] Jul 27, 2024 10:50 AM SECONDARY Counseling, unspecified DYLLANFRANCK D [facility] Plan of Treatment: Future Appointments (+ 6 months) and Future Tests (+/- 45 days) The Plan of Treatment section includes [facility] care activities for the [facility] This section includes future appointments and future orders which are active, pending or scheduled. Future Appointments This section includes appointments that were scheduled to occur 6 months from the date of the Encounter, up to a maximum of 20 appointments. The data comes from all [place] treatment facilities. Appointment Date/Time Appointment Type Appointme nt Facility Name Aug 20, 2024 01:00 PM AMBULATORY - NONE [facility] Sep 08, 2024 11:30 AM AMBULATORY - MEDICINE [facility] Active, Pending, and Scheduled Orders This section includes a listing of several types of active, pending, and scheduled orders, including clinic medications orders, diagnostic test orders, procedure orders and consult orders; where the start date of the order is 45 days before the date of the Encounter or 45 days after the date of theEncounter. The data comes from all [place] treatment facilities. Test Date/Time Test Type Test Details Facility Name Jul 26, 2024 01:31 PM Consult Order NUTRITION ASSESSMENT/EDUCATION/SPOP C OUTPT Cons Tap Out [facility] Jul 26, 2024 01:31 PM Consult Order [facility] NON-SKILLED HOME HEALTH AIDE Cons Tap Out Operator's [facility] Jul 29, 2024 05:17 PM Consult Order PROSTHETIC S REQUEST Cons Tap Out Operator's [facility] Social History: Smoking Status (Most current) and Tobacco Use (All prior to encounter date) This section includes the most current, and the historical, smoking and tobacco- related health factors from the OR facility where the Encounter took place. Current Smoking Status This section includes the most current smoking, or tobacco-related health factor, from the OR facility where the Encounter took place. Date/Time Current Smoking Status Comment Sushil ity Jul 24, 2024 01:15 PM VA-TOBACCO NEVER U SED CIGARETTES [facility] Tobacco Use History This section includes a history of the smoking, or tobacco-related health factors, that were collected on or before the date of the Encounter. The data comes from the OR facility where the Encounter took place. Date/Time Smoking Status/Tobacco Use Comment F acility Jul 24, 2024 01:15 PM VA-TOBACCO NEVER U SED OTHER TYPE [facility] Advance Directives: All historical and current Section Date Range: From patient's date of to the date document was created. This section includes ALL of a patient's completed or amended OR Advance and Rescinded Directives. The entries below indicate that a directive exists for the patient, but an actual copy is not included with this document. The data comes from all OR facilities. Date Advance Directives Provider Source Feb 16, 2019 ADVANCE DIRECTIVE PABLO BETTS [facility] Encounter Notes: All associated encounter notes This section contains the clinical notes associated to the Encounter. Date/Time Encounter Note(s) Provider Source Jul 27, 2024 10:50 AM SOCIAL WORK NOTE: LOCAL TITLE: SOCIAL WORK NOTE STANDARD TITLE: SOCIAL WORK NOTE DATE OF NOTE: JUL 27, 2024@10:50 ENTRY DATE: JUL 27, 2024@10:50:31 AUTHOR: FRANCK [place]NA[place] EXP COSIGNER: URGENCY: STATUS: COMPLETED SOCIAL WORK NOTE Has ADDENDA ADALBERTO reached out to to review consult for connection with in-home services including Meals on Wheels services. ADALBERTO attempted to reach out to cell phone number and primary number listed. Voicemail for primary number is listed for Kandi . ADALBERTO left a general voicemail message with contact information for return call. /[email or web address]/ GHULAM Dinh, [employer] Manager [employer] Signed: 07/27/2024 11:00 07/28/2024 ADDENDUM STATUS: COMPLETED SW received voicemail from 's daughter (auth) Kandi. Kandi discussed that lives alone and is a fall risk. Kandi stated that she would like for home health aide services to be assist daily. ADALBERTO reviewed information on local elder services agency, [facility] Meals on Wheels program. ADALBERTO provided contact information for [facility] to Kandi for follow up. ADALBERTO reviewed that home health aide consult is also in place for . Plan is for Kandi to contact [facility] regarding Meals on Wheels program for [place]. /[email or web address]/ Franck [place]. GHULAM [place], [facility] Manager Aviation Signed: 07/28/2024 11:22 FRANCK CA[place]DA [place]
--- OUTSIDE RECORDS SUMMARY | 2024-07-31 13:06 | XMS_ITS | Continuity of Care Document ---
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 It does not include entries that were removed or entered in error. Problem Status Onset Date Problem Type Date of Resolution Comments Source H/O: pulmonary embolus Active 01/10/20 24 Condition May 30, 2024 Entered By: LEXY MEJÍA Comment: 2018[facility] 2023 Entered By: LEXY MEJÍA Comment: 05/30/24 still on [facility] Bilateral hearing loss Active Condition Jul 24, 2024 Entered By: LEXY MEJÍA Comment: b/l aids KENOSHA GERD - Gastro-Esophageal Reflux Disease ([facility] [id number]) [facility] ([facility] [id number]) [facility] Long-term current use of anticoagulant Active Condition May 30, 2024 Entered By: LEXY MEJÍA Comment: [facility] ([id number]) Screening for malignant neoplasm of colon done Active Condition Jul 15, 2008 Entered By: RYLEY RITTER Comment: colonoscopy 2007 1 polyp, repeat 2013Sep 2018 Entered By: DEREK FOWLER Comment: Last scope (2014) clear. 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 Diagnosis: ICD-10-CM M62.81 Muscle weakness (generalized) Active Diagnosis [facility] [place] [facility] Diagnosis: ICD-10-CM Z71.0 Prsn encntr hlth serv to consult on behalf of another person Active Diagnosis [facility] Diagnosis: ICD-10-CM E78.5 Hyperlipidemia, unspecified Active Diagnosis KENOSHA Diagnosis: ICD-10-CM Z51.81 Encounter for therapeutic drug level monitoring Active Diagnosis [facility] [place] [facility] Medications Combined list of outpatient medications from Department of Defense and Veterans Affairs facilities.Medications provided include 1) outpatient medications from the last 15 months, and 2) patient-reported medications. Medication Details Route Status Patient Instructions Prescription Expires Prescription Number Last Dispense Date Ordering Provider Order Date Order Qty Source ALBUTEROL 90MCG/ACTUA T (CFC-F) INHL,ORAL,8 .5GM DOSE COUNTER INHALE 1 TO 2 PUFFS BY MOUTH EVERY 8 HOURS NEEDED FOR [place]ON[place]OS PASM RESPIR ATORY (INHAL ATION) ACTIVE 07/25/2025 [id number] Ishmael MEJÍA 2024 3 [place] ENSURE PLUS LIQUID CHOCOLATE DRINK 1 CAN BY MOUTH ONCE DAILY FOR NUTRITIO NAL SUPPLEME NTATION ORAL HOLD 07/27/2025 [id number] 5 Ishmael MEJÍA 2024 24 [place] ENSURE PLUS LIQUID STRAWBERRY DRINK ONE CAN BY MOUTH ONCE DAILY FOR NUTRITIO NAL SUPPLEME NTATION ORAL HOLD 07/27/2025 [id number] 5 Ishmael MEJÍA 2024 24 [place] ENSURE PLUS LIQUID VANILLA DRINK 1 CAN BY MOUTH ONCE DAILY FOR NUTRITIO NAL SUPPLEME NTATION ORAL ACTIVE 07/27/2025 [id number] 5 Ishmael MEJÍA 2024 24 [place] FISH OIL 1000MG (500MG DHA/EPA) CAP,ORAL TAKE 1 CAPSULE BY MOUTH EVERY DAY ORAL ACTIVE RYLEY RITTER [place] MULTIVITAMI NS W/MINERALS TAB TAKE ONE TABLET BY MOUTH EVERY DAY ORAL ACTIVE RYLEY RITTER [place] OMEPRAZOLE 20MG CAP,EC TAKE ONE CAPSULE BY MOUTH EVERY MORNING 30 MINUTES BEFORE BREAKFAS T ORAL 06/04/2024 [id number] 3 SNOW SIM RMLUPE F 2022 90 [place] RIVAROXABAN 20MG TAB TAKE ONE TABLET BY MOUTH ONCE DAILY WITH FOOD ORAL ACTIVE 06/14/2025 [id number] 5 Ishmael MEJÍA 2024 90 [place] RIVAROXABAN 20MG TAB TAKE ONE TABLET BY MOUTH ONCE DAILY WITH FOOD ORAL DISCONT INUED 02/06/2025 [id number] 4 SNOW SIM F 2023 90 [facility] IELD RIVAROXABAN 20MG TAB TAKE ONE TABLET BY MOUTH ONCE DAILY WITH FOOD ORAL DISCONT INUED 02/03/2024 [id number] 4 SNOW SIM F 2023 90 [facility] IELD RIVAROXABAN 20MG TAB TAKE ONE TABLET BY MOUTH ONCE DAILY WITH FOOD ORAL DISCONT INUED 09/04/2023 [id number] 4 SNOW SIM F 2023 90 [facility] IELD RIVAROXABAN 20MG TAB TAKE ONE TABLET BY MOUTH ONCE DAILY WITH FOOD ORAL DISCONT INUED 09/02/2023 [id number] 3 SNOW SIM F 2022 90 [facility] IELD SIMVASTATIN 20MG TAB TAKE ONE TABLET BY MOUTH ONCE DAILY FOR CHOLESTE ROL ORAL ACTIVE 06/14/2025 [id number] 5 Ishmael MEJÍA 2024 90 [facility] IELD SIMVASTATIN 20MG TAB TAKE ONE TABLET BY MOUTH ONCE DAILY FOR CHOLESTE ROL ORAL DISCONT INUED 02/06/2025 [id number] 4 [place] SIM F 2023 90 [facility] IELD SIMVASTATIN 20MG TAB TAKE ONE TABLET BY MOUTH ONCE DAILY FOR CHOLESTE ROL ORAL DISCONT INUED 02/03/2024 [id number] 4 [place] SIM F 2023 90 [facility] IELD SIMVASTATIN 20MG TAB TAKE ONE TABLET BY MOUTH ONCE DAILY FOR CHOLESTE ROL ORAL DISCONT INUED 09/02/2023 [id number] 4 SNOW SIM F 2023 90 [facility] IELD Allergies, Adverse Reactions, Alerts Combined list of allergies from Department of Defense and Veterans Affairs facilities. It does not include entries that were removed or entered in error. Substance Category Reaction Severity Reaction type Status Date Reported Comments Source [place] Propensity to adverse reactions to substance (finding) Urticaria , Wheezing active 9 [facility] [place] Propensity to adverse reactions to substance (finding) active 9 [facility] Immunizations Combined list of available immunizations from the Department of Defense and Veterans Affairs facilities. Immunization Series Date Given Administered By Site Reaction Lot Number CVX Code Drug Public Health Veterinarian Status Comments Source COVID-19 (MODERNA), MRNA, LNP-S, PF, 100 MCG OR 50 MCG DOSE 2 2020 207 complet ed [facility] COVID-19 (MODERNA), MRNA, LNP-S, PF, 100 MCG OR 50 MCG DOSE 1 2020 207 [facility] Results Combined list of recent chemistry, hematology and other laboratory results from Department of Defense and Veterans Affairs, ranging from 15 months to all on record, depending upon the facility. Order Name Results Value Reference Range Date Interpretation Specimen Comments Source CREATININ E (eGFR 2020) CREATININE [MASS/VOLUM E] IN SERUM OR PLASMA 0.75 mg/dL 0.50 - 1.40 09/24 Specimen Type: SERUM No comment entered. Ordering Provider: ANNIE SIM Report Released Date/Time: Sep 13, 2023 01:43 PM Reporting Lab: [address] [address] Performing Lab: [address] [address] [place] CREATININ E (eGFR 2020) GLOMERULAR FILTRATION RATE/1.73 SQ M.PREDICTED [VOLUME RATE/AREA] IN SERUM, PLASMA OR BLOOD BY CREATININE- BASED FORMULA (CKD-EPI 2020) 89 mL/min 60 09/24 Specimen Type: SERUM No comment entered. Ordering Provider: ANNIE SIM Report Released Date/Time: Sep 13, 2023 01:43 PM Reporting Lab: [address] [address] Performing Lab: [address] [address] [place] CBC AND DIFF (AUTO) LEUKOCYTES [#/VOLUME] IN BLOOD BY AUTOMATED COUNT 5.58 10*3/u L 4.50 - 11.00 09/24 Specimen Type: BLOOD No comment entered. Ordering Provider: ANNIE SIM Report Released Date/Time: Sep 13, 2023 01:43 PM Reporting Lab: [facility] [address] [address] Performing Lab: [facility] [address] [place] CBC AND DIFF (AUTO) ERYTHROCYTE S [#/VOLUME] IN BLOOD BY AUTOMATED COUNT 4.16 10*6/u L 4.23 - 5.66 09/24 L Specimen Type: BLOOD No comment entered. Ordering Provider: ANNIE SIM Report Released Date/Time: Sep 13, 2023 01:43 PM Reporting [facility] [address] [address] Performing Lab: [facility] [address] [place] CBC AND DIFF (AUTO) HEMOGLOBIN [MASS/VOLUM E] IN BLOOD 13.0 g/dL 12.8 - 17 09/24 Specimen Type: BLOOD No comment entered. Ordering Provider: ANNIE SIM Report Released Date/Time: Sep 13, 2023 01:43 PM Reporting Lab: [facility] [address] [address] Performing Lab: [facility]ENTERUSE[address] [address] [place] CBC AND DIFF (AUTO) HEMATOCRIT [VOLUME FRACTION] OF BLOOD BY AUTOMATED COUNT 38.7 39.2 - 50.4 09/24 L Specimen Type: BLOOD No comment entered. Ordering Provider: ANNIE SIM Report Released Date/Time: Sep 13, 2023 01:43 PM Reporting [facility]: [facility] [address] [address] Performing Lab: [facility]ENTER[facility] [address] [place] CBC AND DIFF (AUTO) MCV [ENTITIC VOLUME] BY AUTOMATED COUNT 93.0 fL 82 - 99 09/24 Specimen Type: BLOOD No comment entered. Ordering Provider: ANNIE SIM Report Released Date/Time: Sep 13, 2023 01:43 PM Reporting Lab: [facility] [address] [address] Performing Lab: [facility] [address] [place] CBC AND DIFF (AUTO) MCHC [MASS/VOLUM E] BY AUTOMATED COUNT 33.6 g/dL 30.8 - 35.1 09/24 Specimen Type: BLOOD No comment entered. Ordering Provider: ANNIE SIM Report Released Date/Time: Sep 13, 2023 01:43 PM Reporting Lab: [facility] [address] [address] Performing Lab: [facility]ITAL[facility]ENTERUSETS [address] [address] [place] CBC AND DIFF (AUTO) PLATELETS [#/VOLUME] IN BLOOD BY AUTOMATED COUNT 230 10*3/u L 140 - 360 09/24 Specimen Type: BLOOD No comment entered. Ordering Provider: ANNIE SIM Report Released Date/Time: Sep 13, 2023 01:43 PM Reporting Lab: [facility] [address] [address] Performing Lab: [facility]ITAL[facility] TRN [facility]ENTERUSETS [address] [address] [place] CBC AND DIFF (AUTO) ERYTHROCYTE DISTRIBUTIO N WIDTH [RATIO] BY AUTOMATED COUNT 12.2 12.0 - 16.0 09/24 Specimen Type: BLOOD No comment entered. Ordering Provider: ANNIE SIM Report Released Date/Time: Sep 13, 2023 01:43 PM Reporting Lab: [facility] [address] Performing Lab: [facility]N [facility]ENTERUSE[address] [address] [place] CBC AND DIFF (AUTO) MONOCYTES [#/VOLUME] IN BLOOD BY AUTOMATED COUNT 0.44 10*3/u L 0.30 - 1.10 09/24 Specimen Type: BLOOD No comment entered. Ordering Provider: ANNIE SIM Report Released Date/Time: Sep 13, 2023 01:43 PM Reporting Lab: [facility] [place] [address] [address] Performing Lab: [facility] [place] [address] [address] [place] CBC AND DIFF (AUTO) MCH [ENTITIC MASS] BY AUTOMATED COUNT 31.3 pg 26.2 - 32.6 09/24 Specimen Type: BLOOD No comment entered. Ordering Provider: ANNIE SIM Report Released Date/Time: Sep 13, 2023 01:43 PM Reporting Lab: [facility] [place] [address] [address] Performing Lab: [facility] [place] [address] [address] [place] CBC AND DIFF (AUTO) NEUTROPHILS /100 LEUKOCYTES IN BLOOD BY AUTOMATED COUNT 52.1 43.7 - 75.8 09/24 Specimen Type: BLOOD No comment entered. Ordering Provider: ANNIE SIM Report Released Date/Time: Sep 13, 2023 01:43 PM Reporting Lab: [facility] [place] [address] [address] Performing Lab: [facility] [place] [address] [address] [place] CBC AND DIFF (AUTO) LYMPHOCYTES /100 LEUKOCYTES IN BLOOD BY AUTOMATED COUNT 35.5 14.0 - 42.3 09/24 Specimen Type: BLOOD No comment entered. Ordering Provider: ANNIE SIM Report Released Date/Time: Sep 13, 2023 01:43 PM Reporting Lab: [facility] [place] [address] [address] Performing Lab: [facility] [place] [address] [address] [place] CBC AND DIFF (AUTO) MONOCYTES/1 00 LEUKOCYTES IN BLOOD BY AUTOMATED COUNT 7.9 5.1 - 13.7 09/24 Specimen Type: BLOOD No comment entered. Ordering Provider: ANNIE SIM Report Released Date/Time: Sep 13, 2023 01:43 PM Reporting Lab: [facility]ENTER[facility] [address] [address] Performing Lab: [facility] [address] [address] [place] CBC AND DIFF (AUTO) EOSINOPHILS /100 LEUKOCYTES IN BLOOD BY AUTOMATED COUNT 3.0 0.4 - 6.8 09/24 Specimen Type: BLOOD No comment entered. Ordering Provider: ANNIE SIM Report Released Date/Time: Sep 13, 2023 01:43 PM Reporting Lab: [facility]ENTER[facility] [address] Performing Lab: [facility]ENTER[facility]ETS [address] [address] [place] CBC AND DIFF (AUTO) BASOPHILS/1 00 LEUKOCYTES IN BLOOD BY AUTOMATED COUNT 1.1 0.1 - 2.0 09/24 Specimen Type: BLOOD No comment entered. Ordering Provider: ANNIE SIM Report Released Date/Time: Sep 13, 2023 01:43 PM Reporting Lab: [facility]ENTER[facility] [address] [address] Performing Lab: [facility]ENTER[facility] [address] [address] [place] CBC AND DIFF (AUTO) NEUTROPHILS [#/VOLUME] IN BLOOD BY AUTOMATED COUNT 2.91 10*3/u L 2.20 - 7.60 09/24 Specimen Type: BLOOD No comment entered. Ordering Provider: ANNIE SIM Report Released Date/Time: Sep 13, 2023 01:43 PM Reporting Lab: [facility]ENTER[facility] [address] [address] Performing Lab: [facility]ENTER[facility] [address] [address] [place] CBC AND DIFF (AUTO) LYMPHOCYTES [#/VOLUME] IN BLOOD BY AUTOMATED COUNT 1.98 10*3/u L 1.00 - 3.20 09/24 Specimen Type: BLOOD No comment entered. Ordering Provider: ANNIE SIM Report Released Date/Time: Sep 13, 2023 01:43 PM Reporting Lab: [facility]ITALTRN [facility]ENTERUSE[address] [address] Performing Lab: [facility]ITALRL TRN [facility]ENTERUSE[address] [address] [place] CBC AND DIFF (AUTO) EOSINOPHILS [#/VOLUME] IN BLOOD BY AUTOMATED COUNT 0.17 10*3/u L 0.03 - 0.44 09/24 Specimen Type: BLOOD No comment entered. Ordering Provider: ANNIE SIM Report Released Date/Time: Sep 13, 2023 01:43 PM Reporting Lab: [facility]ITALTR[facility] [address] [address] Performing Lab: [facility]OSPITALRL [facility]ENTERUSE[address] [address] [place] CBC AND DIFF (AUTO) BASOPHILS [#/VOLUME] IN BLOOD BY AUTOMATED COUNT 0.06 10*3/u L 0.01 - 0.13 09/24 Specimen Type: BLOOD No comment entered. Ordering Provider: ANNIE SIM Report Released Date/Time: Sep 13, 2023 01:43 PM Reporting Lab: [facility]ITALTRN [facility]ENTER[facility] [address] Performing Lab: [facility]ITALTRN [facility]ENTER[facility] [address] [place] CBC AND DIFF (AUTO) IMMATURE GRANULOCYTE S/100 LEUKOCYTES IN BLOOD BY AUTOMATED COUNT 0.4 0.0 - 0.7 09/24 Specimen Type: BLOOD No comment entered. Ordering Provider: ANNIE SIM Report Released Date/Time: Sep 13, 2023 01:43 PM Reporting Lab: [facility]ITALTRN [facility]ENTER[facility] [address] Performing Lab: [facility]ITAL[facility] [place] [facility] [address] [address] [place] CBC AND DIFF (AUTO) IMMATURE GRANULOCYTE S [#/VOLUME] IN BLOOD 0.02 10*3/u L 0.00 - 0.06 09/24 Specimen Type: BLOOD No comment entered. Ordering Provider: ANNIE SIM Report Released Date/Time: Sep 13, 2023 01:43 PM Reporting Lab: [facility] [place] [facility] [address] [address] Performing Lab: [facility]OS[facility]ITALTRN [facility]ENTERUSETS [facility] [address] [address] [place] CREATININ E (eGFR 2020) CREATININE [MASS/VOLUM E] IN SERUM OR PLASMA 0.75 mg/dL 0.50 - 1.40 03/14 Specimen Type: SERUM No comment entered. Ordering Provider: GIGI CAMPOVERDE Report Released Date/Time: Mar 01, 2023 01:28 PM Reporting Lab: [facility] [place] [facility] [address] [address] Performing Lab: [facility]OSPITALRL TRN [facility]ENTERUSEMONTEFI[facility] [address] [address] [facility]ENTERUSE [facility] CREATININ E (eGFR 2020) GLOMERULAR FILTRATION RATE/1.73 SQ M.PREDICTED [VOLUME RATE/AREA] IN SERUM, PLASMA OR BLOOD BY CREATININE- BASED FORMULA (CKD-EPI 2020) 90 mL/min 60 03/14 Specimen Type: SERUM No comment entered. Ordering Provider: GIGI CAMPOVERDE Report Released Date/Time: Mar 01, 2023 01:28 PM Reporting Lab: [facility] [place] [facility] [address] [address] Performing Lab: [facility]OSPITALRHILL [facility] SERVICESN [facility]ENTERUSE[address] [address] [facility]ENTERUSE [facility] CBC LEUKOCYTES [#/VOLUME] IN BLOOD BY AUTOMATED COUNT 5.47 10*3/u L 4.50 - 11.00 03/14 Specimen Type: BLOOD No comment entered. Ordering Provider: GIGI CAMPOVERDE Report Released Date/Time: Mar 01, 2023 01:28 PM Reporting Lab: [facility] [place] [facility] [address] [address] Performing Lab: [facility] [place] [facility] [address] [address] [facility] [place] [facility] CBC ERYTHROCYTE S [#/VOLUME] IN BLOOD BY AUTOMATED COUNT 4.58 10*6/u L 4.23 - 5.66 03/14 Specimen Type: BLOOD No comment entered. Ordering Provider: GIGI CAMPOVERDE Report Released Date/Time: Mar 01, 2023 01:28 PM Reporting Lab: [facility] [place] [facility] [address] [address] Performing Lab: [facility] [place] [facility] [address] [address] [facility] [place] [facility] CBC HEMOGLOBIN [MASS/VOLUM E] IN BLOOD 14.2 g/dL 12.8 - 17 03/14 Specimen Type: BLOOD No comment entered. Ordering Provider: GIGI CAMPOVERDE Report Released Date/Time: Mar 01, 2023 01:28 PM Reporting Lab: [facility] [place] [facility] [address] [address] Performing Lab: [facility] [place] [facility] [address] [address] [facility] [place] [facility] CBC HEMATOCRIT [VOLUME FRACTION] OF BLOOD BY AUTOMATED COUNT 43.2 39.2 - 50.4 03/14 Specimen Type: BLOOD No comment entered. Ordering Provider: GIGI CAMPOVERDE Report Released Date/Time: Mar 01, 2023 01:28 PM Reporting Lab: [facility] [place] [facility] [address] [address] Performing Lab: [facility] [place] [facility] [address] [place] [address] [facility] [place] [facility] CBC MCV [ENTITIC VOLUME] BY AUTOMATED COUNT 94.3 fL 82 - 99 03/14 Specimen Type: BLOOD No comment entered. Ordering Provider: GIGI CAMPOVERDE Report Released Date/Time: Mar 01, 2023 01:28 PM Reporting Lab: [facility] [place] [facility] [address] [address] Performing Lab: [facility] [place] [facility] [address] [address] [facility] [place] [facility] CBC MCHC [MASS/VOLUM E] BY AUTOMATED COUNT 32.9 g/dL 30.8 - 35.1 03/14 Specimen Type: BLOOD No comment entered. Ordering Provider: GIGI CAMPOVERDE Report Released Date/Time: Mar 01, 2023 01:28 PM Reporting Lab: [facility] [place] [facility] [address] [address] Performing Lab: [facility] [place] [address] [address] [facility] [place] [facility] CBC PLATELETS [#/VOLUME] IN BLOOD BY AUTOMATED COUNT 208 10*3/u L 140 - 360 03/14 Specimen Type: BLOOD No comment entered. Ordering Provider: GIGI CAMPOVERDE Report Released Date/Time: Mar 01, 2023 01:28 PM Reporting Lab: [facility] [place] [facility] [address] [address] Performing Lab: [facility] [place] [facility] [address] [address] [facility] [place] [facility] CBC ERYTHROCYTE DISTRIBUTIO N WIDTH [RATIO] BY AUTOMATED COUNT 12.9 12.0 - 16.0 03/14 Specimen Type: BLOOD No comment entered. Ordering Provider: GIGI CAMPOVERDE Report Released Date/Time: Mar 01, 2023 01:28 PM Reporting Lab: [facility] [place] [facility] [address] [address] Performing Lab: [facility] [place] [facility] [address] [address] [facility] [place] [facility] CBC MCH [ENTITIC MASS] BY AUTOMATED COUNT 31.0 pg 26.2 - 32.6 03/14 Specimen Type: BLOOD No comment entered. Ordering Provider: GIGI CAMPOVERDE Report Released Date/Time: Mar 01, 2023 01:28 PM Reporting Lab: [facility] [place] [address] [address] Performing Lab: [facility] [place] [address] [address] [facility] [place] [facility] CREATININ E (eGFR 2020) CREATININE [MASS/VOLUM E] IN SERUM OR PLASMA 0.71 mg/dL 0.50 - 1.40 08/01 Specimen Type: SERUM No comment entered. Ordering Provider: JACQUE ESTRELLA Report Released Date/Time: Jul 23, 2022 10:35 AM Reporting Lab: [facility]ITALRL [facility]N [facility]ENTERUSE[address] [address] Performing Lab: [facility] CENTERUSETS [address] [address] [facility] [place] [facility] CREATININ E (eGFR 2020) GLOMERULAR FILTRATION RATE/1.73 SQ M.PREDICTED [VOLUME RATE/AREA] IN SERUM, PLASMA OR BLOOD BY CREATININE- BASED FORMULA (CKD-EPI) >90mL/ min 60 08/01 Specimen Type: SERUM No comment entered. Ordering Provider: JACQUE ESTRELLA Report Released Date/Time: Jul 23, 2022 10:35 AM Reporting Lab: [facility] [place] [address] [address] Performing Lab: [facility] [place] [address] [address] [facility] [place] [facility] CBC LEUKOCYTES [#/VOLUME] IN BLOOD BY AUTOMATED COUNT 4.33 10*3/u L 4.50 - 11.00 08/01 L Specimen Type: BLOOD No comment entered. Ordering Provider: JACQUE ESTRELLA Report Released Date/Time: Jul 23, 2022 10:35 AM Reporting Lab: [facility] [place] [facility] [address] [address] Performing Lab: [facility] [place] [facility] [address] [address] [facility] [place] [facility] CBC ERYTHROCYTE S [#/VOLUME] IN BLOOD BY AUTOMATED COUNT 4.78 10*6/u L 4.23 - 5.66 08/01 Specimen Type: BLOOD No comment entered. Ordering Provider: JACQUE ESTRELLA Report Released Date/Time: Jul 23, 2022 10:35 AM Reporting Lab: [facility] [place] [facility] [address] [address] Performing Lab: [facility] [place] [facility] [address] [address] [facility] [place] [facility] CBC HEMOGLOBIN [MASS/VOLUM E] IN BLOOD 15.1 g/dL 12.8 - 17 08/01 Specimen Type: BLOOD No comment entered. Ordering Provider: JACQUE ESTRELLA Report Released Date/Time: Jul 23, 2022 10:35 AM Reporting Lab: [facility] [place] [facility] [address] [address] Performing Lab: [facility] [place] [facility] [address] [address] [facility] [place] [facility] CBC HEMATOCRIT [VOLUME FRACTION] OF BLOOD BY AUTOMATED COUNT 44.6 39.2 - 50.4 08/01 Specimen Type: BLOOD No comment entered. Ordering Provider: JACQUE ESTRELLA Report Released Date/Time: Jul 23, 2022 10:35 AM Reporting Lab: [facility] [place] [facility] [address] [address] Performing Lab: [facility] [place] [facility] [address] [address] [facility] [place] [facility] CBC MCV [ENTITIC VOLUME] BY AUTOMATED COUNT 93.3 fL 82 - 99 08/01 Specimen Type: BLOOD No comment entered. Ordering Provider: JACQUE ESTRELLA Report Released Date/Time: Jul 23, 2022 10:35 AM Reporting Lab: [facility] [address] [address] Performing Lab: [facility] [address] [address] [facility] CBC MCHC [MASS/VOLUM E] BY AUTOMATED COUNT 33.9 g/dL 30.8 - 35.1 08/01 Specimen Type: BLOOD No comment entered. Ordering Provider: JACQUE ESTRELLA Report Released Date/Time: Jul 23, 2022 10:35 AM Reporting Lab: [facility] [address] [address] Performing Lab: [facility] [address] [address] [place] [facility] CBC PLATELETS [#/VOLUME] IN BLOOD BY AUTOMATED COUNT 175 10*3/u L 140 - 360 08/01 Specimen Type: BLOOD No comment entered. Ordering Provider: JACQUE ESTRELLA Report Released Date/Time: Jul 23, 2022 10:35 AM Reporting Lab: [facility] [address] [address] Performing Lab: [facility] [address] [address] [facility] CBC ERYTHROCYTE DISTRIBUTIO N WIDTH [RATIO] BY AUTOMATED COUNT 12.7 12.0 - 16.0 08/01 Specimen Type: BLOOD No comment entered. Ordering Provider: JACQUE ESTRELLA Report Released Date/Time: Jul 23, 2022 10:35 AM Reporting Lab: [facility] [address] [address] Performing Lab: [facility] [address] [address] [facility] CBC MCH [ENTITIC MASS] BY AUTOMATED COUNT 31.6 pg 26.2 - 32.6 08/01 Specimen Type: BLOOD No comment entered. Ordering Provider: JACQUE ESTRELLA Report Released Date/Time: Jul 23, 2022 10:35 AM Reporting Lab: [facility] [address] [address] Performing Lab: [facility] [address] [address] [facility] Vital Signs Combined list of inpatient and outpatient Vital Signs from Department of [facility] and [facility], ranging from 12 months to all on record, depending upon the facility. Vital Sign Value Date Comments Source SYSTOLIC BLOOD PRESSURE 109 07/24/2024 13:13:02 [place] DIASTOLIC BLOOD PRESSURE 79 07/24/2024 13:13:02 [place] PULSE OXIMETRY 100 07/24/2024 13:13:02 [place] WEIGHT 126 07/24/2024 13:13:02 [place] BMI 20 kg/m2 07/24/2024 13:13:02 [place] HEIGHT 66 07/24/2024 13:13:02 [place] TEMPERATURE 97.9 07/24/2024 13:13:02 [place] PULSE 79 07/24/2024 13:13:02 [place] RESPIRATION 19 07/24/2024 13:13:02 [place] Encounters Combined list of: 1) Encounters from Department of Veterans Affairs facilities going backup to the last 18 months, not all [place] inpatient encounters are included; 2) Encounters from the Department of [facility] facilities going backup to 280 months. Location Location Details Encounter Type Encounter Number Reason For Visit Attending Provider ADM Date DC Date Status Disposition Source [facility] QNHP OL DIG ASSMT&MGMT 5-10 [id number] Diagnos is: ICD-10- CM Z51.81 Encount er for therape utic drug level monitor KATHLEEN Irwin ISTINE F 03/01 [facility] OFFICE O/P EST MOD 30-39 MIN [id number] Diagnos is: ICD-10- CM E78.5 Hyperli pidemia , unspeci fied STELEA,CAR MEN F 06/04 [place] [facility] Out[facility] Encounter [id number] 06/04 [facility] En[facility] [id number] 06/06 [facility] Encounter [id number] 09/08 [facility] En[facility] [id number] 11/03 [facility] En[facility] [id number] 02/02 [facility] [place] Outpatient Encounter [id number] 06/03 [place] [facility] Encounter [id number] 06/03 [facility] En[facility] [id number] 06/11 [facility] [place] Outpatient [facility]counter [id number] 07/24 [place] [facility] Encounter [id number] 07/24 [facility] PH1 ASSMT&MGMT NQHP 5-10 [id number] Diagnos is: ICD-10- CM Z71.0 Prsn encntr hlth serv to consult on behalf of another person FRANCK MIJARES 07/27 [facility] [place] PH1 ASSMT&MGMT NQHP 5-10 [id number] Diagnos is: ICD-10- CM Z71.0 Prsn encntr hlth serv to consult on behalf of another person FRANCK MIJARES 07/28 [facility] [place] [facility] Outpatient Encounter [id number] TIMOTHY RANDHAWA 07/29 [facility] PH1 ASSMT&MGMT NQHP 11-20 [id number] Diagnos is: ICD-10- CM M62.81 Muscle weaknes s (genera lized) EDGARE LEANDRA BOB 07/29 [place] [facility] [place] [facility] Outpatient Encounter [id number] 07/31 [place] [facility] [place] [facility] Social History Combined list of available smoking, tobacco, and other social history from Department of Defense and Veterans Affairs facilities. Social History Type Response Date Comment Sourc e Tobacco smoking status AZIS VA-TOBACCO NEVER USED CIGARETTES 07/24/2024 [place] [facility] [place] [facility] History of tobacco [facility] 07/24/2024 [place] [facility] [place] [facility] History of tobacco use VA-TOBACCO FORMER US[facility] History of tobacco use VA-TOBACCO NEVER USED 05/28/2022 [facility] History of tobacco use VA-TOBACCO NEVER USED 06/15/2021 [facility] History of tobacco [facility] 15 YRS OR MORE 02/17/2019 [place] Plan of Care List of future care activities from [facility] facilities. Additional future care activities may be listed in the Assessment and Plan section. Date/Time Care Activity Care Activity Detail Sushili shagufta 08/20/2024 AMBULATORY - NONE AMBULATORY - NONE CHRISTY RUDD 09/08/2024 AMBULATORY - MEDICINE AMBULATORY - MEDICI KELLEY [place] 07/26/2024 Consult Order NUTRITION ASSESS MENT/EDUCATION/SPOPC OUTPT [facility]'sony Pereyra [place] 07/26/2024 Consult Order COMMUNITY CARE-G EC NON-SKILLED HOME HEALTH AIDE [facility]'s Roddy [place] Advance Directives List of completed, amended, or rescinded Advance Directives on record at [facility] facilities. An actual copy of the Directive is not included. Date Advance Directive Provider Source 02/16/2019 ADVANCE DIRECTIVE PABLO BETTS [place]
--- OUTSIDE RECORDS SUMMARY | 2024-07-31 13:06 | XMS_ITS | Encounter Summary ---
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 Date/Time Encounter Type Encounter Description Reason Provider Source Jul 28, 2024 11:22 AM PH1 ASSMT&MGMT NQHP 5-10 TELEPHONE CASE MANAGEMENT ICD-10-CM Z71.0 Prsn encntr hlth serv to consult on behalf of another person FRANCK MIJARES IHE Encounter Template Text not used by [facility] Assessments - Encounter Diagnoses This section includes the primary and secondary diagnoses documented for the Encounter. Date/Time Primary/Secondary Diagnosis Diagnosis Name Provider Source Jul 28, 2024 11:22 AM PRIMARY Prsn encntr hlth serv to consult on behalf of another person DYLLANEMIRFRANCK D NU Jul 28, 2024 11:22 AM SECONDARY Counseling, unspecified FRANCK MIJARES [place] Plan of Treatment: Future Appointments (+ 6 months) and Future Tests (+/- 45 days) The Plan of Treatment section includes future care activities for the patient from all [place] treatmentfacilities. This section includes future appointments and future orders which are active, pending or scheduled. Future Appointments This section includes appointments that were scheduled to occur 6 months from the date of the Encounter, up to a maximum of 20 appointments. The data comes from all [place] treatment facilities. Appointment Date/Time Appointment Type Appointme nt Facility Name Aug 20, 2024 01:00 PM AMBULATORY - NONE [facility] Sep 08, 2024 11:30 AM AMBULATORY - MEDICINE [facility] Active, Pending, and Scheduled Orders This section includes a listing of several types of active, pending, and scheduled orders, including clinic medications orders, diagnostic test orders, procedure orders and consult orders; where the start date of the order is 45 days before the date of the Encounter or 45 days after the date of theEncounter. The data comes from all [place] treatment facilities. Test Date/Time Test Type Test Details Facility Name Jul 26, 2024 01:31 PM Consult Order NUTRITION ASSESSMENT/EDUCATION/SPOP C OUTPT [facility] [place] Jul 26, 2024 01:31 PM Consult Order COMMUNITY CARE-GEC NON-SKILLED HOME HEALTH AIDE [facility] [place] Jul 29, 2024 05:17 PM Consult Order PROSTHETIC S REQUEST [facility] Social History: Smoking Status (Most current) and Tobacco Use (All prior to encounter date) This section includes the most current, and the historical, smoking and tobacco- related health factors from the [place] facility where the Encounter took place. Current Smoking Status This section includes the most current smoking, or tobacco-related health factor, from the [place] facility where the Encounter took place. Date/Time Current Smoking Status Comment Facil ity Jun 04, 2023 01:30 PM VA-TOBACCO FORMER USER [place] Tobacco Use History This section includes a history of the smoking, or tobacco-related health factors, that were collected on or before the date of the Encounter. The data comes from the [place] facility where the Encounter took place. Date/Time Smoking Status/Tobacco Use Comment F acility Jun 04, 2023 01:30 PM VA-TOBACCO QUIT 15 YRS OR MORE [place] May 28, 2022 12:30 PM VA-TOBACCO NEVER USED [place] Jun 15, 2021 01:30 PM VA-TOBACCO NEVER USED [place] Feb 17, 2019 11:39 AM VA-TOBACCO FORMER USER [place] Feb 17, 2019 11:39 AM VA-TOBACCO QUIT 15 YRS OR MORE [place] Advance Directives: All historical and current Section [...] Feb 16, 2019 ADVANCE DIRECTIVE PABLO BETTS [place] Encounter Notes: All associated encounter notes This section contains the clinical notes associated to the Encounter. Date/Time Encounter Note(s) Provider Source Jul 28, 2024 11:23 AM SOCIAL WORK CONSUL T: [facility] TITLE: CONSULT REPORT/SOCIAL WORK STANDARD TITLE: SOCIAL WORK CONSULT DATE OF NOTE: JUL 28, 2024@11:23 ENTRY DATE: JUL 28, 2024@11:23:30 AUTHOR: FRANCK MIJARES EXP COSIGNER: URGENCY: STATUS: COMPLETED SW received voicemail from [place]'s daughter (annita) Kandi. Kandi discussed that [place] lives alone and is a fall risk. Kandi stated that she would like for home health aide services to be assist [place] daily. ADALBERTO reviewed information on local elder services agency, [facility]. [facility]. ADALBERTO reviewed that home health aide consult is also in place for [place]. Plan is for Kandi to contact [facility] regarding Meals on Wheels program for . /chilango/ GHULAM Dinh, [facility] Life [employer] Signed: 07/28/2024 11:26 FRANCK MIJARES [place]
--- OUTSIDE RECORDS SUMMARY | 2024-07-31 13:06 | XMS_ITS ---
Author Name [facility] [place] Address [address] [place] [address] Care Team Providers Care Locker Operator Name Role Phone LEXY MEJÍA Primary Care [...] Policy Huang [facility] Jun [facility], 2016 MEDICAR E SUPPLEM E [id number] FARHAT CHAVEZ PATIENT MEDICARE (WNR) MEDICARE (M) PART A Apr 24, 2005 PART A [id number] [facility] FARHAT CHAVEZ PATIENT MEDICARE (WNR) MEDICARE (M) PART B Apr 24, 2005 PART B [id number] FARHAT CHAVEZ PATIENT Selected Encounter This section includes the information on record at [place] for the Encounter. Date/Time Encounter Type Encounter Description Reason Provider Source Jul 29, 2024 05:15 PM PH1 ASSMT&MGMT NQHP 11-20 TELEPHONE/REHAB AND SUPPORT ICD-10-CM M62.81 Muscle weakness (generalized) EDGARYAMILETH IHE Encounter Template Text not used by [place] Assessments - Encounter Diagnoses This section includes the primary and secondary diagnoses documented for the Encounter. Date/Time Primary/Secondary Diagnosis Diagnosis Name Provider Source Jul 29, 2024 05:15 PM PRIMARY Muscle weakness (generalized) YAMILETH [facility] Plan of Treatment: Future Appointments (+ 6 months) and Future Tests (+/- 45 days) The Plan of Treatment section includes future care activities for the patient from all [place] [facility] This section includes future appointments and future orders which are active, pending or scheduled. Future Appointments This section includes appointments that were scheduled to occur 6 months from the date of the Encounter, up to a maximum of 20 appointments. The data comes from all [place] treatment facilities. Appointment Date/Time Appointment Type Appointme nt Facility Name Jul 30, 2024 08:00 AM AMBULATORY - MEDICINE [facility] Aug 20, 2024 01:00 PM AMBULATORY - NONE [facility] Sep 08, 2024 11:30 AM AMBULATORY - MEDICINE [facility] Active, Pending, and Scheduled Orders This section includes a listing of several types of active, pending, and scheduled orders, including clinic medications orders, diagnostic test orders, procedure orders and consult orders; where the start date of the order is 45 days before the date of the Encounter or 45 days after the date of theEncounter. The data comes from all [place] treatment facilities. Test Date/Time Test Type Test Details Facility Name Jul 26, 2024 01:31 PM Consult Order NUTRITION ASSESSMENT/EDUCATION/SPOPC OUTPT Cons [facility] [employer] Jul 26, 2024 01:31 PM Consult Order COMMUNITY CARE-GEC NON-SKILLED HOME HEALTH AIDE Cons [facility] [employer] Social History: Smoking Status (Most current) and Tobacco Use (All prior to encounter date) This section includes the most current, and the historical, smoking and tobacco- related health factors from the [place] facility where the Encounter took place. Current Smoking Status This section includes the most current smoking, or tobacco-related health factor, from the [place] facility where the Encounter took place. Date/Time Current Smoking Status Chas cornell Jul 24, 2024 01:15 PM VA-TOBACCO NEVER U SED CIGARETTES [facility] Tobacco Use History This section includes a history of the smoking, or tobacco-related health factors, that were collected on or before the date of the Encounter. The data comes from the [place] facility where the Encounter took place. Date/Time Smoking Status/Tobacco Use Comment Hollie foreman Jul 24, 2024 01:15 PM VA-TOBACCO NEVER U SED OTHER TYPE [facility] Advance Directives: All historical and current Section Date Range: From patient's date of to the date document was created. This section includes ALL of a patient's completed or amended [place] Advance and Rescinded Directives. The entries below indicate that a directive exists for the patient, but an actual copy is not included with this document. The data comes from all [place] facilities. Date Advance Directives Provider Source Feb 16, 2019 ADVANCE DIRECTIVE PABLO BETTS [place] Encounter Notes: All associated encounter notes This section contains the clinical notes associated to the Encounter. Date/Time Encounter Note(s) Provider Source Jul 29, 2024 05:17 PM OCCUPATIONAL MEDIC INE CONSULT: LOCAL TITLE: CONSULT REPORT/OCCUPATIONAL THERAPY STANDARD TITLE: OCCUPATIONAL MEDICINE CONSULT DATE OF NOTE: JUL 29, 2024@17:17 ENTRY DATE: JUL 29, 2024@17:18:01 AUTHOR: PAUL EDGAR COSIGNER: LEXY MEJÍA URGENCY: STATUS: COMPLETED Date of note: 07/29/2024 Length of call: 13' Diagnosis: Muscle Weakness (Generalized)(ICD-10-CM M62.81) Provider: LEXY MEJÍA S: [place] was called to discuss DME PCP ordered for . O: is in need of a shower bench secondary to muscular weakness , it has become hard for to lift his legs over the tub. [place] was educated about the shower bench and he stated his son can help him put the bench together. weighs 126 pounds and this equipment can accommodate 300 pounds. A: [place] will benefit from this equipment as it will decrease potential for falls and improve his energy conservation with self-care. shower bench will be mailed to veterans home from the [facility] prosthetic dept. P; Mail shower bench to veterans home. /chilango/ LEONCIO CALLAHAN OCCUPATION POT ROOM TAPPER Signed: 07/29/2024 17:28 /es/ JANELLE SALAS CERTIFIED NURSE PRACTITIONER Cosigned: 07/30/2024 08:00 Receipt Acknowledged By: 07/30/2024 11:03 /chilango/ Erika Cui, MS OTR/L, CHT Occupational Therapist [facility]
--- OUTSIDE RECORDS SUMMARY | 2024-07-31 13:06 | XMS_ITS | Patient Health Record ---
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 Name Role Phone Wero Kessler Primary Care Provider Allergies Allergen (clinical drug ingredient) Drug/Non Drug Allergy documented on EMR Reaction Allergy Type Onset Date Status soy (uncoded) hives Allergy Active peanuts (uncoded) throat closes Allergy Active Results Component Value Reference Range Notes Liver Panel Reviewed date:11/29/2023 03:40:46 PM Interpretation: Performing Lab:[facility], [address] [place] [address] Notes/Report: Bilirubin Total 1.0 0.0-1.0 mg/dL Bilirubin Direct 0.4 0.0-0.5 mg/dL Aspartate Amino Transferase 21 5-37 U/L Alanine Aminotransferase 7 0-40 U/L Total Protein 7.0 6.5-8.0 g/dL Albumin Level 4.0 3.5-5.0 g/dL Alkaline Phosphatase 52 39-117 U/L Lipid Panel Reviewed date:11/29/2023 03:41:38 PM Interpretation: Performing Lab:[facility], [address] [place] [address] Notes/Report: Triglycerides 47 <150 mg/dL Desirable Triglyceride: [...] ff Reviewed date:09/19/2023 12:48:25 PM Interpretation: Performing Lab:[facility], [address] [place] [address] Notes/Report: White Blood Count 7.8 4.8-10.8 X10*3/uL [...] INR Reviewed date:09/19/2023 12:48:06 PM Interpretation: Performing Lab:[address] [address] Notes/Report: Prothrombin Time 18.2 11.1-13.3 SEC INTERNATIONAL [...] Time Reviewed date:09/19/2023 12:42:24 PM Interpretation: Performing Lab:[facility], [address] [place] [address] Notes/Report: Partial Thromboplastin Time 36.6 26.0-36.8 SEC For information regarding the monitoring of direct thrombin inhibitors, please refer to Pharmacy. Comprehensive Met. Panel Reviewed date:09/19/2023 04:57:45 PM Interpretation: Performing Lab:[address] [address] Notes/Report: Sodium 142 135-145 mmol/L Potassium 3.7 [...] Glomerular Filt Rate > 60 NOTE: For -Mexican individuals, multiply the result by 1.210. Chronic [...] Blood Reviewed date:09/19/2023 04:58:29 PM Interpretation: Performing Lab:[address] [address] Notes/Report: Glucose, Whole Blood 126 60-115 mg/dL METER # : [id number] Complete Blood Count Auto Di ff Reviewed date:06/18/2024 12:34:46 PM Interpretation: Performing Lab:[facility], [address] [place] [address] Notes/Report: White Blood Count 7.5 4.8-10.8 X10*3/uL [...] Panel Reviewed date:06/18/2024 11:05:52 AM Interpretation: Performing Lab:[facility], [address] [place] [phone] Notes/Report: Sodium 142 135-145 mmol/L Potassium 4.5 [...] Acid Reviewed date:06/16/2024 04:14:47 PM Interpretation: Performing Lab:[facility], [address] [place] [address] Notes/Report: Lactic Acid 3.9 0.5-2.0 mmol/L Critical value for test(s): LACTA Results called to and read back by: ARSALAN Person calling:KUSF Date: 56-32-44Icpw:1535 Magnesium Reviewed date:06/18/2024 11:05:12 AM Interpretation: Performing Lab:[facility], [address] [place] [phone] Notes/Report: Magnesium 1.9 1.6-2.6 mg/dL Troponin-I High Sensitivity Reviewed date:06/16/2024 04:20:18 PM Interpretation: Performing Lab:[facility], [address] [place] [address] Notes/Report: Troponin-I High Sensitivity < 2.7 <3.5-35.0 ng/L The Patricia high sensitivity Troponin-I results should be used in conjunction with other diagnostic information such as ECG, clinical observations and information, and patient symptoms to aid in the diagnosis of [place]. B Type Natriuretic Peptide Reviewed date:06/19/2024 04:45:15 PM Interpretation: Performing Lab:[facility], [address] [place] [address] Notes/Report: B Type Natriuretic Peptide <100 pg/mL Test Result Units Ref Int B-Type Natriuretic 93.4 pg/Ml 0.0 ? 100.0 Peptide Method: Siemens ADVIA Centaur XP Test performed by: [employer] [address] Director: Dena Barriga MD For those patients who are being treated with Natrecor (nesiritide, recombinant BNP), BNP testing should be performed at least two hours post treatment in order to ensure that only endogenous levels of BNP are detected. Procalcitonin Reviewed date:06/18/2024 11:03:47 AM Interpretation: Performing Lab:[facility], [address] [place] [phone] Notes/Report: Procalcitonin 0.02 Procalcitonin (PCT) Reference Range: [...] results from different laboratories and methodologies. References: [place] [employer]/Society of Critical Care [...] 510(k) substantial equivalence determination decision summary for [facility] PCT JORDY. http://www.accessdata .fda.fov/cdr_docs/re views/[email or web address].pdf. Published June 2004. Accessed November 2016. SARS-CoV2/FLU/RSV Reviewed date:06/18/2024 11:03:30 AM Interpretation: Performing Lab:[facility], [address] [place] [phone] Notes/Report: Influenza A PCR NEGATIVE Negative Influenza [...] by authorized laboratories. Testing performed on the Team [employer] GeneXpert utilizing real-time RT-PCR. All SARS CoV2 and positive influenza A/B results are reported to [facility]. Blood Culture (First) Reviewed date:06/23/2024 04:39:39 PM Interpretation: Performing Lab:[address] [address] Notes/Report: Blood Culture (First) No growth after 5 days. Blood Culture (Second) Reviewed date:06/23/2024 04:42:44 PM Interpretation: Performing Lab:[address] [address] Notes/Report: Blood Culture (Second) No growth after 5 days. Lactic Acid-LAB USE ONLY Reviewed date:06/18/2024 10:42:34 AM Interpretation: Performing Lab:[address] [address] Notes/Report: Lactic Acid-LAB USE ONLY 4.5 0.5-2.0 mmol/L Critical value for test(s): LACTA Results called to and read back by: AUREA Person calling:IVAN Date:06-16-24 Time:1805 Venous Blood Gases - POC Reviewed date:06/16/2024 04:14:31 PM Interpretation: Performing Lab:[address] [address] Notes/Report: VBG pH 7.43 7.32-7.43 METER #: [id number] additional_comment: Cb rogalt VBG pCO2 46 METER #: [id number] additional_comment: Cb rogalt VBG pO2 39 METER #: [id number] additional_comment: Cb rogalt VBG Base Excess 6.0 METER #: [id number] additional_comment: Cb rogalt VBG HCO3 31 22-26 mmol/L METER #: [id number] additional_comment: Cb rogalt VBG O2 % Saturation 63.0 METER #: [id number] additional_comment: Cb rogalt Lactic Acid-LAB USE ONLY Reviewed date:06/18/2024 10:42:26 AM Interpretation: Performing Lab:[facility], [address] [place] [address] Notes/Report: Lactic Acid-LAB USE ONLY 8.5 0.5-2.0 mmol/L Critical LACTIC sent by a secure message and confirmed by CARMEN ERIC 06-16-242049Tech:[facility] CT angio chest PE protocol Reviewed date:06/18/2024 10:44:19 AM Interpretation: Performing Lab: Notes/Report: [facility] [address] [place] [address] CT Scan Report Signed Patient: Cyrus Camarena MR#: [id number] : 1940 Acct:[id number] Age/Sex: 84 / M ADM Date: 06/16/24 Loc: HO.ED Attending Dr: Ordering Physician: Kajal Bonilla MD Date of Service: 06/16/24 Procedure(s): CT angio chest PE protocol Accession Number(s): [id number] cc: Wero Kessler MD; Kajal Bonilla MD [...] Alex Canada MD 06/16/2024 05:45 PM EST Dictated By: Alex Canada MD Signed By: <Electronically signed by Alex Canada MD in OV> 06/16/24 1745 DD/ 1604 TD/TT: 06/16/24 1628 Drafter Topographical: [place] [address] CT Scan Report Signed Patient: Cyrus Camarena MR#: [id number] : 1940 Acct:[id number] Age/Sex: 84 / M ADM Date: 06/16/24 Loc: HO.ED Attending Dr: Ordering Physician: Kajal Bonilla MD Date of Service: 06/16/24 Procedure(s): CT ang io chest PE protocol Accession Number(s): [id number] cc: Wero Kessler MD; Kajal Bonilla MD EXAMINATION: CT ANGIOGRAM CHEST CLINICAL INFORMATION: Shortness of breath COMPARISON: 12/20/2018 TECHNIQUE: Multiple axial image s were obtained through the chest after the administration of 65 mL of Omnipaque 350 intravenous contrast. Extensive vascular post-processing including two-dimensional and three-dimensional reformatted images were created and reviewed on an independent workstation. This CT examination was performed using dose optimization techniques as appropriate, various ly including the following: *Automated exposure control *Adjustment of mA and/or kV according to patient size (this includes techniques or standardized protocols for targeted exams where dose is matched to indication/reason for exam; i.e. extremities or head) *Use of iterative reconstruction technique DLP: 245 mGy-cm FINDINGS: Pulmonary arteries a re prominent consistent pulmonary hypertension. There is no evidence of acute or chronic pulmonary embolism. Thoracic aorta is within norm al limits. Extensive coronary artery calcifications. Advanced emphysemato us changes are noted particularly upper lung zones hyperinflation. No discrete lesion. There is a large hernia involving the stomach which is essentially upside down displace d into the posterior mediastinum. 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 No gastric outlet obstruction or inflammatory changes. No pleural disease. Minor dependent atelectasis. Hepatic granulomata. No acute osseous abnormality. CT/CT angio chest PE protocol IMPRESSION: 1. No evidence of acute or chronic pulmonary embolism. 2. Advanced COPD. 3. 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 Fleischner guideline s were followed. Electronically kulwinder d by: Alex Canada MD 06/16/2024 05:45 PM EST Dictated By: Jay Jay Canada MD Signed By: <Electronically signed by Alex Canada MD in OV> 06/16/24 1745 DD/ 1604 TD/TT: 06/16/24 1628 Drafter Topographical: [place] XR chest 2V Reviewed date:06/16/2024 04:19:39 PM Interpretation: Performing Lab: Notes/Report: [place] [address] XRay Report Signed Patient: Cyrus Camarena MR#: [id number] : 1940 Acct:[id number] Age/Sex: 84 / M ADM Date: 06/16/24 Loc: HO.ED Attending Dr: Ordering Physician: Raisa Diaz Date of Service: 06/16/24 Procedure(s): XR chest 2V Accession Number(s): [id number] cc: Wero Kessler MD; Raisa Diaz EXAMINATION: [...] 06/16/24 1432 DD/ 1405 TD/TT: 06/16/24 1413 Drafter Topographical: [address] [address] XRay Report Signed Patient: Cyrus Camarena MR#: [id number] : 1940 Acct:[id number] Age/Sex: 84 / M ADM Date: 06/16/24 Loc: .ED Attending Dr: Ordering Physician: Raisa Diaz Date of Service: 06/16/24 Procedure(s): XR tamra st 2V Accession Number(s): [id number] cc: Wero Kessler MD; Raisa Diaz EXAMINATION: [...] no pneumothorax or pleural effusion. Trace linear scarrin g lingular distribution. Scattered calcified granulomata. There is no focal osseous or soft tissue abnormality. XR/XR chest 2V IMPRESSION: 1. COPD. Evidence of prior granulomatous disease. 2. No active superimposed lung disease. 3. Hiatus hernia. 4. Heavy vascular calcification. Electronically kulwinder d by: Grant Berrios MD 06/16/2024 02:32 PM EST RP Dictated By: Grant Berrios MD Signed By: <Electronically signed by Grant Berrios MD in OV> 06/16/24 1432 DD/ 1405 TD/TT: 06/16/24 1413 Drafter Topographical: Complete Blood Count no Diff Reviewed date:06/18/2024 12:29:49 PM Interpretation: Performing Lab:[facility], [address] [place] [phone] Notes/Report: White Blood Count 8.0 4.8-10.8 X10*3/uL [...] Panel Reviewed date:06/18/2024 11:05:33 AM Interpretation: Performing Lab:[facility], [address] [place] [address] Notes/Report: Sodium 137 135-145 mmol/L Potassium 4.2 [...] Acid Reviewed date:06/18/2024 10:42:19 AM Interpretation: Performing Lab:[address] [address] Notes/Report: Lactic Acid 6.2 0.5-2.0 mmol/L Critical value for test(s):LACTA Results called to and read back by:HOWARD Person calling:DMITRI Date: [id number] Time:35 Lactic Acid-LAB USE ONLY Reviewed date:06/18/2024 10:14:21 AM Interpretation: Performing Lab:[address] [address] Notes/Report: Lactic Acid-LAB USE ONLY 4.0 0.5-2.0 mmol/L Critical [LACTIC] sent by a secure message and confirmed by ( [place] [id number] @ [facility]) Tech:MONTSERRAT Venous Blood Gases - POC Reviewed date:06/18/2024 10:42:11 AM Interpretation: Performing Lab:[facility], [address] [place] [address] Notes/Report: VBG pH 7.41 7.32-7.43 METER #: [id number] additional_comment: ADI Delgado VBG pCO2 39 METER #: [id number] additional_comment: ADI Delgado VBG pO2 52 METER #: [id number] additional_comment: ADI Delgado VBG Base Excess 0.8 METER #: [id number] additional_comment: ADI Delgado VBG HCO3 25 22-26 mmol/L METER #: [id number] additional_comment: ADI Delgado VBG O2 % Saturation 79.0 METER #: [id number] additional_comment: ADI Delgado Lactic Acid-LAB USE ONLY Reviewed date:06/18/2024 10:14:31 AM Interpretation: Performing Lab:[address] [address] Notes/Report: Lactic Acid-LAB USE ONLY 2.3 0.5-2.0 mmol/L Critical [LACTA] sent by a secure message and confirmed by ( [place] [id number] @ 1768) Tech:VYASRID Cancel Lactic Acid Reviewed date:06/18/2024 10:44:32 AM Interpretation: Performing Lab:[facility], [address] [place] [address] Notes/Report: Cancel Lactic Acid Canceled Cancel Lactic Acid Reviewed date:06/18/2024 10:44:41 AM Interpretation: Performing Lab:[facility], [address] [place] [address] Notes/Report: Cancel Lactic Acid Canceled Complete Blood Count Auto Di ff Reviewed date:06/28/2024 06:30:57 PM Interpretation: Performing Lab:[facility], [address] [place] [address] Notes/Report: veins blow easily veins blow easily White Blood Count 5.6 4.8-10.8 X10*3/uL Red Blood Count 5.28 4.60-5.80 X10*6/uL Hemoglobin 16.3 14.0-18.0 g/dl Hematocrit 48.4 42.0-52.0 % Mean Corpuscular Volume 91.7 80.0-98.0 fL Mean Corpuscular Hemoglobin 30.9 27.0-33.0 pg Mean Corpuscular HGB Conc 33.7 31.0-36.0 g/dl Red Cell Distribution Width 14.4 11.0-16.0 % Platelet Count 153 160-400 X10*3/uL Mean Platelet Volume 10.4 9.4-12.4 fL Neutrophils Percent Auto 64.4 45-73 % Imm Gran Pct Auto 0.5 0.0-0.4 % Lymphocytes Percent Auto 23.8 20-40 % Monocytes Percent Auto 8.5 2-11 % Eosinophils Percent Auto 1.6 0-4 % Basophils Percent Auto 1.2 0-2 % NRBC Pct Auto 0.7 0.0-0.2 /100WBC Neutrophils Absolute Auto 3.6 2.0-8.3 x10*3/u L Imm Gran Abs Auto 0.03 0.00-0.03 X10*3/uL Lymphocytes Absolute Auto 1.3 1.2-4.9 X10*3/u L Monocytes Absolute Auto 0.5 0.1-1.2 X10*3/uL Eosinophils Absolute Auto 0.1 0.0-0.4 X10*3/u L Basophils Absolute Auto 0.1 0.0-0.2 X10*3/uL NRBC Abs Auto 0.040 0.0-0.012 X10*3/uL White Blood Count 5.6 4.8-10.8 X10*3/uL Red Blood Count 5.28 4.60-5.80 X10*6/uL Hemoglobin 16.3 14.0-18.0 g/dl Hematocrit 48.4 42.0-52.0 % Mean Corpuscular Volume 91.7 80.0-98.0 fL Mean Corpuscular Hemoglobin 30.9 27.0-33.0 pg Mean Corpuscular HGB Conc 33.7 31.0-36.0 g/dl Red Cell Distribution Width 14.4 11.0-16.0 % Platelet Count 153 160-400 X10*3/uL Mean Platelet Volume 10.4 9.4-12.4 fL Neutrophils Percent Auto 64.4 45-73 % Imm Gran Pct Auto 0.5 0.0-0.4 % Lymphocytes Percent Auto 23.8 20-40 % Monocytes Percent Auto 8.5 2-11 % Eosinophils Percent Auto 1.6 0-4 % Basophils Percent Auto 1.2 0-2 % NRBC Pct Auto 0.7 0.0-0.2 /100WBC Neutrophils Absolute Auto 3.6 2.0-8.3 x10*3/u L Imm Gran Abs Auto 0.03 0.00-0.03 X10*3/uL Lymphocytes Absolute Auto 1.3 1.2-4.9 X10*3/u L Monocytes Absolute Auto 0.5 0.1-1.2 X10*3/uL Eosinophils Absolute Auto 0.1 0.0-0.4 X10*3/u L Basophils Absolute Auto 0.1 0.0-0.2 X10*3/uL NRBC Abs Auto 0.040 0.0-0.012 X10*3/uL CORRECTED REPORT CORRECTED REPORT Prothrombin Time INR Reviewed date:06/26/2024 04:51:02 PM Interpretation: Performing Lab:[facility], [address] [place] [phone] Notes/Report: veins blow easily Prothrombin Time 11.7 10.9-12.4 SEC INTERNATIONAL NORM RATIO 1.0 0.9-1.1 INTERNATIONAL NORMALIZED RATIO (INR) REFERENCE RANGES [...] mechanical prosthetic heart valves: 2.5 - 3.5 Comprehensive Met. Panel Reviewed date:06/26/2024 04:51:29 PM Interpretation: Performing Lab:[facility], [address] [place] [phone] Notes/Report: veins blow easily Sodium 136 135-145 mmol/L Potassium 4.3 3.3-5.1 mmol/L Chloride 104 96-108 mmol/L Carbon Dioxide 22 22-29 mmol/L Anion Gap 14 12-20 Blood Urea Nitrogen 13 9-16 mg/dL Creatinine 0.69 0.5-1.4 mg/dL Creatinine Clr Calc Pharmacy 71.5 eGFR (calculated from the MDRD study equation) and eCrCl (calculated from the Cockcroft-Gault equation) are based on different parameters and may not yield comparable results. If eCrCl result is absurd, please check patient's height/weight. Estimated Glomerular Filt Rate > 60 Chronic Kidney Disease: Estimated GFR < 60 mL/min/1.73m2 Severe Kidney Disease: Estimated GFR < 15 mL/min/1.73m2 Glucose Random 83 60-115 mg/dL Calcium 9.5 8.4-10.2 mg/dL Bilirubin Total 0.5 0.0-1.0 mg/dL Aspartate Amino Transferase 31 5-37 U/L Alanine Aminotransferase 13 0-40 U/L Total Protein 7.5 6.5-8.0 g/dL Albumin Level 3.7 3.5-5.0 g/dL Alkaline Phosphatase 89 39-117 U/L Troponin-I High Sensitivity Reviewed date:06/26/2024 04:50:19 PM Interpretation: Performing Lab:[facility], [address] [place] [address] Notes/Report: veins blow easily Troponin-I High Sensitivity 3.4 <3.5-35.0 ng/L The Patricia high sensitivity Troponin-I results should be used in conjunction with other diagnostic information such as ECG, clinical observations and information, and patient symptoms to aid in the diagnosis of [place]. B Type Natriuretic Peptide Reviewed date:06/26/2024 04:50:53 PM Interpretation: Performing Lab:[facility], [address] [place] [address] Notes/Report: veins blow easily B Type Natriuretic Peptide 61 <100 pg/mL For those patients who are being treated with Natrecor (nesiritide, recombinant BNP), BNP testing should be performed at least two hours post treatment in order to ensure that only endogenous levels of BNP are detected. SLIDE REVIEW Reviewed date:06/28/2024 06:21:23 PM Interpretation: Performing Lab:[facility], [address] [place] [phone] Notes/Report: veins blow easily SLIDE REVIEW VERIFIED SARS-CoV2/FLU/RSV Reviewed date:06/26/2024 01:56:07 PM Interpretation: Performing Lab:[facility], [address] [place] [phone] Notes/Report: veins blow easily Influenza A PCR POSITIVE Negative Influenza B PCR NEGATIVE Negative Resp [...] by authorized laboratories. Testing performed on the [employer] GeneXpert utilizing real-time RT-PCR. All SARS CoV2 and positive influenza A/B results are reported to [facility]. Venous Blood Gases - POC Reviewed date:06/26/2024 04:48:19 PM Interpretation: Performing Lab:[facility], [address] [place] [address] Notes/Report: VBG pH 7.46 7.32-7.43 METER #: [id number] additional_comment: Cb smithvi VBG pCO2 32 METER #: [id number] additional_comment: Cb smithvi VBG pO2 75 METER #: [id number] additional_comment: Cb smithvi VBG Base Excess 0.7 METER #: [id number] additional_comment: Cb smithvi VBG HCO3 23 22-26 mmol/L METER #: [id number] additional_comment: Cb larryvi VBG O2 % Saturation 97.0 METER #: [id number] additional_comment: Adi tello Hold Green Gel Reviewed date:06/28/2024 06:21:15 PM Interpretation: Performing Lab:[facility], [address] [place] [phone] Notes/Report: Hold Green Gel See Note Specimen held untested for 24 hours; Call to request Chemistry testing. XR chest 2V Reviewed date:06/26/2024 02:59:07 PM Interpretation: Performing Lab: Notes/Report: [address] [address] XRay Report Signed Patient: Cyrus Camarena MR#: [id number] : 1940 Acct:[id number] Age/Sex: 84 / M ADM Date: 06/26/24 Loc: HO.ED Attending Dr: Ordering Physician: Ivanna Henson NP Date of Service: 06/26/24 Procedure(s): XR chest 2V Accession Number(s): [id number] cc: Wero Kessler MD; Ivanna Henson NP [...] by: Mason Shine MD 06/26/2024 01:13 PM EST RP Dictated By: Mason Shine MD Signed By: <Electronically signed by Mason Shine MD in OV> 06/26/24 1313 DD/ 1240 TD/TT: 06/26/24 1246 Drafter Topographical: [address] [address] XRay Report Signed Patient: Cyrus Camarena MR#: [id number] : 1940 Acct:[id number] Age/Sex: 84 / M ADM Date: 06/26/24 Loc: .ED Attending Dr: Ordering Physician: Ivanna Henson NP Date of Service: 06/26/24 Procedure(s): XR tamra st 2V Accession Number(s): [id number] cc: Wero Kessler MD; Ivanna Henson NP EXAMINATION: XR CHEST CLINICAL INFORMATION: dyspnea COMPARISON: CT chest 06/16/2024 TECHNIQUE: 2 views of the chest were obtained. FINDINGS: The lungs are hyperinflated but clear of acute process. The heart size and pulmonary vascularity is normal. No gross bony abnormality seen except for mild dextroscoliosis. XR/XR chest 2V IMPRESSION: Hyperinflated lungs without acute process. Electronically kulwinder d by: Mason Shine MD 06/26/2024 01:13 PM EST RP Dictated By: Mason Shine MD Signed By: <Electronically signed by Mason Shine MD in OV> 06/26/24 1313 DD/ 1240 TD/TT: 06/26/24 1246 Drafter Topographical: [facility] Reason For Referral No Information Medications Medication SIG (Take, Route, Frequency, Duration) [...] the evening Orally Once a day Active Immunizations Vaccine Route Administration Date Status Comme nts [...] Refused Influenza High Dose Unknown 05/28/2023 Refused Problems Problem Type SNOMED Code ICD Code Onset Dates Problem Status W/U Status Risk Notes Problem 780137951 Other obesity du e to excess calories (E66.09) Active confirmed Problem 87926742 Vitamin D deficiency (E55.9) Active confirmed Problem 064465305 Mixed hyperlipidemia (E78.2) Active confirmed Problem 334465394 Gastro-esophagea l reflux disease without esophagitis (K21.9) Active confirmed Problem 175759090 Hayfever (J30.1) Active confirmed Problem 976810106 Neutropenia, unspecified type (D70.9) Active confirmed Problem 51636834 Acute idiopathic gout of ankle, 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) Active confirmed Problem 895300422 Other acute pulmonary embolism with acute cor pulmonale (I26.09) Active confirmed Problem 034335299 COPD, moderate (J44.9) Active confirmed Problem 999247836 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 Vital Signs Blood pressure diastolic 70 mm Hg 07/10/2024 mariela ght is down 16 pounds since 12-06-23 Height 65 in 07/10/2024 weight is down 16 pounds since 12-06-23 Blood pressure systolic 110 mm Hg 07/10/2024 weig ht is down 16 pounds since 12-06-23 Weight 133 lbs 07/10/2024 weight is down 16 pounds since 12-06-23 BMI 22.13 kg/m2 07/10/2024 weight is down 16 pounds since 12-06-23 Encounters Encounter Location Date Provider Diagnosis Wero Kessler MD [address] [place] [id number] 11/29/2023 Wero Kessler Mixed hyperlipidemia E78.2 Wero Kessler MD [address] [place] [id number] 07/10/2024 Wero Kessler Weight loss, unintentional R63.4 and COPD, moderate J44.9 Wero Kessler MD [address] [place] [id number] 12/06/2023 Wero Kessler Heterozygous for prothrombin [id number] mutation D68.52 and Mixed hyperlipidemia E78.2 Wero Kessler MD [address] [place] [id number] 09/23/2023 Wero Kessler MD [address] [place] [address] [id number] 06/18/2024 Wero Kessler MD [address] [place] [address] [phone] 07/02/2024 Wero Kessler Assessments Encounter Date Diagnosis (ICD Code) Assessment Notes Treatment Notes Treatment Clinical Notes Section Notes 11/29/2023 Mixed hyperlipidemia (ICD-10 - E78.2) 07/10/2024 Weight loss, unintentional (ICD-10 - R63.4) doesn't cook and doesn't like food at [facility] 07/10/2024 COPD, moderate (ICD-10 - J44.9) stable./ had been in hospital for copd exacerbation followed by another visit for shortness of breath that was related to influenza, Total time spent on the date of the encounter is 35 minutes including both face to face time spent and time spent reviewing documentation, and counseling the patient. 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 12/06/2023 Mixed hyperlipidemia (ICD-10 - E78.2) stable, will continue current regiment Plan Of Treatment Pending Test Test Name Order Date Electrocardiogram (EKG) 03/27/2018 colonoscopy 09/19/2020 Insurance Providers Payer Name Payer Address Payer Phone Subscriber Number Group Number Insured Name Patient Relationship to Insured Coverage Start Date Coverage End Date MEDICARE [employer] [address] [place] [address] [id number] Cyrus Castellon Self - patient is the insured [facility] [id number] [place] [address] [id number] Cyrus Castellon Self - patient is the insured Medical (General) History Medical History History ICD Code 03/2016 Upper Endo and colonoscopy - no need of repeat 08/03/2020 - Colonoscopy by Dr. Foreman - no need for further testing unprovoked pulmonary embolii needs perma nent anticoagulan
--- OUTSIDE RECORDS SUMMARY | 2024-07-31 13:06 | XMS_ITS ---
Author Name [facility] [place] Address [address] [place] [address] Care Team Providers Care Scalehouse Attendant Name Role Phone LEXY MEJÍA Primary Care [...] Policy Huang [facility] Jun 24, 2016 MEDICAR E SUPPLEM E [id number] FARHAT CHAVEZ PATIENT MEDICARE (WNR) MEDICARE (M) PART A Apr 24, 2005 PART A [id number] [facility] FARHAT CHAVEZ PATIENT MEDICARE (WNR) MEDICARE (M) PART B Apr 24, 2005 PART B [id number] [facility] FARHAT CHAVEZ PATIENT Selected Encounter This section includes the information on record at [place] for the Encounter. Date/Time Encounter Type Encounter Description Reason Pro vider Source Jul 31, 2024 09:07 AM Outpatient Encounter ADMIN PAT ACTIVTIES (MASNONCT) IHE Encounter Template Text not used by [place] Plan of Treatment: Future Appointments (+ 6 months) and Future Tests (+/- 45 days) The Plan of Treatment section includes future care activities for the patient from all [place] treatmentfacilities. This section includes future appointments and future orders which are active, pending or scheduled. Future Appointments This section includes appointments that were scheduled to occur 6 months from the date of the Encounter, up to a maximum of 20 appointments. The data comes from all [place] treatment facilities. Appointment Date/Time Appointment Type Appointme nt Facility Name Aug 20, 2024 01:00 PM AMBULATORY - NONE [facility] Sep 08, 2024 11:30 AM AMBULATORY - MEDICINE [facility] Active, Pending, and Scheduled Orders This section includes a listing of several types of active, pending, and scheduled orders, including clinic medications orders, diagnostic test orders, procedure orders and consult orders; where the start date of the order is 45 days before the date of the Encounter or 45 days after the date of theEncounter. The data comes from all [place] treatment facilities. Test Date/Time Test Type Test Details Facility Name Jul 26, 2024 01:31 PM Consult Order NUTRITION ASSESSMENT/EDUCATION/SPOPC OUTPT [facility] Jul 26, 2024 01:31 PM Consult Order COMMUNITY CARE-[facility] NON-SKILLED HOME HEALTH AIDE Cons [facility] Social History: Smoking Status (Most current) and Tobacco Use (All prior to encounter date) This section includes the most current, and the historical, smoking and tobacco- related health factors from the [place] facility where the Encounter took place. Current Smoking Status This section includes the most current smoking, or tobacco-related health factor, from the [place] facility where the Encounter took place. Date/Time Current Smoking Status Comment Facil ity Jul 24, 2024 01:15 PM [place]-TOBACCO NEVER U SED CIGARETTES [facility] Tobacco Use History This section includes a history of the smoking, or tobacco-related health factors, that were collected on or before the date of the Encounter. The data comes from the [place] facility where the Encounter took place. Date/Time Smoking Status/Tobacco Use Comment F acility Jul 24, 2024 01:15 PM [place]-TOBACCO NEVER U SED OTHER TYPE [facility] Advance Directives: All historical and current Section Date Range: From patient's date of to the date document was created. This section includes ALL of a patient's completed or amended [place] Advance and Rescinded Directives. The entries below indicate that a directive exists for the patient, but an actual copy is not included with this document. The data comes from all [place] facilities. Date Advance Directives Provider Source Feb 16, 2019 ADVANCE DIRECTIVE ALPESHPABLO Villaseñor LOHMAN Encounter Notes: All associated encounter notes This section contains the clinical notes associated to the Encounter. Date/Time Encounter Note(s) Provider Source Jul 31, 2024 09:07 AM ADMINISTRATIVE NOTE: LOCAL TITLE: [facility]: SCHEDULING ADMINISTRATION STANDARD TITLE: ADMINISTRATIVE NOTE DATE OF NOTE: JUL 31, 2024@09:07:20 ENTRY DATE: JUL 31, 2024@09:07:20 AUTHOR: GASPER BONNER COSIGNER: URGENCY: STATUS: COMPLETED Patient Demographics Patient Name: FARHAT CAMARENA Patient Primary Phone: [phone] Patient Primary [address]: [address] [place] [address] Patient : 1940 Patient Age: 84 Caller/Recipient Relation to Patient: Other If Other Describe Relation to Patient: Daughter Caller Name: Kandi Administrative Administrative Note Reason: Other Administrative Note Comments: Mcdonald daughter Kandi calling inquiring if has follow up appointments in regards to his esophagus among others. She can be reached at [phone]. IMPORTANT: This note was created by [facility] Clinical Contact [facility] staff. Please do not alert the staff member by adding them as a signer for future communications. Alerts are not monitored by this user. /chilango/ Gasper CHÁVEZ [address] [facility] AMSA Signed: 07/31/2024 09:07 Receipt Acknowledged By: * AWAITING SIGNATURE * EDILBERTO TRIVEDI * AWAITING SIGNATURE * JORGE CALI HEATHER [facility]IE [facility]
--- OUTSIDE RECORDS SUMMARY | 2024-07-31 13:06 | XMS_ITS ---
Author Organization Hay Kessler MD Address [address] [place] [address] [phone] Care Team Providers Care Refractory Grinder Operator Name Role Phone Hay Kessler Primary Care Provider Allergies Allergen (clinical drug ingredient) Drug/Non Drug Allergy documented on EMR Reaction Allergy Type Onset Date Status soy (uncoded) hives Allergy Active peanuts (uncoded) throat closes Allergy Active REASON FOR VISIT F/U 2 ER visits Medications Medication SIG (Take, Route, Frequency, Duration) Notes Start Date End Date Status Simvastatin 20 MG take 1 tablet in the evening Orally Once a day Active Xarelto 20 MG 1 tablet Orally Once a day Active Glucosamine 500 MG 1 capsule with a srinivas l Orally Three times a day Active Omeprazole 20 MG 1 capsule Orally Onc e a day Active Vitamin D 50 MCG (1999) 1 tablet Oral ly Once a day 02/13/2020 Active Problems Problem Type SNOMED Code ICD Code Onset Dates Problem Status W/U Status Risk Notes Problem [id number] COPD, moderate (J44.9) Active confirmed Vital Signs Blood pressure systolic 110 mm Hg 07/10/19 25 Blood pressure diastolic 70 mm Hg 025 Height 65 in 07/10/2024 Weight 133 lbs 07/10/2024 BMI 22.13 kg/m2 07/10/2024 weight is down 16 pounds sin 6-14-24 Encounters Encounter Location Date Provider Diagnosis Hay Kessler MD [address] [place] [address] [address] [place], [place] [phone] 07/10/2024 Hay Kessler Weight loss, unintentional R63.4 and COPD, moderate J44.9 Assessments Encounter Date Diagnosis (ICD Code) Assessment Notes Treatment Notes Treatment Clinical Notes Section Notes 07/10/2024 Weight loss, unintentional (ICD-10 - R63.4) doesn't cook and doesn't like food at [facility] 07/10/2024 COPD, moderate (ICD-10 - J44.9) stable./ had been in hospital for copd exacerbation followed by another visit for shortness of breath that was related to influenza, Total time spent on the date of the encounter is 35 minutes including both face to face time spent and time spent reviewing documentation, and counseling the patient. Plan Of Treatment Treatment Notes Assessment Notes Weight loss, unintentional doesn't cook and doesn't like food at [facility] COPD, moderate stable./ had been in hospital for copd exacerbation followed by another visit for shortness of breath that was related to influenza, Total time spent on the date of the encounter is 35 minutes including both face to face time spent and time spent reviewing documentation, and counseling the patient. Next Appt Details Follow Up: 2 Months, Reason: Progress Notes * NICOLCyrusDOB: [birth year] (84 yo M)Acc No.[id number]:07/10/2024 Progress Notes Patient:?Cyrus ROWELL Provider:?Hay Kessler MD :1940???Age:84 Y???Sex:Male Mor e:07/10/2024 Address:[address] [place], [place] [phone] Subjective: * Chief Complaints: * ???1. F/U 2 ER visits. * HPI: ???Symptom(s):? patient is a 84 yo male here for follow up of recent ER visit, complaining he doesn't like food at [facility]/ had been [place] [facility] [place] and [place]d. doing fine now. * ROS:?General/Constitutional:?Denies?Chills.?Denies?Fatigue.?Denies?Fever.?Denies?Headache.?ENT:?Patient denies?decreased sense of smell , any loss of taste , sore throat.?Denies?Sore throat.?Respiratory:?Denies?Cough.?Denies?Shortness of breath at rest.?Denies?Shortness of breath with exertion.?Gastrointestinal:?Denies?Diarrhea.?Denies?Nausea.?Musculoskeletal:?Patient denies?muscle aches.?Peripheral Vascular:?Patient denies?red and blue toes.? * Medical History:?03/2016 Upp er Endo and colonoscopy - no need of repeat, 08/03/2020 - Colonoscopy by Dr. Foreman - no need for further testing, Unprovoked pulmonary embolii needs permanent anticoagulan. * Medications:?Taking Glucosam ine 500 MG Capsule [...] in the evening Orally Once a day , Medication List reviewed and reconciled with the patient * Allergies:?Peanuts: Throat C loses, Soy: Hives. Objective: * Vitals:?Ht: 65, Wt: 133, BMI :22.13, BP:110/70, Wt-k.33. weight is down 16 pounds since 12-06-23. * Examination: ???General Examination: ?GENERAL APPEARANCE:?dishevelled.?HEAD:?normocephalic.?HEART:?no murmurs, rubs, gallops.?LUNGS:?no wheezes, rales, rhonchi , good air movement , clear to auscultation bilaterally.?ABDOMEN:?soft, nontender, nondistended.? Assessment: * Assessment: 1.?COPD, moderate - J44.9 (P rimary)???2.?Weight loss, unintentional - R63.4??? Plan: * Treatment: 2.?Weight loss, unintentiona l? Notes: doesn't cook and doesn't like food at [facility]?? * Procedure Codes:?G2211 Compl ex e/m visit add on * Follow Up:?2 Months * * The named appointment provid er may or may not be the originator of this progress note, and it is not deemed complete until electronically signed by the appointment provider. Sign off status: Pending * Provider:?Hay Kessler MD Date:?0 07/10/2024 Generated for Pipo valladares/Sidra/eTmayrasmitting on:?07/31/2024 01:05 PM EST History and Physical Notes * HPI (History of Present Illness) Category Sub-Category Detail Notes Category Not es Symptom(s) patient is a 84 yo male here for follow up of recent ER visit, complaining he doesn't like food at [facility]/ had been [place] [facility] [place]. doing fine now Examination Category Sub-Category Detail Notes Category Not es General Examination GENERAL APPEARANCE: dishevelled HEAD: normocephalic HEART: no murmurs, rubs, ga llops LUNGS: no wheezes, rales, r honchi , good air movement , clear to auscultation bilaterally ABDOMEN: soft, nontender, non distended
--- OUTSIDE RECORDS SUMMARY | 2024-07-31 13:07 | XMS_ITS | Patient Health Record ---
Author Organization [facility] Address [address] [place] [address] Care Team Providers Care Hat Blocking Machine Operator Name Role Phone Hay Kessler MD Primary Care Provider Orestes Renee Unavailable [phone] ALLERGIES Allergen (clinical drug ingredient) Drug/Non Drug [...] the evening Orally Once a day Active [place] 3 1200mg Activ e Glucosamine Chondroit-Collagen 1200mg [...] Cologuard test (R19.5) Active confirmed Abnormal feces ([id number]) PLAN OF TREATMENT Pending Test Test Name Order Date Pathology 08/03/2020 Future Test Test Name Order Date COLONOSCOPY 06/25/2013 COLONOSCOPY 07/12/2020 Insurance Providers Payer Name Payer Address Payer Phone Subscriber Number Group Number Insured Name Patient Relationship to Insured Coverage Start Date Coverage End Date MEDICARE OF [place] [address] [place] [address] [id number] FERMIN BETHEAFARHAT Self - patient is the insured [facility] [address] [place] [phone] [id number] FERMIN BETHEAFARHAT Self - patient is the insured MEDICAL (GENERAL) HISTORY Medical History History ICD Code Colonoscopy 04/01/2008 and 09/2013--2 tub ular adenomas removed Hyperlipidemia GERD-small HH-no esophagitis Denies [place],DM,CVA,Lung disease,renal dise ase Pulmonary embolus in 2018 or 2019 Surgical History Surgery Date(Month/Year) Knee surgery Cholecystectomy Cataract surgery
--- OUTSIDE RECORDS SUMMARY | 2024-07-31 13:07 | XMS_ITS ---
Author Organization Hay Kessler MD Address [address] [place] [phone] Care Team Providers Care Respiratory Support Technician Name Role Phone VictoriaJean Marien Primary Care Provider [phone] REASON FOR VISIT ER Encounters Encounter Location Date Provider Diagnosis Hay Kessler MD [address] [place] [phone] 07/02/2024 Hay Kessler Plan Of Treatment No Information Progress Notes * Cyrus ROWELLDOB: [birth year] (84 yo M)Acc No.[id number]:07/02/2024 Patient:?Cyrus Rowell :1940???Age:84 Y???Sex:Male Address:[address] [place] [address], [address] * true * Date:? Generated for Printi jacquelyn/Sidra/eTransmitting on:?07/31/2024 01:06 PM EST
--- OUTSIDE RECORDS SUMMARY | 2024-07-31 13:07 | XMS_ITS ---
Author Name [facility] [place] Organization [facility] [place] Address [address] [place] [address] Care Team Providers Care Newspaper Publisher Name Role Phone LEXY MEJÍA Primary Care [...] Policy Huang [facility] Jun 24, 2016 MEDICAR E SUPPLEM E [id number] FARHAT CHAVEZ PATIENT MEDICARE (WNR) MEDICARE (M) PART A Apr 24, 2005 PART A [id number] [facility] FARHAT CHAVEZ PATIENT MEDICARE (WNR) MEDICARE (M) PART B Apr 24, 2005 PART B [id number] [facility] FARHAT CHAVEZ PATIENT Selected Encounter This section includes the information on record at [place] for the Encounter. Date/Time Encounter Type Encounter Description Reason Provider Source Jul 29, 2024 03:17 PM Outpatient Encounter COMMUNITY [facility]ARE CONSULT ANDRE AWAD Quang Encounter Template Text not used by [place] Plan of Treatment: Future Appointments (+ 6 months) and Future Tests (+/- 45 days) The Plan of Treatment section includes future care activities for the patient [facility]. This section includes future appointments and future orders which are active, pending or scheduled. Future Appointments This section includes appointments that were scheduled to occur 6 months from the date of the Encounter, up to a maximum of 20 appointments. The data comes from all [place] treatment facilities. Appointment Date/Time Appointment Type Appointme nt Facility Name Jul 30, 2024 08:00 AM AMBULATORY - MEDICINE [facility] Aug 20, 2024 01:00 PM [facility]ULATORY - NONE [facility] Sep 08, 2024 11:30 AM AMBULATORY - MEDICINE [facility] Active, Pending, and Scheduled Orders This section includes a listing of several types of active, pending, and scheduled orders, including clinic medications orders, diagnostic test orders, procedure orders and consult orders; where the start date of the order is 45 days before the date of the Encounter or 45 days after the date of theEncounter. The data comes from all [place] treatment facilities. Test Date/Time Test Type Test Details Facility Name Jul 26, 2024 01:31 PM Consult Order NUTRITION ASSESSMENT/EDUCATION/SPOPC OUTPT [facility] Jul 26, 2024 01:31 PM Consult Order COMMUNITY CARE-GEC NON-SKILLED HOME HEALTH AIDE Cons [facility] Social History: Smoking Status (Most current) and Tobacco Use (All prior to encounter date) This section includes the most current, and the historical, smoking and tobacco- related health factors from the [place] facility where the Encounter took place. Current Smoking Status This section includes the most current smoking, or tobacco-related health factor, from the ID facility where the Encounter took place. Date/Time Current Smoking Status Comment Facil ity Jul 24, 2024 01:15 PM [place]-TOBACCO NEVER U SED CIGARETTES [facility] Tobacco Use History This section includes a history of the smoking, or tobacco-related health factors, that were collected on or before the date of the Encounter. The data comes from the ID facility where the Encounter took place. Date/Time Smoking Status/Tobacco Use Comment F acility Jul 24, 2024 01:15 PM ID-TOBACCO NEVER U SED OTHER TYPE [facility] Advance Directives: All historical and current Section Date Range: From patient's date of to the date document was created. This section includes ALL of a patient's completed or amended [place] Advance and Rescinded Directives. The entries below indicate that a directive exists for the patient, but an actual copy is not included with this document. The data comes from all ID facilities. Date Advance Directives Provider Source Feb 16, 2019 ADVANCE DIRECTIVE PABLO BETTS [place] Encounter Notes: All associated encounter notes This section contains the clinical notes associated to the Encounter. Date/Time Encounter Note(s) Provider Source Jul 29, 2024 03:18 PM GERIATRIC MEDICINE NOTE: LOCAL TITLE: PERSONAL CARE SERVICES CASE MIX TOOL STANDARD TITLE: GERIATRIC MEDICINE NOTE DATE OF NOTE: JUL 29, 2024@15:18:22 ENTRY DATE: JUL 29, 2024@15:18:22 AUTHOR: DIPIKA AWAD COSIGNER: URGENCY: STATUS: COMPLETED HCBS Case Mix & Budget Tool (CASE MIX) Date Given: 07/29/2024 Clinician: Dipika Awad Location: [facility] : Farhat Rowell SSN: [id number] : [birth year] ([birth year]) Gender: Male Type of Evaluation: Initial Anticipated Start Date: 07/29/2024 Anticipated Length of Service: 6 months Case Mix Level: A ADL Category: Low Questions and Answers: Q1. DRESSING 1 Need and get minimal supervision or reminding. Q2. GROOMING 0 Can comb your hair, wash your face, shave or brush your teeth without help of any kind. Q3. BATHING 2 Need and get supervision only. Q4. EATING *2 Need and get help in cutting food, buttering bread or arranging food. Q5. BED MOBILITY 0 Can move in bed without any help. Q6. TRANSFERRING *2 Need one other person to help you. Q7. WALKING *2 Need and get help from one person to help you walk. Q8. BEHAVIOR 1 Occasional staff intervention / anxious, irritable, lethargic, demanding / responds to cues. Q9. COMMUNICATION 0 Understood. Q10. TOILETING 0 Can use the toilet without help, including adjusting clothing. Q11. MDS HC 2.0/CPS Cognitive Skill for Daily Decision Making 1 Modified Rhea - some difficulty in new situations only. Q12. MDS 2.0/CPS: Short Term Memory (recall of what was learned or known) 0 Short-term memory okay- seems/appears to recall after 5 minutes Q13. SPECIAL TREATMENTS 2 One or more [place] such as: 10. Skin Care Q14. CLINICAL MONITORING 0 Less than once a day Q15. SPECIAL NURSING No Q16. NEUROMUSCULAR DIAGNOSIS No COMMENTS [place] agrees he is unsteady on his feet and needs minimal assistance with pc. Authorize [facility] 7 hrs/week for assistance with pc/adl's/iadl's includes respite SOURCES 1. Person, 2. Informant /chilango/ Dipika Awad RN RN Signed: 07/29/2024 15:21 DIPIKA AWAD [facility]
[2024-07-31 13:13] LABS: Troponin-I High Sensitivity 66.2 ng/L (<3.5-35.0)
[2024-07-31 13:43] LABS: Influenza A PCR NEGATIVE (Negative); Influenza B PCR NEGATIVE (Negative); Resp Syncy Virus RNA Qual PCR NEGATIVE (Negative); SARS COV2 PCR INHOUSE NEGATIVE (Negative)
--- NOTE | 2024-07-31 13:51 | PC.NURSE ---
pt remains a difficult stick. 18gIV via ultrasound guided IV placed in the left upper arm by CHATA. labs obtained/sent to lab. pt otherwise offers no complaints aside from stating that he is cold. vss and up to date. nsr on the pvc monitor. pt waiting to go to CT at this time. family bedside for support. plan of care ongoing. call doe placed within reach.
[2024-07-31 13:55] LABS: Basophils Percent Auto 0.3 % (0-2); Eosinophils Percent Auto 0.2 % (0-4); Hematocrit 42.5 % (42.0-52.0); Hemoglobin 14.3 g/dl (14.0-18.0); Imm Gran Abs Auto 0.03 X10*3/uL (0.00-0.03); Imm Gran Pct Auto 0.3 % (0.0-0.4); Lymphocytes Absolute Auto 0.8 X10*3/uL (1.2-4.9); Lymphocytes Percent Auto 9.2 % (20-40); Mean Corpuscular HGB Conc 33.6 g/dl (31.0-36.0); Mean Corpuscular Hemoglobin 31.4 pg (27.0-33.0); Mean Corpuscular Volume 93.4 fL (80.0-98.0); Mean Platelet Volume 10.2 fL (9.4-12.4); Monocytes Absolute Auto 0.6 X10*3/uL (0.1-1.2); Monocytes Percent Auto 6.8 % (2-11); Neutrophils Absolute Auto 7.2 x10*3/uL (2.0-8.3); Neutrophils Percent Auto 83.2 % (45-73); Platelet Count 198 X10*3/uL (160-400); Red Blood Count 4.55 X10*6/uL (4.60-5.80); Red Cell Distribution Width 14.1 % (11.0-16.0); White Blood Count 8.6 X10*3/uL (4.8-10.8)
[2024-07-31 14:02] LABS: INTERNATIONAL NORM RATIO 1.1 (0.9-1.1)
[2024-07-31 14:16] LABS: Alanine Aminotransferase 6 U/L (0-40); Albumin Level 3.4 g/dL (3.5-5.0); Alkaline Phosphatase 116 U/L (39-117); Anion Gap 16 (12-20); Aspartate Amino Transferase 37 U/L (5-37); Bilirubin Total 1.2 mg/dL (0.0-1.0); Blood Urea Nitrogen 24 mg/dL (9-16); Carbon Dioxide 27 mmol/L (22-29); Chloride 100 mmol/L (96-108); Estimated Glomerular Filt Rate > 60; Glucose Random 104 mg/dL (60-115); Potassium 4.3 mmol/L (3.3-5.1); Sodium 139 mmol/L (135-145); Total Protein 7.9 g/dL (6.5-8.0)
[2024-07-31 14:24] LABS: Calcium 14.3 mg/dL (8.4-10.2)
[2024-07-31 14:42] LABS: Lactate Dehydrogenase 192 U/L (118-273); Uric Acid 7.9 mg/dL (3.4-7.0)
[2024-07-31] MEDS: 0.9 % Sodium Chloride 1,000 ML 999 ML IV (15:00)
[2024-07-31] MEDS: iohexoL 350 MG/ML 100 ML INFUS..BTL IV (15:23)
[2024-07-31] MEDS: Heparin Sodium,Porcine 5,000 UNIT/ML VIAL 4800 UNIT IVPUSH (16:03)
[2024-07-31] MEDS: Heparin Sodium,Porcine/1/2NS 25,000 UNIT/250 ML IV.SOLN 8.05 UNIT IVCONT (16:10)
--- NOTE | 2024-07-31 16:17 | PC.NURSE ---
provider bedside to speak w/ pt and family member in regards to scan results/plan of care moving forward. height/weight verified and documented in worklist. IVP heparin bolus administered per provider order. heparin drip now infusing @ 14 u/kg/hr at this time. medication administration verified w/ [facility]. next heparin PTT due at 2210. pt otherwise continues to rest in no apparent distress. no sob/wob noted. respirations even/unlabored. plan of care ongoing. call doe placed within reach.
--- NOTE | 2024-07-31 16:39 | MHC.STROKE ---
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 Pt is a poor historian. Daugher at the bedside attempting to fill in pieces of history. Will provide stroke education as a precaution. Pt has no focal deficits. C/o generalized weakness. Dx with the flu 2 weeks ago. Pt is engaged in conversation. Plan of care discussed. Stroke Education provided, pamphlet discussed. Risk factors including med hx, medications, diet, activity reviewed. Family involved in conversation. Will continue to assist as needed.
[2024-07-31 17:17] LABS: B Type Natriuretic Peptide 311 pg/mL (<100)
[2024-07-31 17:45] LABS: Hemoglobin 13.8 g/dl (14.0-18.0); Mean Corpuscular HGB Conc 33.7 g/dl (31.0-36.0); Mean Corpuscular Hemoglobin 31.2 pg (27.0-33.0); Mean Corpuscular Volume 92.6 fL (80.0-98.0); Mean Platelet Volume 9.9 fL (9.4-12.4); Platelet Count 206 X10*3/uL (160-400); Red Blood Count 4.43 X10*6/uL (4.60-5.80); Red Cell Distribution Width 14.1 % (11.0-16.0); White Blood Count 9.6 X10*3/uL (4.8-10.8)
--- NOTE | 2024-07-31 17:49 | P.HPHOSP_ITS ---
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 He endorses shortness of breath but states it actually has gotten better. He tripped and fell twice yesterday but does not remember whether he lost consciousness or hit his head. Here in the ED, labs were notable for BUN of 24, calcium of 14.3, and troponin of 66.2. CT of the head showed multiple old lacunar infarcts and could not rule out acute embolic stroke. CT of the C-spine showed multifocal different sized lytic lesions concerning for bony metastases or multiple myeloma. CTA of the head and neck showed a saddle pulmonary embolism as well as eccentric thickening of the upper esophagus, suspicious for mass, with abutting lymph nodes. He was given IV fluids and started on a heparin drip. 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 Bilateral pulmonary embolism Surgical History Hx of cataract extraction Hx of knee surgery Hx of colonoscopy Hx of cholecystectomy Social History Household Members: None Housing: House Do you presently have visiting nurse or other home services: No Alcohol intake: current Alcohol intake frequency: 3 or more drinks per day Alcohol type: beer and hard liquor Patient Tobacco Use Status: Former Tobacco user Smoked in Last 30 Days: No Use of substances other than those prescribed or required for medical reasons: No Advance Directives: No Advance Directives Information Provided: Yes Do you have a plan to hurt others: No Plan Meds Allergies Allergy/AdvReac Type Severity Reaction Status Date / Time cat dander [cats] Allergy Severe Anaphylaxis Verified 07/31/24 11:28 peanut [PEANUT] Allergy Severe ANAPHYLAXIS Verified 07/31/24 11:28 soy sauce Allergy Severe ANAPHYLAXIS Uncoded 07/31/24 11:28 Active Medications: Current Medications Acetaminophen (Acetaminophen 325 Mg Tablet) 650 mg PO Q6H PRN PRN Reason: Pain, Mild 1-3,fever,headache Albuterol Sulfate (Albuterol Sulfate (0.083%) 2.5 Mg/3 Ml Vial.Neb) 2.5 mg INHALE Q2H PRN PRN Reason: Shortness of Breath/Wheezing Calcium Carbonate (Calcium Carbonate 750 Mg Tab.Chew) 750 mg PO Q4H PRN PRN Reason: Heartburn Heparin Sodium (Porcine) (Heparin Sodium,Porcine 5,000 Unit/Ml Vial) 2,300 unit 40 unit/kg (2300 unit) IVPUSH PROTOCOL BOLUS PRN; Protocol PRN Reason: 40 unit/kg - Heparin Protocol Heparin Sodium (Porcine) (Heparin Sodium,Porcine 5,000 Unit/Ml Vial) 4,600 unit 80 unit/kg (4600 unit) IVPUSH PROTOCOL BOLUS PRN; Protocol PRN Reason: 80 unit/kg - Heparin Protocol Heparin Sodium/Sodium Chloride (Heparin Sodium,Porcine/1/2ns) 25,000 unit in 250 mls @ 0 mls/hr IVCONT .Q0M [facility]; Protocol Last Admin: 07/31/24 16:10 Dose: 14 units/kg/hr, 8.05 mls/hr Pamidronate Disodium 60 mg/ (Sodium Chloride) 260 mls @ 130 mls/hr IV ONCE ONE Stop: 07/31/24 19:59 Sodium Chloride (Ns) 1,000 mls @ 100 mls/hr IVCONT .Q10H [facility] Magnesium Hydroxide (Milk Of Magnesia 30 Ml Oral.Susp) 30 ml PO DAILY PRN PRN Reason: Constipation Melatonin (Melatonin 3 Mg Tablet) 6 mg PO BEDTIME PRN PRN Reason: Insomnia Ondansetron HCl (Ondansetron Hcl 4 Mg/2 Ml Vial) 4 mg IVPUSH Q8H PRN PRN Reason: Nausea and Vomiting Sodium Chloride (0.9 % Sodium Chloride Flush 3 Ml Syringe) [facility] Medications ?Medication ?Instructions ?Recorded ?Confirmed ?Last Taken ?Type rivaroxaban 20 mg tablet (Xarelto) 20 mg PO DAILY 06/28/20 06/16/24 06/16/24 History simvastatin 20 mg tablet 20 mg PO BEDTIME 06/28/20 06/16/24 06/15/24 History Physical Exam 2 Vital Signs and Narrative: Vital Signs: Last Vital Signs Temp 98.6 F 07/31/24 11:25 Pulse 70 07/31/24 16:16 Resp 16 07/31/24 16:16 BP 113/75 07/31/24 16:16 Pulse Ox 97 07/31/24 16:16 O2 Del Method Room Air 07/31/24 16:16 BMI result Body Mass Index 19.3 Gen: in no acute distress, weak HEENT: sclera anicteric, moist mucus membranes Neck: supple Lungs: clear to auscultation bilaterally Heart: regular rate and rhythm, no murmurs Abd: soft, non-tender, non-distended Ext: no edema Skin: warm/well-perfused Neuro: alert and oriented x3, no focal findings Psych: appropriate affect Results Labs 07/31/24 17:43 07/31/24 13:45 Labs: Laboratory Results - last 24 hr 07/31/24 07/31/24 07/31/24 12:39 13:45 14:17 MCV 93.4 MCH 31.4 MCHC 33.6 RDW 14.1 Plt Count 198 D MPV 10.2 Immature Gran % (Auto) 0.3 Neut % (Auto) 83.2 H Lymph % (Auto) 9.2 L [place] % (Auto) 6.8 Eos % (Auto) 0.2 Baso % (Auto) 0.3 Lymph # (Auto) 0.8 L [place] # (Auto) 0.6 Eos # (Auto) 0.0 Baso # (Auto) 0.0 Abs Immat Gran (auto) 0.03 Absolute Neuts (auto) 7.2 Absolute Nucleated RBC 0.000 Nucleated RBC % (auto) 0.0 PT 13.0 H INR 1.1 APTT 26.0 D Anion Gap 16 Estim Creat Clear Calc 69.0 Estimated GFR > 60 Random Glucose 104 Uric Acid 7.9 H Calcium 14.3 H* D Magnesium 2.0 Total Bilirubin 1.2 H AST 37 ALT 6 Alkaline Phosphatase 116 Lactate Dehydrogenase 192 Troponin I High Sens 66.2 H D B-Natriuretic Peptide 311 H Total Protein 7.9 Albumin 3.4 L Influenza Type A (PCR) NEGATIVE Influenza Type B (PCR) NEGATIVE RSV RNA Qual (PCR) NEGATIVE SARS-CoV-2 RNA (RT-PCR) NEGATIVE 07/31/24 17:43 MCV 92.6 MCH 31.2 MCHC 33.7 RDW 14.1 Plt Count 206 MPV 9.9 Immature Gran % (Auto) Neut % (Auto) Lymph % (Auto) [place] % (Auto) Eos % (Auto) Baso % (Auto) Lymph # (Auto) [place] # (Auto) Eos # (Auto) Baso # (Auto) Abs Immat Gran (auto) Absolute Neuts (auto) Absolute Nucleated RBC 0.000 Nucleated RBC % (auto) 0.0 PT INR APTT Anion Gap Estim Creat Clear Calc Estimated GFR Random Glucose Uric Acid Calcium Magnesium Total Bilirubin AST ALT Alkaline Phosphatase Lactate Dehydrogenase Troponin I High Sens B-Natriuretic Peptide Total Protein Albumin Influenza Type A (PCR) Influenza Type B (PCR) RSV RNA Qual (PCR) SARS-CoV-2 RNA (RT-PCR) Imaging Radiologist's Impressions: Impressions Chest X-Ray 07/31/24 11:37 IMPRESSION: No acute airspace disease. Hiatal hernia, large volume. Scoliosis.. Electronically signed by: Andres George MD 07/31/2024 01:02 PM EST RP Head CT 07/31/24 11:43 IMPRESSION: No acute fracture, bony calvarium. No acute intracranial hemorrhage. Small vessel occlusive disease. Superimposed acute stroke/nonhemorrhagic ischemia cannot be excluded. Global cerebral atrophy. Electronically signed by: Andres George MD 07/31/2024 01:42 PM EST RP Cervical Spine CT 07/31/24 12:43 IMPRESSION: Consider osseous metastasis versus multiple myeloma. Recommend dedicated IV contrast enhanced MRI cervical spine for further assessment of the neural elements. Fleischner guidelines were followed. Electronically signed by: Andres George MD 07/31/2024 01:48 PM EST RP Head/Neck CTA 07/31/24 14:32 IMPRESSION: 1. Saddle pulmonary embolus and segmental pulmonary emboli noted at the inferior aspect of the scan. 2. There is a moderate stenosis of the right vertebral artery at the origin secondary to mixed plaque. 3. There is approximately 20% stenosis of the left ICA at the origin secondary to calcified plaque. 4. Otherwise, there is no flow-limiting stenosis, occlusion, dissection, or aneurysm in the major cervical or intracranial arterial vasculature. 5. Incidental note made of eccentric thickening of the upper esophagus, suspicious for mass. Abutting lymph nodes, enlarged in the AP window region. Correlation with endoscopy recommended. 6. Paraseptal emphysema in the lung apices. Above findings were communicated to Rose Marie Simons PA-C the of chemistry quality control technician at 3:45 PM, 08/04/2024. Electronically signed by: Grant Berrios MD 07/31/2024 04:06 PM [facility] Assessment and Plan (1) Pulmonary embolism: Status: Acute (2) Esophageal mass: Status: Acute (3) Hypercalcemia: Status: Acute Plan 84yo M with recently diagnosed COPD, prothrombin [id number] mutation heterozygosity with hx PE currently on rivaroxaban, history of heavy tobacco use, and heavy EtOH intake presenting with weakness resulting in fall, dysphagia, and dyspnea. He is found to have hypercalcemia, lytic spine lesions concerning for bony metastases or myeloma, a saddle PE, and an esophageal mass with lymphadenopathy. hyperCa of malignancy - Admit to telemetry, check 25-OH-D/iPTH/PTH-RP, give IV normal saline, IV pamidronate, repeat BMP in AM saddle PE prothrombin [id number] mutation heterozygosity - Appears to be new/acute PE as no PE on CTA on last admission 06/16/24. Likely due to malignancy and will eventually need to be on enoxaparin but for now will place on heparin IV drip. Not hypoxic and no S1Q3T3 pattern on EKG. Repeat Tn-I pending; BNP elevated. Order TTE. esophageal mass with lymphadenopathy dysphagia - NPO, GI consult for EGD with biopsy lytic spine lesions - Likely metastases from esophageal mass but also working up for myeloma with SPEP, BEATRIZ, [id number], serum free light chain ratio. question of acute CVA; fall with unknown LOC - Obtain MRI with and without contrast to also check for brain metastases. COPD not acute exacerbation - PRN albuterol dispo - TBD code status - DNR/DNI I anticipate that the patient will stay at least 2 midnights as an inpatient in the hospital due to the above reasons. It is neither reasonable nor safe to care for them in a less acute setting. I updated the pt's daughter Kandi @ [phone]. Quality Stroke Does the patient have a stroke diagnosis?: No VTE Prior VTE?: No VTE Risk Level:: Medical - moderate - high VTE Device Contraindication: N/A - Device Ordered VTE Drug Contraindication: N/A - Med Ordered
[2024-07-31 18:02] LABS: Vitamin D 25-OH Total 51.6 ng/mL (>30)
--- NOTE | 2024-07-31 18:10 | PHA.MEDREC ---
Addendum entered by Anil Hui [facility] 07/31/24 18:36: med rec reviewed Original Note: Pharmacy Consult ? Medication Reconciliation Pharmacy has completed the medication reconciliation. Spoke with patient and he confirmed his medications. Patient confirmed he was filling his medicaiotns at [facility] in [place]. I called and spoke with them and they have never filled his Simvastatin 20mg tab or the Xarelto 20mg tab they stated. [facility] confirmed the patient is getting Simvastatin 20mg tabs once at bedtime, the Xarelto 20mg tabs once daily and the Albuterol Inhaler 2 puffs Q4-6H as needed from them. The patient confirmed he took his medications this morning.
[2024-07-31 18:16] LABS: Troponin-I High Sensitivity 108.8 ng/L (<3.5-35.0)
[2024-07-31] MEDS: 0.9 % Sodium Chloride 1,000 ML 100 ML IVCONT (18:29)
[2024-07-31] MEDS: Pamidronate Disodium 60 MG in 0.9 % Sodium Chloride 250 ML 130 MG IV (18:30)
--- NOTE | 2024-07-31 20:27 | P.CNHO_ITS ---
Subjective - Subjective Chief complaint: hypercalcemia, lytic bone lesions, esophageal thickening, saddle embolus Patient: new to practice Consult date: 07/31/24 Primary Care Provider: Hay Kessler MD Land Checker Utilized?: No - Maldivian Speaking HPI - Consult Narrative Reason for consult: possible myeloma or esophageal cancer with hypercalcemia, saddle embolus Narrative: Cyrus Rowell is a 84 year old male who presents to the ER with weakness. The calcium was 14 and lytic lesion were seen on a CT of the neck. He was also found to have thickening of the upper esophagus on CT and has been complaining of dysphagia recently. Electrophoresis and light chain studies have been drawn. He is being hydrated.A saddle pulmonary embolism and other segmental clots wer found on an angiogram. He is anticoaguated. Review of Systems - Constitutional Reports anorexia, Reports fatigue - Eyes Reports sensitivity to light - ENT Reports odynophagia - Cardiovascular Reports fast heart rate - Gastrointestinal Reports abdominal pain - Musculoskeletal Reports decreased muscle mass - Neurologic Reports weakness, Denies loss of vision, Denies numbness, Denies tingling Oncology Screenings - Immunizations Influenza Immunization Status: Up To Date Pneumoccocal Immunization Status: Up To Date - G8 Geriatric Assessment Change in food intake over past 3 months: Severe decrease in food intake Weight loss during the last 3 months: Weight loss > 3 kg Mobility: Bed or chair bound Neuropsychological problems: Mild dementia or depression Body Mass Index: < 19 Patient takes > 3 prescription drugs per day: Yes Patient's assessment of health status compared to others: Not as good Patient age: 80 to 85 G8 Score: 2 G8 Risk Level: High risk for early functional decline and reduced survival. [facility] Medical History: Medical History (Last Reviewed 07/31/24 @ 17:58 by Liz Warner MD) Advanced COPD Bilateral pulmonary embolism GERD (gastroesophageal reflux disease) Heterozygous for prothrombin [id number] mutation Hyperlipidemia Situational anxiety Surgical History: Surgical History (Last Reviewed 07/31/24 @ 17:58 by Liz Warner MD) Hx of cataract extraction Hx of cholecystectomy Hx of colonoscopy Hx of knee surgery Social History: Social History (Last Reviewed 07/31/24 @ 17:58 by Liz Warner MD) Living Situation History: Household Members: None Housing: House Do you presently have visiting nurse or other home services: No Tobacco History: Patient Tobacco Use Status: Former Tobacco user Home Medications and Allergies Current Medications: Current Medications Acetaminophen (Acetaminophen 325 Mg Tablet) 650 mg PO Q6H PRN PRN Reason: Pain, Mild 1-3,fever,headache Albuterol Sulfate (Albuterol Sulfate (0.083%) 2.5 Mg/3 Ml Vial.Neb) 2.5 mg INHALE Q2H PRN PRN Reason: Shortness of Breath/Wheezing Calcium Carbonate (Calcium Carbonate 750 Mg Tab.Chew) 750 mg PO Q4H PRN PRN Reason: Heartburn Heparin Sodium (Porcine) (Heparin Sodium,Porcine 5,000 Unit/Ml Vial) 2,300 unit 40 unit/kg (2300 unit) IVPUSH PROTOCOL BOLUS PRN; Protocol PRN Reason: 40 unit/kg - Heparin Protocol Heparin Sodium (Porcine) (Heparin Sodium,Porcine 5,000 Unit/Ml Vial) 4,600 unit 80 unit/kg (4600 unit) IVPUSH PROTOCOL BOLUS PRN; Protocol PRN Reason: 80 unit/kg - Heparin Protocol Heparin Sodium/Sodium Chloride (Heparin Sodium,Porcine/1/2ns) 25,000 unit in 250 mls @ 0 mls/hr IVCONT .Q0M [facility]; Protocol Last Admin: 07/31/24 16:10 Dose: 14 units/kg/hr, 8.05 mls/hr Sodium Chloride (Ns) 1,000 mls @ 100 mls/hr IVCONT .Q10H [facility] Last Admin: 07/31/24 18:29 Dose: 100 mls/hr Magnesium Hydroxide (Milk Of Magnesia 30 Ml Oral.Susp) 30 ml PO DAILY PRN PRN Reason: Constipation Melatonin (Melatonin 3 Mg Tablet) 6 mg PO BEDTIME PRN PRN Reason: Insomnia Ondansetron HCl (Ondansetron Hcl 4 Mg/2 Ml Vial) 4 mg IVPUSH Q8H PRN PRN Reason: Nausea and Vomiting Sodium Chloride (0.9 % Sodium Chloride Flush 3 Ml Syringe) [facility] Medications ?Medication ?Instructions ?Recorded ?Confirmed ?Type rivaroxaban 20 mg tablet (Xarelto) 20 mg PO DAILY 06/28/20 07/31/24 History simvastatin 20 mg tablet 20 mg PO BEDTIME 06/28/20 07/31/24 History Allergies Allergy/AdvReac Type Severity Reaction Status Date / Time cat dander [cats] Allergy Severe Anaphylaxis Verified 07/31/24 11:28 peanut [PEANUT] Allergy Severe ANAPHYLAXIS Verified 07/31/24 11:28 soy sauce Allergy Severe ANAPHYLAXIS Uncoded 07/31/24 11:28 Physical Exam Vital signs: Vital Signs Temp 98.6 F 07/31/24 11:25 Pulse 80 07/31/24 19:14 Resp 22 H 07/31/24 19:14 BP 133/77 07/31/24 19:14 Pulse Ox 96 07/31/24 19:14 O2 Del Method Room Air 07/31/24 19:14 Intake & Output 07/31/24 07/31/24 08/01/24 06:59 18:59 06:59 Intake Total 1000 / 1000 Balance 1000 / 1000 Intake: Intake, IV Amount 1000 / 1000 0.9 % Sodium Chloride 1,000 ml 1000 / 1000 @ 999 mls/hr IV .Q1H1M [facility] Rx#: [id number] Other: Weight 57.5 kg Weight in Grams 13393 Weight 57.5 kg - Constitutional Present: moderate distress, chronically ill appearing - Routine HEENT Exam Head: Present: atraumatic ENT: Present: mucous membranes moist - Routine Neck Exam Present: supple - Routine Respiratory Exam Present: decreased breath sounds - Routine Cardiovascular Exam Cardiovascular: Present: RRR (advanced muscle wasting) - Detailed Neurological Exam: Coma Scale Verbal Response: Confused (4) Hem/Onc Consult Result - Labs CBC & Chem 7: 08/01/24 07:55 08/01/24 05:52 Labs: Short CBC 07/31/24 07/31/24 Range/Units 13:45 17:43 WBC 8.6 9.6 (4.8-10.8) X10*3/uL Hgb 14.3 13.8 L (14.0-18.0) g/dl Hct 42.5 41.0 L (42.0-52.0) % Plt Count 198 D 206 (160-400) X10*3/uL BMP 07/31/24 13:45 Sodium 139 Potassium 4.3 Chloride 100 Carbon Dioxide 27 BUN 24 H Creatinine 0.67 Calcium 14.3 H* D Liver Function 07/31/24 Range/Units 13:45 Total Bilirubin 1.2 H (0.0-1.0) mg/dL AST 37 (5-37) U/L ALT 6 (0-40) U/L Alkaline Phosphatase 116 (39-117) U/L Albumin 3.4 L (3.5-5.0) g/dL Assessment and Plan Patient Active problem list reviewed?: Yes (1) Esophageal mass Status: Acute Assessment and plan: When stable will need EGD. A squamous cell carcinoma will spread to bone and can cause hypercalcemia. (2) Hypercalcemia Status: Acute Assessment and plan: Likely cause would be plasma cell dyscrasia or metastatic squamous cell cancer from upper esophagus. Recommend iv hydration, bisphosphonate such pamidronate, zoledronic, or exzgeva. Willneed daily calcim levels, (3) Pulmonary embolism Start date: 07/31/24 Status: Acute Assessment and plan: Recommend anticoagulation with a heparin for now. He will need invasive procedures soon. - Time Spent With Patient Time Spent with Patient (in minutes): 45
[2024-07-31 22:34] LABS: PTT Heparin Drip 29.8 SEC (53-77.9)
[2024-07-31 22:44] LABS: Parathyroid Hormone Intact 8.7 pg/mL (8.7-77.1)
[2024-07-31] MEDS: Heparin Sodium,Porcine 5,000 UNIT/ML VIAL 4600 UNIT IVPUSH (22:45)
[2024-08-01] VITALS (7 sets, daily range): BP systolic 90–117; BP diastolic 50–83; PULSE 66–106; RESP 16–20; TEMP 36.1–36.9; O2SAT 93–97
--- NOTE | 2024-08-01 | ECG_ITS ---
Test Reason : cp Blood Pressure : */* mmHG Vent. Rate : 106 BPM Atrial Rate : 111 BPM P-R Int : 336 ms QRS Dur : 132 ms QT Int : 316 ms P-R-T Axes : * -27 152 degrees QTcB Int : 419 ms Undetermined rhythm Left bundle branch block Abnormal ECG When compared with ECG of 31-Jul-2024 11:57, Current undetermined rhythm precludes rhythm comparison, needs review Nonspecific T wave abnormality now evident in Inferior leads Referred By: Liz Warner Electronically Signed By: Wayne Todd
[2024-08-01 04:39] LABS: Appearance Urine Clear; Color Urine Yellow; Glucose Urine UA Negative (Negative); Leukocyte Esterase Urine Trace (Negative); Nitrite Urine Negative (Negative); UMIC TRIGGER UACC YES; Urine Blood Negative (Negative); Urine Ketones Negative (Negative); Urine Protein Negative (Neg-Trace)
[2024-08-01 04:55] LABS: Bacteria Urine None Seen (None Seen); Hyaline Casts Urine 0-2 /LPF (0-2); RBC Urine 0-2 /HPF (0-2); Squamous Epithelial Cell Urine 0-2 /HPF (0-2); WBC Urine 0-5 /HPF (0-5)
[2024-08-01 06:25] LABS: Anion Gap 16 (12-20); Blood Urea Nitrogen 21 mg/dL (9-16); Calcium 13.2 mg/dL (8.4-10.2); Carbon Dioxide 24 mmol/L (22-29); Chloride 108 mmol/L (96-108); Creatinine Clr Calc Pharmacy 63.1; Estimated Glomerular Filt Rate > 60; Glucose Random 66 mg/dL (60-115); Potassium 3.7 mmol/L (3.3-5.1); Sodium 144 mmol/L (135-145)
[2024-08-01 06:30] LABS: Troponin-I High Sensitivity 168.4 ng/L (<3.5-35.0)
--- NOTE | 2024-08-01 07:00 | CA_ITS ---
Transthoracic Echocardiogram Patient (Last, First, Middle): Cyrus Rowell G Gender: Male Date of : 1940 Age: 84 Procedure Date: 08/01/2024 Procedure Type: Transthoracic Echocardiogram Location: [facility] – [place] Height: 172.72 cm Weight: 53.52 kg BSA: 1.63 m2 Heart Rate: bpm BP: 107 / 58 mmHg Door Closer: Referring MD: Liz Warner MD Symptoms: saddle PE r/o R heart strain Study Quality: Fair ECG Rhythm: Sinus Conclusions: - Normal left ventricular cavity size. There is normal left ventricular wall thickness. The left ventricular systolic function is moderately decreased. The visually estimated ejection fraction is between 30-35%. - The entire apex, the mid anterior, mid inferior, mid anterolateral, mid inferoseptal, mid anteroseptal, and mid inferolateral segments are akinetic. - Normal right ventricular cavity size. There is low normal right ventricular systolic function. Apical RV akinetic. - Biventricular Takotsubo Cardiomyopathy. Findings Procedure Information Contrast agent, definity, is being given per protocol without apparent complications. Left Ventricle Normal left ventricular cavity size. There is normal left ventricular wall thickness. The left ventricular systolic function is moderately decreased. The visually estimated ejection fraction is between 30-35%. There is evidence of regional wall motion abnormalities. Diastolic function is indeterminate on the basis of available data. Wall Motion Rest Echo Findings The entire apex, the mid anterior, mid inferior, mid anterolateral, mid inferoseptal, mid anteroseptal, and mid inferolateral segments are akinetic. Right Ventricle Normal right ventricular cavity size. There is low normal right ventricular systolic function. Apical RV akinetic. Atria The left atrium is normal in size. The right atrium was not well visualized. Aortic Valve The aortic valve was not well visualized. There is no aortic valve stenosis. There is no aortic valve regurgitation. Mitral Valve The mitral valve appears normal. There is no mitral valve regurgitation. There is no mitral valve stenosis. Pulmonic Valve The pulmonic valve was not well visualized. Tricuspid Valve Normal tricuspid valve structure. There is trace tricuspid valve regurgitation. The right ventricular systolic pressure is 48 mmHg. Normal right atrial pressure. Mild to moderate pulmonary hypertension is present. Great Vessels The aorta was not well visualized. The pulmonary artery was not well visualized. Venous The inferior vena cava is normal in size and collapses greater than 50% with inspiration. Pericardium/Pleural There is no evidence of pericardial effusion. Measurements 2D Linear Measurements IVSd: 0.90 0.6-0.9/0.6-1.0 cm LVIDd: 4.21 3.9-5.3/4.2-5.9 cm LVIDd Index: 2.58 2.4-3.2/2.2-3.1 cm/m2 LVIDs: 3.20 2.0-3.6 cm LVPWd: 0.80 0.7-1.1 cm Ao Root: 3.90 2.1-3.5 cm LA Diam: 2.80 2.7-3.8/3.0-4.0 cm LAIDs Index: 1.72 1.5-2.3 cm/m2 LV Mass: 136.75 67-162/88-224 g LV Mass Index: 83.90 43-95/49-115 g/m2 LVOT Diam: 2.00 3.0+(-)1.3 cm Mitral Valve MV Pk E: 1.12 MV Decel Time: 125.00 E'Lateral: 9.57 E'Medial: 5.66 E/E' Med: 19.80 E/E' Lat: 11.70 PHT: 36.00 MVA PHT: 6.11 Decel Van Zandt: 8.98 Aortic Valve AoV Pk Karan: 1.18 AoV Mn Karan: 0.84 AoV VTI: 0.24 AoV Pk Grad: 6.00 Aov Mn Grad: 3.00 NENA Cont.VTI: 1.73 LVOT LVOT Pk Karan: 0.67 LVOT Mn Karan: 0.43 LVOT VTI: 0.13 LVOT Pk Grad: 2.00 LVOT Mn Grad: 1.00 LVOT Diam: 2.00 LVOT Area: 3.14 Diastolic Function MV Pk E: 1.12 E'Medial: 5.66 E/E' Med: 19.80 E' Laterial: 9.57 E/E' Lat: 11.70 Tricuspid Valve TR Pk Karan: 3.35 TR Pk Grad: 45.00 RA Press: 3.00 RVSP: 48.00 Great Vessels Aorta Ao Root-2D: 3.90 2.0-3.7 cm Updated in Other Vendor System with Status of Final Wayne Todd MD electronically signed on 08/01/2024 2:09:20 PM with status of Final
[2024-08-01] MEDS: 0.9 % Sodium Chloride 1,000 ML 100 ML IVCONT ×2 (08:10→18:33)
[2024-08-01 08:11] LABS: Hematocrit 40.1 % (42.0-52.0); Hemoglobin 13.4 g/dl (14.0-18.0); Mean Corpuscular HGB Conc 33.4 g/dl (31.0-36.0); Mean Corpuscular Hemoglobin 31.3 pg (27.0-33.0); Mean Corpuscular Volume 93.7 fL (80.0-98.0); Mean Platelet Volume 10.4 fL (9.4-12.4); Platelet Count 201 X10*3/uL (160-400); Red Blood Count 4.28 X10*6/uL (4.60-5.80); Red Cell Distribution Width 14.1 % (11.0-16.0); White Blood Count 8.3 X10*3/uL (4.8-10.8)
[2024-08-01 08:20] LABS: INTERNATIONAL NORM RATIO 1.2 (0.9-1.1); Prothrombin Time 13.6 SEC (10.9-12.4)
[2024-08-01 08:22] LABS: PTT Heparin Drip 27.9 SEC (53-77.9); PTT Heparin Drip 29.2 SEC (53-77.9)
--- NOTE | 2024-08-01 08:47 | PM.GICN ---
History of Present Illness Data of Consult Service Date: 08/01/24 Requesting physician: Liz Warner Primary Care Provider: Hay Kessler MD [facility] Reason for consult: ? 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 Gastroenterology has been consulted for finding of irregular esophageal lining on CT neck. History obtained from the chart as patient was disoriented and hallucinating at the time of assessment. He thought I was a financial committee volunteer patient representative who'd come to his home to discuss his finances. From chart review, appears had been having difficulty swallowing and breathing x weeks. Was hospitalized towards the end of May as well for acute hypoxic respiratory failure secondary to COPD exacerbation. On arrival to the emergency room he was noted to be tachypneic but saturating well on room air. Labs were significant labs were significant for hypercalcemia and elevated uric acid. Up trending troponins. Cervical CT spine shows multiple lytic lesions suspicious for underlying multiple myeloma versus osseous metastases. Head and neck CTA also showed saddle embolism and thickening of upper esophagus with abutting lymph nodes. Pt also has known large paraesophageal hernia with chronic volvulus. 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 mutation Bilateral pulmonary embolism Surgical History Surgical History Hx of cataract extraction Hx of knee surgery Hx of colonoscopy Hx of cholecystectomy Social History Social History Household Members: None Housing: House Do you presently have visiting nurse or other home services: No Alcohol intake: current Alcohol intake frequency: 3 or more drinks per day Alcohol type: beer and hard liquor Patient Tobacco Use Status: Former Tobacco user Meds Allergies Allergy/AdvReac Type Severity Reaction Status Date / Time cat dander [cats] Allergy Severe Anaphylaxis Verified 07/31/24 11:28 peanut [PEANUT] Allergy Severe ANAPHYLAXIS Verified 07/31/24 11:28 soy sauce Allergy Severe ANAPHYLAXIS Uncoded 07/31/24 11:28 Active Medications: Current Medications Acetaminophen (Acetaminophen 325 Mg Tablet) 650 mg PO Q6H PRN PRN Reason: Pain, Mild 1-3,fever,headache Albuterol Sulfate (Albuterol Sulfate (0.083%) 2.5 Mg/3 Ml Vial.Neb) 2.5 mg INHALE Q2H PRN PRN Reason: Shortness of Breath/Wheezing Calcium Carbonate (Calcium Carbonate 750 Mg Tab.Chew) 750 mg PO Q4H PRN PRN Reason: Heartburn Heparin Sodium (Porcine) (Heparin Sodium,Porcine 5,000 Unit/Ml Vial) 2,300 unit 40 unit/kg (2300 unit) IVPUSH PROTOCOL BOLUS PRN; Protocol PRN Reason: 40 unit/kg - Heparin Protocol Heparin Sodium (Porcine) (Heparin Sodium,Porcine 5,000 Unit/Ml Vial) 4,600 unit 80 unit/kg (4600 unit) IVPUSH PROTOCOL BOLUS PRN; Protocol PRN Reason: 80 unit/kg - Heparin Protocol Last Admin: 07/31/24 22:45 Dose: 4,600 unit Heparin Sodium/Sodium Chloride (Heparin Sodium,Porcine/1/2ns) 25,000 unit in 250 mls @ 0 mls/hr IVCONT .Q0M [facility]; Protocol Last Titration: 07/31/24 22:50 Dose: 18 units/kg/hr, 10.35 mls/hr Sodium Chloride (Ns) 1,000 mls @ 100 mls/hr IVCONT .Q10H [facility] Last Admin: 08/01/24 08:10 Dose: 100 mls/hr Magnesium Hydroxide (Milk Of Magnesia 30 Ml Oral.Susp) 30 ml PO DAILY PRN PRN Reason: Constipation Melatonin (Melatonin 3 Mg Tablet) 6 mg PO BEDTIME PRN PRN Reason: Insomnia Ondansetron HCl (Ondansetron Hcl 4 Mg/2 Ml Vial) 4 mg IVPUSH Q8H PRN PRN Reason: Nausea and Vomiting Pravastatin Sodium (Pravastatin Sodium 40 Mg Tablet) 40 mg PO BEDTIME [facility] Last Admin: 07/31/24 22:59 Dose: Not Given Sodium Chloride (0.9 % Sodium Chloride Flush 3 Ml Syringe) 3 ml IVFLUSH QSHIFT [facility] Last Admin: 08/01/24 08:07 Dose: Not Given Home Medications ?Medication ?Instructions ?Recorded ?Confirmed ?Last Taken ?Type rivaroxaban 20 mg tablet (Xarelto) 20 mg PO DAILY 06/28/20 07/31/24 07/31/24 History simvastatin 20 mg tablet 20 mg PO BEDTIME 06/28/20 07/31/24 07/30/24 History Physical Exam Vital Signs: Vital Signs: Last Vital Signs Temp 96.9 F 08/01/24 07:59 Pulse 66 08/01/24 07:59 Resp 17 08/01/24 07:59 BP 107/58 L 08/01/24 07:59 Pulse Ox 97 08/01/24 07:59 O2 Del Method Room Air 08/01/24 07:59 BMI result Body Mass Index 18.0 Cachectic appearing male Nonicteric abd soft, nontender, mildly distended No overt resp disterss Mild DYLLAN A/Ox1 (self), unable to follow simple commands, having visual hallucinations Results Labs 08/01/24 07:55 08/01/24 05:52 Labs: Short CBC 07/31/24 07/31/24 08/01/24 Range/Units 13:45 17:43 07:55 WBC 8.6 9.6 8.3 (4.8-10.8) X10*3/uL Hgb 14.3 13.8 L 13.4 L (14.0-18.0) g/dl Hct 42.5 41.0 L 40.1 L (42.0-52.0) % Plt Count 198 D 206 201 (160-400) X10*3/uL BMP 07/31/24 08/01/24 13:45 05:52 Sodium 139 144 Potassium 4.3 3.7 Chloride 100 108 Carbon Dioxide 27 24 BUN 24 H 21 H Creatinine 0.67 0.66 Calcium 14.3 H* D 13.2 H* D Liver Function 07/31/24 Range/Units 13:45 Total Bilirubin 1.2 H (0.0-1.0) mg/dL AST 37 (5-37) U/L ALT 6 (0-40) U/L Alkaline Phosphatase 116 (39-117) U/L Albumin 3.4 L (3.5-5.0) g/dL Urine 08/01/24 Range/Units 04:29 Urine Color Yellow Urine Appearance Clear Urine pH 6.0 (5.0-9.0) Ur Specific [place] 1.020 (1.005-1.025) Urine Protein Negative (Neg-Trace) mg/dL Urine Glucose (UA) Negative (Negative) mg/dL Assessment and Plan (1) Esophageal mass: Status: Acute (2) Altered mental status: Status: Acute (3) Pulmonary embolism: Status: Acute (4) Paraesophageal hernia with gastric volvulus: Status: Acute (5) Hypercalcemia: Status: Acute Plan Differentials for irregular eso lining include erosive esophagitis from massive paraesophageal hernia vs esophageal mass. Clinically has submassive saddle PE based on uptrending trops and BNP and therefore would recommend further evaluation with an echo to assess for right heart strain before EGD can be booked. Would also recommend Neuro eval including imaging to r/o brain mets given mental status changes. Additionally pt also undergoing w/up for hypercalcemia and bone lytic lesions ? MM vs mets. Plan: - NPO for now - Barium swallow when able to follow commands and swallow safely - Echo. Consider cardiology consultation - Consider contrasted head imaging +/- neuro eval - Timing and benefit of EGD to be determined based on clinical course Thank you for allowing me to participate in his care. Please do not hesitate to reach out for any questions or concerns. Procedures Date of Service Date of Service: 08/01/24
[2024-08-01] MEDS: Heparin Sodium,Porcine 5,000 UNIT/ML VIAL 4600 UNIT IVPUSH ×2 (09:15→16:38)
--- NOTE | 2024-08-01 11:06 | MHC.SL.SWA ---
Speech Pathologist Impression: Bedside swallow eval completed 08/01; pt now NPO for pending Barium Swallow and EGD with GI Risk of Aspiration Due to: Poor PO Intake Esophageal dysphagia Dysphasia Diet Status: Liquid Consistency and Strategies for Safe Swallow: Liquid Intake Recommendation: Liquid Intake Strategies: Solid Food Consistency: Dietary Recommendations: Pending results of GI assessments Additional Modifications to Solid Foods: SEE GI RECOMMENDATIONS Oral Medication Intake: Please contact the pharmacy regarding appropriate crushable or liquid drug formulations that are available whenever modified delivery is recommended. Compensatory Strategies and Precautions to be Taken for Safe Swallow: Supervision While Eating and Drinking for Safe Swallow: \ Foods to Avoid: Swallowing Recommended Treatments: Compens. Strategy Educat. Recommendation for Speech: Inpatient Speech Therapy Comment: EGD and barium swallow pending at time this report entered, DRAPERY COUNSELOR continues to follow during inpatient stay, anticipate dysphagia management will be indicated s/p further evaluation by GI Frequency/Duration: M-F Daily Date Range for Service Req: Timeline to reassess: Senior Front End Developer Clinican/Clinical Fellow: No Supervisory Statement: I have reviewed and agree with the student/clinical fellow's documentation: N/A Speech Language Pathologist: Fouzia Carney M.S., CCC-DRAPERY COUNSELOR
--- NOTE | 2024-08-01 11:25 | PM.CNCAR ---
History of Present Illness History of Present Illness Date of Service: 08/01/24 Requesting physician: Liz Warner Chief complaint: HyperCa of malignancy, saddle PE Narrative: 84-year-old gentleman presenting with hypercalcemia, esophageal mass and saddle embolus on CT scan. He has history of alcoholism. He is currently delirious and unable to provide any history. He is hallucinating. Workup has been quite abnormal as mentioned above. He has been started on anticoagulation. 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 He also has some lesions in the spine and only complaint he had was back pain during the interview. He denied any other issues. Labs imaging and EKGs reviewed. 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 Bilateral pulmonary embolism Surgical History Surgical History Hx of cataract extraction Hx of knee surgery Hx of colonoscopy Hx of cholecystectomy Social History Social History Household Members: None Housing: House Do you presently have visiting nurse or other home services: No Alcohol intake: current Alcohol intake frequency: 3 or more drinks per day Alcohol type: beer and hard liquor Patient Tobacco Use Status: Former Tobacco user Meds Allergies Allergy/AdvReac Type Severity Reaction Status Date / Time cat dander [cats] Allergy Severe Anaphylaxis Verified 07/31/24 11:28 peanut [PEANUT] Allergy Severe ANAPHYLAXIS Verified 07/31/24 11:28 soy sauce Allergy Severe ANAPHYLAXIS Uncoded 07/31/24 11:28 Active Medications: Current Medications Acetaminophen (Acetaminophen 325 Mg Tablet) 650 mg PO Q6H PRN PRN Reason: Pain, Mild 1-3,fever,headache Albuterol Sulfate (Albuterol Sulfate (0.083%) 2.5 Mg/3 Ml Vial.Neb) 2.5 mg INHALE Q2H PRN PRN Reason: Shortness of Breath/Wheezing Calcium Carbonate (Calcium Carbonate 750 Mg Tab.Chew) 750 mg PO Q4H PRN PRN Reason: Heartburn Heparin Sodium (Porcine) (Heparin Sodium,Porcine 5,000 Unit/Ml Vial) 2,300 unit 40 unit/kg (2300 unit) IVPUSH PROTOCOL BOLUS PRN; Protocol PRN Reason: 40 unit/kg - Heparin Protocol Heparin Sodium (Porcine) (Heparin Sodium,Porcine 5,000 Unit/Ml Vial) 4,600 unit 80 unit/kg (4600 unit) IVPUSH PROTOCOL BOLUS PRN; Protocol PRN Reason: 80 unit/kg - Heparin Protocol Last Admin: 08/01/24 09:15 Dose: 4,600 unit Heparin Sodium/Sodium Chloride (Heparin Sodium,Porcine/1/2ns) 25,000 unit in 250 mls @ 0 mls/hr IVCONT .Q0M JAYLYN; Protocol Last Titration: 08/01/24 09:10 Dose: 22 units/kg/hr, 12.65 mls/hr Sodium Chloride (Ns) 1,000 mls @ 100 mls/hr IVCONT .Q10H [facility] Last Admin: 08/01/24 08:10 Dose: 100 mls/hr Lidocaine (Lidocaine 4 % Patch Adh..Patch) 1 patch TRANSDERMA DAILY [facility]; Protocol Magnesium Hydroxide (Milk Of Magnesia 30 Ml Oral.Susp) 30 ml PO DAILY PRN PRN Reason: Constipation Melatonin (Melatonin 3 Mg Tablet) 6 mg PO BEDTIME PRN PRN Reason: Insomnia Morphine Sulfate (Morphine Sulfate 2 Mg/Ml Cartridge) 2 mg IVPUSH Q3H PRN; Protocol PRN Reason: Pain, Severe (Pain Scale 7-10) Ondansetron HCl (Ondansetron Hcl 4 Mg/2 Ml Vial) 4 mg IVPUSH Q8H PRN PRN Reason: Nausea and Vomiting Oxycodone HCl (Oxycodone Hcl Immed Release 5 Mg Tablet) 5 mg PO Q4H PRN PRN Reason: Pain, Moderate(Pain Scale 4-6) Pravastatin Sodium (Pravastatin Sodium 40 Mg Tablet) 40 mg PO BEDTIME [facility] Last Admin: 07/31/24 22:59 Dose: Not Given Sodium Chloride (0.9 % Sodium Chloride Flush 3 Ml Syringe) 3 ml IVFLUSH QSHIFT [facility] Last Admin: 08/01/24 08:07 Dose: Not Given Home Medications ?Medication ?Instructions ?Recorded ?Confirmed ?Last Taken ?Type rivaroxaban 20 mg tablet (Xarelto) 20 mg PO DAILY 06/28/20 07/31/24 07/31/24 History simvastatin 20 mg tablet 20 mg PO BEDTIME 06/28/20 07/31/24 07/30/24 History Physical Exam Vital Signs: Vital Signs: Last Vital Signs Temp 96.9 F 08/01/24 07:59 Pulse 66 08/01/24 07:59 Resp 17 08/01/24 07:59 BP 107/58 L 08/01/24 07:59 Pulse Ox 97 08/01/24 07:59 O2 Del Method Room Air 08/01/24 07:59 BMI result Body Mass Index 18.0 GENERAL APPEARANCE: Cachectic appearing. NECK: no carotid bruit, no jugular venous distention. SKIN: no suspicious lesions, warm and dry. HEART: no murmurs, regular rate and rhythm. LUNGS: clear to auscultation bilaterally. ABDOMEN: soft, nontender. EXTREMITIES: no edema. PERIPHERAL PULSES: equal. NEUROLOGIC: Confused. Hallucinating. Objective Labs and Meds 08/01/24 07:55 08/01/24 05:52 Lab results: Laboratory Results - last 24 hr 07/31/24 07/31/24 07/31/24 12:39 13:45 14:17 WBC 8.6 RBC 4.55 L Hgb 14.3 Hct 42.5 MCV 93.4 MCH 31.4 MCHC 33.6 RDW 14.1 Plt Count 198 D MPV 10.2 Immature Gran % (Auto) 0.3 Neut % (Auto) 83.2 H Lymph % (Auto) 9.2 L [place] % (Auto) 6.8 Eos % (Auto) 0.2 Baso % (Auto) 0.3 Lymph # (Auto) 0.8 L Leslie # (Auto) 0.6 Eos # (Auto) 0.0 Baso # (Auto) 0.0 Abs Immat Gran (auto) 0.03 Absolute Neuts (auto) 7.2 Absolute Nucleated RBC 0.000 Nucleated RBC % (auto) 0.0 PT 13.0 H INR 1.1 APTT 26.0 D aPTT Heparin Protocol Sodium 139 Potassium 4.3 Chloride 100 Carbon Dioxide 27 Anion Gap 16 BUN 24 H Creatinine 0.67 Estim Creat Clear Calc 69.0 Estimated GFR > 60 Random Glucose 104 Uric Acid 7.9 H Calcium 14.3 H* D Magnesium 2.0 Total Bilirubin 1.2 H AST 37 ALT 6 Alkaline Phosphatase 116 Lactate Dehydrogenase 192 Troponin I High Sens 66.2 H D B-Natriuretic Peptide 311 H Total Protein 7.9 Albumin 3.4 L 25-OH Vitamin D Total 51.6 PTH Intact Urine Color Urine Appearance Urine pH Ur Specific [place] Urine Protein Urine Glucose (UA) Urine Ketones Urine Blood Urine Nitrite Ur Leukocyte Esterase Urine RBC Urine WBC Ur Squamous Epith Cells Urine Bacteria Hyaline Casts Influenza Type A (PCR) NEGATIVE Influenza Type B (PCR) NEGATIVE RSV RNA Qual (PCR) NEGATIVE SARS-CoV-2 RNA (RT-PCR) NEGATIVE 07/31/24 07/31/24 08/01/24 17:43 22:11 04:29 WBC 9.6 RBC 4.43 L Hgb 13.8 L Hct 41.0 L MCV 92.6 MCH 31.2 MCHC 33.7 RDW 14.1 Plt Count 206 MPV 9.9 Immature Gran % (Auto) Neut % (Auto) Lymph % (Auto) Leslie % (Auto) Eos % (Auto) Baso % (Auto) Lymph # (Auto) [place] # (Auto) Eos # (Auto) Baso # (Auto) Abs Immat Gran (auto) Absolute Neuts (auto) Absolute Nucleated RBC 0.000 Nucleated RBC % (auto) 0.0 PT INR APTT aPTT Heparin Protocol 29.8 L Sodium Potassium Chloride Carbon Dioxide Anion Gap BUN Creatinine Estim Creat Clear Calc Estimated GFR Random Glucose Uric Acid Calcium Magnesium Total Bilirubin AST ALT Alkaline Phosphatase Lactate Dehydrogenase Troponin I High Sens 108.8 H* D B-Natriuretic Peptide Total Protein Albumin 25-OH Vitamin D Total PTH Intact 8.7 Urine Color Yellow Urine Appearance Clear Urine pH 6.0 Ur Specific [place] 1.020 Urine Protein Negative Urine Glucose (UA) Negative Urine Ketones Negative Urine Blood Negative Urine Nitrite Negative Ur Leukocyte Esterase Trace H Urine RBC 0-2 Urine WBC 0-5 Ur Squamous Epith Cells 0-2 Urine Bacteria None Seen Hyaline Casts 0-2 Influenza Type A (PCR) Influenza Type B (PCR) RSV RNA Qual (PCR) SARS-CoV-2 RNA (RT-PCR) 08/01/24 08/01/24 08/01/24 05:52 07:55 07:55 WBC 8.3 RBC 4.28 L Hgb 13.4 L Hct 40.1 L MCV 93.7 MCH 31.3 MCHC 33.4 RDW 14.1 Plt Count 201 MPV 10.4 Immature Gran % (Auto) Neut % (Auto) Lymph % (Auto) Leslie % (Auto) Eos % (Auto) Baso % (Auto) Lymph # (Auto) Leslie # (Auto) Eos # (Auto) Baso # (Auto) Abs Immat Gran (auto) Absolute Neuts (auto) Absolute Nucleated RBC 0.000 Nucleated RBC % (auto) 0.0 PT 13.6 H INR 1.2 H APTT aPTT Heparin Protocol 27.9 L 29.2 L Sodium 144 Potassium 3.7 Chloride 108 Carbon Dioxide 24 Anion Gap 16 BUN 21 H Creatinine 0.66 Estim Creat Clear Calc 63.1 Estimated GFR > 60 Random Glucose 66 Uric Acid Calcium 13.2 H* D Magnesium Total Bilirubin AST ALT Alkaline Phosphatase Lactate Dehydrogenase Troponin I High Sens 168.4 H* D B-Natriuretic Peptide Total Protein Albumin 25-OH Vitamin D Total PTH Intact Urine Color Urine Appearance Urine pH Ur Specific [place] Urine Protein Urine Glucose (UA) Urine Ketones Urine Blood Urine Nitrite Ur Leukocyte Esterase Urine RBC Urine WBC Ur Squamous Epith Cells Urine Bacteria Hyaline Casts Influenza Type A (PCR) Influenza Type B (PCR) RSV RNA Qual (PCR) SARS-CoV-2 RNA (RT-PCR) Imaging Radiologist's impression: Impressions Chest X-Ray 07/31/24 11:37 IMPRESSION: No acute airspace disease. Hiatal hernia, large volume. Scoliosis.. Electronically signed by: Andres George MD 07/31/2024 01:02 PM EST RP Head CT 07/31/24 11:43 IMPRESSION: No acute fracture, bony calvarium. No acute intracranial hemorrhage. Small vessel occlusive disease. Superimposed acute stroke/nonhemorrhagic ischemia cannot be excluded. Global cerebral atrophy. Electronically signed by: Andres George MD 07/31/2024 01:42 PM EST RP Cervical Spine CT 07/31/24 12:43 IMPRESSION: Consider osseous metastasis versus multiple myeloma. Recommend dedicated IV contrast enhanced MRI cervical spine for further assessment of the neural elements. Fleischner guidelines were followed. Electronically signed by: Andres George MD 07/31/2024 01:48 PM EST RP Head/Neck CTA 07/31/24 14:32 IMPRESSION: 1. Saddle pulmonary embolus and segmental pulmonary emboli noted at the inferior aspect of the scan. 2. There is a moderate stenosis of the right vertebral artery at the origin secondary to mixed plaque. 3. There is approximately 20% stenosis of the left ICA at the origin secondary to calcified plaque. 4. Otherwise, there is no flow-limiting stenosis, occlusion, dissection, or aneurysm in the major cervical or intracranial arterial vasculature. 5. Incidental note made of eccentric thickening of the upper esophagus, suspicious for mass. Abutting lymph nodes, enlarged in the AP window region. Correlation with endoscopy recommended. 6. Paraseptal emphysema in the lung apices. Above findings were communicated to Rose Marie Simons PA-C the of coronary clinical specialist at 3:45 PM, 08/04/2024. Electronically signed by: Grant Berrios MD 07/31/2024 04:06 PM [facility] Assessment and Plan (1) Esophageal mass: Status: Acute (2) Hypercalcemia: Status: Acute (3) Pulmonary embolism: Status: Acute Plan [age] year gentleman with known history of PE in the past presenting with confusion related to hypercalcemia as well as alcoholism. He should be monitored closely for alcohol withdrawal and treated accordingly. He has been on anticoagulation which should be continued. He has an esophageal mass picked up on CT scan which may need further workup but currently with saddle embolus it is hard to discontinue anticoagulation. He is unable to provide any history. I think supportive care currently with anticoagulation and as he starts improving we have further discussions about how to manage this situation. I think his legs should be scan to make sure he does not have any residual clot present. If there is residual clot indefinitely an IVC filter should be consider before interruption of anticoagulation before any biopsy. I think right now I am unsure about timing of any biopsy etcetera and would favor just anticoagulation for now. We will follow along with you. I will review echocardiography although limited imaging was quite abnormal with wall motion abnormalities which I will review and relay to Medicine team. Thank you for allowing me to participate in the care of your patient. Please feel free to contact me if you have any questions. Procedures Date of Service Date of Service: 08/01/24
--- NOTE | 2024-08-01 11:31 | P.PNIM_ITS ---
Subjective Subjective Date of Service: 08/01/24 Interval History: denies chest pain or dyspnea seen by PUBLIC INFORMATION SPECIALISTDEEPIKA for regular solids Review of Systems Review of Systems: Yes all other systems are reviewed and are negative Physical Exam 2 Vital Signs: Vital Signs: Last Vital Signs Temp 96.9 F 08/01/24 07:59 Pulse 66 08/01/24 07:59 Resp 17 08/01/24 07:59 BP 107/58 L 08/01/24 07:59 Pulse Ox 97 08/01/24 07:59 O2 Del Method Room Air 08/01/24 07:59 BMI result Body Mass Index 18.0 Gen: in no acute distress, weak HEENT: sclera anicteric, moist mucus membranes Neck: supple Lungs: clear to auscultation bilaterally Heart: regular rate and rhythm, no murmurs Abd: soft, non-tender, non-distended Ext: no edema Skin: warm/well-perfused Neuro: alert and oriented x3, no focal findings Psych: appropriate affect Objective Data Active Medications Acetaminophen (Acetaminophen 325 Mg Tablet) 650 mg PO Q6H PRN PRN Reason: Pain, Mild 1-3,fever,headache Albuterol Sulfate (Albuterol Sulfate (0.083%) 2.5 Mg/3 Ml Vial.Neb) 2.5 mg INHALE Q2H PRN PRN Reason: Shortness of Breath/Wheezing Calcium Carbonate (Calcium Carbonate 750 Mg Tab.Chew) 750 mg PO Q4H PRN PRN Reason: Heartburn Heparin Sodium (Porcine) (Heparin Sodium,Porcine 5,000 Unit/Ml Vial) 2,300 unit 40 unit/kg (2300 unit) IVPUSH PROTOCOL BOLUS PRN; Protocol PRN Reason: 40 unit/kg - Heparin Protocol Heparin Sodium (Porcine) (Heparin Sodium,Porcine 5,000 Unit/Ml Vial) 4,600 unit 80 unit/kg (4600 unit) IVPUSH PROTOCOL BOLUS PRN; Protocol PRN Reason: 80 unit/kg - Heparin Protocol Last Admin: 08/01/24 09:15 Dose: 4,600 unit Documented By: [email or web address].[email or web address] Heparin Sodium/Sodium Chloride (Heparin Sodium,Porcine/1/2ns) 25,000 unit in 250 mls @ 0 mls/hr IVCONT .Q0M JAYLYN; Protocol Last Titration: 08/01/24 09:10 Dose: 22 units/kg/hr, 12.65 mls/hr Documented By: BRODERICKMORP Co-signed By: STEPHENARKenan Sodium Chloride (Ns) 1,000 mls @ 100 mls/hr IVCONT .Q10H [facility] Last Admin: 08/01/24 08:10 Dose: 100 mls/hr Documented By: BRODERICKMOCHIKIS Lidocaine (Lidocaine 4 % Patch Adh..Patch) 1 patch TRANSDERMA DAILY [facility]; Protocol Magnesium Hydroxide (Milk Of Magnesia 30 Ml Oral.Susp) 30 ml PO DAILY PRN PRN Reason: Constipation Melatonin (Melatonin 3 Mg Tablet) 6 mg PO BEDTIME PRN PRN Reason: Insomnia Morphine Sulfate (Morphine Sulfate 2 Mg/Ml Cartridge) 2 mg IVPUSH Q3H PRN; Protocol PRN Reason: Pain, Severe (Pain Scale 7-10) Ondansetron HCl (Ondansetron Hcl 4 Mg/2 Ml Vial) 4 mg IVPUSH Q8H PRN PRN Reason: Nausea and Vomiting Oxycodone HCl (Oxycodone Hcl Immed Release 5 Mg Tablet) 5 mg PO Q4H PRN PRN Reason: Pain, Moderate(Pain Scale 4-6) Pravastatin Sodium (Pravastatin Sodium 40 Mg Tablet) 40 mg PO BEDTIME [facility] Last Admin: 07/31/24 22:59 Dose: Not Given Documented By: RHINA Non-Admin Reason: NPO Sodium Chloride (0.9 % Sodium Chloride Flush 3 Ml Syringe) 3 ml IVFLUSH QSHIFT [facility] Last Admin: 08/01/24 08:07 Dose: Not Given Documented By: AVERY Non-Admin Reason: IV Running Labs 08/01/24 07:55 08/01/24 05:52 Labs: Laboratory Results - last 24 hr 07/31/24 07/31/24 07/31/24 12:39 13:45 14:17 MCV 93.4 MCH 31.4 MCHC 33.6 RDW 14.1 Plt Count 198 D MPV 10.2 Immature Gran % (Auto) 0.3 Neut % (Auto) 83.2 H Lymph % (Auto) 9.[address] % (Auto) 6.8 Eos % (Auto) 0.2 Baso % (Auto) 0.3 Lymph # (Auto) 0.[address] [place] # (Auto) 0.6 Eos # (Auto) 0.0 Baso # (Auto) 0.0 Abs Immat Gran (auto) 0.03 Absolute Neuts (auto) 7.2 Absolute Nucleated RBC 0.000 Nucleated RBC % (auto) 0.0 PT 13.0 H INR 1.1 APTT 26.0 D aPTT Heparin Protocol Anion Gap 16 Estim Creat Clear Calc 69.0 Estimated GFR > 60 Random Glucose 104 Uric Acid 7.9 H Calcium 14.3 H* D Magnesium 2.0 Total Bilirubin 1.2 H AST 37 ALT 6 Alkaline Phosphatase 116 Lactate Dehydrogenase 192 Troponin I High Sens 66.2 H D B-Natriuretic Peptide 311 H Total Protein 7.9 Albumin 3.4 L 25-OH Vitamin D Total 51.6 PTH Intact Urine Color Urine Appearance Urine pH Ur Specific [place] Urine Protein Urine Glucose (UA) Urine Ketones Urine Blood Urine Nitrite Ur Leukocyte Esterase Urine RBC Urine WBC Ur Squamous Epith Cells Urine Bacteria Hyaline Casts Influenza Type A (PCR) NEGATIVE Influenza Type B (PCR) NEGATIVE RSV RNA Qual (PCR) NEGATIVE SARS-CoV-2 RNA (RT-PCR) NEGATIVE 07/31/24 07/31/24 08/01/24 17:43 22:11 04:29 MCV 92.6 MCH 31.2 MCHC 33.7 RDW 14.1 Plt Count 206 MPV 9.9 Immature Gran % (Auto) Neut % (Auto) Lymph % (Auto) [place] % (Auto) Eos % (Auto) Baso % (Auto) Lymph # (Auto) [place] # (Auto) Eos # (Auto) Baso # (Auto) Abs Immat Gran (auto) Absolute Neuts (auto) Absolute Nucleated RBC 0.000 Nucleated RBC % (auto) 0.0 PT INR APTT aPTT Heparin Protocol 29.8 L Anion Gap Estim Creat Clear Calc Estimated GFR Random Glucose Uric Acid Calcium Magnesium Total Bilirubin AST ALT Alkaline Phosphatase Lactate Dehydrogenase Troponin I High Sens 108.8 H* D B-Natriuretic Peptide Total Protein Albumin 25-OH Vitamin D Total PTH Intact 8.7 Urine Color Yellow Urine Appearance Clear Urine pH 6.0 Ur Specific [place] 1.020 Urine Protein Negative Urine Glucose (UA) Negative Urine Ketones Negative Urine Blood Negative Urine Nitrite Negative Ur Leukocyte Esterase Trace H Urine RBC 0-2 Urine WBC 0-5 Ur Squamous Epith Cells 0-2 Urine Bacteria None Seen Hyaline Casts 0-2 Influenza Type A (PCR) Influenza Type B (PCR) RSV RNA Qual (PCR) SARS-CoV-2 RNA (RT-PCR) 08/01/24 08/01/24 08/01/24 05:52 07:55 07:55 MCV 93.7 MCH 31.3 MCHC 33.4 RDW 14.1 Plt Count 201 MPV 10.4 Immature Gran % (Auto) Neut % (Auto) Lymph % (Auto) [place] % (Auto) Eos % (Auto) Baso % (Auto) Lymph # (Auto) [place] # (Auto) Eos # (Auto) Baso # (Auto) Abs Immat Gran (auto) Absolute Neuts (auto) Absolute Nucleated RBC 0.000 Nucleated RBC % (auto) 0.0 PT 13.6 H INR 1.2 H APTT aPTT Heparin Protocol 27.9 L 29.2 L Anion Gap 16 Estim Creat Clear Calc 63.1 Estimated GFR > 60 Random Glucose 66 Uric Acid Calcium 13.2 H* D Magnesium Total Bilirubin AST ALT Alkaline Phosphatase Lactate Dehydrogenase Troponin I High Sens 168.4 H* D B-Natriuretic Peptide Total Protein Albumin 25-OH Vitamin D Total PTH Intact Urine Color Urine Appearance Urine pH Ur Specific [place] Urine Protein Urine Glucose (UA) Urine Ketones Urine Blood Urine Nitrite Ur Leukocyte Esterase Urine RBC Urine WBC Ur Squamous Epith Cells Urine Bacteria Hyaline Casts Influenza Type A (PCR) Influenza Type B (PCR) RSV RNA Qual (PCR) SARS-CoV-2 RNA (RT-PCR) Assessment and Plan (1) Pulmonary embolism: Status: Acute Plan d2 for 84yo M with recently diagnosed COPD, prothrombin [id number] mutation heterozygosity with hx PE currently on rivaroxaban, history of heavy tobacco use, and heavy EtOH intake presenting with weakness resulting in fall, dysphagia, and dyspnea; found to have hypercalcemia, lytic spine lesions concerning for bony metastases or myeloma, a saddle PE, and an esophageal mass with lymphadenopathy. hyperCa of malignancy - given IV pamidronate 07/31; continue IV normal saline, PTH-RP pending saddle PE prothrombin [id number] mutation heterozygosity - new/acute PE as no PE on CTA on last admission 06/16/24. Likely due to malignancy and will eventually need to be on enoxaparin but for now continue heparin IV drip. Not hypoxic and no S1Q3T3 pattern on EKG. BNP elevated and hs-Tn-I increaseing. Will consult Cardiology as will need pre-EGD clearance; TTE pending esophageal irregularity with lymphadenopathy dysphagia - GI consulted. Could represent erosive esophagitis from massive paraesophageal hernia versus mass. Defer EGD for now given saddle PE. Will obtain barium swallow. lytic spine lesions - Could be metastases from esophageal mass or multiple myeloma; SPEP, BEATRIZ, [id number], and serum free light chain ratio pending question of acute CVA; fall with unknown LOC - Cannot do MRI due to pt's stimulator. Will obtain CT head with contrast COPD not acute exacerbation - PRN albuterol dispo - TBD In my clinical judgment, the patient requires continued inpatient hospitalization for the following reasons: IV heparin, IV hydration Total time managing care of this patient today: 45 minutes. Quality Stroke Does the patient have a stroke diagnosis?: No VTE Prior VTE?: No VTE Risk Level:: Medical - moderate - high VTE Device Contraindication: N/A - Device Ordered VTE Drug Contraindication: N/A - Med Ordered
--- NOTE | 2024-08-01 11:33 | MHC.CM.PN ---
CM ATTEMPTED TO MEET WITH PT, BEDSIDE IMAGING IN PROGRESS CM TO REVISIT
[2024-08-01] MEDS: Heparin Sodium,Porcine/1/2NS 25,000 UNIT/250 ML IV.SOLN 12.65 UNIT IVCONT (14:33)
[2024-08-01 15:58] LABS: PTT Heparin Drip 32.3 SEC (53-77.9)
--- NOTE | 2024-08-01 16:21 | MHC.CM.PN ---
PT UNABLE TO PROVIDE INFORMATION, HE WAKES EASILY, BUT IMMEDIATELY FALLS BACK TO SLEEP CM CALLED PTS PRIMARY CONTACT/DAUGHTER, DYLAN [phone] SHE REPORTS THE PT LIVES ALONE SHE SAYS HE DID NOT HAVE SERVICES BUT REALLY NEEDS SOME HE HAS A CANE FOR DME AND [facility] SHE SAYS SHE PROVIDED A COPY OF HIS HCP WHILE HE WAS IN THE ED, SHE IS THE [facility] PCP: WERO BORGES IMM DELIVERED DYLAN REPORTS SHE IS UNSURE WHAT THE PREFERRED DCP WOULD BE THEY HAVE NOT COMPLETED TESTING AND PT IS FAR FROM BL AT THIS TIME CM WILL CONTINUE WORKING WITH PT AND FAMILY ON SAFE DCP
[2024-08-01] MEDS: Pravastatin Sodium 40 MG TABLET PO (22:05)
[2024-08-01] MEDS: PHENobarbitaL sodium 130 MG/ML VIAL 260 MG IM (22:30)
[2024-08-01 23:53] LABS: PTT Heparin Drip > 200.0 SEC (53-77.9)
[2024-08-02] VITALS (7 sets, daily range): BP systolic 104–132; BP diastolic 56–70; PULSE 60–100; RESP 16–20; TEMP 35.3–37; O2SAT 89–98
[2024-08-02] MEDS: 0.9 % Sodium Chloride 1,000 ML 100 ML IVCONT ×3 (03:58→23:24)
[2024-08-02 04:11] LABS: PTT Heparin Drip 193.7 SEC (53-77.9)
[2024-08-02 04:49] LABS: Anion Gap 15 (12-20); Blood Urea Nitrogen 17 mg/dL (9-16); Calcium 11.8 mg/dL (8.4-10.2); Carbon Dioxide 24 mmol/L (22-29); Chloride 109 mmol/L (96-108); Creatinine Clr Calc Pharmacy 57.9; Estimated Glomerular Filt Rate > 60; Glucose Random 76 mg/dL (60-115); Potassium 3.5 mmol/L (3.3-5.1); Sodium 144 mmol/L (135-145)
[2024-08-02 04:52] LABS: PTT Heparin Drip 184.2 SEC (53-77.9)
[2024-08-02 06:40] LABS: PTT Heparin Drip 142.4 SEC (53-77.9)
[2024-08-02 08:32] LABS: PTT Heparin Drip 133.1 SEC (53-77.9)
[2024-08-02] MEDS: Lidocaine 4 % Patch ADH..PATCH 1 PATCH TRANSDERMA (09:05)
[2024-08-02 10:33] LABS: PTT Heparin Drip 23.7 SEC (53-77.9)
--- NOTE | 2024-08-02 14:22 | PC.NURSE ---
Addendum entered by Nimesh Burton RN 08/02/24 18:58: two phleb's attempted to draw PTT on pt around 1800 but were unsuccessful. around 1840 phleb informed this RN PTT was unable to be drawn. informed. CT paged this RN at 1830 stating they are ready for the pt and afterwards stated transport is unavailable. Pt was unable to be transported at 1830 d/t phleb attempting PTT draw. Original Note: assumed care for this pt around 1300
--- NOTE | 2024-08-02 14:25 | P.PNHO-ONC_ITS ---
Medical Summary - Medical Summary Date of Service: 08/02/24 Primary Care Provider: Hay Kessler MD Medical Summary: He remains stable if very frail. He denies pain and is somewhat less confused. His calcium is down to 11.8 National Coverage Specialist Utilized?: No - Peruvian Speaking Interval History Interval history: Cyrus Rowell is a 84 year old male who presents to the ER with weakness. The calcium was 14 and lytic lesion were seen on a CT of the neck. He was also found to have thickening of the upper esophagus on CT and has been complaining of dysphagia recently. Electrophoresis and light chain studies have been drawn. He is being hydrated.A saddle pulmonary embolism and other segmental clots wer found on an angiogram. He is anticoaguated. 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 Hyperlipidemia Situational anxiety Surgical History: Surgical History (Last Reviewed 07/31/24 @ 17:58 by Liz Warner MD) Hx of cataract extraction Hx of cholecystectomy Hx of colonoscopy Hx of knee surgery Social History: Social History (Last Reviewed 07/31/24 @ 17:58 by Liz Warner MD) Living Situation History: Household Members: None Housing: House Do you presently have visiting nurse or other home services: No Tobacco History: Patient Tobacco Use Status: Former Tobacco user 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 Home Medications and Allergies Current Medications: Current Medications Acetaminophen (Acetaminophen 325 Mg Tablet) 650 mg PO Q6H PRN PRN Reason: Pain, Mild 1-3,fever,headache Albuterol Sulfate (Albuterol Sulfate (0.083%) 2.5 Mg/3 Ml Vial.Neb) 2.5 mg INHALE Q2H PRN PRN Reason: Shortness of Breath/Wheezing Calcium Carbonate (Calcium Carbonate 750 Mg Tab.Chew) 750 mg PO Q4H PRN PRN Reason: Heartburn Heparin Sodium (Porcine) (Heparin Sodium,Porcine 5,000 Unit/Ml Vial) 2,300 unit 40 unit/kg (2300 unit) IVPUSH PROTOCOL BOLUS PRN; Protocol PRN Reason: 40 unit/kg - Heparin Protocol Heparin Sodium (Porcine) (Heparin Sodium,Porcine 5,000 Unit/Ml Vial) 4,600 unit 80 unit/kg (4600 unit) IVPUSH PROTOCOL BOLUS PRN; Protocol PRN Reason: 80 unit/kg - Heparin Protocol Last Admin: 08/01/24 16:38 Dose: 4,600 unit Heparin Sodium/Sodium Chloride (Heparin Sodium,Porcine/1/2ns) 25,000 unit in 250 mls @ 0 mls/hr IVCONT .Q0M [facility]; Protocol Last Titration: 08/02/24 12:04 Dose: 22 units/kg/hr, 12.65 mls/hr Sodium Chloride (Ns) 1,000 mls @ 100 mls/hr IVCONT .Q10H [facility] Last Admin: 08/02/24 13:48 Dose: 100 mls/hr Lidocaine (Lidocaine 4 % Patch Adh..Patch) 1 patch TRANSDERMA DAILY [facility]; Protocol Last Admin: 08/02/24 09:05 Dose: 1 patch Magnesium Hydroxide (Milk Of Magnesia 30 Ml Oral.Susp) 30 ml PO DAILY PRN PRN Reason: Constipation Melatonin (Melatonin 3 Mg Tablet) 6 mg PO BEDTIME PRN PRN Reason: Insomnia Morphine Sulfate (Morphine Sulfate 2 Mg/Ml Cartridge) 2 mg IVPUSH Q3H PRN; Protocol PRN Reason: Pain, Severe (Pain Scale 7-10) Ondansetron HCl (Ondansetron Hcl 4 Mg/2 Ml Vial) 4 mg IVPUSH Q8H PRN PRN Reason: Nausea and Vomiting Oxycodone HCl (Oxycodone Hcl Immed Release 5 Mg Tablet) 5 mg PO Q4H PRN PRN Reason: Pain, Moderate(Pain Scale 4-6) Pravastatin Sodium (Pravastatin Sodium 40 Mg Tablet) 40 mg PO BEDTIME [facility] Last Admin: 08/01/24 22:05 Dose: 40 mg Sodium Chloride (0.9 % Sodium Chloride Flush 3 Ml Syringe) 3 ml IVFLUSH QSHIFT [facility] Last Admin: 08/02/24 13:04 Dose: Not Given Home Medications ?Medication ?Instructions ?Recorded ?Confirmed ?Type rivaroxaban 20 mg tablet (Xarelto) 20 mg PO DAILY 06/28/20 07/31/24 History simvastatin 20 mg tablet 20 mg PO BEDTIME 06/28/20 07/31/24 History Allergies Allergy/AdvReac Type Severity Reaction Status Date / Time cat dander [cats] Allergy Severe Anaphylaxis Verified 07/31/24 11:28 peanut [PEANUT] Allergy Severe ANAPHYLAXIS Verified 07/31/24 11:28 soy sauce Allergy Severe ANAPHYLAXIS Uncoded 07/31/24 11:28 Exam Vital signs: Vital Signs Temp 98.0 F 08/02/24 10:51 Pulse 60 08/02/24 10:51 Resp 18 08/02/24 10:51 BP 104/56 L 08/02/24 10:51 Pulse Ox 95 08/02/24 10:51 O2 Del Method Room Air 08/02/24 10:51 Intake & Output 08/01/24 08/02/24 08/02/24 18:59 06:59 18:59 Intake Total 1751.825 / 3102.378 1350.553 / 3102.378 983.333 / 983.333 Output Total 1100 / 1100 100 / 100 Balance 1751.825 / 2002.378 250.553 / 2002.378 883.333 / 883.333 Urine Output (Average ml/kg/hr) 1.71 0.16 Intake: Intake, Oral Amount 300 / 300 Intake, IV Amount 1751.825 / 2802.378 1050.553 / 2802.378 983.333 / 983.333 0.9 % Sodium Chloride 1,000 ml 1550 / 2491.667 941.667 / 2491.667 983.333 / 983.333 @ 100 mls/hr IVCONT .Q10H [facility] Rx#:[id number] Heparin Sodium,Porcine/1/2NS 25 201.825 / 310.711 108.886 / 310.711 0 / 0 ,000 unit In 250 ml @ Per Protocol IVCONT .Q0M [facility] Rx#: [id number] Output: Output, Urine Amount 1100 / 1100 100 / 100 Other: NPO Yes Breakfast % Eaten 0% Lunch % Eaten 0% Number of Incontinent Voids 1 Number of Unmeasured Voids 3 Number of Bowel Movements 0 Urine [place] Urine Color Yellow Yellow Yellow Last Bowel Movement 08/01/24 Weight 53.6 kg BMI result Body Mass Index 18.0 - Constitutional Present: no acute distress, moderate distress, chronically ill appearing - Routine HEENT Exam Head: Present: atraumatic - Routine Neck Exam Present: full ROM - Routine Respiratory Exam Present: decreased breath sounds - Routine Cardiovascular Exam Cardiovascular: Present: RRR (advanced muscle wasting) - Routine Abdominal Exam Present: diminished bowel sounds - Routine Extremities Exam Present: nontender Data - Labs CBC & Chem 7: 08/01/24 07:55 08/02/24 01:09 Labs: Laboratory Last Values WBC 8.3 X10*3/uL (4.8-10.8) 08/01/24 07:55 RBC 4.28 X10*6/uL (4.60-5.80) L 08/01/24 07:55 Hgb 13.4 g/dl (14.0-18.0) L 08/01/24 07:55 Hct 40.1 % (42.0-52.0) L 08/01/24 07:55 MCV 93.7 fL (80.0-98.0) 08/01/24 07:55 MCH 31.3 pg (27.0-33.0) 08/01/24 07:55 MCHC 33.4 g/dl (31.0-36.0) 08/01/24 07:55 RDW 14.1 % (11.0-16.0) 08/01/24 07:55 Plt Count 201 X10*3/uL (160-400) 08/01/24 07:55 MPV 10.4 fL (9.4-12.4) 08/01/24 07:55 Immature Gran % (Auto) 0.3 % (0.0-0.4) 07/31/24 13:45 Neut % (Auto) 83.2 % (45-73) H 07/31/24 13:45 Lymph % (Auto) 9.2 % (20-40) L 07/31/24 13:45 [place] % (Auto) 6.8 % (2-11) 07/31/24 13:45 Eos % (Auto) 0.2 % (0-4) 07/31/24 13:45 Baso % (Auto) 0.3 % (0-2) 07/31/24 13:45 Lymph # (Auto) 0.8 X10*3/uL (1.2-4.9) L 07/31/24 13:45 [place] # (Auto) 0.6 X10*3/uL (0.1-1.2) 07/31/24 13:45 Eos # (Auto) 0.0 X10*3/uL (0.0-0.4) 07/31/24 13:45 Baso # (Auto) 0.0 X10*3/uL (0.0-0.2) 07/31/24 13:45 Abs Immat Gran (auto) 0.03 X10*3/uL (0.00-0.03) 07/31/24 13:45 Absolute Neuts (auto) 7.2 x10*3/uL (2.0-8.3) 07/31/24 13:45 Absolute Nucleated RBC 0.000 X10*3/uL (0.0-0.012) 08/01/24 07:55 Nucleated RBC % (auto) 0.0 /100WBC (0.0-0.2) 08/01/24 07:55 PT 13.6 SEC (10.9-12.4) H 08/01/24 07:55 INR 1.2 (0.9-1.1) H 08/01/24 07:55 APTT 26.0 SEC (26.0-36.8) D 07/31/24 13:45 aPTT Heparin Protocol 23.7 SEC (53-77.9) L D 08/02/24 09:57 Hold Blue Top Cancelled 08/02/24 01:09 Sodium 144 mmol/L (135-145) 08/02/24 01:09 Potassium 3.5 mmol/L (3.3-5.1) 08/02/24 01:09 Chloride 109 mmol/L (96-108) H 08/02/24 01:09 Carbon Dioxide 24 mmol/L (22-29) 08/02/24 01:09 Anion Gap 15 (12-20) 08/02/24 01:09 BUN 17 mg/dL (9-16) H 08/02/24 01:09 Creatinine 0.72 mg/dL (0.5-1.4) 08/02/24 01:09 Estim Creat Clear Calc 57.9 08/02/24 01:09 Estimated GFR > 60 08/02/24 01:09 Random Glucose 76 mg/dL (60-115) 08/02/24 01:09 Uric Acid 7.9 mg/dL (3.4-7.0) H 07/31/24 14:17 Calcium 11.8 mg/dL (8.4-10.2) H D 08/02/24 01:09 Magnesium 2.0 mg/dL (1.6-2.6) 07/31/24 13:45 Total Bilirubin 1.2 mg/dL (0.0-1.0) H 07/31/24 13:45 AST 37 U/L (5-37) 07/31/24 13:45 ALT 6 U/L (0-40) 07/31/24 13:45 Alkaline Phosphatase 116 U/L (39-117) 07/31/24 13:45 Lactate Dehydrogenase 192 U/L (118-273) 07/31/24 14:17 Troponin I High Sens 168.4 ng/L (<3.5-35.0) H* D 08/01/24 05:52 B-Natriuretic Peptide 311 pg/mL (<100) H 07/31/24 13:45 Total Protein 7.9 g/dL (6.5-8.0) 07/31/24 13:45 Albumin 3.4 g/dL (3.5-5.0) L 07/31/24 13:45 25-OH Vitamin D Total 51.6 ng/mL (>30) 07/31/24 13:45 PTH Intact 8.7 pg/mL (8.7-77.1) 07/31/24 22:11 Urine Color Yellow 08/01/24 04:29 Urine Appearance Clear 08/01/24 04:29 Urine pH 6.0 (5.0-9.0) 08/01/24 04:29 Ur Specific [place] 1.020 (1.005-1.025) 08/01/24 04:29 Urine Protein Negative mg/dL (Neg-Trace) 08/01/24 04:29 Urine Glucose (UA) Negative mg/dL (Negative) 08/01/24 04:29 Urine Ketones Negative mg/dL (Negative) 08/01/24 04:29 Urine Blood Negative (Negative) 08/01/24 04:29 Urine Nitrite Negative (Negative) 08/01/24 04:29 Ur Leukocyte Esterase Trace (Negative) H 08/01/24 04:29 Urine RBC 0-2 /HPF (0-2) 08/01/24 04:29 Urine WBC 0-5 /HPF (0-5) 08/01/24 04:29 Ur Squamous Epith Cells 0-2 /HPF (0-2) 08/01/24 04:29 Urine Bacteria None Seen (None Seen) 08/01/24 04:29 Hyaline Casts 0-2 /LPF (0-2) 08/01/24 04:29 Influenza Type A (PCR) NEGATIVE (Negative) 07/31/24 12:39 Influenza Type B (PCR) NEGATIVE (Negative) 07/31/24 12:39 RSV RNA Qual (PCR) NEGATIVE (Negative) 07/31/24 12:39 SARS-CoV-2 RNA (RT-PCR) NEGATIVE (Negative) 07/31/24 12:39 - Imaging Radiologist's impression: ITS Impressions Chest X-Ray 07/31/24 11:37 IMPRESSION: No acute airspace disease. Hiatal hernia, large volume. Scoliosis.. Electronically signed by: Andres George MD 07/31/2024 01:02 PM EST RP Head CT 07/31/24 11:43 IMPRESSION: No acute fracture, bony calvarium. No acute intracranial hemorrhage. Small vessel occlusive disease. Superimposed acute stroke/nonhemorrhagic ischemia cannot be excluded. Global cerebral atrophy. Electronically signed by: Andres George MD 07/31/2024 01:42 PM EST RP Cervical Spine CT 07/31/24 12:43 IMPRESSION: Consider osseous metastasis versus multiple myeloma. Recommend dedicated IV contrast enhanced MRI cervical spine for further assessment of the neural elements. Fleischner guidelines were followed. Electronically signed by: Andres George MD 07/31/2024 01:48 PM EST RP Head/Neck CTA 07/31/24 14:32 IMPRESSION: 1. Saddle pulmonary embolus and segmental pulmonary emboli noted at the inferior aspect of the scan. 2. There is a moderate stenosis of the right vertebral artery at the origin secondary to mixed plaque. 3. There is approximately 20% stenosis of the left ICA at the origin secondary to calcified plaque. 4. Otherwise, there is no flow-limiting stenosis, occlusion, dissection, or aneurysm in the major cervical or intracranial arterial vasculature. 5. Incidental note made of eccentric thickening of the upper esophagus, suspicious for mass. Abutting lymph nodes, enlarged in the AP window region. Correlation with endoscopy recommended. 6. Paraseptal emphysema in the lung apices. Above findings were communicated to Rose Marie Simons PA-C the of window covering sales consultant at 3:45 PM, 08/04/2024. Electronically signed by: Grant Berrios MD 07/31/2024 04:06 PM [facility] Assessment and Plan Patient Active problem list reviewed?: Yes (1) Esophageal mass Status: Acute Assessment and plan: When stable will need EGD. A squamous cell carcinoma will spread to bone and can cause hypercalcemia. (2) Hypercalcemia Status: Acute Assessment and plan: Likely cause would be plasma cell dyscrasia or metastatic squamous cell cancer from upper esophagus. Recommend iv hydration, bisphosphonate such pamidronate, zoledronic, or exzgeva. Willneed daily calcim levels, (3) Pulmonary embolism Start date: 07/31/24 Status: Acute Assessment and plan: Recommend anticoagulation with a heparin for now. He will need invasive procedures soon. - Time Spent With Patient Time Spent with Patient (in minutes): 0
--- NOTE | 2024-08-02 16:51 | HO.PM.IMPN ---
Subjective Subjective Date of Service: 08/02/24 Interval History: somewhat confused c/o lower back pain denies dyspnea or chest pain Review of Systems Review of Systems: Yes all other systems are reviewed and are negative Physical Exam Vital Signs: Vital Signs: Last Vital Signs Temp 96.8 F 08/02/24 16:00 Pulse 100 08/02/24 16:00 Resp 20 08/02/24 16:00 BP 112/70 08/02/24 16:00 Pulse Ox 92 08/02/24 16:00 O2 Del Method Room Air 08/02/24 16:00 BMI result Body Mass Index 18.0 Gen: in no acute distress, weak HEENT: sclera anicteric, moist mucus membranes Neck: supple Lungs: clear to auscultation bilaterally Heart: regular rate and rhythm, no murmurs Abd: soft, non-tender, non-distended Ext: no edema Skin: warm/well-perfused Neuro: alert and oriented to self only, no focal findings Psych: appropriate affect Objective Data Active Medications Acetaminophen (Acetaminophen 325 Mg Tablet) 650 mg PO Q6H PRN PRN Reason: Pain, Mild 1-3,fever,headache Albuterol Sulfate (Albuterol Sulfate (0.083%) 2.5 Mg/3 Ml Vial.Neb) 2.5 mg INHALE Q2H PRN PRN Reason: Shortness of Breath/Wheezing Calcium Carbonate (Calcium Carbonate 750 Mg Tab.Chew) 750 mg PO Q4H PRN PRN Reason: Heartburn Heparin Sodium (Porcine) (Heparin Sodium,Porcine 5,000 Unit/Ml Vial) 2,300 unit 40 unit/kg (2300 unit) IVPUSH PROTOCOL BOLUS PRN; Protocol PRN Reason: 40 unit/kg - Heparin Protocol Heparin Sodium (Porcine) (Heparin Sodium,Porcine 5,000 Unit/Ml Vial) 4,600 unit 80 unit/kg (4600 unit) IVPUSH PROTOCOL BOLUS PRN; Protocol PRN Reason: 80 unit/kg - Heparin Protocol Last Admin: 08/01/24 16:38 Dose: 4,600 unit Documented By: [email or web address] Heparin Sodium/Sodium Chloride (Heparin Sodium,Porcine/1/2ns) 25,000 unit in 250 mls @ 0 mls/hr IVCONT .Q0M [facility]; Protocol Last Titration: 08/02/24 12:04 Dose: 22 units/kg/hr, 12.65 mls/hr Documented By: MIKE Co-signed By: KATT Sodium Chloride (Ns) 1,000 mls @ 100 mls/hr IVCONT .Q10H [facility] Last Admin: 08/02/24 13:48 Dose: 100 mls/hr Documented By: SHAYY Lidocaine (Lidocaine 4 % Patch Adh..Patch) 1 patch TRANSDERMA DAILY [facility]; Protocol Last Admin: 08/02/24 09:05 Dose: 1 patch Documented By: MIKE Magnesium Hydroxide (Milk Of Magnesia 30 Ml Oral.Susp) 30 ml PO DAILY PRN PRN Reason: Constipation Melatonin (Melatonin 3 Mg Tablet) 6 mg PO BEDTIME PRN PRN Reason: Insomnia Morphine Sulfate (Morphine Sulfate 2 Mg/Ml Cartridge) 2 mg IVPUSH Q3H PRN; Protocol PRN Reason: Pain, Severe (Pain Scale 7-10) Ondansetron HCl (Ondansetron Hcl 4 Mg/2 Ml Vial) 4 mg IVPUSH Q8H PRN PRN Reason: Nausea and Vomiting Oxycodone HCl (Oxycodone Hcl Immed Release 5 Mg Tablet) 5 mg PO Q4H PRN PRN Reason: Pain, Moderate(Pain Scale 4-6) Pravastatin Sodium (Pravastatin Sodium 40 Mg Tablet) 40 mg PO BEDTIME [facility] Last Admin: 08/01/24 22:05 Dose: 40 mg Documented By: RHINA Sodium Chloride (0.9 % Sodium Chloride Flush 3 Ml Syringe) 3 ml IVFLUSH QSHIFT [facility] Last Admin: 08/02/24 13:04 Dose: Not Given Documented By: SHAYY Non-Admin Reason: IV Running Labs 08/01/24 07:55 08/02/24 01:09 Labs: Laboratory Results - last 24 hr 08/01/24 08/02/24 08/02/24 22:45 01:09 02:52 aPTT Heparin Protocol > 200.0 H* D 195.0 H* 193.7 H* Hold Blue Top Cancelled Anion Gap 15 Estim Creat Clear Calc 57.9 Estimated GFR > 60 Random Glucose 76 Calcium 11.8 H D 08/02/24 08/02/24 08/02/24 04:24 05:38 07:27 aPTT Heparin Protocol 184.2 H* 142.4 H* D 133.1 H* Hold Blue Top Anion Gap Estim Creat Clear Calc Estimated GFR Random Glucose Calcium 08/02/24 09:57 aPTT Heparin Protocol 23.7 L D Hold Blue Top Anion Gap Estim Creat Clear Calc Estimated GFR Random Glucose Calcium Assessment and Plan (1) Pulmonary embolism: Status: Acute Plan 32 for 84yo M with recently diagnosed COPD, prothrombin [id number] mutation heterozygosity with hx PE currently on rivaroxaban, history of heavy tobacco use, and heavy EtOH intake presenting with weakness resulting in fall, dysphagia, and dyspnea; found to have hypercalcemia, lytic spine lesions concerning for bony metastases or myeloma, a saddle PE, and an esophageal mass with lymphadenopathy hyperCa of malignancy - given IV pamidronate 07/31; continue IV normal saline, PTH-RP pending; Ca improving acute metabolic encephalopathy - per daughter pt was completely normal last week; suspect AMS due to hyperCa saddle PE prothrombin [id number] mutation heterozygosity takotsubo cardiomyopathy/acute HFrEF - new/acute PE, as there was no PE on CTA on last admission 06/16/24. Likely due to malignancy and will eventually need to be on enoxaparin [since he had a PE despite taking rivaroxaban] but for now continue heparin IV drip. Not hypoxic and no S1Q3T3 pattern on EKG. BNP and hs-Tn-I high. Cardiology following. High-risk for EGD. TTE 08/01/24: - Normal left ventricular cavity size. There is normal left ventricular wall thickness. The left ventricular systolic function is moderately decreased. The visually estimated ejection fraction is between 30-35%. - The entire apex, the mid anterior, mid inferior, mid anterolateral, mid inferoseptal, mid anteroseptal, and mid inferolateral segments are akinetic. - Normal right ventricular cavity size. There is low normal right ventricular systolic function. Apical RV akinetic. - Biventricular Takotsubo Cardiomyopathy. esophageal irregularity with lymphadenopathy dysphagia - GI consulted. Could represent erosive esophagitis from massive paraesophageal hernia versus mass. Defer EGD for now given saddle PE. Will obtain barium swallow. lytic cervical spine lesions - Could be metastases from esophageal mass or multiple myeloma; SPEP, BEATRIZ, [id number], and serum free light chain ratio pending. Will image L-spine which is where the pt has pain. Consider CT-guidd biopsy of a spinal lesion under local anesthesia as this would be lower risk than an EGD under sedation. fall with unknown LOC - no evidence of CVA or brain mass on contrasted CT of head; cannot do MRI given noncompatible stimlator COPD not acute exacerbation - PRN albuterol dispo - will need STR In my clinical judgment, the patient requires continued inpatient hospitalization for the following reasons: IV heparin, IV hydration, biopsy Updated pt's daughter Kandi in person. Total time managing care of this patient today: 55 minutes. Quality Stroke Does the patient have a stroke diagnosis?: No VTE Prior VTE?: No VTE Risk Level:: Medical - moderate - high VTE Device Contraindication: N/A - Device Ordered VTE Drug Contraindication: N/A - Med Ordered
[2024-08-02] MEDS: Heparin Sodium,Porcine/1/2NS 25,000 UNIT/250 ML IV.SOLN 12.65 UNIT IVCONT (21:10)
[2024-08-02 23:36] LABS: PTT Heparin Drip 86.5 SEC (53-77.9)
[2024-08-03] VITALS (7 sets, daily range): BP systolic 94–116; BP diastolic 53–65; PULSE 65–80; RESP 16–20; TEMP 36.2–36.8; O2SAT 92–95; BMI 19.1
[2024-08-03] MEDS: iohexoL 350 MG/ML 100 ML INFUS..BTL 85 ML IV (00:16)
[2024-08-03 07:29] LABS: Anion Gap 14 (12-20); Blood Urea Nitrogen 16 mg/dL (9-16); Calcium 9.5 mg/dL (8.4-10.2); Carbon Dioxide 19 mmol/L (22-29); Chloride 114 mmol/L (96-108); Creatinine Clr Calc Pharmacy 68.3; Estimated Glomerular Filt Rate > 60; Glucose Random 60 mg/dL (60-115); Magnesium 1.7 mg/dL (1.6-2.6); Potassium 3.5 mmol/L (3.3-5.1); Sodium 143 mmol/L (135-145)
[2024-08-03 07:47] LABS: Beta-2 Microglobulin, Serum 2.57 mg/L (< OR = 2.51)
[2024-08-03] MEDS: 0.9 % Sodium Chloride 1,000 ML 100 ML IVCONT (09:06)
[2024-08-03] MEDS: Lidocaine 4 % Patch ADH..PATCH 1 PATCH TRANSDERMA (09:07)
[2024-08-03 10:03] LABS: PTT Heparin Drip 74.8 SEC (53-77.9)
--- NOTE | 2024-08-03 10:24 | MHC.SLORD ---
Speech Language Pathology Order Status: RN and MD consulted, pt going for Barium Swallow today, SEED PELLETER to follouwp with pt re:GI recommendations.
--- NOTE | 2024-08-03 12:12 | HO.PM.IMPN ---
Subjective Subjective Date of Service: 08/04/24 Interval History: Being followed for hypercalcemia and saddle embolus Son at bedside feels patient is at his baseline Complaining of right lower back pain, otherwise denies nausea, no vomiting no other acute events overnight. Review of Systems All other system reviewed and are negative Physical Exam Vital Signs: Vital Signs: Last Vital Signs Temp 97.2 F 08/03/24 11:42 Pulse 71 08/03/24 11:42 Resp 17 08/03/24 11:42 BP 116/60 08/03/24 11:42 Pulse Ox 94 08/03/24 11:42 O2 Del Method Room Air 08/03/24 11:42 BMI result Body Mass Index 18.0 Const: Other: Gen: in no acute distress, HEENT: sclera anicteric, moist mucus membranes Neck: supple Lungs: clear to auscultation bilaterally Heart: regular rate and rhythm, no murmurs Abd: soft, non-tender, non-distended Tenderness right lower back no palpable masses Ext: no edema Skin: warm/well-perfused Neuro: alert and oriented , no focal findings Psych: appropriate affect Objective Data Active Medications Acetaminophen (Acetaminophen 325 Mg Tablet) 650 mg PO Q6H PRN PRN Reason: Pain, Mild 1-3,fever,headache Albuterol Sulfate (Albuterol Sulfate (0.083%) 2.5 Mg/3 Ml Vial.Neb) 2.5 mg INHALE Q2H PRN PRN Reason: Shortness of Breath/Wheezing Calcium Carbonate (Calcium Carbonate 750 Mg Tab.Chew) 750 mg PO Q4H PRN PRN Reason: Heartburn Heparin Sodium (Porcine) (Heparin Sodium,Porcine 5,000 Unit/Ml Vial) 2,300 unit 40 unit/kg (2300 unit) IVPUSH PROTOCOL BOLUS PRN; Protocol PRN Reason: 40 unit/kg - Heparin Protocol Heparin Sodium (Porcine) (Heparin Sodium,Porcine 5,000 Unit/Ml Vial) 4,600 unit 80 unit/kg (4600 unit) IVPUSH PROTOCOL BOLUS PRN; Protocol PRN Reason: 80 unit/kg - Heparin Protocol Last Admin: 08/01/24 16:38 Dose: 4,600 unit Documented By: HO.PODMORP Heparin Sodium/Sodium Chloride (Heparin Sodium,Porcine/1/2ns) 25,000 unit in 250 mls @ 0 mls/hr IVCONT .Q0M [facility]; Protocol Last Titration: 08/03/24 11:52 Dose: 14 units/kg/hr, 8.05 mls/hr Documented By: MARY Co-signed By: KATT Sodium Chloride (Ns) 1,000 mls @ 100 mls/hr IVCONT .Q10H [facility] Last Admin: 08/03/24 09:06 Dose: 100 mls/hr Documented By: MARY Lidocaine (Lidocaine 4 % Patch Adh..Patch) 1 patch TRANSDERMA DAILY [facility]; Protocol Last Admin: 08/03/24 09:07 Dose: 1 patch Documented By: MARY Magnesium Hydroxide (Milk Of Magnesia 30 Ml Oral.Susp) 30 ml PO DAILY PRN PRN Reason: Constipation Melatonin (Melatonin 3 Mg Tablet) 6 mg PO BEDTIME PRN PRN Reason: Insomnia Morphine Sulfate (Morphine Sulfate 2 Mg/Ml Cartridge) 2 mg IVPUSH Q3H PRN; Protocol PRN Reason: Pain, Severe (Pain Scale 7-10) Ondansetron HCl (Ondansetron Hcl 4 Mg/2 Ml Vial) 4 mg IVPUSH Q8H PRN PRN Reason: Nausea and Vomiting Oxycodone HCl (Oxycodone Hcl Immed Release 5 Mg Tablet) 5 mg PO Q4H PRN PRN Reason: Pain, Moderate(Pain Scale 4-6) Pravastatin Sodium (Pravastatin Sodium 40 Mg Tablet) 40 mg PO BEDTIME [facility] Last Admin: 08/02/24 22:24 Dose: Not Given Documented By: VICTORIANO Non-Admin Reason: Difficulties swallowing per Speech eval Sodium Chloride (0.9 % Sodium Chloride Flush 3 Ml Syringe) 3 ml IVFLUSH QSHIFT [facility] Last Admin: 08/03/24 09:11 Dose: Not Given Documented By: MARY Non-Admin Reason: IV Running Labs 08/01/24 07:55 08/04/24 06:33 Labs: Laboratory Results - last 24 hr 07/31/24 08/02/24 08/02/24 14:17 20:45 23:23 aPTT Heparin Protocol 193.0 H* D 86.5 H D Anion Gap Estim Creat Clear Calc Estimated GFR Random Glucose Calcium Phosphorus Magnesium Befr-2-Sifkaeckygggj 2.57 H 02/04/1708/03/24 08/03/24 06:20 06:40 09:39 aPTT Heparin Protocol 141.0 H* D 74.8 D Anion Gap 14 Estim Creat Clear Calc 68.3 Estimated GFR > 60 Random Glucose 60 Calcium 9.5 D Phosphorus 2.0 L Magnesium 1.7 Wthy-5-Esgyhftojksmv Assessment and Plan (1) Cardiomyopathy: Status: Acute (2) Altered mental status: Status: Acute (3) Paraesophageal hernia with gastric volvulus: Status: Acute Plan 84yo M with recently diagnosed COPD, 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 rivaroxaban, history of heavy tobacco use, and heavy EtOH intake presenting with weakness resulting in fall, dysphagia, and dyspnea; found to have hypercalcemia, lytic spine lesions concerning for bony metastases or myeloma, a saddle PE, and an esophageal mass with lymphadenopathy hyperCa of malignancy - s/p IV pamidronate 07/31; on IV normal saline, PTH-RP pending; Ca normalized Will DC IV fluids acute metabolic encephalopathy - resolved ,as per son patient seemed to be at baseline, confusion was likely due to hypercalcemia saddle PE prothrombin [id number] mutation heterozygosity takotsubo cardiomyopathy/acute HFrEF - new/acute PE, as there was no PE on CTA on last admission 06/16/24. Likely due to malignancy and will eventually need to be on enoxaparin [since he had a PE despite taking rivaroxaban] but for now continue heparin IV drip. Not hypoxic and no S1Q3T3 pattern on EKG. BNP and hs-Tn-I high. High-risk for EGD. Duplex study lower extremity negative for DVT Will discuss with Cardiology for further management. TTE 08/01/24: - Normal left ventricular cavity size. There is normal left ventricular wall thickness. The left ventricular systolic function is moderately decreased. The visually estimated ejection fraction is between 30-35%. - The entire apex, the mid anterior, mid inferior, mid anterolateral, mid inferoseptal, mid anteroseptal, and mid inferolateral segments are akinetic. - Normal right ventricular cavity size. There is low normal right ventricular systolic function. Apical RV akinetic. - Biventricular Takotsubo Cardiomyopathy. esophageal irregularity with lymphadenopathy dysphagia - GI consulted. Could represent erosive esophagitis from massive paraesophageal hernia versus mass. Defer EGD for now given saddle PE. barium swallow showed long segment of mural thickening in upper/mid esophagus highly suspicious for primary esophageal lesion endoscopy recommended lytic cervical spine lesions - Could be metastases from esophageal mass or multiple myeloma; SPEP, BEATRIZ, pvjy-9-llaeopmhaqjbt, and serum free light chain ratio pending. Lumbar spine CT showed soft tissue mass with associated lytic changes centered in the right T12/L1 foramen possibly neoplastic disease either primary or metastatic, pleural effusion with underlying consolidation. Consider CT-guidd biopsy of a spinal lesion under local anesthesia as this would be lower risk than an EGD under sedation. Spoke with IR they recommend outpatient workup patient might require general anesthesia and holding anticoagulation fall with unknown LOC - no evidence of CVA or brain mass on contrasted CT of head; cannot do MRI given noncompatible stimulator COPD not acute exacerbation - PRN albuterol dispo - will need STR In my clinical judgment, the patient requires continued inpatient hospitalization for the following reasons: IV heparin, IV hydration, biopsy Spoke with patient's son and informed about ongoing workup to find out cause of hypercalcemia/underlying malignancy with lytic lesions. Quality Stroke Does the patient have a stroke diagnosis?: No VTE Prior VTE?: No VTE Risk Level:: Medical - moderate - high VTE Device Contraindication: N/A - Device Ordered VTE Drug Contraindication: N/A - Med Ordered
--- NOTE | 2024-08-03 13:28 | MHC.RECOVRN ---
Recieved Addiction Medicine consult for positive AUDIT-C. Per hospitalist documentation, pt is an 84yo M with recently diagnosed COPD, prothrombin [id number] mutation heterozygosity with hx PE currently on rivaroxaban, history of heavy tobacco use, and heavy EtOH intake presenting with weakness resulting in fall, dysphagia, and dyspnea; found to have hypercalcemia, lytic spine lesions concerning for bony metastases or myeloma, a saddle PE, and an esophageal mass with lymphadenopathy. Addiction consult deferred at this time due to medical conditions.
--- NOTE | 2024-08-03 14:04 | MHC.CLN ---
RE; CONSULT PT IS MODERATELY MALNOURISHED PT WITH MILDLY DEPLETED SUBCUTANEOUS FAT AND MUSCLE MASS WITH 24% SIGNIFICANT WT LOSS X1 YEAR WITH HX ETOH ABUSE AND CHRONIC POOR PO INTAKE AND POSSIBLE NEWLY DX MALIGNANCY. CURRENTLY NPO WHEN DIET TO ADVANCE, RECOMMEND ADDING ENSURE TID TO INCREASE KCALS SUPP TO PROVIDE 1050KCALS, 60G PROTEIN MONITOR FOR DIET ADVANCEMENT SEE ALSO FULL CLINICAL NUTRITION ASSESSMENT
--- NOTE | 2024-08-03 14:18 | MHC.CM.PN ---
EMR reviewed and per MD rounds, pt is not medically cleared for discharge due to workup needed of hypercalcemia/underlying malignancy with lytic lesions.
[2024-08-03 17:36] LABS: PTT Heparin Drip 69.6 SEC (53-77.9)
[2024-08-03] MEDS: Dextrose 5 % and 0.9 % NaCl 1,000 ML 80 ML IVCONT (17:58)
[2024-08-03] MEDS: Potassium Phosphate/NS 15 MMOL/250 ML PLAST..BAG 62.5 MMOL IV (18:12)
[2024-08-03] MEDS: Pravastatin Sodium 40 MG TABLET PO (20:22)
[2024-08-03] MEDS: 0.9 % Sodium Chloride Flush 3 ML SYRINGE IVFLUSH (20:23)
[2024-08-03] MEDS: Heparin Sodium,Porcine/1/2NS 25,000 UNIT/250 ML IV.SOLN 8.05 UNIT IVCONT (21:14)
[2024-08-03 23:55] LABS: PTT Heparin Drip 82.9 SEC (53-77.9)
[2024-08-04] VITALS (7 sets, daily range): BP systolic 91–104; BP diastolic 51–62; PULSE 63–90; RESP 14–20; TEMP 36.2–36.9; O2SAT 92–98
[2024-08-04] MEDS: Potassium Phosphate/NS 15 MMOL/250 ML PLAST..BAG 62.5 MMOL IV (00:11)
[2024-08-04] MEDS: Dextrose 5 % and 0.9 % NaCl 1,000 ML 80 ML IVCONT (05:51)
[2024-08-04 07:04] LABS: Blood Urea Nitrogen 11 mg/dL (9-16); Creatinine Clr Calc Pharmacy 77.2; Estimated Glomerular Filt Rate > 60; Glucose Random 103 mg/dL (60-115)
[2024-08-04 07:17] LABS: PTT Heparin Drip 67.1 SEC (53-77.9)
[2024-08-04 07:36] LABS: Anion Gap 11 (12-20); Calcium 8.1 mg/dL (8.4-10.2); Carbon Dioxide 21 mmol/L (22-29); Chloride 113 mmol/L (96-108); Potassium 2.8 mmol/L (3.3-5.1); Sodium 142 mmol/L (135-145)
[2024-08-04] MEDS: Lidocaine 4 % Patch ADH..PATCH 1 PATCH TRANSDERMA (08:04)
[2024-08-04] MEDS: Potassium Chloride Packet 20 MEQ PACKET 40 MEQ PO (08:05)
--- NOTE | 2024-08-04 08:25 | MHC.SLORD ---
Speech Language Pathology Order Status: Patient had Barium Swallow X-Ray yesterday, now recommended endoscopy, NPO at this time. 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
--- NOTE | 2024-08-04 08:26 | MHC.SLORD ---
Speech Language Pathology Order Status: Patient had Barium Swallow X-Ray yesterday, now recommended endoscopy, NPO at this time. 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
[2024-08-04 09:49] LABS: IgA 432 mg/dL (70-320); IgG 1425 mg/dL (600-1540); IgM 91 mg/dL (50-300)
--- NOTE | 2024-08-04 11:34 | PM.PNCARD ---
Subjective Subjective Date of Service: 08/04/24 Principal diagnosis: Takotsubo cardiomyopathy, pulmonary embolism Interval history: I was requested to revisit on [place]. Patient offers no cardiac complaints. Blood pressure is on the soft side with blood pressure in the upper 90s to low 100s. He was no cardiac symptoms. He said his shortness of breath is improved compared to when he came in. Lot of the workup for his suspected spinal mass or esophageal mass is pending due to his inability to stop anticoagulant therapy. Review of Systems Constitutional: Reports lethargy and Reports weakness Cardiovascular: Reports no additional cardiovascular complaints and Reports dyspnea Respiratory: Reports cough and Reports dyspnea Reports weakness Physical Exam Vital Signs: Last Vital Signs Temp 97.2 F 08/04/24 07:33 Pulse 63 08/04/24 07:33 Resp 18 08/04/24 07:33 BP 102/62 08/04/24 07:33 Pulse Ox 94 08/04/24 07:33 O2 Del Method Room Air 08/04/24 07:33 BMI result Body Mass Index 19.1 GENERAL APPEARANCE: Cachectic appearing. NECK: no carotid bruit, no jugular venous distention. SKIN: no suspicious lesions, warm and dry. HEART: no murmurs, regular rate and rhythm. LUNGS: clear to auscultation bilaterally. ABDOMEN: soft, nontender. EXTREMITIES: no edema. PERIPHERAL PULSES: equal. NEUROLOGIC: Confused. Hallucinating. Objective Labs and Meds 08/01/24 07:55 08/04/24 06:33 Lab results: Laboratory Results - last 24 hr 07/31/24 07/31/24 07/31/24 12:39 13:45 14:17 WBC 8.6 RBC 4.55 L Hgb 14.3 Hct 42.5 MCV 93.4 MCH 31.4 MCHC 33.6 RDW 14.1 Plt Count 198 D MPV 10.2 Immature Gran % (Auto) 0.3 Neut % (Auto) 83.2 H Lymph % (Auto) 9.2 L [place] % (Auto) 6.8 Eos % (Auto) 0.2 Baso % (Auto) 0.3 Lymph # (Auto) 0.8 L [place] # (Auto) 0.6 Eos # (Auto) 0.0 Baso # (Auto) 0.0 Abs Immat Gran (auto) 0.03 Absolute Neuts (auto) 7.2 Absolute Nucleated RBC 0.000 Nucleated RBC % (auto) 0.0 Hold Purple Top PT 13.0 H INR 1.1 APTT 26.0 D aPTT Heparin Protocol Sodium 139 Potassium 4.3 Chloride 100 Carbon Dioxide 27 Anion Gap 16 BUN 24 H Creatinine 0.67 Estim Creat Clear Calc 69.0 Estimated GFR > 60 Random Glucose 104 Uric Acid 7.9 H Calcium 14.3 H* D Magnesium 2.0 Total Bilirubin 1.2 H AST 37 ALT 6 Alkaline Phosphatase 116 Lactate Dehydrogenase 192 Troponin I High Sens 66.2 H D B-Natriuretic Peptide 311 H Total Protein 7.9 Albumin 3.4 L Ldrj-9-Wdlhuhyvkvctq 2.57 H 25-OH Vitamin D Total 51.6 PTH Intact IgG Total 1425 IgA Total 432 H IgM 91 BEATRIZ Interpretation SEE NOTE Influenza Type A (PCR) NEGATIVE Influenza Type B (PCR) NEGATIVE RSV RNA Qual (PCR) NEGATIVE SARS-CoV-2 RNA (RT-PCR) NEGATIVE 07/31/24 07/31/24 08/03/24 17:43 22:11 16:50 WBC 9.6 RBC 4.43 L Hgb 13.8 L Hct 41.0 L MCV 92.6 MCH 31.2 MCHC 33.7 RDW 14.1 Plt Count 206 MPV 9.9 Immature Gran % (Auto) Neut % (Auto) Lymph % (Auto) [place] % (Auto) Eos % (Auto) Baso % (Auto) Lymph # (Auto) [place] # (Auto) Eos # (Auto) Baso # (Auto) Abs Immat Gran (auto) Absolute Neuts (auto) Absolute Nucleated RBC 0.000 Nucleated RBC % (auto) 0.0 Hold Purple Top PT INR APTT aPTT Heparin Protocol 29.8 L 69.6 Sodium Potassium Chloride Carbon Dioxide Anion Gap BUN Creatinine Estim Creat Clear Calc Estimated GFR Random Glucose Uric Acid Calcium Magnesium Total Bilirubin AST ALT Alkaline Phosphatase Lactate Dehydrogenase Troponin I High Sens 108.8 H* D B-Natriuretic Peptide Total Protein Albumin Nzwp-2-Ivwomfprsmxxm 25-OH Vitamin D Total PTH Intact 8.7 IgG Total IgA Total IgM BEATRIZ Interpretation Influenza Type A (PCR) Influenza Type B (PCR) RSV RNA Qual (PCR) SARS-CoV-2 RNA (RT-PCR) 08/03/24 08/04/24 23:37 06:33 WBC RBC Hgb Hct MCV MCH MCHC RDW Plt Count MPV Immature Gran % (Auto) Neut % (Auto) Lymph % (Auto) [place] % (Auto) Eos % (Auto) Baso % (Auto) Lymph # (Auto) [place] # (Auto) Eos # (Auto) Baso # (Auto) Abs Immat Gran (auto) Absolute Neuts (auto) Absolute Nucleated RBC Nucleated RBC % (auto) Hold Purple Top SEE NOTE PT INR APTT aPTT Heparin Protocol 82.9 H 67.1 Sodium 142 Potassium 2.8 L* Chloride 113 H Carbon Dioxide 21 L Anion Gap 11 L BUN 11 Creatinine 0.54 Estim Creat Clear Calc 77.2 Estimated GFR > 60 Random Glucose 103 Uric Acid Calcium 8.1 L D Magnesium Total Bilirubin AST ALT Alkaline Phosphatase Lactate Dehydrogenase Troponin I High Sens B-Natriuretic Peptide Total Protein Albumin Bupn-0-Jzgfgqsiobbcd 25-OH Vitamin D Total PTH Intact IgG Total IgA Total IgM BEATRIZ Interpretation Influenza Type A (PCR) Influenza Type B (PCR) RSV RNA Qual (PCR) SARS-CoV-2 RNA (RT-PCR) Imaging Radiologist's impression: Impressions Barium Swallow X-Ray 08/03/24 13:15 IMPRESSION: A long segment of mural thickening in the upper/mid esophagus highly suspicious of primary esophageal lesion. Recommend endoscopy. Results were tiger texted tot DR Vasquez Sena at 2:56 PM. Electronically signed by: Mason Shine MD 08/03/2024 02:58 PM [facility] Progress Note: A&P Assessment and plan (1) Cardiomyopathy: Status: Acute Assessment and Plan: Cardiomyopathy based on echocardiogram if he suspected to be biventricular stress-induced/takotsubo cardiomyopathy. Clinically he is having no cardiac symptoms or hemodynamic instability. Blood pressure is on the softer side and can not institute any medications such as beta-blockers or TENA inhibitors to help treat cardiomyopathy at this point time. Overall prognosis guarded given his noncardiac issues. Limited follow-up echocardiogram in 2 weeks and follow up in Cardiology will be scheduled. (2) Pulmonary embolism: Status: Acute Assessment and Plan: Recurrent pulmonary embolism despite use of oral anticoagulant therapy with Xarelto most likely due to probably underlying malignancy. Discussed with Hematology and may need long term care social worker subcutaneous Lovenox therapy. From cardiac perspective patient can be discharged. Time Spent With Patient Time: Total time managing care of this patient today ____ minutes. Progress Note: Quality Stroke Does the patient have a stroke diagnosis?: No Procedures Date of Service Date of Service: 08/04/24
--- NOTE | 2024-08-04 12:20 | PM.HEMONCPN ---
Medical Summary - Medical Summary Date of Service: 08/04/24 Chief complaint: Follow-up for: 1. Hypercalcemia. 2. Saddle PE. 3. Esophageal mass. Primary Care Provider: Hay Kessler MD Medical Summary: He remains stable if very frail. He denies pain and is somewhat less confused. His calcium is down to 11.8 Lung Gun Operator Utilized?: No - Angolan Speaking Interval History Interval history: Cyrus Rowell is a 84 year old gentleman, presented to the hospital on 07/26 with generalized weakness. 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 He presented with approximately 2 weeks of worsening weakness and dysphagia since catching the flu a month ago. He endorsed shortness of breath but states it actually has gotten better. He tripped and fell twice yesterday but does not remember whether he lost consciousness or hit his head. DATABASE: Labs were notable for BUN of 24, calcium of 14.3, and troponin of 66.2. CT of the head showed multiple old lacunar infarcts and could not rule out acute embolic stroke. CT of the C-spine showed multifocal different sized lytic lesions concerning for bony metastases or multiple myeloma. CTA of the head and neck showed a saddle pulmonary embolism as well as eccentric thickening of the upper esophagus, suspicious for mass, with abutting lymph nodes. He was given IV fluids and started on a heparin drip. He has been complaining of dysphagia recently. His initial calcium was 14. He was noted to have lytic lesion were seen on a CT of the neck. He was also found to have thickening of the upper esophagus on CT and Electrophoresis and light chain studies have been drawn. He has been hydrated A saddle pulmonary embolism and other segmental clots were found on an angiogram. He was on Xarelto. But was switched over to IV heparin since he failed it. 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 Bilateral pulmonary embolism Surgical History: Hx of cataract extraction Hx of knee surgery Hx of colonoscopy Hx of cholecystectomy Social History: Household Members: None Housing: House Do you presently have visiting nurse or other home services: No Alcohol intake: current Alcohol intake frequency: 3 or more drinks per day Alcohol type: beer and hard liquor Patient Tobacco Use Status: Former Tobacco user Smoked in Last 30 Days: No Review of Systems - Constitutional Reports system reviewed and no additional complaints, except as documented, Reports lack of energy, Reports malaise, Reports weight loss - Eyes Reports system reviewed and no additional complaints, except as documented - ENT Reports system reviewed and no additional complaints, except as documented - Cardiovascular Reports system reviewed and no additional complaints, except as documented - Respiratory Reports no additional respiratory complaints, Reports dyspnea - Gastrointestinal Reports system reviewed and no additional complaints, except as documented, Reports difficulty swallowing - Genitourinary Genitourinary: Reports no additional male genitourinary complaints - Musculoskeletal Reports system reviewed and no additional complaints, except as documented - Integumentary/Breasts Skin/Breast: Reports no additional skin complaints - Neurologic Reports abnormal gait, Reports weakness, Denies dizziness, Denies loss of vision, Denies numbness, Denies tingling - Psychiatric Reports system reviewed and no additional complaints, except as documented - Endocrine Reports no additional endocrine complaints - Hematologic/Lymphatic Reports system reviewed and no additional complaints, except as documented - Allergic/Immunologic Reports system reviewed and no additional complaints, except as documented PMFSH Medical History: Medical History (Last Reviewed 08/05/24 @ 10:28 by Pippa Olivares, PT) Advanced COPD Bilateral pulmonary embolism GERD (gastroesophageal reflux disease) 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 Hyperlipidemia Situational anxiety Functional capacity: wheelchair bound Patient : No Surgical History: Surgical History (Last Reviewed 08/05/24 @ 10:28 by Pippa Olivares, PT) Hx of cataract extraction Hx of cholecystectomy Hx of colonoscopy Hx of knee surgery Social History: Social History (Last Reviewed 07/31/24 @ 17:58 by Liz Warner MD) Living Situation History: Household Members: None Housing: House Do you presently have visiting nurse or other home services: No Tobacco History: Patient Tobacco Use Status: Former Tobacco user 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 Oncology Screenings - ECOG Performance Status ECOG Performance Status: 2 Home Medications and Allergies Current Medications: Current Medications Acetaminophen (Acetaminophen 325 Mg Tablet) 650 mg PO Q6H PRN PRN Reason: Pain, Mild 1-3,fever,headache Albuterol Sulfate (Albuterol Sulfate (0.083%) 2.5 Mg/3 Ml Vial.Neb) 2.5 mg INHALE Q2H PRN PRN Reason: Shortness of Breath/Wheezing Calcium Carbonate (Calcium Carbonate 750 Mg Tab.Chew) 750 mg PO Q4H PRN PRN Reason: Heartburn Heparin Sodium (Porcine) (Heparin Sodium,Porcine 5,000 Unit/Ml Vial) 2,300 unit 40 unit/kg (2300 unit) IVPUSH PROTOCOL BOLUS PRN; Protocol PRN Reason: 40 unit/kg - Heparin Protocol Heparin Sodium (Porcine) (Heparin Sodium,Porcine 5,000 Unit/Ml Vial) 4,600 unit 80 unit/kg (4600 unit) IVPUSH PROTOCOL BOLUS PRN; Protocol PRN Reason: 80 unit/kg - Heparin Protocol Last Admin: 08/01/24 16:38 Dose: 4,600 unit Heparin Sodium/Sodium Chloride (Heparin Sodium,Porcine/1/2ns) 25,000 unit in 250 mls @ 0 mls/hr IVCONT .Q0M [facility]; Protocol Last Titration: 08/04/24 07:19 Dose: 12 units/kg/hr, 6.9 mls/hr Lidocaine (Lidocaine 4 % Patch Adh..Patch) 1 patch TRANSDERMA DAILY [facility]; Protocol Last Admin: 08/04/24 08:04 Dose: 1 patch Magnesium Hydroxide (Milk Of Magnesia 30 Ml Oral.Susp) 30 ml PO DAILY PRN PRN Reason: Constipation Melatonin (Melatonin 3 Mg Tablet) 6 mg PO BEDTIME PRN PRN Reason: Insomnia Morphine Sulfate (Morphine Sulfate 2 Mg/Ml Cartridge) 2 mg IVPUSH Q3H PRN; Protocol PRN Reason: Pain, Severe (Pain Scale 7-10) Ondansetron HCl (Ondansetron Hcl 4 Mg/2 Ml Vial) 4 mg IVPUSH Q8H PRN PRN Reason: Nausea and Vomiting Oxycodone HCl (Oxycodone Hcl Immed Release 5 Mg Tablet) 5 mg PO Q4H PRN PRN Reason: Pain, Moderate(Pain Scale 4-6) Pravastatin Sodium (Pravastatin Sodium 40 Mg Tablet) 40 mg PO BEDTIME [facility] Last Admin: 08/03/24 20:22 Dose: 40 mg Sodium Chloride (0.9 % Sodium Chloride Flush 3 Ml Syringe) 3 ml IVFLUSH QSHIFT [facility] Last Admin: 08/04/24 08:06 Dose: Not Given Allergies Allergy/AdvReac Type Severity Reaction Status Date / Time cat dander [cats] Allergy Severe Anaphylaxis Verified 07/31/24 11:28 peanut [PEANUT] Allergy Severe ANAPHYLAXIS Verified 07/31/24 11:28 soy sauce Allergy Severe ANAPHYLAXIS Uncoded 07/31/24 11:28 Exam Vital signs: Vital Signs Temp 98.5 F 08/04/24 11:44 Pulse 69 08/04/24 11:44 Resp 16 08/04/24 11:44 BP 96/52 L 08/04/24 11:44 Pulse Ox 95 08/04/24 11:44 O2 Del Method Room Air 08/04/24 11:44 Intake & Output 08/03/24 08/04/24 08/04/24 18:59 06:59 18:59 Intake Total 1956.876 / 3459.734 1502.858 / 3459.734 247.657 / 247.657 Output Total 300 / 800 500 / 800 Balance 1656.876 / 2659.734 1002.858 / 2659.734 247.657 / 247.657 Urine Output (Average ml/kg/hr) 0.47 0.78 0.78 Intake: Intake, IV Amount 1956.876 / 3459.734 1502.858 / 3459.734 247.657 / 247.657 Potassium Phosphate/NS 15 mmol 500 / 500 In 250 ml @ 62.5 mls/hr IV Q4H [facility] Rx#:[id number] 0.9 % Sodium Chloride 1,000 ml 1806.667 / 1806.667 @ 100 mls/hr IVCONT .Q10H [facility] Rx#:[id number] Dextrose 5 % and 0.9 % NaCl 1, 950.667 / 950.667 198.667 / 198.667 000 ml @ 80 mls/hr IVCONT . [id number] [facility] Rx#:[id number] Heparin Sodium,Porcine/1/2NS 25 150.209 / 202.400 52.191 / 202.400 48.99 / 48.99 ,000 unit In 250 ml @ Per Protocol IVCONT .Q0M [facility] Rx#: [id number] Output: Output, Urine Amount 500 / 500 Output, Urine Amount (Catheter) 300 / 300 Condom 300 / 300 Other: NPO Yes Urine [place] Urine Color Yellow Last Bowel Movement 08/03/24 08/03/24 Weight 53.6 kg Weight 53.6 kg BMI result Body Mass Index 19.1 - Constitutional Present: no acute distress, moderate distress, chronically ill appearing - Routine HEENT Exam Head: Present: atraumatic Eye: Present: normal appearance ENT: Present: mucous membranes moist - Routine Neck Exam Present: full ROM - Routine Respiratory Exam Present: decreased breath sounds - Routine Cardiovascular Exam Cardiovascular: Present: RRR (advanced muscle wasting) - Routine Abdominal Exam Present: diminished bowel sounds - Routine Extremities Exam Present: nontender - Routine Back/Spine/Pelvis Exam Back/Spine: Present: full ROM - Routine Skin Exam Present: intact - Routine Neurological Exam Present: alert, oriented X3 - Routine Psychiatric Exam Present: normal affect Data - Labs CBC & Chem 7: 08/09/24 06:54 08/09/24 06:54 - Imaging Radiologist's impression: ITS Impressions Chest X-Ray 07/31/24 11:37 IMPRESSION: No acute airspace disease. Hiatal hernia, large volume. Scoliosis.. Electronically signed by: Andres George MD 07/31/2024 01:02 PM EST RP Head CT 07/31/24 11:43 IMPRESSION: No acute fracture, bony calvarium. No acute intracranial hemorrhage. Small vessel occlusive disease. Superimposed acute stroke/nonhemorrhagic ischemia cannot be excluded. Global cerebral atrophy. Electronically signed by: Andres George MD 07/31/2024 01:42 PM EST RP Cervical Spine CT 07/31/24 12:43 IMPRESSION: Consider osseous metastasis versus multiple myeloma. Recommend dedicated IV contrast enhanced MRI cervical spine for further assessment of the neural elements. Fleischner guidelines were followed. Electronically signed by: Andres George MD 07/31/2024 01:48 PM EST RP Head/Neck CTA 07/31/24 14:32 IMPRESSION: 1. Saddle pulmonary embolus and segmental pulmonary emboli noted at the inferior aspect of the scan. 2. There is a moderate stenosis of the right vertebral artery at the origin secondary to mixed plaque. 3. There is approximately 20% stenosis of the left ICA at the origin secondary to calcified plaque. 4. Otherwise, there is no flow-limiting stenosis, occlusion, dissection, or aneurysm in the major cervical or intracranial arterial vasculature. 5. Incidental note made of eccentric thickening of the upper esophagus, suspicious for mass. Abutting lymph nodes, enlarged in the AP window region. Correlation with endoscopy recommended. 6. Paraseptal emphysema in the lung apices. Above findings were communicated to Rose Marie Simons PA-C the of weight control engineer at 3:45 PM, 08/04/2024. Electronically signed by: Grant Berrios MD 07/31/2024 04:06 PM EST RP Barium Swallow X-Ray 08/03/24 13:15 IMPRESSION: A long segment of mural thickening in the upper/mid esophagus highly suspicious of primary esophageal lesion. Recommend endoscopy. Results were tiger texted tot DR Vasquez Sena at 2:56 PM. Electronically signed by: Mason Shine MD 08/03/2024 02:58 PM EST RP Assessment and Plan Patient Active problem list reviewed?: Yes (1) Pulmonary embolism Start date: 07/31/24 Status: Acute Assessment and plan: 84 year old gentleman, with hypercalcemia. CTA of head and neck revealed: 1. Saddle pulmonary embolus and segmental pulmonary emboli noted at the inferior aspect of the scan. 2. There is a moderate stenosis of the right vertebral artery at the origin secondary to mixed plaque. 3. There is approximately 20% stenosis of the left ICA at the origin secondary to calcified plaque. 4. Otherwise, there is no flow-limiting stenosis, occlusion, dissection, or aneurysm in the major cervical or intracranial arterial vasculature. 5. Incidental note made of eccentric thickening of the upper esophagus, suspicious for mass. Abutting lymph nodes, enlarged in the AP window region. Correlation with endoscopy recommended. 6. Paraseptal emphysema in the lung apices. Barium swallow from 08/03 revealed: A long segment of mural thickening in the upper/mid esophagus highly suspicious of primary esophageal lesion. Recommend endoscopy. His hypercalcemia has been corrected. Calcium is down to 8.6. PLAN: Recommend anticoagulation. He can be switched over to subQ Lovenox. He will need tissue diagnosis however, will need to recover from the PE. He can receive some physical therapy and gets rehab. He can then return for an upper endoscopy for further evaluation. Thank you, CC: Dr. Kevin Kessler - Time Spent With Patient Time Spent with Patient (in minutes): 25
--- NOTE | 2024-08-04 13:06 | MHC.SL.SWA ---
Speech Pathologist Impression: Risk of Aspiration Risk of Aspiration Due to: Poor PO Intake Dysphasia Diet Status: CELEBRITY CHEF ENTREPRENEUR MEDIA PERSONALITY continues to recommend REGULAR texture diet/THIN liquids Liquid Consistency and Strategies for Safe Swallow: Liquid Intake Recommendation: Thin Liquid Intake Strategies: Small Sips Solid Food Consistency: Dietary Recommendations: Regular Additional Modifications to Solid Foods: Take small sips, one sip at a time/avoid consecutive sipping, dry swallow between sips, remain upright during PO intake and for at least 30 minutes afterwards Oral Medication Intake: Whole with Liquid Please contact the pharmacy regarding appropriate crushable or liquid drug formulations that are available whenever modified delivery is recommended. Compensatory Strategies and Precautions to be Taken for Safe Swallow: Sitting Upright (90 deg) Small Bites and Sips Alternate Liquids/Solids Rate of Ingestion Change Supervision While Eating and Drinking for Safe Swallow: Total Supervision (1:1) Swallowing Recommended Treatments: Compens. Strategy Educat. Recommendation for Speech: Inpatient Speech Therapy Comment: EGD and barium swallow pending at time this report entered, CELEBRITY CHEF ENTREPRENEUR MEDIA PERSONALITY continues to follow during inpatient stay, anticipate dysphagia management will be indicated s/p further evaluation by GI Frequency/Duration: M-F Daily Date Range for Service Req: Timeline to reassess: Steel Burner Clinican/Clinical Fellow: No Supervisory Statement: I have reviewed and agree with the student/clinical fellow's documentation: N/A Speech Language Pathologist: Sunitha Calderón M.A., CCC-CELEBRITY CHEF ENTREPRENEUR MEDIA PERSONALITY
[2024-08-04] MEDS: Enoxaparin Sodium 60 MG/0.6 ML SYRINGE 50 MG SUBCUT (13:27)
--- NOTE | 2024-08-04 14:39 | MHC.CLN ---
F/U PT IS MODERATELY MALNOURISHED SEE FULL CLINICAL NUTRITION ASSESSMENT DATED 08/03/24 DIET ADVANCED TO REGULAR PER RECOVERER RECOMMENDATIONS RECOMMEND ADDING ENSURE TID TO INCREASE KCALS SUPP TO PROVIDE 1050KCALS, 60G PROTEIN MONITOR PO INTAKE AND ENCOURAGE SUPPLEMENTS
[2024-08-04 14:54] LABS: Prot Elec - Albumin 3.3 g/dL (3.8-4.8); Prot Elec - Alpha1 0.5 g/dL (0.2-0.3); Prot Elec - Alpha2 1.2 g/dL (0.5-0.9); Prot Elec - Beta 1 0.5 g/dL (0.4-0.6); Prot Elec - Beta 2 0.5 g/dL (0.2-0.5); Prot Elec - Gamma 1.3 g/dL (0.8-1.7); Prot Elec - Total Protein 7.3 g/dL (6.1-8.1)
[2024-08-04 15:05] LABS: PTT Heparin Drip 33.2 SEC (53-77.9)
[2024-08-04] MEDS: Morphine Sulfate 2 MG/ML CARTRIDGE IVPUSH (15:09)
--- NOTE | 2024-08-04 16:29 | HO.PM.IMPN ---
Subjective Subjective Date of Service: 08/05/24 Interval History: Awake alert answering questions appropriately offers no acute complaints Son at bedside feels patient is at his baseline, has been only drinking clear liquid since May due to difficulty with swallowing. Review of Systems All other system reviewed and are negative Physical Exam Vital Signs: Vital Signs: Last Vital Signs Temp 98.5 F 08/04/24 15:21 Pulse 72 08/04/24 15:21 Resp 16 08/04/24 15:21 BP 91/51 L 08/04/24 15:21 Pulse Ox 96 08/04/24 15:21 O2 Del Method Room Air 08/04/24 15:21 BMI result Body Mass Index 19.1 Const: Other: Gen: in no acute distress, HEENT: sclera anicteric, moist mucus membranes Neck: supple Lungs: clear to auscultation bilaterally Heart: regular rate and rhythm, no murmurs Abd: soft, non-tender, non-distended Ext: no edema Skin: warm/well-perfused Neuro: alert and oriented , no focal findings Psych: appropriate affect Objective Data Active Medications Acetaminophen (Acetaminophen 325 Mg Tablet) 650 mg PO Q6H PRN PRN Reason: Pain, Mild 1-3,fever,headache Albuterol Sulfate (Albuterol Sulfate (0.083%) 2.5 Mg/3 Ml Vial.Neb) 2.5 mg INHALE Q2H PRN PRN Reason: Shortness of Breath/Wheezing Calcium Carbonate (Calcium Carbonate 750 Mg Tab.Chew) 750 mg PO Q4H PRN PRN Reason: Heartburn Enoxaparin Sodium (Enoxaparin Sodium 60 Mg/0.6 Ml Syringe) 50 mg 1 mg/kg (50 mg) SUBCUT Q12H REPLACED BY [facility] Last Admin: 08/04/24 13:27 Dose: 50 mg Documented By: MARY Lidocaine (Lidocaine 4 % Patch Adh..Patch) 1 patch TRANSDERMA DAILY REPLACED BY [facility]; Protocol Last Admin: 08/04/24 08:04 Dose: 1 patch Documented By: MARY Magnesium Hydroxide (Milk Of Magnesia 30 Ml Oral.Susp) 30 ml PO DAILY PRN PRN Reason: Constipation Melatonin (Melatonin 3 Mg Tablet) 6 mg PO BEDTIME PRN PRN Reason: Insomnia Morphine Sulfate (Morphine Sulfate 2 Mg/Ml Cartridge) 2 mg IVPUSH Q3H PRN; Protocol PRN Reason: Pain, Severe (Pain Scale 7-10) Last Admin: 08/04/24 15:09 Dose: 2 mg Documented By: MARY Ondansetron HCl (Ondansetron Hcl 4 Mg/2 Ml Vial) 4 mg IVPUSH Q8H PRN PRN Reason: Nausea and Vomiting Oxycodone HCl (Oxycodone Hcl Immed Release 5 Mg Tablet) 5 mg PO Q4H PRN PRN Reason: Pain, Moderate(Pain Scale 4-6) Pravastatin Sodium (Pravastatin Sodium 40 Mg Tablet) 40 mg PO BEDTIME REPLACED BY [facility] Last Admin: 08/03/24 20:22 Dose: 40 mg Documented By: DANAE Sodium Chloride (0.9 % Sodium Chloride Flush 3 Ml Syringe) 3 ml IVFLUSH QSHIFT REPLACED BY [facility] Last Admin: 08/04/24 16:23 Dose: Not Given Documented By: MARY Non-Admin Reason: previously admin Labs 08/05/24 06:21 08/04/24 06:33 Labs: Laboratory Results - last 24 hr 07/31/24 08/01/24 08/03/24 14:17 07:55 16:50 Hold Purple Top aPTT Heparin Protocol 69.6 Anion Gap Estim Creat Clear Calc Estimated GFR Random Glucose Calcium Total Protein (PEP) 7.3 Albumin (PEP) 3.3 L Pmmgh-9-Mfcijbqmf 0.5 H Srdhc-3-Kiqbksrty 1.2 H Dlmc-2-Qufoqlnc 0.5 Ggpx-9-Cavqdrzu 0.5 Gamma Globulins 1.3 PEP Interpretation SEE NOTE PTH Related Protein Cancelled IgG Total 1425 IgA Total 432 H IgM 91 BEATRIZ Interpretation SEE NOTE 08/03/24 08/04/24 08/04/24 23:37 06:33 14:02 Hold Purple Top SEE NOTE aPTT Heparin Protocol 82.9 H 67.1 33.2 L D Anion Gap 11 L Estim Creat Clear Calc 77.2 Estimated GFR > 60 Random Glucose 103 Calcium 8.1 L D Total Protein (PEP) Albumin (PEP) Cmfvi-2-Vvdifcoti Tyeds-2-Tfvvjbtcq Zyvh-3-Lqqwakys Enwk-1-Gyrvymsl Gamma Globulins PEP Interpretation PTH Related Protein IgG Total IgA Total IgM BEATRIZ Interpretation Assessment and Plan (1) Cardiomyopathy: Status: Acute (2) Altered mental status: Status: Acute (3) Paraesophageal hernia with gastric volvulus: Status: Acute (4) Esophageal mass: Status: Acute (5) Hypercalcemia: Status: Acute (6) Excessive drinking alcohol: Status: Acute Plan 84yo M with recently diagnosed COPD, prothrombin [id number] mutation heterozygosity with hx PE currently on rivaroxaban, history of heavy tobacco use, and heavy EtOH intake presenting with weakness resulting in fall, dysphagia, and dyspnea; found to have hypercalcemia, lytic spine lesions concerning for bony metastases or myeloma, a saddle PE, and an esophageal mass with lymphadenopathy hyperCa of malignancy - s/p IV pamidronate 07/31; s/p IV normal saline, PTH-RP pending; Ca normalized acute metabolic encephalopathy - resolved ,as per son patient seemed to be at baseline, confusion was likely due to hypercalcemia. saddle PE prothrombin [id number] mutation heterozygosity takotsubo cardiomyopathy/acute HFrEF - new/acute PE, as there was no PE on CTA on last admission 06/16/24. Likely due to malignancy and will eventually need to be on enoxaparin [since he had a PE despite taking rivaroxaban] on heparin IV drip. Not hypoxic and no S1Q3T3 pattern on EKG. BNP and hs-Tn-I high. High-risk for EGD. Duplex study lower extremity negative for DVT Cardio recommended repeat echocardiogram in 2 weeks and follow-up in Cardiology, due to soft blood pressure, patient can not tolerate beta-blockers or TENA inhibitors to help treat cardiomyopathy at this point. Will transition to subQ Lovenox starting 08/04 TTE 08/01/24: - Normal left ventricular cavity size. There is normal left ventricular wall thickness. The left ventricular systolic function is moderately decreased. The visually estimated ejection fraction is between 30-35%. - The entire apex, the mid anterior, mid inferior, mid anterolateral, mid inferoseptal, mid anteroseptal, and mid inferolateral segments are akinetic. - Normal right ventricular cavity size. There is low normal right ventricular systolic function. Apical RV akinetic. - Biventricular Takotsubo Cardiomyopathy. esophageal irregularity with lymphadenopathy dysphagia - GI consulted. Could represent erosive esophagitis from massive paraesophageal hernia versus mass. Defer EGD for now given saddle PE. barium swallow showed long segment of mural thickening in upper/mid esophagus highly suspicious for primary esophageal lesion endoscopy recommended, that is deferred due to saddle PE lytic cervical spine lesions - Could be metastases from esophageal mass or multiple myeloma; SPEP, BEATRIZ, xxqw-6-ldbpwsffbnqrd, and serum free light chain ratio pending. Lumbar spine CT showed soft tissue mass with associated lytic changes centered in the right T12/L1 foramen possibly neoplastic disease either primary or metastatic, pleural effusion with underlying consolidation. Consider CT-guidd biopsy of a spinal lesion under local anesthesia as this would be lower risk than an EGD under sedation. Spoke with IR they recommend outpatient workup patient might require general anesthesia and holding anticoagulation. fall with unknown LOC - no evidence of CVA or brain mass on contrasted CT of head; cannot do MRI given noncompatible stimulator. COPD not acute exacerbation - PRN albuterol Hypokalemia will replete and follow labs dispo - will need STR/PT eval In my clinical judgment, the patient requires continued inpatient hospitalization for the following reasons: Spoke with patient's son and informed about ongoing workup to find out cause of hypercalcemia/underlying malignancy with lytic lesions. Quality Stroke Does the patient have a stroke diagnosis?: No VTE Prior VTE?: No VTE Risk Level:: Medical - moderate - high VTE Device Contraindication: N/A - Device Ordered VTE Drug Contraindication: N/A - Med Ordered
[2024-08-04] MEDS: 0.9 % Sodium Chloride Flush 3 ML SYRINGE IVFLUSH (21:11)
[2024-08-04] MEDS: Pravastatin Sodium 40 MG TABLET PO (21:11)
[2024-08-04] MEDS: Albuterol Sulfate (0.083%) 2.5 MG/3 ML VIAL.NEB INHALE (21:49)
[2024-08-05] VITALS (8 sets, daily range): BP systolic 95–107; BP diastolic 50–64; PULSE 54–80; RESP 16–18; TEMP 36.1–36.8; O2SAT 91–95
[2024-08-05] MEDS: Enoxaparin Sodium 60 MG/0.6 ML SYRINGE 50 MG SUBCUT ×3 (00:32→22:42)
[2024-08-05 07:04] LABS: Hemoglobin 10.8 g/dl (14.0-18.0); Mean Corpuscular HGB Conc 33.8 g/dl (31.0-36.0); Mean Platelet Volume 10.8 fL (9.4-12.4); Platelet Count 155 X10*3/uL (160-400); Red Blood Count 3.48 X10*6/uL (4.60-5.80); White Blood Count 5.7 X10*3/uL (4.8-10.8)
[2024-08-05] MEDS: Potassium Chloride Packet 20 MEQ PACKET PO (08:25)
[2024-08-05] MEDS: Lidocaine 4 % Patch ADH..PATCH 1 PATCH TRANSDERMA (08:26)
[2024-08-05] MEDS: 0.9 % Sodium Chloride Flush 3 ML SYRINGE IVFLUSH ×3 (08:31→20:00)
[2024-08-05 09:03] LABS: Anion Gap 9 (12-20); Blood Urea Nitrogen 16 mg/dL (9-16); Calcium 8.6 mg/dL (8.4-10.2); Carbon Dioxide 24 mmol/L (22-29); Chloride 110 mmol/L (96-108); Creatinine Clr Calc Pharmacy 67.2; Estimated Glomerular Filt Rate > 60; Glucose Random 97 mg/dL (60-115); Potassium 3.6 mmol/L (3.3-5.1); Sodium 139 mmol/L (135-145)
--- NOTE | 2024-08-05 10:39 | MHC.CM.PN ---
Addendum entered by Sona Morillo RN 08/05/24 14:07: PT'S SON WERO REPORTS PT IS [facility] HOWEVER [facility] [phone] AND THEY REPORTED PT ON HAS A BENEFIT FOR HOME HEALTH SERVICES. Original Note: EMR REVIEWED, CM MET W/PT'S SON WERO TO DISCUSS DISPO, PT SLEEPING, WERO REPORTS THEY WOULD LIKE TO GET PT INTO A STR NEAR HIS SISTER IN [facility] WERO WILL BE RETURNING TO [facility] AND DTR LIVES IN [facility], WERO WILL BE BACK TO BEDSIDE IN A FEW HRS, BROAD REFERRA PLACED AND LIST OF FACILITIES WITHIN [place] LEFT AT BEDSIDE, CM WILL CONT TO FOLLOW FOR BED OFFERS.
[2024-08-05 13:22] LABS: Heparin Anti-Xa 0.36 IU/mL
--- NOTE | 2024-08-05 13:43 | MHC.CLN ---
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
--- NOTE | 2024-08-05 13:59 | MHC.SLORD ---
Speech Language Pathology Order Status: RN consulted, EGD pending at this time. ARCHITECTURE TECHNICIAN continues to follow, though prognosis for improvement poor given nature and severity of esophageal dysphagia.
--- NOTE | 2024-08-05 15:36 | P.PNIM_ITS ---
Subjective Subjective Date of Service: 08/05/24 Interval History: Complaining of cough and shortness of breath today started on regular diet yesterday, refusing to eat solid since feel food does not pass through, drinking milkshakes, no other acute events overnight. Review of Systems All other system reviewed and are negative Physical Exam 2 Vital Signs: Vital Signs: Last Vital Signs Temp 97.2 F 08/05/24 15:13 Pulse 75 08/05/24 15:13 Resp 17 08/05/24 15:13 BP 101/64 08/05/24 15:13 Pulse Ox 94 08/05/24 15:13 O2 Del Method Room Air 08/05/24 15:13 BMI result Body Mass Index 19.1 Const: Other: Gen: Tachypneic, able to talk in full sentences HEENT: sclera anicteric, moist mucus membranes Neck: supple Lungs: Diminished breath sounds, no wheeze, no rhonchi Heart: regular rate and rhythm, no murmurs Abd: soft, non-tender, non-distended Ext: no edema Skin: warm/well-perfused Neuro: alert and oriented , no focal findings Psych: appropriate affect Objective Data Active Medications Acetaminophen (Acetaminophen 325 Mg Tablet) 650 mg PO Q6H PRN PRN Reason: Pain, Mild 1-3,fever,headache Albuterol Sulfate (Albuterol Sulfate (0.083%) 2.5 Mg/3 Ml Vial.Neb) 2.5 mg INHALE Q2H PRN PRN Reason: Shortness of Breath/Wheezing Last Admin: 08/04/24 21:49 Dose: 2.5 mg Documented By: YAHIR Calcium Carbonate (Calcium Carbonate 750 Mg Tab.Chew) 750 mg PO Q4H PRN PRN Reason: Heartburn Enoxaparin Sodium (Enoxaparin Sodium 60 Mg/0.6 Ml Syringe) 50 mg 1 mg/kg (50 mg) SUBCUT Q12H JAYLYN Last Admin: 08/05/24 00:32 Dose: 50 mg Documented By: RHINA Lidocaine (Lidocaine 4 % Patch Adh..Patch) 1 patch TRANSDERMA DAILY [facility]; Protocol Last Admin: 08/05/24 08:26 Dose: 1 patch Documented By: KALANI Magnesium Hydroxide (Milk Of Magnesia 30 Ml Oral.Susp) 30 ml PO DAILY PRN PRN Reason: Constipation Melatonin (Melatonin 3 Mg Tablet) 6 mg PO BEDTIME PRN PRN Reason: Insomnia Morphine Sulfate (Morphine Sulfate 2 Mg/Ml Cartridge) 2 mg IVPUSH Q3H PRN; Protocol PRN Reason: Pain, Severe (Pain Scale 7-10) Last Admin: 08/04/24 15:09 Dose: 2 mg Documented By: MARY Ondansetron HCl (Ondansetron Hcl 4 Mg/2 Ml Vial) 4 mg IVPUSH Q8H PRN PRN Reason: Nausea and Vomiting Oxycodone HCl (Oxycodone Hcl Immed Release 5 Mg Tablet) 5 mg PO Q4H PRN PRN Reason: Pain, Moderate(Pain Scale 4-6) Pravastatin Sodium (Pravastatin Sodium 40 Mg Tablet) 40 mg PO BEDTIME [facility] Last Admin: 08/04/24 21:11 Dose: 40 mg Documented By: DANII-ARCADIO Sodium Chloride (0.9 % Sodium Chloride Flush 3 Ml Syringe) 3 ml IVFLUSH QSHIFT [facility] Last Admin: 08/05/24 08:31 Dose: 3 ml Documented By: IRLANDAMASudarshan Labs 08/05/24 06:21 08/05/24 08:18 Labs: Laboratory Results - last 24 hr 07/31/24 08/02/24 08/05/24 14:17 13:10 06:21 MCV 92.0 MCH 31.0 MCHC 33.8 RDW 14.0 Plt Count 155 L MPV 10.8 Absolute Nucleated RBC 0.000 Nucleated RBC % (auto) 0.0 Heparin Anti-Xa Level 0.36 Anion Gap Estim Creat Clear Calc Estimated GFR Random Glucose Calcium Abnorm Protein Band 1 TNP Abnorm Protein Band 2 TNP Abnorm Protein Band 3 TNP 08/05/24 08:18 MCV MCH MCHC RDW Plt Count MPV Absolute Nucleated RBC Nucleated RBC % (auto) Heparin Anti-Xa Level Anion Gap 9 L Estim Creat Clear Calc 67.2 Estimated GFR > 60 Random Glucose 97 Calcium 8.6 D Abnorm Protein Band 1 Abnorm Protein Band 2 Abnorm Protein Band 3 Assessment and Plan (1) Paraesophageal hernia with gastric volvulus: Status: Acute (2) Esophageal mass: Status: Acute (3) Hypercalcemia: Status: Acute (4) COPD exacerbation: Status: Acute Plan 84yo M with recently diagnosed COPD, 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 Likely due to malignancy and will eventually need to be on enoxaparin [since he had a PE despite taking rivaroxaban] on heparin IV drip. Not hypoxic and no S1Q3T3 pattern on EKG. BNP and hs-Tn-I high. High-risk for EGD. Duplex study lower extremity negative for DVT Cardio recommended repeat echocardiogram in 2 weeks and follow-up in Cardiology, due to soft blood pressure, patient can not tolerate beta-blockers or TENA inhibitors to help treat cardiomyopathy at this point. Will transition to subQ Lovenox starting 08/04 TTE 08/01/24: - Normal left ventricular cavity size. There is normal left ventricular wall thickness. The left ventricular systolic function is moderately decreased. The visually estimated ejection fraction is between 30-35%. - The entire apex, the mid anterior, mid inferior, mid anterolateral, mid inferoseptal, mid anteroseptal, and mid inferolateral segments are akinetic. - Normal right ventricular cavity size. There is low normal right ventricular systolic function. Apical RV akinetic. - Biventricular Takotsubo Cardiomyopathy. esophageal irregularity with lymphadenopathy dysphagia - GI consulted. Could represent erosive esophagitis from massive paraesophageal hernia versus mass. Defer EGD for now given saddle PE. barium swallow showed long segment of mural thickening in upper/mid esophagus highly suspicious for primary esophageal lesion endoscopy recommended, that is deferred due to saddle PE lytic cervical spine lesions - Could be metastases from esophageal mass or multiple myeloma; SPEP, BEATRIZ, [id number], and serum free light chain ratio pending. Lumbar spine CT showed soft tissue mass with associated lytic changes centered in the right T12/L1 foramen possibly neoplastic disease either primary or metastatic, pleural effusion with underlying consolidation. Consider CT-guidd biopsy of a spinal lesion under local anesthesia as this would be lower risk than an EGD under sedation. Spoke with IR they recommend outpatient workup patient might require general anesthesia and holding anticoagulation. fall with unknown LOC - no evidence of CVA or brain mass on contrasted CT of head; cannot do MRI given noncompatible stimulator. COPD not acute exacerbation Noted to have mild tachypnea but no wheeze or crackles, no fevers Chest x-ray 08/05 showed-Findings suggesting COPD. No active superimposed disease.2. Moderate to large size retrocardiac hiatus hernia which contains radiopaque material, presumably oral contrast, likely retained from 08/03/2024 barium swallow examination,so gastroparesis is confirmed. Encourage to stay upright after all meals,reglan 2.5 tid ac Encourage incentive spirometry/ PRN albuterol Hypokalemia repleted dispo PT recommend short-term rehab, referrals made by family independence case manager. In my clinical judgment, the patient requires continued inpatient hospitalization for the following reasons: Spoke with patient's son and informed about ongoing workup to find out cause of hypercalcemia/underlying malignancy with lytic lesions. Quality Stroke Does the patient have a stroke diagnosis?: No VTE Prior VTE?: No VTE Risk Level:: Medical - moderate - high VTE Device Contraindication: N/A - Device Ordered VTE Drug Contraindication: N/A - Med Ordered
--- NOTE | 2024-08-05 15:39 | P.CDIM_ITS ---
PROVIDER RESPONSE TEXT: To clarify, the appropriate diagnosis supported by the clinical indicators: Malnutrition: moderate QUERY TEXT: PHYSICIAN'S DOCUMENTATION REQUEST Date of Query: 08/05/2024 08:02 AM EST Patient Name: Cyrus Rowell Admit Date: 07/31/2024 Dear Keyon Ovalle MD, A review of the medical record indicates additional documentation may be needed. Please review below and update the documentation accordingly. Clinical Indicators: Height: 5ft 6in Weight: 53.6 BMI: 19.1 Other Clinical Notes Supporting Significance of the BMI: Clinical nutrition notes 08/03 - Patient is m oderately malnourished with mildly depleted subcutaneous fat and muscle mass with 24% significant wt loss x 1 year with hx ETOH abuse and chronic poor PO intake. Possibly newly dx malignancy. Adding Ensure TID to increase Kcals. If possible, please provide an associated diagnosis related to the abnormal BMI, such as: Malnutrition mild, moderate, severe Underweight Cachexia Anorexia Other (explain) Clinically unable to determine (explain) Thank you, Cassidy Birmingham, CCS, CDIS Use of terms such as suspected, likely, concern for, or probable (associated with a specific diagnosi s that is being evaluated, monitored, or treated as if it exists) are acceptable and can be coded in the inpatient se tting, when documented at the time of discharge. Please use your independent medical judgment in providing your response. THIS QUERY IS PART OF THE PERMANENT MEDICAL RECORD
[2024-08-05] MEDS: Metoclopramide HCl 5 MG TABLET PO (16:31)
[2024-08-05] MEDS: Pravastatin Sodium 40 MG TABLET PO (19:59)
[2024-08-05] MEDS: Acetaminophen 325 MG TABLET 650 MG PO (20:00)
[2024-08-05] MEDS: Albuterol Sulfate (0.083%) 2.5 MG/3 ML VIAL.NEB INHALE (20:53)
[2024-08-05] MEDS: oxyCODONE HCl Immed Release 5 MG TABLET PO (22:42)
[2024-08-05] MEDS: guaiFENesin 100 MG/5 ML 5 ML LIQUID PO (22:43)
[2024-08-06] VITALS (9 sets, daily range): BP systolic 82–106; BP diastolic 49–62; PULSE 62–115; RESP 16–30; TEMP 36.1–36.7; O2SAT 92–100; BMI 19.1
[2024-08-06] MEDS: Metoclopramide HCl 5 MG TABLET PO ×2 (06:36→12:23)
[2024-08-06] MEDS: Lactated Ringers 500 ML IV (06:36)
[2024-08-06 08:46] LABS: Hematocrit 31.4 % (42.0-52.0); Hemoglobin 10.4 g/dl (14.0-18.0); Immature Retic Fraction 6.8 % (2.3-13.4); Mean Corpuscular HGB Conc 33.1 g/dl (31.0-36.0); Mean Corpuscular Hemoglobin 30.9 pg (27.0-33.0); Mean Corpuscular Volume 93.2 fL (80.0-98.0); Mean Platelet Volume 11.4 fL (9.4-12.4); Platelet Count 146 X10*3/uL (160-400); Red Blood Count 3.37 X10*6/uL (4.60-5.80); Red Cell Distribution Width 14.3 % (11.0-16.0); Retic HGB Equivalent 35.5 pg (30.0-35.0); Reticulocyte Percent 0.9 % (0.5-1.8); Reticulocytes Absolute 0.031 X10*6/uL (0.026-0.095); White Blood Count 5.5 X10*3/uL (4.8-10.8)
[2024-08-06 08:58] LABS: Anion Gap 9 (12-20); Blood Urea Nitrogen 14 mg/dL (9-16); Calcium 8.3 mg/dL (8.4-10.2); Carbon Dioxide 25 mmol/L (22-29); Chloride 107 mmol/L (96-108); Creatinine Clr Calc Pharmacy 78.6; Estimated Glomerular Filt Rate > 60; Glucose Random 82 mg/dL (60-115); Iron 32 mcg/dL (45-160); Percent Iron Saturation 23 % (15-50); Potassium 3.8 mmol/L (3.3-5.1); Sodium 137 mmol/L (135-145); Total Iron Binding Capacity 139 mcg/dL (228-428); Unsaturated Iron Binding 107 ug/dL
[2024-08-06 09:02] LABS: Lactate Dehydrogenase 170 U/L (118-273)
[2024-08-06 09:14] LABS: Ferritin 144 ng/mL (20-250)
[2024-08-06 09:25] LABS: Folate 4.6 ng/mL (> or = 4.0); Vitamin B12 207 pg/mL (200-900)
[2024-08-06] MEDS: 0.9 % Sodium Chloride Flush 3 ML SYRINGE IVFLUSH ×2 (09:35→18:02)
[2024-08-06] MEDS: Lidocaine 4 % Patch ADH..PATCH 1 PATCH TRANSDERMA (09:36)
--- NOTE | 2024-08-06 10:52 | MHC.SL.SWA ---
Speech Pathologist Impression: Risk of Aspiration Due to: Poor PO Intake Dysphasia Diet Status: Recommend NPO, GI consult for diet/nutrition due to likely esophageal obstruction/dysmotility. Liquid Consistency and Strategies for Safe Swallow: Liquid Intake Recommendation: NPO Liquid Intake Strategies: Solid Food Consistency: Dietary Recommendations: NPO Additional Modifications to Solid Foods: Oral Medication Intake: NPO Please contact the pharmacy regarding appropriate crushable or liquid drug formulations that are available whenever modified delivery is recommended. Compensatory Strategies and Precautions to be Taken for Safe Swallow: Supervision While Eating and Drinking for Safe Swallow: Total Supervision (1:1) Foods to Avoid: Swallowing Recommended Treatments: Compens. Strategy Educat. Recommendation for Speech: Inpatient Speech Therapy Comment: Patient seen this morning at breakfast, which he had already begun as DIRECTOR OF CARDIOLOGY entered room. Patient had tray of regular diet, was chewing and eating shetty. Oral motor control and timing of swallow presented as WFL. Patient had taken several bites of shetty, was noted to have some mild upper airway noise after a delay. Patient then cued to take a sip of gingerale from straw, which was followed by immediate repeated, congested coughing, with a weak cough noted, change in facial color. RN was contacted for suction, which patient required for a prolonged period, with pieces of shetty being coughed and suctioned up. Patient continued to cough and expel mucous and food particles for 5-8 minutes, with ongoing, labored breathing. Patient c/o feeling something stuck. MD/Hospitalist was directly contacted and came to room. DIRECTOR OF CARDIOLOGY recommended NPO with consult to GI re: diet/nutrition. MD noted to order CXR. Frequency/Duration: M-F Daily Date Range for Service Req: Timeline to reassess: [place] Clinican/Clinical Fellow: No Supervisory Statement: I have reviewed and agree with the student/clinical fellow's documentation: N/A Speech Language Pathologist: Sunitha Calderón M.A., [facility]-DIRECTOR OF CARDIOLOGY
--- NOTE | 2024-08-06 11:11 | P.PNGI_ITS ---
Subjective Subjective Date of Service: 08/06/24 Interval History: Seen at bedside. Mental status improved. Oriented x 3. Demonstrates some understanding of clinical events. NPO due to aspiration risk. Critical Care Time (minutes): 0 Physical Exam 2 Vital Signs: Vital Signs: Last Vital Signs Temp 97.0 F 08/06/24 07:29 Pulse 62 08/06/24 07:29 Resp 16 08/06/24 07:29 BP 82/49 L 08/06/24 07:29 Pulse Ox 94 08/06/24 07:29 O2 Del Method Room Air 08/06/24 07:29 BMI result Body Mass Index 19.1 Appears younger than stated age NAD Nonicteric Abd soft, nontender, nondistended Objective Data Labs 08/06/24 08:12 08/06/24 08:12 Labs: Laboratory Results - last 24 hr 08/02/24 08/06/24 13:10 08:12 WBC 5.5 RBC 3.37 L Hgb 10.4 L Hct 31.4 L MCV 93.2 MCH 30.9 MCHC 33.1 RDW 14.3 Plt Count 146 L MPV 11.4 Absolute Nucleated RBC 0.000 Nucleated RBC % (auto) 0.0 Absolute Retic 0.031 Percent Retic 0.9 Immature Retic Fraction 6.8 Retic Hgb Equivalent 35.5 H Heparin Anti-Xa Level 0.36 Sodium 137 Potassium 3.8 Chloride 107 Carbon Dioxide 25 Anion Gap 9 L BUN 14 Creatinine 0.53 Estim Creat Clear Calc 78.6 Estimated GFR > 60 Random Glucose 82 Calcium 8.3 L Iron 32 L TIBC 139 L % Saturation 23 Unsat Iron Binding 107 Ferritin 144 Lactate Dehydrogenase 170 Vitamin B12 207 Folate 4.6 Procedures Date of Service Date of Service: 08/06/24 Progress Note: A&P Assessment and plan (1) Cardiomyopathy: Status: Acute (2) Esophageal mass: Status: Acute (3) Pulmonary embolism: Status: Acute (4) Acute respiratory failure with hypoxia: Status: Acute (5) Advanced COPD: Status: Acute Plan Complex pt p/w hypoxic resp failure and confusion with underlying saddle PE, cardiomyopathy with EF 30%, possibly 2 distinct malignancies as has large esophageal mass with lymphadenopathy as well as soft tissue mass in T12 with multiple lytic lesions in axial skeleton. Course complicated by intermittent aspiration events from partial obstruction from esophageal mass. GI involved for question egd for tissue dx and enteral support. However, due to ongoing cardiopulmonary issues, pt remains at high risk for complications from periprocedural sedation. Additionally, needs uninterrupted/minimally interrupted anticoagulation for large saddle thrombus. Given this context, options include IR guided G tube - this would allow enteral feeding but would not prevent aspiration events from patient's own secretions, and mass can not get biopsied. Another option would be to review feasibility of placing palliative esophageal stent at a tertiary care center which will mitigate esophageal obstruction and aspiration risk, and may provide tissue diagnosis. (although given overall clinical status may not be the best candidate for systemic therapy anyway). Again, aspiration risk, cardiac risk and thrombotic risk from interruption of anticoagulation will have to be considered for this. Will likely need cardiac anesthesiologist on board. Would also strongly recommend discussion re goals of care and hospice care with the pt's family. This was reviewed with the hospitalist team over the phone. Time Spent With Patient Time: Total time managing care of this patient today ____ minutes. Quality Stroke Does the patient have a stroke diagnosis?: No VTE Prior VTE?: No VTE Risk Level:: Medical - moderate - high VTE Device Contraindication: N/A - Device Ordered VTE Drug Contraindication: N/A - Med Ordered
[2024-08-06] MEDS: Lactated Ringers 1,000 ML 999 ML IV (11:30)
[2024-08-06 12:08] LABS: Albumin Level 2.1 g/dL (3.5-5.0); Magnesium 1.5 mg/dL (1.6-2.6); Phosphorus 1.8 mg/dL (2.7-4.5)
[2024-08-06] MEDS: Enoxaparin Sodium 60 MG/0.6 ML SYRINGE 50 MG SUBCUT (12:23)
[2024-08-06] MEDS: Ampicillin Sodium/Sulbactam Na 3 GM in 0.9 % Sodium Chloride 100 ML IV ×2 (12:52→18:02)
--- NOTE | 2024-08-06 12:52 | P.PNIM_ITS ---
Subjective Subjective Date of Service: 08/06/24 Interval History: cleared for regular solids/thin liquids but then aspirated this morning and is now tachypneic and hypoxic Review of Systems Review of Systems: Yes all other systems are reviewed and are negative Physical Exam 2 Vital Signs: Vital Signs: Last Vital Signs Temp 97.7 F 08/06/24 11:59 Pulse 84 08/06/24 11:59 Resp 19 08/06/24 11:59 BP 100/60 08/06/24 11:59 Pulse Ox 93 08/06/24 11:59 O2 Del Method Room Air 08/06/24 11:59 BMI result Body Mass Index 19.1 Gen: tachypneic, muscle wasting HEENT: sclera anicteric, moist mucus membranes Neck: supple Lungs: diminished bilateral bases Heart: tachycardic, no murmurs Abd: soft, non-tender, non-distended Ext: no edema Skin: warm/well-perfused Neuro: alert and oriented x3, no focal findings Psych: appropriate affect Objective Data Active Medications Acetaminophen (Acetaminophen 325 Mg Tablet) 650 mg PO Q6H PRN PRN Reason: Pain, Mild 1-3,fever,headache Last Admin: 08/05/24 20:00 Dose: 650 mg Documented By: RHINA Albuterol Sulfate (Albuterol Sulfate (0.083%) 2.5 Mg/3 Ml Vial.Neb) 2.5 mg INHALE Q2H PRN PRN Reason: Shortness of Breath/Wheezing Last Admin: 08/05/24 20:53 Dose: 2.5 mg Documented By: LISETTE Calcium Carbonate (Calcium Carbonate 750 Mg Tab.Chew) 750 mg PO Q4H PRN PRN Reason: Heartburn Enoxaparin Sodium (Enoxaparin Sodium 60 Mg/0.6 Ml Syringe) 50 mg 1 mg/kg (50 mg) SUBCUT Q12H JAYLYN Last Admin: 08/06/24 12:23 Dose: 50 mg Documented By: KALANI Guaifenesin (Guaifenesin 100 Mg/5 Ml 5 Ml Liquid) 5 ml PO Q4H PRN PRN Reason: Cough Last Admin: 08/05/24 22:43 Dose: 5 ml Documented By: RHINA Ampicillin Sodium/Sulbactam (Sodium 3 gm/ Sodium Chloride) 100 mls @ 200 mls/hr IV Q6H [facility] Last Admin: 08/06/24 12:52 Dose: 200 mls/hr Documented By: KALANI Nutrition (Parenteral) (Parenteral Nutrition) 1,200 mls @ 50 mls/hr IV .Q24H [facility]; Protocol Stop: 08/07/24 20:59 Lidocaine (Lidocaine 4 % Patch Adh..Patch) 1 patch TRANSDERMA DAILY [facility]; Protocol Last Admin: 08/06/24 09:36 Dose: 1 patch Documented By: KALANI Magnesium Hydroxide (Milk Of Magnesia 30 Ml Oral.Susp) 30 ml PO DAILY PRN PRN Reason: Constipation Melatonin (Melatonin 3 Mg Tablet) 6 mg PO BEDTIME PRN PRN Reason: Insomnia Metoclopramide HCl (Metoclopramide Hcl 5 Mg Tablet) 5 mg PO TIDAC [facility] Last Admin: 08/06/24 12:23 Dose: 5 mg Documented By: KALANI Morphine Sulfate (Morphine Sulfate 2 Mg/Ml Cartridge) 2 mg IVPUSH Q3H PRN; Protocol PRN Reason: Pain, Severe (Pain Scale 7-10) Last Admin: 08/04/24 15:09 Dose: 2 mg Documented By: MARY Ondansetron HCl (Ondansetron Hcl 4 Mg/2 Ml Vial) 4 mg IVPUSH Q8H PRN PRN Reason: Nausea and Vomiting Oxycodone HCl (Oxycodone Hcl Immed Release 5 Mg Tablet) 5 mg PO Q4H PRN PRN Reason: Pain, Moderate(Pain Scale 4-6) Last Admin: 08/05/24 22:42 Dose: 5 mg Documented By: RHINA Pharmacy Consult (Consult Rx Parenteral Nutrition Ordering) 1 each MISCELLANE DAILY PRN PRN Reason: Consult order Pravastatin Sodium (Pravastatin Sodium 40 Mg Tablet) 40 mg PO BEDTIME [facility] Last Admin: 08/05/24 19:59 Dose: 40 mg Documented By: RHINA Sodium Chloride (0.9 % Sodium Chloride Flush 3 Ml Syringe) 3 ml IVFLUSH QSHIFT [facility] Last Admin: 08/06/24 09:35 Dose: 3 ml Documented By: KALANI Labs 08/06/24 08:12 08/06/24 08:12 Labs: Laboratory Results - last 24 hr 08/02/24 08/06/24 13:10 08:12 MCV 93.2 MCH 30.9 MCHC 33.1 RDW 14.3 Plt Count 146 L MPV 11.4 Absolute Nucleated RBC 0.000 Nucleated RBC % (auto) 0.0 Absolute Retic 0.031 Percent Retic 0.9 Immature Retic Fraction 6.8 Retic Hgb Equivalent 35.5 H Heparin Anti-Xa Level 0.36 Anion Gap 9 L Estim Creat Clear Calc 78.6 Estimated GFR > 60 Random Glucose 82 Calcium 8.3 L Phosphorus 1.8 L Magnesium 1.5 L Iron 32 L TIBC 139 L % Saturation 23 Unsat Iron Binding 107 Ferritin 144 Lactate Dehydrogenase 170 Albumin 2.1 L Vitamin B12 207 Folate 4.6 Assessment and Plan (1) Paraesophageal hernia with gastric volvulus: Status: Acute (2) Esophageal mass: Status: Acute (3) Hypercalcemia: Status: Acute (4) COPD exacerbation: Status: Acute Plan d7 for 84yo M with recently diagnosed COPD, prothrombin [id number] mutation heterozygosity with hx PE currently on rivaroxaban, history of heavy tobacco use, and heavy EtOH intake presenting with weakness resulting in fall, dysphagia, and dyspnea; found to have hypercalcemia, lytic spine lesions concerning for bony metastases or myeloma, a saddle PE, and an esophageal mass with lymphadenopathy acute hypoxia due to aspiration, COPD exacerbation - supplemental O2, start ampicillin-sulbactam 08/06-, NPO - start methylprednisolone 08/06-, continue nebs esophageal irregularity with lymphadenopathy dysphagia gastroparesis - GI consulted. Barium swallow showed long segment of mural thickening in upper/mid esophagus highly suspicious for primary esophageal lesion; endoscopy recommended but deferred due to saddle PE + takotsubo cardiomyopathy - pt will need esophageal stenting in order to take PO; per GI recommend transfer to tertiary care center for esophageal stenting as well as cardiac anesthesia - CXR showed moderate to large size retrocardiac hiatus hernia which contains radiopaque material, presumably oral contrast, likely retained from 08/03/2024 barium swallow examination,s o gastroparesis is confirmed; on metoclopramide hyperCa of malignancy - s/p IV pamidronate 07/31; s/p IV normal saline, Ca normalized; PTH-RP has to be redrawn per lab acute metabolic encephalopathy - resolved; confusion was likely due to hypercalcemia saddle PE prothrombin [id number] mutation heterozygosity with prior hx of PE, on rivaroxaban takotsubo cardiomyopathy/acute HFrEF - new/acute PE, as there was no PE on CTA on last admission 06/16/24. Likely due to malignancy. Was on heparin drip. Initially not hypoxic. Duplex of legs negative for DVT. Cardiology consulted and recommended repeat echocardiogram in 2 weeks and follow-up in Cardiology; due to soft blood pressure, patient can not tolerate beta-blockers or TENA inhibitors to help treat cardiomyopathy at this point - transitioned to SQ enoxaparin 08/04 and should remain on for life given that he had a PE despite taking rivaroxaban - TTE 08/01/24: - Normal left ventricular cavity size. There is normal left ventricular wall thickness. The left ventricular systolic function is moderately decreased. The visually estimated ejection fraction is between 30-35%. - The entire apex, the mid anterior, mid inferior, mid anterolateral, mid inferoseptal, mid anteroseptal, and mid inferolateral segments are akinetic. - Normal right ventricular cavity size. There is low normal right ventricular systolic function. Apical RV akinetic. - Biventricular Takotsubo Cardiomyopathy. 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 hypoK - repleted goals of care - spoke to pt and his son Hay about poor prognosis. Affirmed DNR/DNI status but they would like to pursue esophageal stenting with the goal of the pt being able to eat. Biopsy for prognostic purposes and to consider palliative chemotherapy eventually. But they recognize his lifespan is quite limited and are realistic about what can be done for him. dispo - TBD but trying to arrange acute care transfer In my clinical judgment, the patient requires continued inpatient hospitalization for the following reasons: workup of esophageal mass, esophageal stenting Total time managing care of this patient today: 90 minutes. Quality Stroke Does the patient have a stroke diagnosis?: No VTE Prior VTE?: No VTE Risk Level:: Medical - moderate - high VTE Device Contraindication: N/A - Device Ordered VTE Drug Contraindication: N/A - Med Ordered
--- NOTE | 2024-08-06 13:13 | MHC.CLN ---
F/U SEEN BY PRINTS AND DRAWINGS CURATOR WITH RECOMMENDATION FOR NPO. PER MD, START PPN TODAY. REVIEWED LABS. COMMUNICATED WITH PHARMACY. RECOMMEND START PPN AT 50 ML PER HOUR TO PROVIDE 51 G PROTEIN, 120 G DEXTROSE, 612 KCALS. REPLETE LYTES NEEDED. CHECK TRIGLYCERIDES. FOLLOW FOR PPN TOLERANCE.
[2024-08-06 13:58] LABS: B Type Natriuretic Peptide 400 pg/mL (<100)
[2024-08-06] MEDS: Metoclopramide HCl 10 MG/2 ML VIAL 5 MG IVPUSH ×2 (14:04→22:19)
[2024-08-06] MEDS: methylPREDNISolone Sod Succ 40 MG/ML VIAL IVPUSH (14:04)
[2024-08-06] MEDS: Furosemide 20 MG/2 ML VIAL IVPUSH (14:05)
[2024-08-06 16:29] LABS: Kappa, Serum 281 mg/dL (176-443); Kappa/Lambda Ratio, Serum 1.33 (1.29-2.55); Lambda, Serum 211 mg/dL (91-240)
[2024-08-06] MEDS: Morphine Sulfate 2 MG/ML CARTRIDGE IVPUSH (22:16)
[2024-08-06] MEDS: Parenteral Nutrition 1,200 ML 50 ML IV (22:50)
[2024-08-07] VITALS (9 sets, daily range): BP systolic 82–101; BP diastolic 46–61; PULSE 55–72; RESP 14–20; TEMP 36.2–37.8; O2SAT 92–99
[2024-08-07] MEDS: Ampicillin Sodium/Sulbactam Na 3 GM in 0.9 % Sodium Chloride 100 ML IV ×4 (00:24→17:28)
[2024-08-07] MEDS: Enoxaparin Sodium 60 MG/0.6 ML SYRINGE 50 MG SUBCUT ×2 (00:24→13:14)
[2024-08-07] MEDS: methylPREDNISolone Sod Succ 40 MG/ML VIAL IVPUSH ×2 (00:24→13:14)
[2024-08-07] MEDS: 0.9 % Sodium Chloride Flush 3 ML SYRINGE IVFLUSH ×4 (00:37→22:09)
[2024-08-07] MEDS: Albumin Human 25 % 100 ML IV ×2 (02:27→08:26)
[2024-08-07] MEDS: Metoclopramide HCl 10 MG/2 ML VIAL 5 MG IVPUSH ×3 (05:50→22:09)
[2024-08-07 08:19] LABS: Venous Blood Gas Refer to POC result
[2024-08-07 08:20] LABS: VBG Base Excess 7.3 mmol/L; VBG HCO3 32 mmol/L (22-26); VBG pCO2 46 mmHg; VBG pH 7.44 (7.32-7.43); VBG pO2 70 mmHg
[2024-08-07 08:25] LABS: Hemoglobin 9.5 g/dl (14.0-18.0); Mean Corpuscular HGB Conc 33.9 g/dl (31.0-36.0); Mean Corpuscular Hemoglobin 31.4 pg (27.0-33.0); Mean Corpuscular Volume 92.4 fL (80.0-98.0); Mean Platelet Volume 10.6 fL (9.4-12.4); Platelet Count 145 X10*3/uL (160-400); Red Blood Count 3.03 X10*6/uL (4.60-5.80); Red Cell Distribution Width 14.4 % (11.0-16.0); White Blood Count 7.4 X10*3/uL (4.8-10.8)
[2024-08-07] MEDS: Lidocaine 4 % Patch ADH..PATCH 1 PATCH TRANSDERMA (08:26)
[2024-08-07 08:33] LABS: Albumin Level 2.5 g/dL (3.5-5.0); Anion Gap 10 (12-20); Blood Urea Nitrogen 16 mg/dL (9-16); Calcium 8.5 mg/dL (8.4-10.2); Carbon Dioxide 27 mmol/L (22-29); Chloride 105 mmol/L (96-108); Creatinine Clr Calc Pharmacy 68.3; Estimated Glomerular Filt Rate > 60; Glucose Random 156 mg/dL (60-115); Magnesium 1.6 mg/dL (1.6-2.6); Potassium 3.9 mmol/L (3.3-5.1); Sodium 138 mmol/L (135-145); Triglycerides 47 mg/dL (<150)
[2024-08-07 08:42] LABS: B Type Natriuretic Peptide 808 pg/mL (<100)
--- NOTE | 2024-08-07 12:04 | HO.PM.IMPN ---
Subjective Subjective Date of Service: 08/07/24 Interval History: breathing improved; weaned off of oxygen no back or neck pain Review of Systems Review of Systems: Yes all other systems are reviewed and are negative Physical Exam Vital Signs: Vital Signs: Last Vital Signs Temp 97.4 F 08/07/24 08:00 Pulse 60 08/07/24 08:00 Resp 20 08/07/24 08:00 BP 96/54 L 08/07/24 08:00 Pulse Ox 95 08/07/24 11:34 O2 Del Method Room Air 08/07/24 11:34 O2 Flow Rate 9 08/07/24 08:00 BMI result Body Mass Index 19.1 Gen: NAD, muscle wasting HEENT: sclera anicteric, moist mucus membranes Neck: supple Lungs: diminished bilateral bases Heart: regular rate/rhythm, no murmurs Abd: soft, non-tender, non-distended Ext: no edema Skin: warm/well-perfused Neuro: alert and oriented x3, no focal findings Psych: appropriate affect Objective Data Active Medications Albuterol Sulfate (Albuterol Sulfate (0.083%) 2.5 Mg/3 Ml Vial.Neb) 2.5 mg INHALE Q2H PRN PRN Reason: Shortness of Breath/Wheezing Last Admin: 08/05/24 20:53 Dose: 2.5 mg Documented By: LISETTE Enoxaparin Sodium (Enoxaparin Sodium 60 Mg/0.6 Ml Syringe) 50 mg 1 mg/kg (50 mg) SUBCUT Q12H [facility] Last Admin: 08/07/24 00:24 Dose: 50 mg Documented By: KEEGAN Ampicillin Sodium/Sulbactam (Sodium 3 gm/ Sodium Chloride) 100 mls @ 200 mls/hr IV Q6H [facility] Last Infusion: 08/07/24 08:22 Dose: Infused Documented By: MARY Nutrition (Parenteral) (Parenteral Nutrition) 1,200 mls @ 50 mls/hr IV .Q24H [facility]; Protocol Stop: 08/07/24 20:59 Last Admin: 08/06/24 22:50 Dose: 50 mls/hr Documented By: ERIN Lidocaine (Lidocaine 4 % Patch Adh..Patch) 1 patch TRANSDERMA DAILY [facility]; Protocol Last Admin: 08/07/24 08:26 Dose: 1 patch Documented By: MARY Melatonin (Melatonin 3 Mg Tablet) 6 mg PO BEDTIME PRN PRN Reason: Insomnia Methylprednisolone Sodium Succinate (Methylprednisolone Sod Succ 40 Mg/Ml Vial) 40 mg IVPUSH Q12H [facility] Last Admin: 08/07/24 00:24 Dose: 40 mg Documented By: KEEGAN Metoclopramide HCl (Metoclopramide Hcl 10 Mg/2 Ml Vial) 5 mg IVPUSH Q8H [facility] Last Admin: 08/07/24 05:50 Dose: 5 mg Documented By: KEEGAN Morphine Sulfate (Morphine Sulfate 2 Mg/Ml Cartridge) 2 mg IVPUSH Q3H PRN; Protocol PRN Reason: Pain, Severe (Pain Scale 7-10) Last Admin: 08/06/24 22:16 Dose: 2 mg Documented By: ERIN Ondansetron HCl (Ondansetron Hcl 4 Mg/2 Ml Vial) 4 mg IVPUSH Q8H PRN PRN Reason: Nausea and Vomiting Pharmacy Consult (Consult Rx Parenteral Nutrition Ordering) 1 each MISCELLANE DAILY PRN PRN Reason: Consult order Sodium Chloride (0.9 % Sodium Chloride Flush 3 Ml Syringe) 3 ml IVFLUSH QSHIFT [facility] Last Admin: 08/07/24 08:27 Dose: 3 ml Documented By: MARY Labs 08/07/24 08:09 08/07/24 08:09 Labs: Laboratory Results - last 24 hr 07/31/24 08/06/24 08/06/24 14:17 08:12 13:26 MCV MCH MCHC RDW Plt Count MPV Absolute Nucleated RBC Nucleated RBC % (auto) VBG pH VBG pCO2 VBG pO2 VBG HCO3 VBG O2 Saturation VBG Base Excess Anion Gap Estim Creat Clear Calc Estimated GFR Random Glucose Calcium Phosphorus 1.8 L Magnesium 1.5 L B-Natriuretic Peptide 400 H Albumin 2.1 L Triglycerides [place]/Lambda Ratio 1.33 [place] Light Chain Anal 281 Lambda Light Chain Anal 211 08/07/24 08/07/24 08/07/24 08:09 08:09 08:14 MCV 92.4 MCH 31.4 MCHC 33.9 RDW 14.4 Plt Count 145 L MPV 10.6 Absolute Nucleated RBC 0.000 Nucleated RBC % (auto) 0.0 VBG pH 7.44 H VBG pCO2 46 VBG pO2 70 VBG HCO3 32 H VBG O2 Saturation 96.0 VBG Base Excess 7.3 Anion Gap 10 L Estim Creat Clear Calc 68.3 Estimated GFR > 60 Random Glucose 156 H Calcium 8.5 Phosphorus 3.0 Magnesium 1.6 B-Natriuretic Peptide 808 H Albumin 2.5 L Triglycerides 47 Cancelled [place]/Lambda Ratio [place] Light Chain Anal Lambda Light Chain Anal Assessment and Plan (1) Paraesophageal hernia with gastric volvulus: Status: Acute (2) Esophageal mass: Status: Acute (3) Hypercalcemia: Status: Acute (4) COPD exacerbation: Status: Acute Plan d8 for 84yo M with recently diagnosed COPD, 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 Barium swallow showed long segment of mural thickening in upper/mid esophagus highly suspicious for primary esophageal lesion; endoscopy recommended but deferred due to saddle PE + takotsubo cardiomyopathy - pt will need esophageal stenting in order to take PO; per GI recommend transfer to tertiary care center for esophageal stenting as well as cardiac anesthesia; in conversation with 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 Likely due to malignancy. Was on heparin drip. Initially not hypoxic. Duplex of legs negative for DVT. Cardiology consulted and recommended repeat echocardiogram in 2 weeks and follow-up in Cardiology; due to soft blood pressure, patient can not tolerate beta-blockers or TENA inhibitors to help treat cardiomyopathy at this point - transitioned to SQ enoxaparin 08/04 and should remain on for life given that he had a PE despite taking rivaroxaban - TTE 08/01/24: - Normal left ventricular cavity size. There is normal left ventricular wall thickness. The left ventricular systolic function is moderately decreased. The visually estimated ejection fraction is between 30-35%. - The entire apex, the mid anterior, mid inferior, mid anterolateral, mid inferoseptal, mid anteroseptal, and mid inferolateral segments are akinetic. - Normal right ventricular cavity size. There is low normal right ventricular systolic function. Apical RV akinetic. - Biventricular Takotsubo Cardiomyopathy. 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 hypoK - repleted goals of care - spoke to pt and his son Hay about poor prognosis. Affirmed DNR/DNI status but they would like to pursue esophageal stenting with the goal of the pt being able to eat. Biopsy for prognostic purposes and to consider palliative chemotherapy eventually. But they recognize his lifespan is quite limited and are realistic about what can be done for him. dispo - TBD but trying to arrange acute care transfer In my clinical judgment, the patient requires continued inpatient hospitalization for the following reasons: workup of esophageal mass, esophageal stenting Total time managing care of this patient today: 55 minutes. Quality Stroke Does the patient have a stroke diagnosis?: No VTE Prior VTE?: No VTE Risk Level:: Medical - moderate - high VTE Device Contraindication: N/A - Device Ordered VTE Drug Contraindication: N/A - Med Ordered
--- NOTE | 2024-08-07 12:06 | MHC.CLN ---
F/U CONTINUES NPO. PPN STARTED 08/06. REVIEWED LABS. TRIGS=47. COMMUNICATED WITH PHARMACY. RECOMMEND ADVANCE PPN TO MAX GOAL RATE: PPN AT 80 ML/HOUR PLUS 64 G LIPIDS TO PROVIDE 1619 TOTAL KCALS (30.2 KCALS/KG), 82 G PROTEIN (1.53 G/KG), 192 G DEXTROSE. REPLETE LYTES NEEDED. FOLLOW FOR PPN TOLERANCE.
--- NOTE | 2024-08-07 14:54 | MHC.CM.PN ---
EMR REVIEWED, PT HYPERCA OF MALIGNANCY, SADDLE PE, PER HOSPITALIST PLAN FOR PT TO REMAIN INPT FOR FURTHER WORK UP OF ESPHAGEAL MASS/ESOPHAGEAL STENT, PT MAY TRANSFER TO [facility], CM WILL CONT TO FOLLOW DC NEEDS.
[2024-08-07] MEDS: Parenteral Nutrition 1,920 ML 80 ML IV (22:08)
--- NOTE | 2024-08-08 | ECG_ITS ---
Test Reason : bradycardia Blood Pressure : */* mmHG Vent. Rate : 44 BPM Atrial Rate : 44 BPM P-R Int : 278 ms QRS Dur : 100 ms QT Int : 524 ms P-R-T Axes : 64 -37 231 degrees QTcB Int : 448 ms Marked sinus bradycardia with marked sinus arrhythmia with 1st degree A-V block Left axis deviation Low voltage QRS Inferior infarct , age undetermined Cannot rule out Anteroseptal infarct , age undetermined ST & T wave abnormality, consider lateral ischemia Abnormal ECG When compared with ECG of 01-Aug-2024 14:45, Previous ECG has undetermined rhythm, needs review Left bundle branch block is no longer Present Minimal criteria for Anteroseptal infarct are now Present Inferior infarct is now Present Referred By: Liz Warner Electronically Signed By: FABY CHI MD
[2024-08-08] MEDS: Ampicillin Sodium/Sulbactam Na 3 GM in 0.9 % Sodium Chloride 100 ML IV ×5 (00:27→23:09)
[2024-08-08] MEDS: Enoxaparin Sodium 60 MG/0.6 ML SYRINGE 50 MG SUBCUT ×2 (00:27→12:22)
[2024-08-08] MEDS: methylPREDNISolone Sod Succ 40 MG/ML VIAL IVPUSH ×2 (00:33→12:17)
[2024-08-08 03:42] VITALS: BP 102/55; PULSE 50; RESP 18; TEMP 36.1; O2SAT 94
[2024-08-08] MEDS: Metoclopramide HCl 10 MG/2 ML VIAL 5 MG IVPUSH ×2 (05:51→12:17)
[2024-08-08 07:00] VITALS: BP 111/59; PULSE 63; RESP 17; TEMP 36.8; O2SAT 97
[2024-08-08 08:35] LABS: Hematocrit 30.3 % (42.0-52.0); Mean Corpuscular Hemoglobin 30.6 pg (27.0-33.0); Mean Corpuscular Volume 92.7 fL (80.0-98.0); Mean Platelet Volume 11.4 fL (9.4-12.4); Platelet Count 159 X10*3/uL (160-400); Red Blood Count 3.27 X10*6/uL (4.60-5.80); Red Cell Distribution Width 14.4 % (11.0-16.0); White Blood Count 8.3 X10*3/uL (4.8-10.8)
[2024-08-08 08:52] LABS: Albumin Level 2.9 g/dL (3.5-5.0); Anion Gap 11 (12-20); Blood Urea Nitrogen 22 mg/dL (9-16); Calcium 9.3 mg/dL (8.4-10.2); Carbon Dioxide 23 mmol/L (22-29); Chloride 108 mmol/L (96-108); Creatinine Clr Calc Pharmacy 70.6; Estimated Glomerular Filt Rate > 60; Glucose Random 164 mg/dL (60-115); Magnesium 2.2 mg/dL (1.6-2.6); Potassium 4.3 mmol/L (3.3-5.1); Sodium 138 mmol/L (135-145)
[2024-08-08] MEDS: Lidocaine 4 % Patch ADH..PATCH 1 PATCH TRANSDERMA (08:52)
--- NOTE | 2024-08-08 09:31 | MHC.CLN ---
F/U CONTINUES NPO WITH PPN FOR NUTRITION/HYDRATION. REVIEWED LABS. RECOMMEND CONTINUE PPN AT MAX GOAL RATE: PPN AT 80 ML/HOUR PLUS 64 G LIPIDS TO PROVIDE 1619 TOTAL KCALS (30.2 KCALS/KG), 82 G PROTEIN (1.53 G/KG), 192 G DEXTROSE. REPLETE LYTES NEEDED. FOLLOW FOR PPN TOLERANCE.
--- NOTE | 2024-08-08 10:06 | P.PNIM_ITS ---
Subjective Subjective Date of Service: 08/08/24 Interval History: breathing improved some back pain no chest pain Review of Systems Review of Systems: Yes all other systems are reviewed and are negative Physical Exam 2 Vital Signs: Vital Signs: Last Vital Signs Temp 98.2 F 08/08/24 07:00 Pulse 63 08/08/24 07:00 Resp 17 08/08/24 07:00 BP 111/59 L 08/08/24 07:00 Pulse Ox 97 08/08/24 07:00 O2 Del Method Room Air 08/08/24 07:00 O2 Flow Rate 9 08/07/24 08:00 BMI result Body Mass Index 19.1 Gen: no acute distress, muscle wasting HEENT: sclera anicteric, moist mucus membranes Neck: supple Lungs: diminished bilateral bases Heart: regular rate/rhythm, no murmurs Abd: soft, non-tender, non-distended Ext: no edema Skin: warm/well-perfused Neuro: alert and oriented x3, no focal findings Psych: appropriate affect Objective Data Active Medications Albuterol Sulfate (Albuterol Sulfate (0.083%) 2.5 Mg/3 Ml Vial.Neb) 2.5 mg INHALE Q2H PRN PRN Reason: Shortness of Breath/Wheezing Last Admin: 08/05/24 20:53 Dose: 2.5 mg Documented By: LISETTE Albuterol/Ipratropium (Albuterol/Iprat 2.5/0.5mg 3 Ml Ampul.Neb) 3 ml INHALE RQ4H WHILE AWAKE PRN PRN Reason: shortness of breath or wheeze Enoxaparin Sodium (Enoxaparin Sodium 60 Mg/0.6 Ml Syringe) 50 mg 1 mg/kg (50 mg) SUBCUT Q12H [facility] Last Admin: 08/08/24 00:27 Dose: 50 mg Documented By: VICTORIANO Ampicillin Sodium/Sulbactam (Sodium 3 gm/ Sodium Chloride) 100 mls @ 200 mls/hr IV Q6H [facility] Last Infusion: 08/08/24 06:36 Dose: Infused Documented By: VICTORIANO Nutrition (Parenteral) (Parenteral Nutrition) 1,920 mls @ 80 mls/hr IV .Q24H [facility]; Protocol Stop: 08/08/24 20:59 Last Admin: 08/07/24 22:08 Dose: 80 mls/hr Documented By: VICTORIANO Lidocaine (Lidocaine 4 % Patch Adh..Patch) 1 patch TRANSDERMA DAILY [facility]; Protocol Last Admin: 08/08/24 08:52 Dose: 1 patch Documented By: CELIO Melatonin (Melatonin 3 Mg Tablet) 6 mg PO BEDTIME PRN PRN Reason: Insomnia Methylprednisolone Sodium Succinate (Methylprednisolone Sod Succ 40 Mg/Ml Vial) 40 mg IVPUSH Q12H [facility] Last Admin: 08/08/24 00:33 Dose: 40 mg Documented By: VICTORIANO Metoclopramide HCl (Metoclopramide Hcl 10 Mg/2 Ml Vial) 5 mg IVPUSH Q8H [facility] Last Admin: 08/08/24 05:51 Dose: 5 mg Documented By: VICTORIANO Morphine Sulfate (Morphine Sulfate 2 Mg/Ml Cartridge) 2 mg IVPUSH Q3H PRN; Protocol PRN Reason: Pain, Severe (Pain Scale 7-10) Last Admin: 08/06/24 22:16 Dose: 2 mg Documented By: ERIN Ondansetron HCl (Ondansetron Hcl 4 Mg/2 Ml Vial) 4 mg IVPUSH Q8H PRN PRN Reason: Nausea and Vomiting Pharmacy Consult (Consult Rx Parenteral Nutrition Ordering) 1 each MISCELLANE DAILY PRN PRN Reason: Consult order Sodium Chloride (0.9 % Sodium Chloride Flush 3 Ml Syringe) 3 ml IVFLUSH QSHIFT [facility] Last Admin: 08/08/24 08:55 Dose: Not Given Documented By: CELIO Non-Admin Reason: IV Running Labs 08/08/24 08:18 08/08/24 08:18 Labs: Laboratory Results - last 24 hr 08/08/24 08:18 MCV 92.7 MCH 30.6 MCHC 33.0 RDW 14.4 Plt Count 159 L MPV 11.4 Absolute Nucleated RBC 0.000 Nucleated RBC % (auto) 0.0 Anion Gap 11 L Estim Creat Clear Calc 70.6 Estimated GFR > 60 Random Glucose 164 H Calcium 9.3 D Phosphorus 2.0 L Magnesium 2.2 Albumin 2.9 L Assessment and Plan (1) Paraesophageal hernia with gastric volvulus: Status: Acute (2) Esophageal mass: Status: Acute (3) Hypercalcemia: Status: Acute (4) COPD exacerbation: Status: Acute Plan d9 for 84yo M with recently diagnosed COPD, prothrombin [id number] mutation heterozygosity with hx PE currently on rivaroxaban, history of heavy tobacco use, and heavy EtOH intake presenting with weakness resulting in fall, dysphagia, and dyspnea found to have hypercalcemia, lytic spine lesions concerning for bony metastases, a saddle PE, and an esophageal mass with lymphadenopathy acute hypoxic respiratory failure due to aspiration and COPD exacerbation - weaned off of oxygen, started ampicillin-sulbactam 08/06-, strict NPO per DENTAL HYGIENE ADMINISTRATIVE ASSISTANT + GI - started methylprednisolone 08/06-, continue nebs esophageal irregularity with lymphadenopathy dysphagia gastroparesis - GI consulted. Barium swallow 08/03 showed long segment of mural thickening in upper/mid esophagus highly suspicious for primary esophageal lesion; endoscopy recommended but deferred due to saddle PE + takotsubo cardiomyopathy - pt will need esophageal stenting in order to take PO; per GI recommend transfer to tertiary care center for esophageal stenting as well as cardiac anesthesia - CXR showed moderate to large size retrocardiac hiatus hernia which contains radiopaque material, presumably oral contrast, likely retained from 08/03/2024 barium swallow examination, so gastroparesis is confirmed; on metoclopramide hyperCa of malignancy - s/p IV pamidronate 07/31; s/p IV normal saline, Ca normalized; PTH-RP pending acute metabolic encephalopathy - resolved; confusion was likely due to hypercalcemia saddle PE prothrombin [id number] mutation heterozygosity with prior hx of PE, on rivaroxaban takotsubo cardiomyopathy/acute HFrEF - new/acute PE, as there was no PE on CTA on last admission 06/16/24. Likely due to malignancy. Was on heparin drip. Initially not hypoxic. Duplex of legs negative for DVT. Cardiology consulted and recommended repeat echocardiogram in 2 weeks and follow-up in Cardiology; due to soft blood pressure, patient can not tolerate beta-blockers or TENA inhibitors to help treat cardiomyopathy at this point - transitioned to SQ enoxaparin 08/04 and should remain on for life given that he had a PE despite taking rivaroxaban; would need to go back on heparin drip around EGD - TTE 08/01/24: - Normal left ventricular cavity size. There is normal left ventricular wall thickness. The left ventricular systolic function is moderately decreased. The visually estimated ejection fraction is between 30-35%. - The entire apex, the mid anterior, mid inferior, mid anterolateral, mid inferoseptal, mid anteroseptal, and mid inferolateral segments are akinetic. - Normal right ventricular cavity size. There is low normal right ventricular systolic function. Apical RV akinetic. - Biventricular Takotsubo Cardiomyopathy. 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; SPEP + BEATRIZ without monoclonal protein - considered CT-guided biopsy of spinal lesion but per IR would need general anesthesia [plus holding anticoagulation] and at this point requires esophageal stenting anyway so would pursue biopsy of primary lesion fall with unknown LOC - no evidence of CVA or brain mass on contrasted CT of head; cannot do MRI given noncompatible stimulator hypoK - repleted hypoPO4 - replete with TPA anemia of chronic inflammation - Hb stable moderate protein-calorie malnutrition - on PPN; ordered PICC for TPN goals of care - spoke to pt and his son Hay about poor prognosis. Affirmed DNR/DNI status but they would like to pursue esophageal stenting with the goal of the pt being able to eat. Biopsy for prognostic purposes and to consider palliative chemotherapy eventually. But they recognize his lifespan is quite limited and are realistic about what can be done for him. dispo - Discussed with [facility] GI fellow Emily Patel. She is reviewing the imaging with her attending Dr Monica Lozano. They will accept the patient but not until Saturday08/10/24. We will call Geri at [facility] [place] [facility], [phone], on Saturday08/09/24 with a clinical update and for [id number] signout In my clinical judgment, the patient requires continued inpatient hospitalization for the following reasons: workup of esophageal mass, esophageal stenting Total time managing care of this patient today: 50 minutes. Quality Stroke Does the patient have a stroke diagnosis?: No VTE Prior VTE?: No VTE Risk Level:: Medical - moderate - high VTE Device Contraindication: N/A - Device Ordered VTE Drug Contraindication: N/A - Med Ordered
--- NOTE | 2024-08-08 10:28 | PM.DS ---
DS: Providers Provider Date of Service: 08/08/24 <Liz Warner MD - Last Filed: 08/18/24 15:03> Date of admission: 07/31/24 17:33 <Liz Warner MD - Last Filed: 08/18/24 15:03> Date of discharge: 08/08/24 <Lzi Warner MD - Last Filed: 08/18/24 15:03> Primary care physician: Hay Kessler MD <Liz Warner MD - Last Filed: 08/18/24 15:03> Consults: 07/31/24 17:00 Consult to Gastroenterology Routine Consulting Provider: Maria C Last Reason for consultation: esophageal mass 07/31/24 17:07 Consult to Hematology / Oncology Routine Consulting Provider: [facility] Reason for consultation: esophageal mass, suspected bony mets vs MM, saddle PE 08/01/24 00:44 Addiction Medicine Routine Consulting Provider: Addiction Covering Reason for consultation: high risk score 08/01/24 07:42 Consult to Cardiology Routine Consulting Provider: [facility] Reason for consultation: saddle embolism, ?Strain. trop leak 08/06/24 10:29 Consult to Anesthesiology Routine Consulting Provider: [facility] Reason for consultation: risks of EGD/feeding tube <Liz Warner MD - Last Filed: 08/18/24 15:03> DS: Diagnosis Discharge Diagnosis (1) Paraesophageal hernia with gastric volvulus: Status: Acute <Liz Warner MD - Last Filed: 08/18/24 15:03> (2) Esophageal mass: Status: Acute <Liz Warner MD - Last Filed: 08/18/24 15:03> (3) Hypercalcemia: Status: Acute <Liz Warner MD - Last Filed: 08/18/24 15:03> (4) COPD exacerbation: Status: Acute <Liz Warner MD - Last Filed: 08/18/24 15:03> (5) Cardiomyopathy: Status: Acute <Liz Warner MD - Last Filed: 08/18/24 15:03> (6) Pulmonary embolism: Status: Acute <Liz Warner MD - Last Filed: 08/18/24 15:03> (7) Anemia, chronic disease: Status: Acute <Liz Warner MD - Last Filed: 08/18/24 15:03> (8) Moderate malnutrition: Status: Acute <Liz Warner MD - Last Filed: 08/18/24 15:03> DS: Summary Hospital Course Hospital Course: from my admission H+P, 07/31/24: 84yo M with recently diagnosed COPD, 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 He endorses shortness of breath but states it actually has gotten better. He tripped and fell twice yesterday but does not remember whether he lost consciousness or hit his head. Here in the ED, labs were notable for BUN of 24, calcium of 14.3, and troponin of 66.2. CT of the head showed multiple old lacunar infarcts and could not rule out acute embolic stroke. CT of the C-spine showed multifocal different sized lytic lesions concerning for bony metastases or multiple myeloma. CTA of the head and neck showed a saddle pulmonary embolism as well as eccentric thickening of the upper esophagus, suspicious for mass, with abutting lymph nodes. He was given IV fluids and started on a heparin drip. 84yo M with recently diagnosed COPD, prothrombin [id number] mutation heterozygosity with hx PE currently on rivaroxaban, history of heavy tobacco use, and heavy EtOH intake presenting with weakness resulting in fall, dysphagia, and dyspnea. He was unfortunately found to have hypercalcemia, lytic spine lesions concerning for bony metastases, a saddle PE, and an esophageal mass with lymphadenopathy. Hospital course by problem: acute hypoxic respiratory failure due to aspiration and COPD exacerbation - weaned off of oxygen, started ampicillin-sulbactam 08/06-, strict NPO per [facility] + GI, continue IV methylprednisolone started 08/06-, gradually wean as per clinical status, continue nebs scheduled and as needed. esophageal irregularity with lymphadenopathy, dysphagia and gastroparesis - GI consulted. Barium swallow 08/03 showed long segment of mural thickening in upper/mid esophagus highly suspicious for primary esophageal lesion; endoscopy recommended but deferred due to saddle PE + takotsubo cardiomyopathy - pt will need esophageal stenting in order to take PO; per GI recommend transfer to tertiary care center for esophageal stenting as well as cardiac anesthesia - CXR showed moderate to large size retrocardiac hiatus hernia which contains radiopaque material, presumably oral contrast, likely retained from 08/03/2024 barium swallow examination, so gastroparesis is confirmed; on metoclopramide hyperCa of malignancy - s/p IV pamidronate 07/31; s/p IV normal saline, Ca normalized; PTH-RP pending acute metabolic encephalopathy - resolved; confusion was likely due to hypercalcemia saddle PE prothrombin [id number] mutation heterozygosity with prior hx of PE, was on rivaroxaban Diagnosed with takotsubo cardiomyopathy/acute HFrEF - new/acute PE, as there was no PE on CTA on last admission 06/16/24. Likely due to malignancy. Was on heparin drip. Initially not hypoxic. Duplex of legs negative for DVT. Cardiology consulted and recommended repeat echocardiogram in 2 weeks and follow-up in Cardiology; due to soft blood pressure, patient can not tolerate beta-blockers or TENA inhibitors to help treat cardiomyopathy at this point - transitioned to SQ enoxaparin 08/04 and should remain on for life given that he had a PE despite taking rivaroxaban; would need to go back on heparin drip around EGD - TTE 08/01/24: - Normal left ventricular cavity size. There is normal left ventricular wall thickness. The left ventricular systolic function is moderately decreased, EF 30-35% - The entire apex, the mid anterior, mid inferior, mid anterolateral, mid inferioseptal , mild anteroseptal and mid inferolateral segments are akinetic - Normal right ventricular cavity size. There is low normal right ventricular systolic function, apical RV akinetic - Biventricular Takotsubo Cardiomyopathy. 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 goals of care - spoke to pt and his son Hay about poor prognosis. Affirmed DNR/DNI status but they would like to pursue esophageal stenting with the goal of the pt. being able to eat. Biopsy for prognostic purposes and to consider palliative chemotherapy eventually. But they recognize his lifespan is quite limited and are realistic about what can be done for him. <Liz Warner MD - Last Filed: 08/18/24 15:03> Time Attestation Discharge Coordination Time (in mins): 40 <Keyon Ovalle MD - Last Filed: 08/13/24 07:16> Quality: Safe Use of Opioids Does Pt have an Active Cancer Diagnosis on the Problem List?: No <Keyon Ovalle MD - Last Filed: 08/13/24 07:16> Quality: Stroke Does the patient have a stroke diagnosis?: No <Keyon Ovalle MD - Last Filed: 08/13/24 07:16> Physical Exam Vital Signs: Vital Signs: Last Vital Signs Temp 98.2 F 08/08/24 07:00 Pulse 63 08/08/24 07:00 Resp 17 08/08/24 07:00 BP 111/59 L 08/08/24 07:00 Pulse Ox 97 08/08/24 07:00 O2 Del Method Room Air 08/08/24 07:00 O2 Flow Rate 9 08/07/24 08:00 BMI result Body Mass Index 19.1 Gen: no acute distress, muscle wasting HEENT: sclera anicteric, moist mucus membranes Neck: supple Lungs: diminished bilateral bases Heart: regular rate/rhythm, no murmurs Abd: soft, non-tender, non-distended Ext: no edema Skin: warm/well-perfused Neuro: alert and oriented x3, no focal findings Psych: appropriate affect <Liz Warner MD - Last Filed: 08/18/24 15:03> Const: Other: Gen: NAD, muscle wasting HEENT: sclera anicteric, moist mucus membranes Neck: supple Lungs: diminished bilateral bases Heart: regular rate/rhythm, no murmurs Abd: soft, non-tender, non-distended Ext: no edema Skin: warm/well-perfused Neuro: alert and oriented x3, no focal findings Psych: appropriate affect <Keyon Ovalle MD - Last Filed: 08/13/24 07:16> DS: Data Data Completed and Pending Labs on day of discharge: Laboratory Results - last 24 hr 08/08/24 08:18 WBC 8.3 RBC 3.27 L Hgb 10.0 L Hct 30.3 L MCV 92.7 MCH 30.6 MCHC 33.0 RDW 14.4 Plt Count 159 L MPV 11.4 Absolute Nucleated RBC 0.000 Nucleated RBC % (auto) 0.0 Sodium 138 Potassium 4.3 Chloride 108 Carbon Dioxide 23 Anion Gap 11 L BUN 22 H Creatinine 0.59 Estim Creat Clear Calc 70.6 Estimated GFR > 60 Random Glucose 164 H Calcium 9.3 D Phosphorus 2.0 L Magnesium 2.2 Albumin 2.9 L <Liz Warner MD - Last Filed: 08/18/24 15:03> Discharge Plan Discharge Anticipated Discharge Date/Time: 08/10/24 10:41 <Liz Warner MD - Last Filed: 08/18/24 15:03> Patient Disposition: [facility] <Liz Warner MD - Last Filed: 08/18/24 15:03> Discharge Diagnosis: 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 saddle PE takotsubo cardiomyopathy hypercalcemia of malignancy malnutrition <Liz Warner MD - Last Filed: 08/18/24 15:03> 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 enoxaparin 60 mg/0.6 mL Syringe 50 mg subcut Q12H Qty: 6 0RF ipratropium-albuterol 0.5 mg-3 mg(2.5 mg base)/3 mL Solution For Nebulization 3 ml inhalation RQ4H WHILE AWAKE PRN (Reason: shortness of breath or wheeze) Qty: 90 0RF albuterol sulfate 2.5 mg /3 mL (0.083 %) Solution For Nebulization 2.5 mg inhalation Q2H PRN (Reason: Shortness Of Breath/Wheezing) Qty: 90 0RF ampicillin-sulbactam 3 gram Recon Soln 3 g IV Q6H Qty: 10 0RF Continued (DME) inhalational spacing device Spacer See Rx Instructions .Route Qty: 1 0RF Rx Instructions: use with albuterol rescue inhaler Discontinued simvastatin 20 mg Tablet 20 mg PO BEDTIME Xarelto 20 mg Tablet 20 mg PO DAILY albuterol sulfate 90 mcg/actuation HFA aerosol inhaler 2 puff inhalation Q4-6H PRN (Reason: shortness of breath or wheezing) Qty: 8.5 0RF Rx Instructions: use with spacer device <Liz Warner MD - Last Filed: 08/18/24 15:03> Discharge Orders: Discharge Order (Routine); Ordered 08/09/24 Ordered By: Keyon Ovalle <Liz Warner MD - Last Filed: 08/18/24 15:03> Diet: NPO <Liz Warner MD - Last Filed: 08/18/24 15:03> NPO <Keyon Ovalle MD - Last Filed: 08/13/24 07:16> Activity on Discharge: As tolerated <Liz Warner MD - Last Filed: 08/18/24 15:03> As tolerated <Keyon Ovalle MD - Last Filed: 08/13/24 07:16> Stand Alone Forms: Patient Portal Discharge page <Liz Warner MD - Last Filed: 08/18/24 15:03> Print Language: Telugu <Liz Warner MD - Last Filed: 08/18/24 15:03> Care Plan Goals: diagnosis of likely cancer nutrition on ppn Accepting physician Dr. 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 <Liz Warner MD - Last Filed: 08/18/24 15:03> Discharge Date/Time: 08/09/24 10:07 <Liz Warner MD - Last Filed: 08/18/24 15:03>
[2024-08-08 11:17] VITALS: BP 111/61; PULSE 59; RESP 18; TEMP 36.8; O2SAT 97
[2024-08-08] MEDS: Morphine Sulfate 2 MG/ML CARTRIDGE IVPUSH (13:04)
[2024-08-08 15:24] VITALS: BP 115/59; PULSE 50; RESP 17; TEMP 36.7; O2SAT 96
[2024-08-08] MEDS: 0.9 % Sodium Chloride Flush 3 ML SYRINGE IVFLUSH ×2 (17:07→23:05)
[2024-08-08 19:17] VITALS: BP 125/64; PULSE 55; RESP 16; TEMP 36.4; O2SAT 95
[2024-08-08] MEDS: LORazepam 2 MG/ML VIAL 1 MG IVPUSH (22:23)
[2024-08-08] MEDS: Parenteral Nutrition 1,920 ML 80 ML IV (23:05)
[2024-08-08 23:13] VITALS: BP 116/63; PULSE 55; RESP 16; TEMP 36.6; O2SAT 88
[2024-08-09] MEDS: Enoxaparin Sodium 60 MG/0.6 ML SYRINGE 50 MG SUBCUT (00:12)
[2024-08-09] MEDS: methylPREDNISolone Sod Succ 40 MG/ML VIAL IVPUSH (00:13)
[2024-08-09 04:00] VITALS: BP 115/58; PULSE 57; RESP 16; TEMP 36.4; O2SAT 90
[2024-08-09] MEDS: Ampicillin Sodium/Sulbactam Na 3 GM in 0.9 % Sodium Chloride 100 ML IV (05:47)
[2024-08-09 07:13] VITALS: BP 106/58; PULSE 57; RESP 17; TEMP 36.2; O2SAT 95
[2024-08-09 07:22] LABS: Hematocrit 28.6 % (42.0-52.0); Hemoglobin 9.5 g/dl (14.0-18.0); Mean Corpuscular HGB Conc 33.2 g/dl (31.0-36.0); Mean Corpuscular Volume 93.5 fL (80.0-98.0); Mean Platelet Volume 11.4 fL (9.4-12.4); Platelet Count 175 X10*3/uL (160-400); Red Blood Count 3.06 X10*6/uL (4.60-5.80); Red Cell Distribution Width 14.4 % (11.0-16.0); White Blood Count 7.8 X10*3/uL (4.8-10.8)
[2024-08-09 07:35] LABS: Albumin Level 2.6 g/dL (3.5-5.0); Anion Gap 10 (12-20); Blood Urea Nitrogen 21 mg/dL (9-16); Calcium 9.3 mg/dL (8.4-10.2); Carbon Dioxide 23 mmol/L (22-29); Chloride 108 mmol/L (96-108); Creatinine Clr Calc Pharmacy 83.3; Estimated Glomerular Filt Rate > 60; Glucose Random 168 mg/dL (60-115); Magnesium 2.3 mg/dL (1.6-2.6); Phosphorus 2.3 mg/dL (2.7-4.5); Potassium 4.8 mmol/L (3.3-5.1); Sodium 136 mmol/L (135-145)
[2024-08-09 09:04] VITALS: O2SAT 93
--- NOTE | 2024-08-09 10:37 | MHC.CM.PN ---
PT TO BE TRANSFERRED TO [facility] [place] FOR ESOPHAGEAL STENT
[2024-08-12 14:58] LABS: Parathyroid Hormone Related Pr 32 pg/mL (11-20)
== END 2024-08-09 10:07 | disposition short-term general hospital (02) | DRG 175 ==
LOC: HO.ED 17:12 → HO.EDOVER 17:51 → HO.IMC 17:56
PROVIDERS: Internal Medicine; Physician Assistant Medical; Student in an Organized Health Care Education/Training Program; Admitting Provider Family Medicine; Emergency Provider Emergency Medicine Emergency Medical Services; PCP Internal Medicine; Visit Provider Hospitalist
DX: I26.92 Saddle embolus of pulmonary artery without acute cor pulmonale (principal); G93.41 Metabolic encephalopathy; J96.01 Acute respiratory failure with hypoxia; I50.21 Acute systolic (congestive) heart failure; E44.0 Moderate protein-calorie malnutrition; D68.52 Prothrombin gene mutation; Z68.1 Body mass index [BMI] 19.9 or less, adult; C90.00 Multiple myeloma not having achieved remission; C15.3 Malignant neoplasm of upper third of esophagus; C79.51 Secondary malignant neoplasm of bone; K22.10 Ulcer of esophagus without bleeding; I51.81 Takotsubo syndrome; J44.1 Chronic obstructive pulmonary disease with (acute) exacerbation; D63.0 Anemia in neoplastic disease; E87.6 Hypokalemia; K44.9 Diaphragmatic hernia without obstruction or gangrene; E83.39 Other disorders of phosphorus metabolism; Z66 Do not resuscitate; E83.52 Hypercalcemia; F10.90 Alcohol use, unspecified, uncomplicated; I26.99 Other pulmonary embolism without acute cor pulmonale; Z20.822 Contact with and (suspected) exposure to COVID-19; Z79.01 Long term (current) use of anticoagulants; Z79.899 Other long term (current) drug therapy
CPT/HCPCS: 0241U; 36415; 70450; 70496; 70498; 71045; 72125; 72132; 74220; 80048; 80053; 81001; 82040; 82232; 82306; 82607; 82728; 82746; 82784; 82803; 83519; 83540; 83615; 83735; 83880; 83883; 83970; 84100; 84165; 84478; 84484; 84550; 85025; 85027; 85045; 85520; 85610; 85730; 86334; 92526; 92610; 93005; 93306; 93970; 94640; 97162; 99213; 99285; J0295; J1644; J1650; J1940; J2060; J2270; J2430; J2560; J2765; J2919; J7120; P9047; Q9957; Q9967; S9485

== ENCOUNTER → 2024-07-31 11:37 | Outpatient (BNV) | payer MEDICARE, OTHER, SELFPAY | PROVIDERS: Emergency Provider Emergency Medicine Emergency Medical Services; PCP Internal Medicine; Visit Provider Radiology Diagnostic Radiology | DX: R51.9 Headache, unspecified (principal); W01.198A Fall on same level from slipping, tripping and stumbling with subsequent striking against other object, initial encounter; G31.9 Degenerative disease of nervous system, unspecified; M48.02 Spinal stenosis, cervical region; R05.9 Cough, unspecified; R53.1 Weakness | CPT/HCPCS: 70450; 70496; 70498; 71045; 72125 ==

== ENCOUNTER → 2024-07-31 11:38 | Outpatient (BNV) | payer MEDICARE, OTHER, SELFPAY | PROVIDERS: Emergency Provider Emergency Medicine Emergency Medical Services; PCP Internal Medicine; Visit Provider Internal Medicine Cardiovascular Disease | DX: I44.0 Atrioventricular block, first degree (principal); I44.7 Left bundle-branch block, unspecified | CPT/HCPCS: 93010 ==

== ENCOUNTER 2024-07-31 17:33 | Outpatient (BNV) | payer MEDICARE, OTHER, SELFPAY | END 2024-08-01 07:00 | PROVIDERS: Admitting Provider Family Medicine; Emergency Provider Emergency Medicine Emergency Medical Services; PCP Internal Medicine; Visit Provider Internal Medicine Cardiovascular Disease | DX: I44.7 Left bundle-branch block, unspecified (principal) | CPT/HCPCS: 93010 ==

== ENCOUNTER 2024-07-31 17:33 | Outpatient (BNV) | payer MEDICARE, OTHER, SELFPAY | END 2024-08-02 12:25 | PROVIDERS: Admitting Provider Family Medicine; Emergency Provider Emergency Medicine Emergency Medical Services; PCP Internal Medicine; Visit Provider Radiology Diagnostic Radiology | DX: I26.99 Other pulmonary embolism without acute cor pulmonale (principal) | CPT/HCPCS: 93970 ==

== ENCOUNTER 2024-07-31 17:33 | Outpatient (BNV) | payer MEDICARE, OTHER, SELFPAY | END 2024-08-06 12:20 | PROVIDERS: Admitting Provider Family Medicine; Emergency Provider Emergency Medicine Emergency Medical Services; PCP Internal Medicine; Visit Provider Radiology Diagnostic Radiology | DX: J90 Pleural effusion, not elsewhere classified (principal); K44.9 Diaphragmatic hernia without obstruction or gangrene | CPT/HCPCS: 71045 ==

== ENCOUNTER 2024-07-31 17:33 | Outpatient (BNV) | payer MEDICARE, OTHER, SELFPAY | END 2024-08-05 10:50 | PROVIDERS: Admitting Provider Family Medicine; Emergency Provider Emergency Medicine Emergency Medical Services; PCP Internal Medicine; Visit Provider Radiology Diagnostic Radiology | DX: R06.02 Shortness of breath (principal); K44.9 Diaphragmatic hernia without obstruction or gangrene | CPT/HCPCS: 71045 ==

== ENCOUNTER 2024-07-31 17:33 | Outpatient (BNV) | payer MEDICARE, OTHER, SELFPAY | END 2024-08-03 | PROVIDERS: Admitting Provider Family Medicine; Emergency Provider Emergency Medicine Emergency Medical Services; PCP Internal Medicine; Visit Provider Specialist | DX: M54.50 Low back pain, unspecified (principal); R13.10 Dysphagia, unspecified; K20.90 Esophagitis, unspecified without bleeding | CPT/HCPCS: 74221 ==

== ENCOUNTER 2024-07-31 17:33 | Outpatient (BNV) | payer MEDICARE, OTHER, SELFPAY | END 2024-08-08 14:46 | PROVIDERS: Admitting Provider Family Medicine; Emergency Provider Emergency Medicine Emergency Medical Services; PCP Internal Medicine; Visit Provider Internal Medicine Cardiovascular Disease | DX: R00.1 Bradycardia, unspecified (principal); R94.31 Abnormal electrocardiogram [ECG] [EKG] | CPT/HCPCS: 93010 ==

== ENCOUNTER → 2024-07-31 17:33 | Outpatient (BNV) | payer MEDICARE, OTHER, SELFPAY | PROVIDERS: Admitting Provider Family Medicine; Emergency Provider Emergency Medicine Emergency Medical Services; PCP Internal Medicine; Visit Provider Internal Medicine | DX: K22.89 Other specified disease of esophagus (principal); R41.82 Altered mental status, unspecified; I26.99 Other pulmonary embolism without acute cor pulmonale; K44.9 Diaphragmatic hernia without obstruction or gangrene; K31.89 Other diseases of stomach and duodenum; E83.52 Hypercalcemia | CPT/HCPCS: 99223 ==

== ENCOUNTER → 2024-07-31 17:33 | Outpatient (BNV) | payer MEDICARE, OTHER, SELFPAY | PROVIDERS: Admitting Provider Family Medicine; Emergency Provider Emergency Medicine Emergency Medical Services; PCP Internal Medicine; Visit Provider Family Medicine | DX: I26.99 Other pulmonary embolism without acute cor pulmonale (principal) | CPT/HCPCS: 99223; 99232 ==

== ENCOUNTER → 2024-07-31 17:33 | Outpatient (BNV) | payer MEDICARE, OTHER, SELFPAY | PROVIDERS: Admitting Provider Family Medicine; Emergency Provider Emergency Medicine Emergency Medical Services; PCP Internal Medicine; Visit Provider Internal Medicine Cardiovascular Disease | DX: K22.89 Other specified disease of esophagus (principal); E83.52 Hypercalcemia; I26.99 Other pulmonary embolism without acute cor pulmonale | CPT/HCPCS: 99223 ==